=== PATIENT | female | born 1945 | race Caucasian/White ===

== ENCOUNTER 2016-11-11 08:00 | Day surgery (SDC) | payer MEDICARE, BC ==
[2016-11-06 12:03] VITALS: BMI 28.5
[2016-11-11] MEDS ORDERED: LIDOCAINE 1% 20 ML VIAL (10MG/ML) FOR IV START INTRADERMA PRN (08:15)
[2016-11-11] MEDS ORDERED: LACTATED RINGERS 1,000 ML IV SCH (08:15)
[2016-11-11 08:32] LABS: Glucose,Whole Blood 102 mg/dL (75-99)
[2016-11-11 08:33] VITALS: RESP 16; TEMP 98.1
[2016-11-11] MEDS ORDERED: PROPOFOL 10 MG/ML 20 ML VIAL IV ONE (08:37)
--- NOTE | 2016-11-11 08:59 | P.PCN ---
Date of Procedure: 11/11/16 Procedure(s) Performed: Brief history: Patient is a pleasant 71-year-old white female, scheduled for an elective upper endoscopy as well as colonoscopy as a part of evaluation of GERD, midsternal chest pain, chronic diarrhea and abdominal pain for the last 6 months duration. Procedure performed: Esophagogastroduodenoscopy with biopsy Colonoscopy with biopsy Preoperative diagnosis: GERD, chest pain Change in bowel habits and chronic diarrhea Anesthesia: MAC Procedure: After informed consent was obtained from the patient was brought into the endoscopy unit and IV conscious sedation was administered by anesthesia under continuous monitoring. Initially upper endoscopy was done. The Olympus GF 160 video endoscope was inserted inserted into the mouth and esophagus intubated without any difficulty and was gradually advanced into the stomach and duodenum and carefully examined. The bulb and second part of the duodenum appeared normal. Biopsies were done from this area to rule out celiac disease. The scope was then withdrawn into the stomach adequately insufflated with air and upon careful examination the antrum had mild gastritis and biopsies were done from this area. The body, cardia and fundus appeared normal. The scope was then withdrawn into the esophagus. small hiatal hernia noted. The GE junction was located at 35 cm to the incisors. It appeared regular with no erythema erosions or ulcerations. Rest of the esophagus appeared normal. Patient tolerated the procedure well. At this time the patient continued to remain sedation. Initial digital rectal examination was normal. Olympus CF 160 video colonoscope was then inserted into the rectum and gradually advanced to the cecum without any difficulty. Careful examination was performed as the scope was gradually being withdrawn. The prep was excellent. The cecum, ascending colon, transverse colon, descending colon, sigmoid colon and rectum appeared normal. and biopsies were done from ascending and descending colon to rule out microscopic/collagenous colitis. Scattered sigmoid diverticulosis seen. Retroflexion was performed in the rectum and no lesions were noted. Patient tolerated the procedure well. Impression: 1. Upper endoscopy revealed mild antral gastritis and small hiatal hernia. 2. Colonoscopy revealed scattered sigmoid diverticulosis, but, no evidence of colitis or colorectal neoplasia. Recommendations: Findings of this examination were discussed with the patient as well as her family. as well as her family. She was advised to follow with the biopsy results. She was advised to increase the Prilosec to 20 mg twice daily and take half hour before breakfast and dinner and follow antireflux measures. She was advised to follow up in office in 6 weeks.
[2016-11-11 09:25] LABS: Glucose,Whole Blood 96 mg/dL (75-99)
[2016-11-11 09:27] VITALS: BP 121/73; PULSE 58
== END 2016-11-11 09:45 | disposition home or self-care (01) ==
LOC: ORWHC2ENDO 08:00
PROVIDERS: ATTEND Internal Medicine Gastroenterology
DX: K29.50 Unspecified chronic gastritis without bleeding (principal); K21.0 Gastro-esophageal reflux disease with esophagitis; K44.9 Diaphragmatic hernia without obstruction or gangrene; K57.30 Diverticulosis of large intestine without perforation or abscess without bleeding; I10 Essential (primary) hypertension; E07.9 Disorder of thyroid, unspecified; Z86.73 Personal history of transient ischemic attack (TIA), and cerebral infarction without residual deficits; Z79.899 Other long term (current) drug therapy; Z88.5 Allergy status to narcotic agent; Z88.8 Allergy status to other drugs, medicaments and biological substances; Z91.09 Other allergy status, other than to drugs and biological substances
CPT/HCPCS: 88305; 88342; 45380; 43239; J2704; 99153

== ENCOUNTER 2016-12-22 18:55 | Emergency (ER) | payer OTHER, MEDICARE, BC ==
[2016-12-22 19:35] VITALS: TEMP 98.3
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
[2016-12-22] MEDS ORDERED: MORPHINE SULFATE 4 MG/ML SYRINGE IM STA (20:45)
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
[2016-12-22] MEDS ORDERED: CYCLOBENZAPRINE 10MG STARTER 3 TAB BTL PO STA (21:40)
[2016-12-22 22:04] VITALS: BP 167/82; PULSE 73; RESP 16
== END 2016-12-22 22:02 | disposition home or self-care (01) ==
LOC: EC 18:55
DX: S16.1XXA Strain of muscle, fascia and tendon at neck level, initial encounter (principal); V49.49XA Driver injured in collision with other motor vehicles in traffic accident, initial encounter; R07.9 Chest pain, unspecified; R51 Headache; E07.9 Disorder of thyroid, unspecified; M79.7 Fibromyalgia; K21.9 Gastro-esophageal reflux disease without esophagitis; I10 Essential (primary) hypertension; F32.9 Major depressive disorder, single episode, unspecified; Z91.048 Other nonmedicinal substance allergy status; Z79.899 Other long term (current) drug therapy; Z88.6 Allergy status to analgesic agent; Z88.5 Allergy status to narcotic agent; Z88.8 Allergy status to other drugs, medicaments and biological substances
CPT/HCPCS: 71010; 73030; 72125; 70450; 99284; 96372; J2270

== ENCOUNTER → 2017-02-24 | Outpatient (CLI) | payer MEDICARE, BC ==
--- NOTE | 2017-02-24 11:02 | ECHOF ---
Referral Reason:R53.83 fatigue R53.1 weakness MEASUREMENTS -------- HEIGHT: 162.6 cm WEIGHT: 77.1 kg BP: IVSd: 1.2 cm (0.6 - 1.1) LVIDd: 3.6 cm (3.9 - 5.3) LVPWd: 1.3 cm (0.6 - 1.1) IVSs: 1.8 cm LVIDs: 1.4 cm LVPWs: 1.9 cm Ao Diam: 3.1 cm (2.0 - 3.7) AV Cusp: 1.8 cm (1.5 - 2.6) LA Diam: 2.5 cm (2.7 - 3.8) MV EXCURSION: 13.189 mm (> 18.000) MV EF SLOPE: 24 mm/s (70 - 150) EPSS: 0.5 cm MV E Eric: 0.79 m/s MV DecT: 331 ms MV A Eric: 0.77 m/s MV E/A Ratio: 1.03 RAP: 5.00 mmHg RVSP: 18.98 mmHg FINDINGS -------- Sinus rhythm. Very TDS. Pt had resent implant removal surgery. Limited views do to bandages and open wound. There is mild concentric left ventricular hypertrophy. Overall left ventricular systolic function is normal with, an EF between 55 - 60 %. The right ventricle is normal in size and function. The left atrium is normal in size. The right atrium is normal in size. Aortic valve is trileaflet and is mildly thickened. The mitral valve leaflets are mildly thickened. Mild mitral regurgitation is present. Mild tricuspid regurgitation present. The right ventricular systolic pressure, as measured by Doppler, is 18.98mmHg. Pulmonic valve appears structurally normal. The aortic root size is normal. The pericardium is normal. CONCLUSIONS -------- 1. Sinus rhythm. 2. Mild mitral regurgitation is present. 3. Mild tricuspid regurgitation present. 4. The right ventricular systolic pressure, as measured by Doppler, is 18.98mmHg. 5. Pulmonic valve appears structurally normal. 6. The aortic root size is normal. 7. The pericardium is normal. 8. Very TDS. Pt had resent implant removal surgery. Limited views do to bandages and open wound. 9. There is mild concentric left ventricular hypertrophy. 10. Overall left ventricular systolic function is normal with, an EF between 55 - 60 %. 11. The right ventricle is normal in size and function. 12. The left atrium is normal in size. 13. The right atrium is normal in size. 14. Aortic valve is trileaflet and is mildly thickened. 15. The mitral valve leaflets are mildly thickened. DELPHI DEVELOPER: Sania Salinas RDCS
== END | disposition home or self-care (01) ==
LOC: RADECHMAIN 08:25
PROVIDERS: ATTEND Family Medicine
DX: I08.3 Combined rheumatic disorders of mitral, aortic and tricuspid valves (principal)
CPT/HCPCS: 93306

== ENCOUNTER 2017-04-07 16:38 | Inpatient (IN) | payer MEDICARE, BC ==
[2017-04-07] MEDS ORDERED: IPRATROPIUM-ALBUTEROL 3 ML NEB INHALATION STA (17:10)
[2017-04-07] MEDS ORDERED: ACETAMINOPHEN TAB 325 MG TAB PO STA (17:29)
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
[2017-04-07] MEDS: SODIUM CHLORIDE 0.9% 500 ML IV SCH ×2 (17:40→20:16)
[2017-04-07 17:48] LABS: Basophils # (A) 0.1 k/uL (0-0.2); Basophils % (A) 1 %; CH 26.4; CHCM 31.3; Eosinophils # (A) 0.2 k/uL (0-0.7); Eosinophils % (A) 3 %; HCT 39.3 % (34.0-46.0); HDW 2.57; HGB 12.4 gm/dL (11.4-16.0); Hypochromasia Slight; Luc # (Auto) 0.23; Luc % (Auto) 3; Lymphocytes # (A) 2.1 k/uL (1.0-4.8); Lymphocytes % (A) 29 %; MCH 26.6 pg (25.0-35.0); MCHC 31.5 g/dL (31.0-37.0); MCV 84.4 fL (80.0-100.0); Mean Platelet Volume 6.9; Monocytes # (A) 0.4 k/uL (0-1.0); Monocytes % (A) 6 %; Neutrophils # (A) 4.3 k/uL (1.3-7.7); Neutrophils % (A) 59 %; RBC 4.66 m/uL (3.80-5.40); RDW 13.4 % (11.5-15.5); WBC 7.3 k/uL (3.8-10.6); WBC (Perox) 7.48
[2017-04-07 17:56] LABS: Partial Thromboplastin Time 23.4 sec (22.0-30.0); Prothrombin Time 10.1 sec (9.0-12.0)
[2017-04-07 18:07] LABS: ALT 35 U/L (9-52); AST 25 U/L (14-36); Alkaline Phosphatase 109 U/L (38-126); Anion Gap 9 mmol/L; Blood Urea Nitrogen 21 mg/dL (7-17); Calcium 8.1 mg/dL (8.4-10.2); Carbon Dioxide 30 mmol/L (22-30); Chloride 102 mmol/L (98-107); Glucose 141 mg/dL (74-99); Non-African American GFR(MDRD) >60 (>60 ml/min/1.73 sqM); Potassium 3.8 mmol/L (3.5-5.1); Sodium 141 mmol/L (137-145); Total Bilirubin 0.4 mg/dL (0.2-1.3); Total Protein 6.4 g/dL (6.3-8.2)
--- NOTE | 2017-04-07 18:16 | XR ---
EXAMINATION TYPE: XR chest 2V DATE OF EXAM: 04/07/2017 COMPARISON: December 22, 2016 HISTORY: Shortness of breath TECHNIQUE: Frontal and lateral views of the chest are obtained. FINDINGS: Scattered senescent parenchymal changes noted. Hyperinflation compatible with COPD. No evidence for infiltrate. No evidence for atelectasis. Heart size is stable. Mediastinal structures are stable and grossly unremarkable. No evidence for hilar prominence. Degenerative changes dorsal spine. IMPRESSION: 1. No evidence for acute pulmonary disease.
[2017-04-07 18:30] LABS: Troponin I 0.012 ng/mL (0.000-0.034)
[2017-04-07] MEDS ORDERED: ONDANSETRON 4 MG/2 ML VIAL IVP PRN (19:20)
[2017-04-07] MEDS ORDERED: NALOXONE 0.4 MG/ML 1 ML VIAL IV PRN (19:20)
[2017-04-07] MEDS: LEVOFLOXACIN 500MG-D5W PMX 500 MG in DEXTROSE/WATER 1 100ML.BAG IVPB SCH (20:37)
[2017-04-07] MEDS: predniSONE 50 MG TAB PO SCH (20:37)
[2017-04-07 21:17] LABS: Glucose,Whole Blood 155 mg/dL (75-99)
[2017-04-07] MEDS: SODIUM CHLORIDE 0.9% 1,000 ML IV SCH (21:39)
[2017-04-07 21:57] LABS: Appearance,Urine Clear (Clear); Bilirubin,Urine Negative (Negative); Glucose,Urine (UA) Negative (Negative); Ketones,Urine Negative (Negative); Leukocyte Esterase,Urine Negative (Negative); Nitrite,Urine Negative (Negative); PH, Urine 5.5 (5.0-8.0); Protein,Urine Negative (Negative); Specific Gravity,Urine 1.012 (1.001-1.035); UA Billing (MACRO vs. MICRO) CHEM; Urobilinogen,Urine <2.0 mg/dL (<2.0)
[2017-04-08] MEDS: SODIUM CHLORIDE 0.9% 1,000 ML IV SCH ×2 (06:17→17:09)
[2017-04-08 07:49] LABS: Glucose,Whole Blood 137 mg/dL (75-99)
[2017-04-08] MEDS ORDERED: IPRATROPIUM-ALBUTEROL 3 ML NEB INHALATION PRN (09:06)
[2017-04-08] MEDS: predniSONE 50 MG TAB PO SCH (09:09)
[2017-04-08 09:23] LABS: Basophils % (A) 0 %; CH 26.1; CHCM 31.1; Eosinophils % (A) 0 %; HCT 37.6 % (34.0-46.0); HDW 2.69; HGB 12.1 gm/dL (11.4-16.0); Hypochromasia Slight; Luc # (Auto) 0.06; Luc % (Auto) 1; Lymphocytes # (A) 0.6 k/uL (1.0-4.8); Lymphocytes % (A) 8 %; MCHC 32.1 g/dL (31.0-37.0); MCV 84.1 fL (80.0-100.0); Mean Platelet Volume 7.2; Monocytes # (A) 0.1 k/uL (0-1.0); Monocytes % (A) 2 %; Neutrophils # (A) 6.2 k/uL (1.3-7.7); Neutrophils % (A) 89 %; RBC 4.47 m/uL (3.80-5.40); RDW 13.3 % (11.5-15.5); WBC 6.9 k/uL (3.8-10.6); WBC (Perox) 7.74
[2017-04-08 09:35] LABS: ALT 30 U/L (9-52); AST 22 U/L (14-36); Alkaline Phosphatase 92 U/L (38-126); Anion Gap 9 mmol/L; Blood Urea Nitrogen 16 mg/dL (7-17); Calcium 8.2 mg/dL (8.4-10.2); Carbon Dioxide 27 mmol/L (22-30); Chloride 105 mmol/L (98-107); Glucose 133 mg/dL (74-99); Non-African American GFR(MDRD) >60 (>60 ml/min/1.73 sqM); Potassium 4.3 mmol/L (3.5-5.1); Sodium 141 mmol/L (137-145); Total Bilirubin 0.4 mg/dL (0.2-1.3); Total Protein 6.3 g/dL (6.3-8.2)
[2017-04-08] MEDS: IPRATROPIUM-ALBUTEROL 3 ML NEB INHALATION SCH ×3 (10:01→19:49)
[2017-04-08 11:59] LABS: Glucose,Whole Blood 105 mg/dL (75-99)
[2017-04-08] MEDS: PANTOPRAZOLE 40 MG TABLET PO SCH (13:12)
[2017-04-08] MEDS: CYANOCOBALAMIN 500 MCG TAB PO SCH (13:12)
[2017-04-08] MEDS: LEVOTHYROXINE 100 MCG TAB PO SCH (13:12)
[2017-04-08] MEDS: ASCORBIC ACID 500 MG TAB PO SCH (13:12)
[2017-04-08] MEDS: LEVOTHYROXINE 75 MCG TAB PO SCH (13:12)
[2017-04-08] MEDS: DULoxetine HCL 60 MG CAPSULE.DR PO SCH (13:12)
[2017-04-08] MEDS: CHOLECALCIFEROL 1,000 UNIT TAB PO SCH (13:12)
[2017-04-08] MEDS: LOSARTAN 50 MG TAB PO SCH (13:13)
[2017-04-08 16:51] LABS: Glucose,Whole Blood 204 mg/dL (75-99)
[2017-04-08] MEDS: guaiFENesin SYRUP 100MG/5ML 200 MG/10 ML CUP PO PRN (17:08)
[2017-04-08] MEDS: LEVOFLOXACIN 500MG-D5W PMX 500 MG in DEXTROSE/WATER 1 100ML.BAG IVPB SCH (19:56)
[2017-04-08 20:25] LABS: Glucose,Whole Blood 206 mg/dL (75-99)
[2017-04-08 21:08] LABS: Hemoglobin A1C 6.1 % (4.2-6.1)
--- NOTE | 2017-04-08 21:41 | HP ---
A 71-year-old who came in with complaints of cough, shortness of breath and severe wheezing, has been going on for about a week. Patient was having nasal congestion and URI-like symptoms. Patient has multiple family members with such symptoms. Chest x-ray did not show any pneumonic process. Patient never smoked and patient did not have any significant secondhand smoke exposure. Patient denied any family history of Alpha-1 antitrypsin deficiency, although his sister does have COPD, used to be a smoker. Patient was given azithromycin, was sent home without any significant improvement, because of which patient came to the ER. Patient was admitted here. Patient does not have any history of asthma, although patient's son has asthma, never asthmatic as a kid, was never diagnosed with either asthma or COPD. The patient's chest x-ray did not show any pneumonic process. Exam reveals rhonchus breath sounds and severe expiratory wheezing and mild respiratory distress on 2L, although saturations are 96%. Patient denied any fever, chills. Patient has a low-grade fever of 99.5. REVIEW OF SYSTEMS: CONSTITUTIONAL: No fever, no malaise, no fatigue. HEENT: No recent visual problems or hearing problems. Denied any sore throat. CARDIOVASCULAR: No chest pain, orthopnea, PND, no palpitations, no syncope. PULMONARY: As described in HPI. Patient denied any orthopnea, PND. GASTROINTESTINAL: No diarrhea, no nausea, no vomiting, no abdominal pain. Normoactive bowel sounds. NEUROLOGICAL: No headaches, no weakness, no numbness. HEMATOLOGICAL: Denies any bleeding or petechiae. GENITOURINARY: Denies any burning micturition, frequency, or urgency. MUSCULOSKELETAL/RHEUMATOLOGICAL: Denies any joint pain, swelling, or any muscle pain. ENDOCRINE: Denies any polyuria or polydipsia. The rest of the 14 point review of systems is negative. Home medications include: 1. Duloxetine. 2. Levothyroxine. 3. Losartan. 4. Omeprazole. 5. Cholecalciferol. 6. Ascorbic acid. 7. Azithromycin. 8. Codeine. 9. Cyanocobalamin. 10. Prednisone. ALLERGIES: ALLERGIC TO LISINOPRIL, TRAMADOL, ACETAMINOPHEN, HYDROCODONE, SOLU-MEDROL, NAPROXEN AND BAND-AID. PAST MEDICAL HISTORY: Significant for heart murmur with history of rheumatic fever, but no rheumatic heart disease; CVA, TIA, diabetes mellitus, fibromyalgia, gastroesophageal reflux disease, hypertension, mitral valve prolapse, hypothyroidism, glaucoma. SOCIAL HISTORY: Smoking history: As mentioned above, never smoked. FAMILY HISTORY: Mother had kidney cancer and sister had esophageal cancer. Daughter has skin cancer. PHYSICAL EXAMINATION: VITAL SIGNS: Temperature 96.9, pulse of 96, respiratory rate of 20, blood pressure is 148/68, saturating at 96% on 2L of O2 by nasal cannula. GENERAL: The patient is alert and oriented x3, mild respiratory distress. Well developed, well nourished. HEENT: Pupils are round and equally reacting to light. EOMI. No scleral icterus. No conjunctival pallor. Normocephalic, atraumatic. No pharyngeal erythema. No thyromegaly. CARDIOVASCULAR: S1 and S2 present. No murmurs, rubs, or gallops. PULMONARY: Rhonchus breath sounds and expiratory wheezing was appreciated. ABDOMEN: Soft, nontender, nondistended, normoactive bowel sounds. No palpable organomegaly. MUSCULOSKELETAL: No joint swelling or deformity. EXTREMITIES: No cyanosis, clubbing, or pedal edema. NEUROLOGICAL: Gross neurological examination did not reveal any focal deficits. SKIN: No rashes. LABORATORY DATA: CBC, CMP: No significant abnormality. Chest x-ray showed emphysematous changes. ASSESSMENT AND PLAN: 1. Acute hypercapnic respiratory failure secondary to possible chronic obstructive pulmonary disease exacerbation, although patient was never a smoker. Will obtain Alpha-1 antitrypsin levels, systemic steroids, inhalational treatments. I will set up a followup with Pulmonology as an outpatient for pulmonary function testing. 2. Severe tracheobronchitis. Patient failed outpatient therapy with azithromycin, because of which patient is on levofloxacin here, which will be continued. 3. Hypothyroidism. 4. Hypertension. 5. Cerebrovascular accident in the past. 6. Gastroesophageal reflux disease. 7. Depression. 8. For above-mentioned chronic medical problems, I will go ahead and continue her home medications.
[2017-04-08] MEDS: INSULIN LISPRO (humaLOG) 300 UNIT/3 ML VIAL SQ SCH (21:54)
[2017-04-08] MEDS: ACETAMINOPHEN TAB 325 MG TAB PO PRN (21:57)
[2017-04-09] MEDS: SODIUM CHLORIDE 0.9% 1,000 ML IV SCH ×2 (03:22→12:07)
[2017-04-09] MEDS: guaiFENesin SYRUP 100MG/5ML 200 MG/10 ML CUP PO PRN (06:05)
[2017-04-09] MEDS: LEVOTHYROXINE 100 MCG TAB PO SCH (06:42)
[2017-04-09] MEDS: LEVOTHYROXINE 75 MCG TAB PO SCH (06:42)
[2017-04-09 07:18] LABS: Glucose,Whole Blood 95 mg/dL (75-99)
[2017-04-09] MEDS: INSULIN LISPRO (humaLOG) 300 UNIT/3 ML VIAL SQ SCH ×4 (07:53→21:19)
[2017-04-09] MEDS: IPRATROPIUM-ALBUTEROL 3 ML NEB INHALATION SCH ×4 (07:56→20:19)
[2017-04-09] MEDS: DULoxetine HCL 60 MG CAPSULE.DR PO SCH (07:59)
[2017-04-09] MEDS: predniSONE 50 MG TAB PO SCH (07:59)
[2017-04-09] MEDS: PANTOPRAZOLE 40 MG TABLET PO SCH (07:59)
[2017-04-09] MEDS: LOSARTAN 50 MG TAB PO SCH (07:59)
[2017-04-09] MEDS: CHOLECALCIFEROL 1,000 UNIT TAB PO SCH (12:06)
[2017-04-09] MEDS: CYANOCOBALAMIN 500 MCG TAB PO SCH (12:06)
[2017-04-09] MEDS: ASCORBIC ACID 500 MG TAB PO SCH (12:06)
[2017-04-09 12:14] LABS: Glucose,Whole Blood 124 mg/dL (75-99)
[2017-04-09] MEDS: ACETAMINOPHEN TAB 325 MG TAB PO PRN (17:08)
[2017-04-09 17:44] LABS: Glucose,Whole Blood 197 mg/dL (75-99)
--- NOTE | 2017-04-09 19:38 | PN ---
Patient has a little bit of improvement in her symptoms. Patient remains short of breath and does have significant wheezing. REVIEW OF SYSTEMS: CARDIOVASCULAR: No chest pain, no orthopnea, no PND, no palpitations. PULMONARY: Denied any shortness of breath. No cough or hemoptysis. GASTROINTESTINAL: No diarrhea, nausea or vomiting. No abdominal pain. Normoactive bowel sounds. NEUROLOGIC: No headaches, no weakness, no numbness. Medications were reviewed. PHYSICAL EXAMINATION: VITAL SIGNS: Temperature 98.5, pulse of 88, respiratory rate 20. Blood pressure is 161/72. Saturating at 96% on 2 L of oxygen by nasal cannula. GENERAL: The patient is alert and oriented x3, not in any acute distress. Well developed, well nourished. HEENT: Pupils are round and equally reacting to light. EOMI. No scleral icterus. No conjunctival pallor. Normocephalic, atraumatic. No pharyngeal erythema. No thyromegaly. CARDIOVASCULAR: S1 and S2 present. No murmurs, rubs, or gallops. PULMONARY: Rhonchorous breath sounds bilaterally. Minimal expiratory wheezing. I believe wheezing has improved and air entry is improved at this point of time. ABDOMEN: Soft, nontender, nondistended, normoactive bowel sounds. No palpable organomegaly. MUSCULOSKELETAL: No joint swelling or deformity. EXTREMITIES: No cyanosis, clubbing, or pedal edema. NEUROLOGICAL: Gross neurological examination did not reveal any focal deficits. SKIN: No rashes. LABORATORY DATA: CBC, CMP show no significant abnormality. Does not appear to have any alpha-1 antitrypsin deficiency. ASSESSMENT AND PLAN: 1. Acute hypercapnic respiratory failure secondary to chronic obstructive pulmonary disease exacerbation, improving. Patient probably will be discharged tomorrow. 2. Severe tracheobronchitis, for which levofloxacin will be continued. 3. Hypothyroidism. 4. Hypertension. 5. Cerebrovascular accident. 6. Gastroesophageal reflux disease. 7. Depression.
[2017-04-09] MEDS: LEVOFLOXACIN 500MG-D5W PMX 500 MG in DEXTROSE/WATER 1 100ML.BAG IVPB SCH (21:11)
[2017-04-09 21:17] LABS: Glucose,Whole Blood 155 mg/dL (75-99)
[2017-04-09] MEDS: MELATONIN 3 MG TABLET PO SCH (21:18)
[2017-04-10] MEDS: SODIUM CHLORIDE 0.9% 1,000 ML IV SCH ×3 (01:53→17:49)
[2017-04-10 07:23] LABS: Glucose,Whole Blood 79 mg/dL (75-99)
[2017-04-10] MEDS: LEVOTHYROXINE 75 MCG TAB PO SCH (07:31)
[2017-04-10] MEDS: LEVOTHYROXINE 100 MCG TAB PO SCH (07:32)
[2017-04-10] MEDS: INSULIN LISPRO (humaLOG) 300 UNIT/3 ML VIAL SQ SCH ×4 (07:56→21:24)
[2017-04-10] MEDS: PANTOPRAZOLE 40 MG TABLET PO SCH (07:56)
[2017-04-10] MEDS: DULoxetine HCL 60 MG CAPSULE.DR PO SCH (07:56)
[2017-04-10] MEDS: LOSARTAN 50 MG TAB PO SCH (07:56)
[2017-04-10] MEDS: predniSONE 50 MG TAB PO SCH (07:56)
[2017-04-10 08:21] LABS: CH 26.3; CHCM 31.3; HDW 2.62; HGB 10.4 gm/dL (11.4-16.0); Hypochromasia Slight; MCH 26.7 pg (25.0-35.0); MCHC 31.6 g/dL (31.0-37.0); MCV 84.4 fL (80.0-100.0); Mean Platelet Volume 6.9; RBC 3.91 m/uL (3.80-5.40); RDW 13.5 % (11.5-15.5); WBC 7.7 k/uL (3.8-10.6)
[2017-04-10 08:31] LABS: Anion Gap 5 mmol/L; Blood Urea Nitrogen 19 mg/dL (7-17); Calcium 8.3 mg/dL (8.4-10.2); Carbon Dioxide 29 mmol/L (22-30); Chloride 108 mmol/L (98-107); Glucose 82 mg/dL (74-99); Non-African American GFR(MDRD) >60 (>60 ml/min/1.73 sqM); Sodium 142 mmol/L (137-145)
[2017-04-10] MEDS: IPRATROPIUM-ALBUTEROL 3 ML NEB INHALATION SCH ×4 (08:51→19:21)
--- NOTE | 2017-04-10 11:10 | CONS ---
DATE OF CONSULTATION: A 71-year-old female who presented to the emergency department with complaints of cough and shortness of breath. She states that her apparently had an upper respiratory complaint or symptom for a number of weeks. She states that she started developing nasal congestion and cold symptoms about a week prior to admission. She was admitted on April 07, 2017. I am just consulted today. She apparently went to urgent care, they did blood work and a chest x-ray and told her that she has chronic changes and offered her some antibiotics. She decided to take antibiotics. Despite that, she was not improved and that is why she presented to the emergency room. I believe they sent her home with azithromycin. After starting that, she was feeling worse. Much more short of breath. Note, she had chest tightness, wheezing, and cough, coughing up a small amount of phlegm. She did not get a look at it. Not coughing up any blood. No fever, no chills. No nausea, vomiting, or diarrhea. She denies a prior history of any lung disease and has been a lifelong nonsmoker. Her home medications include Cymbalta, levothyroxine, Cozaar, vitamin D3, vitamin C, the Z-Mikhail given to her by the family care doctor, B12 tablets, and prednisone. She apparently had been placed on a taper. She was also given some Cheratussin. Allergies include LISINOPRIL, TRAMADOL, TYLENOL, ADHESIVE TAPE, NORCO, MEDROL, NAPROXEN and BAND-AIDS. Medical history includes breast cancer with bilateral mastectomy, angina or acute coronary syndrome, CVA, diabetes, fibromyalgia, GERD, hypertension, mitral valve prolapse and hypothyroidism. She also has a history of rheumatic fever, irritable bowel syndrome and thyroid cancer. Surgical history includes back surgery, breast surgery, orthopedic procedures, hysterectomy, cholecystectomy, thyroidectomy, right and left mastectomies, bilateral breast reconstruction, cervical fusion x2, right shoulder arthroscopy, bilateral cataract surgery. Social history is significant for a lifelong nonsmoking. She denies any significant alcohol. No illicit drug use. Family history is very significantly positive for various cancers and malignancies. REVIEW OF SYSTEMS: CONSTITUTIONAL: Negative. NEUROLOGICAL: Negative. HEENT: Negative. CARDIOVASCULAR: Negative. PULMONARY: Wheezing, shortness of breath, chest tightness, cough, chest congestion, shortness of breath. GI/: Negative. RHEUMATOLOGICAL/IMMUNOLOGIC: Negative. DERMATOLOGIC: Negative. Current vital signs include a temperature of 97, heart rate 76, respiratory rate 18, blood pressure 143/69, room air saturation 98% , on 2 L saturation 99%. Appears in no acute distress. No audible wheezing. HEENT examination is grossly unremarkable. Mucous membranes are moist. No oral lesions. Neck is supple. Full range of motion. No adenopathy or thyromegaly. Neck veins are flat. Cardiovascular examination reveals a regular rhythm and rate. S1, S2 normal. No murmur. Heart sounds are distant. Lungs reveal diffuse inspiratory and expiratory wheezes and rhonchi. Breath sounds are diminished. There is prolongation. Abdomen is soft. Bowel sounds are heard. No masses or tenderness. Extremities are intact. There is no cyanosis, clubbing, or edema. Skin is without rash. Neurologic examination is brief but nonfocal. Laboratory data is reviewed. White count 7.7, hemoglobin 10.4, hematocrit 33.0, platelet count is normal. Sodium, potassium normal. Chloride is 108, CO2 of 29, BUN and creatinine were 19 and 0.67. Urine is negative. The rest of her labs look okay. She had a chest x-ray on April 07 which is her day of admission which showed no acute cardiopulmonary disease. Medications are reviewed. From the pulmonary standpoint she is on tram Patterson with DuoNeb q.i.d. and p.r.n., Levaquin as an antibiotic and prednisone 50 mg a day. ASSESSMENT: 1. Shortness of breath, secondary to a respiratory illness, either respiratory virus or bacteria causing a bronchial inflammation and reactive bronchospasm. No history of chronic lung disease. 2. History of bilateral mastectomy for breast cancer. 3. Thyroidectomy for thyroid cancer. 4. History of cerebrovascular accident. 5. History of diabetes mellitus. 6. Fibromyalgia. 7. Gastroesophageal reflux disease. 8. Hypertension. 9. Mitral valve prolapse. 10. Arthritis. 11. Irritable bowel syndrome. 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 PLAN: I am going to DC the prednisone orally. Will go ahead and put her on some IV Solu-Medrol. Will also put her on Pulmicort and Brovana. Additional recommendations and suggestions are forthcoming. Prognosis is guarded.
[2017-04-10 12:20] LABS: Glucose,Whole Blood 125 mg/dL (75-99)
[2017-04-10] MEDS: CHOLECALCIFEROL 1,000 UNIT TAB PO SCH (12:32)
[2017-04-10] MEDS: ASCORBIC ACID 500 MG TAB PO SCH (12:32)
[2017-04-10] MEDS: methylPREDNISolone SOD SUCCI 125 MG/2 ML VIAL IV SCH ×2 (12:32→17:47)
[2017-04-10] MEDS: CYANOCOBALAMIN 500 MCG TAB PO SCH (12:32)
[2017-04-10] MEDS: ACETAMINOPHEN TAB 325 MG TAB PO PRN (14:16)
--- NOTE | 2017-04-10 15:01 | PN ---
No significant improvement in her respiratory symptoms since yesterday and patient was evaluated by Pulmonology who is changing her oral steroids to IV steroids. REVIEW OF SYSTEMS: CARDIOVASCULAR: No chest pain, no orthopnea, no PND, no palpitations. PULMONARY: Continued symptoms of shortness of breath without any significant improvement. GASTROINTESTINAL: No diarrhea, nausea or vomiting. No abdominal pain. Normoactive bowel sounds. NEUROLOGIC: No headaches, no weakness, no numbness. Medications were reviewed. PHYSICAL EXAMINATION: Temperature 97.0, pulse of 76, respiratory rate of 18, blood pressure 143/69, saturating at 98% on 2 L of O2 by nasal cannula. RESPIRATORY: Rhonchus breath sounds bilaterally, significant expiratory wheezing, decreased air entry into bilateral lung mckeon. GENERAL: The patient is alert and oriented x3, not in any acute distress. Well developed, well nourished. HEENT: Pupils are round and equally reacting to light. EOMI. No scleral icterus. No conjunctival pallor. Normocephalic, atraumatic. No pharyngeal erythema. No thyromegaly. CARDIOVASCULAR: S1 and S2 present. No murmurs, rubs, or gallops. ABDOMEN: Soft, nontender, nondistended, normoactive bowel sounds. No palpable organomegaly. MUSCULOSKELETAL: No joint swelling or deformity. EXTREMITIES: No cyanosis, clubbing, or pedal edema. NEUROLOGICAL: Gross neurological examination did not reveal any focal deficits. SKIN: No rashes. LABORATORY DATA: CMP and BNP no significant abnormality. Hemoglobin is 10.4, hemodilute effect without any acute GI bleed. ASSESSMENT AND PLAN: 1. Acute hypercapnic respiratory failure secondary to chronic obstructive pulmonary disease exacerbation and continue with systemic steroids, inhalational treatments. 2. Severe tracheobronchitis for which patient on levofloxacin which will be continued. 3. Hypothyroidism. 4. Hypertension. 5. Cerebrovascular accident. 6. Gastroesophageal reflux disease. 7. Depression for above-mentioned chronic medical problems. Will go ahead and continue her home medications.
[2017-04-10 17:41] LABS: Glucose,Whole Blood 202 mg/dL (75-99)
[2017-04-10] MEDS: BUDESONIDE 1 MG/2 ML NEBU INHALATION SCH (19:19)
[2017-04-10] MEDS: FORMOTEROL FUMARATE 20 MCG/2 ML NEBU INHALATION SCH (19:19)
[2017-04-10 20:12] LABS: Glucose,Whole Blood 176 mg/dL (75-99)
[2017-04-10] MEDS: LEVOFLOXACIN 500MG-D5W PMX 500 MG in DEXTROSE/WATER 1 100ML.BAG IVPB SCH (21:06)
[2017-04-10] MEDS: MELATONIN 3 MG TABLET PO SCH (21:27)
[2017-04-10] MEDS: ZOLPIDEM 5 MG TAB PO PRN (21:27)
[2017-04-11] MEDS: methylPREDNISolone SOD SUCCI 125 MG/2 ML VIAL IV SCH ×4 (01:34→17:01)
[2017-04-11] MEDS: SODIUM CHLORIDE 0.9% 1,000 ML IV SCH ×2 (05:09→16:56)
[2017-04-11 07:28] LABS: Glucose,Whole Blood 140 mg/dL (75-99)
[2017-04-11] MEDS: DULoxetine HCL 60 MG CAPSULE.DR PO SCH (07:48)
[2017-04-11] MEDS: PANTOPRAZOLE 40 MG TABLET PO SCH (07:48)
[2017-04-11] MEDS: INSULIN LISPRO (humaLOG) 300 UNIT/3 ML VIAL SQ SCH ×4 (07:49→21:17)
[2017-04-11] MEDS: LOSARTAN 50 MG TAB PO SCH (07:49)
[2017-04-11] MEDS: IPRATROPIUM-ALBUTEROL 3 ML NEB INHALATION SCH ×4 (07:59→19:29)
[2017-04-11] MEDS: BUDESONIDE 1 MG/2 ML NEBU INHALATION SCH ×2 (07:59→19:29)
[2017-04-11] MEDS: FORMOTEROL FUMARATE 20 MCG/2 ML NEBU INHALATION SCH ×2 (07:59→19:29)
[2017-04-11] MEDS: CYANOCOBALAMIN 500 MCG TAB PO SCH (11:59)
[2017-04-11] MEDS: ASCORBIC ACID 500 MG TAB PO SCH (11:59)
[2017-04-11] MEDS: CHOLECALCIFEROL 1,000 UNIT TAB PO SCH (11:59)
[2017-04-11] MEDS: ACETAMINOPHEN TAB 325 MG TAB PO PRN ×2 (12:06→20:04)
[2017-04-11 12:16] LABS: Glucose,Whole Blood 135 mg/dL (75-99)
[2017-04-11 17:10] LABS: Glucose,Whole Blood 149 mg/dL (75-99)
[2017-04-11] MEDS: LEVOFLOXACIN 500MG-D5W PMX 500 MG in DEXTROSE/WATER 1 100ML.BAG IVPB SCH (20:03)
--- NOTE | 2017-04-11 20:22 | PN ---
This is a 71-year-old female with a history of shortness of breath. A respiratory illness characterized by bronchial inflammation reactive bronchospasm. She is actually doing a bit better today. In addition she has a history of bilateral mastectomy for breast cancer, thyroidectomy for thyroid cancer, history of cerebrovascular accident, diabetes, fibromyalgia, gastroesophageal reflux disease, hypertension, mitral valve prolapse, arthritis, irritable bowel syndrome and granuloma annulari. The patient medications were adjusted yesterday. We put her back on IV Solu-Medrol. She seemed to be better today. Less short of breath and less chest congestion, less coughing. Her temperature is 97.1, heart rate 73, respiratory rate 20. Blood pressure 150/67. Mean 94. Room air saturation 97%. Appears in no acute distress. HEENT examination is grossly unremarkable. Mucous membranes are moist. No oral lesions. Neck is supple. Full range of motion. No adenopathy or thyromegaly. Cardiovascular examination reveals regular rhythm and rate. S1, S2 normal. No S3, S4 or murmur. Lungs reveal inspiratory and expiratory wheezes and rhonchi. Breath sounds are diminished. There is prolongation on forced maneuver. She wheezes and coughs on forced maneuver. Breath sounds are better today than yesterday. ABDOMEN: Soft. Bowel sounds are heard. No masses or tenderness. EXTREMITIES: Intact. No cyanosis, clubbing, or edema. Skin is without rash. NEUROLOGICAL: Examination is nonfocal. Labs are reviewed. No new labs for today. X-rays are reviewed. Medications were adjusted yesterday. ASSESSMENT: 1. Shortness of breath, secondary to either a viral bacterial bronchitis with reactive bronchospasm and bronchial inflammation. 2. History of bilateral mastectomy for breast cancer. 3. Thyroidectomy for thyroid cancer. 4. History of cerebrovascular accident. 5. History of diabetes mellitus. 6. Fibromyalgia. 7. Gastroesophageal reflux disease. 8. Hypertension. 9. Mitral valve prolapse. 10. Arthritis. 11. Irritable bowel syndrome . 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 PLAN: The patient is doing much better today. Probably will need to be in the hospital for another day or 2. Continue IV Solu-Medrol and breathing treatments. Will continue to follow closely. Prognosis is guarded.
[2017-04-11 20:32] LABS: Glucose,Whole Blood 271 mg/dL (75-99)
[2017-04-11] MEDS: ZOLPIDEM 5 MG TAB PO PRN (21:16)
[2017-04-11] MEDS: MELATONIN 3 MG TABLET PO SCH (21:16)
--- NOTE | 2017-04-11 21:41 | PN ---
Patient is still a bit bronchospastic but significantly improved compared to yesterday. REVIEW OF SYSTEMS: CARDIOVASCULAR: No chest pain, no orthopnea, no PND, no palpitations. PULMONARY: Improved. Shortness of breath, but still a bit short of breath. GASTROINTESTINAL: No diarrhea, nausea or vomiting. No abdominal pain. Normoactive bowel sounds. NEUROLOGIC: No headaches, no weakness, no numbness. Medications were reviewed. PHYSICAL EXAMINATION: Temperature 97.1, pulse of 73, respiratory rate 20, blood pressure 150/67, saturating at 95% on 2 L O2 by nasal cannula. GENERAL: The patient is alert and oriented x3, not in any acute distress. Well developed, well nourished. HEENT: Pupils are round and equally reacting to light. EOMI. No scleral icterus. No conjunctival pallor. Normocephalic, atraumatic. No pharyngeal erythema. No thyromegaly. CARDIOVASCULAR: S1 and S2 present. No murmurs, rubs, or gallops. PULMONARY: significantly improved wheezing and very minimally wheezing appreciated. Good air entry into bilateral lung mckeon. No crackles were appreciated. ABDOMEN: Soft, nontender, nondistended, normoactive bowel sounds. No palpable organomegaly. MUSCULOSKELETAL: No joint swelling or deformity. EXTREMITIES: No cyanosis, clubbing, or pedal edema. NEUROLOGICAL: Gross neurological examination did not reveal any focal deficits. SKIN: No rashes. LABORATORY DATA: CBC, CMP, basic metabolic profile within no significant abnormality was appreciated. ASSESSMENT AND PLAN: 1. Acute hypercapnic respiratory failure secondary to chronic obstructive pulmonary disease exacerbation. Continue with systemic steroids, inhalational treatments possibility of discharge tomorrow. 2. Severe tracheobronchitis for which patient is on levofloxacin which will be continued. 3. Hypothyroidism. 4. Hypertension. 5. Cerebrovascular accident. 6. Gastroesophageal reflux disease. For above-mentioned chronic medical problems, I will go ahead and continue her home medications. Possibility of discharge tomorrow.
[2017-04-12] MEDS: methylPREDNISolone SOD SUCCI 125 MG/2 ML VIAL IV SCH ×3 (00:13→11:30)
[2017-04-12 01:04] VITALS: RESP 18
[2017-04-12 02:54] LABS: Glucose,Whole Blood 134 mg/dL (75-99)
[2017-04-12] MEDS: LEVOTHYROXINE 100 MCG TAB PO SCH (06:01)
[2017-04-12] MEDS: LEVOTHYROXINE 75 MCG TAB PO SCH (06:01)
[2017-04-12 07:24] LABS: Glucose,Whole Blood 160 mg/dL (75-99)
[2017-04-12 07:45] VITALS: BP 140/73; TEMP 97.8
[2017-04-12] MEDS: DULoxetine HCL 60 MG CAPSULE.DR PO SCH (08:06)
[2017-04-12] MEDS: PANTOPRAZOLE 40 MG TABLET PO SCH (08:06)
[2017-04-12] MEDS: LOSARTAN 50 MG TAB PO SCH (08:06)
[2017-04-12] MEDS: INSULIN LISPRO (humaLOG) 300 UNIT/3 ML VIAL SQ SCH ×2 (08:07→12:35)
[2017-04-12] MEDS: IPRATROPIUM-ALBUTEROL 3 ML NEB INHALATION SCH ×2 (08:11→11:36)
[2017-04-12] MEDS: BUDESONIDE 1 MG/2 ML NEBU INHALATION SCH (08:12)
[2017-04-12] MEDS: FORMOTEROL FUMARATE 20 MCG/2 ML NEBU INHALATION SCH (08:12)
[2017-04-12] MEDS: ASCORBIC ACID 500 MG TAB PO SCH (11:29)
[2017-04-12] MEDS: CYANOCOBALAMIN 500 MCG TAB PO SCH (11:29)
[2017-04-12] MEDS: CHOLECALCIFEROL 1,000 UNIT TAB PO SCH (11:29)
[2017-04-12 11:37] VITALS: PULSE 92
[2017-04-12 12:06] LABS: Glucose,Whole Blood 129 mg/dL (75-99)
[2017-04-12] MEDS: ACETAMINOPHEN TAB 325 MG TAB PO PRN (12:40)
--- NOTE | 2017-04-13 09:09 | DS ---
DATE OF ADMISSION: 04/09/2017 DATE OF DISCHARGE: 04/12/2017 Patient is admitted for acute hypercapnic respiratory failure mostly secondary to chronic obstructive pulmonary disease or even asthma exacerbation. Patient will need outpatient pulmonary function testing. Patient will follow with Dr. Maddox for that. Patient is clinically doing well at this point of time. The patient is still wheezing a little bit, which is expected to improve. Patient will be discharged today on weaning dose of steroids. We are trying to get a prescription of inhalational steroids which she is not covered for at this point of time. The patient will be discharged on ipratropium and albuterol as Spiriva is not covered. Patient was seen and examined on the day of discharge. Vital signs are stable. PHYSICAL EXAMINATION: GENERAL: The patient is alert and oriented x3, not in any acute distress. Well developed, well nourished. HEENT: Pupils are round and equally reacting to light. EOMI. No scleral icterus. No conjunctival pallor. Normocephalic, atraumatic. No pharyngeal erythema. No thyromegaly. CARDIOVASCULAR: S1 and S2 present. No murmurs, rubs, or gallops. PULMONARY: Minimal expiratory wheezing appreciated on exam, although significant improvement compared to a couple of days ago. ABDOMEN: Soft, nontender, nondistended, normoactive bowel sounds. No palpable organomegaly. MUSCULOSKELETAL: No joint swelling or deformity. EXTREMITIES: No cyanosis, clubbing, or pedal edema. NEUROLOGICAL: Gross neurological examination did not reveal any focal deficits. SKIN: No rashes. ASSESSMENT AND PLAN: 1. Acute hypercapnic respiratory failure, most probably secondary to chronic obstructive pulmonary disease exacerbation, although asthma exacerbation cannot be ruled out. Patient will need pulmonary function testing as mentioned 2. Hypothyroidism. 3. Hypertension. 4. Cerebrovascular accident. 5. Gastroesophageal reflux disease. Please refer to my depart summary for details of discharge medications. Activity as tolerated. Cardiac diet. Follow up with Dr. Maddox on April 21, 9 a.m., and with Dr. Rene Gan on April 14 at 3:15 p.m. I spent greater than spent greater than 35 minutes in total discharge process.
== END 2017-04-12 13:34 | disposition home or self-care (01) | DRG 190 ==
LOC: EC 16:38 → 4MS4W 19:21 → OBSVTOIN 04-09 09:01
PROVIDERS: ADMIT Hospitalist; ATTEND Hospitalist
DX: J44.1 Chronic obstructive pulmonary disease with (acute) exacerbation (principal); J96.02 Acute respiratory failure with hypercapnia; J45.901 Unspecified asthma with (acute) exacerbation; K21.9 Gastro-esophageal reflux disease without esophagitis; K44.9 Diaphragmatic hernia without obstruction or gangrene; K58.9 Irritable bowel syndrome, unspecified; I10 Essential (primary) hypertension; R07.89 Other chest pain; M79.7 Fibromyalgia; E89.0 Postprocedural hypothyroidism; Z86.73 Personal history of transient ischemic attack (TIA), and cerebral infarction without residual deficits; Z77.120 Contact with and (suspected) exposure to mold (toxic); D64.9 Anemia, unspecified; M06.9 Rheumatoid arthritis, unspecified; L92.0 Granuloma annulare; M19.90 Unspecified osteoarthritis, unspecified site; I34.1 Nonrheumatic mitral (valve) prolapse; F32.9 Major depressive disorder, single episode, unspecified; H40.9 Unspecified glaucoma; Z86.39 Personal history of other endocrine, nutritional and metabolic disease; Z86.19 Personal history of other infectious and parasitic diseases; Z88.6 Allergy status to analgesic agent; Z88.5 Allergy status to narcotic agent; Z88.8 Allergy status to other drugs, medicaments and biological substances; Z91.048 Other nonmedicinal substance allergy status; Z79.891 Long term (current) use of opiate analgesic; Z79.52 Long term (current) use of systemic steroids; Z98.42 Cataract extraction status, left eye; Z98.41 Cataract extraction status, right eye; Z80.0 Family history of malignant neoplasm of digestive organs; Z82.5 Family history of asthma and other chronic lower respiratory diseases; Z80.51 Family history of malignant neoplasm of kidney; Z79.899 Other long term (current) drug therapy; Z85.3 Personal history of malignant neoplasm of breast; Z85.850 Personal history of malignant neoplasm of thyroid; Z90.13 Acquired absence of bilateral breasts and nipples; Z90.49 Acquired absence of other specified parts of digestive tract; Z90.710 Acquired absence of both cervix and uterus; Z98.1 Arthrodesis status; Z86.79 Personal history of other diseases of the circulatory system; Z63.79 Other stressful life events affecting family and household; Z80.8 Family history of malignant neoplasm of other organs or systems
CPT/HCPCS: 36415; 71020; 80048; 80053; 81003; 82103; 82104; 82550; 82553; 83036; 83605; 84484; 85025; 85027; 85610; 85730; 87040; 87086; 87502; 93005; 94640; 94760; 96360; 96361; 96365; 96366; 99285

== ENCOUNTER 2017-10-04 14:52 | Emergency (ER) | payer MEDICARE, BC ==
--- NOTE | 2017-10-04 16:42 | XR ---
EXAMINATION TYPE: XR chest 2V DATE OF EXAM: 10/04/2017 COMPARISON: NONE INDICATION: Cough TECHNIQUE: Frontal and lateral views of the chest are obtained. FINDINGS: The heart size is normal. The pulmonary vasculature is normal. The lungs are clear. IMPRESSION: 1. No acute pulmonary process.
--- NOTE | 2017-10-04 17:01 | ED ---
General Adult HPI - General Chief complaint: Upper Respiratory Infection Stated complaint: breathing problems Time Seen by Provider: 10/04/17 15:35 Source: patient, RN notes reviewed Mode of arrival: ambulatory Limitations: no limitations - History of Present Illness Initial comments: This is a 72-year-old female who presents to the emergency department with chief complaint of cough. Patient states she has a history of COPD and asthma. She states that she has had a nonproductive cough for the past one week. She denies fevers. She states that she has experienced a pain in her right lungmade worse with deep breathing and coughing. She states that the pain is similar to the pain that she experienced in the past when she was diagnosed with COPD. Patient called her PCP this morning to request a sample for an inhaler since she ran out. They advised her to present to the emergency department for evaluation. Patient states she uses Singulair daily and a "puffer." Denies fever, chills, chest pain, shortness of breath, abdominal pain , nausea or vomiting, constipation or diarrhea, dysuria or hematuria, numbness or tingling, headache or vision changes. - Related Data Home Medications Medication Instructions Recorded Confirmed DULoxetine HCL [Cymbalta] 60 mg PO DAILY 05/03/14 04/07/17 Levothyroxine Sodium 175 mcg PO [id number] 05/03/14 04/07/17 Losartan [Cozaar] 50 mg PO DAILY 05/03/14 04/07/17 Omeprazole 40 mg PO AC-BRKFST 05/03/14 04/07/17 Cholecalciferol [Vitamin D3] 1,000 unit PO DAILY 03/24/16 04/07/17 Ascorbic Acid [Vitamin C] 1,000 mg PO DAILY 04/07/17 04/07/17 Azithromycin [Zithromax Z-pack] See Taper PO DAILY 04/07/17 04/07/17 Codeine Phosphate/Guaifenesin 5 ml PO Q4HR PRN 04/07/17 04/07/17 [Cheratussin AC Syrup] Cyanocobalamin (Vitamin B-12) 1,000 mcg PO DAILY 04/07/17 04/07/17 [Vitamin B-12] Previous Rx's Medication Instructions Recorded Albuterol Inhaler [Ventolin Hfa 1 - 2 puff INHALATION Q6HR PRN #1 04/12/17 Inhaler] inhaler Budesonide-Formot 160-4.5 Mcg 2 puff INHALATION BID #1 inhaler 04/12/17 [Symbicort 160-4.5 Mcg Inhaler] Ipratropium Griffin [Atrovent Hfa] 2 puff INHALATION QID #1 inhaler 04/12/17 Levofloxacin [Levaquin] 500 mg PO DAILY #5 tab 04/12/17 predniSONE 10 mg PO DAILY #30 tab 04/12/17 Allergies Allergy/AdvReac Type Severity Reaction Status Date / Time lisinopril Allergy Severe Cough Verified 10/04/17 15:01 tramadol Allergy Severe severe Verified 10/04/17 15:01 fatigue, elevated BP acetaminophen [From Roca] Allergy REDNESS Verified 10/04/17 15:01 adhesive tape Allergy PULLS SKIN Verified 10/04/17 15:01 OFF hydrocodone bitartrate Allergy Hallucinati Verified 10/04/17 15:01 [From Roca] ons methylprednisolone Allergy red puffy Verified 10/04/17 15:01 [From Medrol] face naproxen sodium [From Aleve] Allergy lowers BP Verified 10/04/17 15:01 bandaid Allergy pulls skin Uncoded 10/04/17 15:01 off Review of Systems ROS Statement: Those systems with pertinent positive or pertinent negative responses have been documented in the HPI. ROS Other: All systems not noted in ROS Statement are negative. 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 exposure to mold caused wheezing-moved and now improved. current wound rt breast , anemia History of Any Multi-Drug Resistant Organisms: None Reported Past Surgical History: Back Surgery, Breast Surgery, Cholecystectomy, Hysterectomy, Orthopedic Surgery Additional Past Surgical History / Comment(s): thyroidectomy, rt radical mastectomy,left mastectomy,constance breast reconstruction, cervical fusion x 2, titanium rods-lumber, rt shoulder arthroscopy, constance cataracts, reconstructive breat surg Past Anesthesia/Blood Transfusion Reactions: Postoperative Nausea & Vomiting ( PONV) Past Psychological History: No Psychological Hx Reported, Depression Smoking Status: Never smoker Past Alcohol Use History: Rare Past Drug Use History: None Reported - Past Family History Mother Family Medical History: Cancer Additional Family Medical History / Comment(s): kidney Sister(s) Family Medical History: Cancer Additional Family Medical History / Comment(s): esophageal Brother(s) Family Medical History: Cancer Daughter(s) Family Medical History: Cancer Additional Family Medical History / Comment(s): skin General Exam - General Exam Comments Initial Comments: General: Awake and alert, well-developed; in no apparent distress. HEENT: Head atraumatic, normocephalic. Pupils are equal, round and reactive to light. Extraocular movements intact. Oropharynx moist without erythema or exudate. Neck: Supple. Normal ROM. Tender anterior cervical lymphadenopathy. Cardiovascular: Regular rate and rhythm. No murmurs, rubs or gallops. Chest symmetrical. Respiratory: Normal respiratory effort with no use of accessory muscles. Mild expiratory wheezing noted in the right lung. No rales or rhonchi. Abdomen: Soft, non-tender, non-distended. No rigidity, rebound or guarding. Normal bowel sounds in all 4 quadrants. Musculoskeletal: Normal ROM, no tenderness bilateral upper and lower extremities. Pulses are 2+ equal and palpable bilaterally. Skin: [place], warm and dry without rashes or lesions. Neurological: Alert and oriented x3. CN II-XII grossly intact. Speech is fluent and answers are appropriate. No focal neuro deficits. Psychiatric: Normal mood and affect. No overt signs of depression or anxiety noted. Limitations: no limitations Course Vital Signs 10/04/17 14:58 Temperature 98.0 F Pulse Rate 74 Respiratory 20 Rate Blood Pressure 186/77 O2 Sat by Pulse 98 Oximetry Medical Decision Making - Medical Decision Making This is a 72-year-old female who presents to the emergency department for evaluation of cough for 1 week. Patient has a history of COPD and asthma. She states that her cough has been nonproductive and that she has been using an inhaler. She states that she ran out of her inhaler and called her primary care to get a sample refill. Her primary care requested that she come to the emergency department for evaluation. She denies any fevers or shortness of breath. Chest x-ray revealed no acute abnormalities. Patient will be discharged home. She states that she is going to present to her primary care provider upon discharge to obtain an inhaler sample. Patient is in no acute distress at this time. All questions were answered. - Radiology Data Radiology results: report reviewed Chest x-ray findings: The heart size is normal. The pulmonary vasculature is normal. The lungs are clear. Impression: 1. No acute pulmonary process. Disposition Clinical Impression: Cough Disposition: HOME SELF-CARE Condition: Good Instructions: Acute Cough (ED) Additional Instructions: Please follow up with primary care provider within 1-2 days. Return to emergency department if symptoms should worsen or any concerns arise. Referrals: Elli Gan III, MD [Primary Care Provider] - 1-2 days Time of Disposition: 17:03
[2017-10-04 17:11] VITALS: BP 182/80; PULSE 63; RESP 18; TEMP 97
== END 2017-10-04 17:10 | disposition home or self-care (01) ==
LOC: EC 14:52
DX: R05 Cough (principal); R59.0 Localized enlarged lymph nodes; R06.2 Wheezing; R07.9 Chest pain, unspecified; I10 Essential (primary) hypertension; K21.9 Gastro-esophageal reflux disease without esophagitis; F32.9 Major depressive disorder, single episode, unspecified; E89.0 Postprocedural hypothyroidism; Z79.899 Other long term (current) drug therapy; Z88.5 Allergy status to narcotic agent; Z88.6 Allergy status to analgesic agent; Z88.8 Allergy status to other drugs, medicaments and biological substances; Z91.09 Other allergy status, other than to drugs and biological substances; Z85.850 Personal history of malignant neoplasm of thyroid; Z85.3 Personal history of malignant neoplasm of breast; Z90.13 Acquired absence of bilateral breasts and nipples; Z98.890 Other specified postprocedural states
CPT/HCPCS: 71020; 99283

== ENCOUNTER → 2018-02-28 | Outpatient (CLI) | payer MEDICARE, BC ==
--- NOTE | 2018-02-28 17:15 | ECHOF ---
Referral Reason:R06.02 Shortness of Breath,R60.0 Edema MEASUREMENTS -------- HEIGHT: 162.6 cm WEIGHT: 87.1 kg BP: 145/76 RVIDd: 3.1 cm (< 3.3) IVSd: 1.3 cm (0.6 - 1.1) LVIDd: 3.8 cm (3.9 - 5.3) LVPWd: 1.3 cm (0.6 - 1.1) IVSs: 1.7 cm LVIDs: 2.6 cm LVPWs: 1.5 cm LA Diam: 3.4 cm (2.7 - 3.8) LAESV Index (A-L): 21.71 ml/m Ao Diam: 3.1 cm (2.0 - 3.7) AV Cusp: 1.3 cm (1.5 - 2.6) EPSS: 0.5 cm MV E Eric: 1.25 m/s MV DecT: 256 ms MV A Eric: 1.52 m/s MV E/A Ratio: 0.82 AV maxP.24 mmHg AV meanP.16 mmHg AR PHT: 639 ms RAP: 5.00 mmHg RVSP: 27.49 mmHg MV EF SLOPE: 27.35 mm/s (70 - 150) MV EXCURSION: 0.89 cm (> 18.000) FINDINGS -------- Sinus rhythm. This was a technically good study. The left ventricular size is normal. There is mild concentric left ventricular hypertrophy. Overa left ventricular systolic function is normal with, an EF between 60 - 65 %. The right ventricle is normal in size. Normal LA size by volume 22+/-6 ml/m2. The right atrium is normal in size. There is mild aortic valve sclerosis. There is mild aortic regurgitation. Peak/mean gradient acro ss the Aortic Valve is 17.24mmHg / 9.16mmHg. The mitral valve leaflets are moderately thickened. Moderate mitral annular calcification present. Mild mitral regurgitation is present. The peak and mean MV gradients are 11.32mmHg 3.15mmHg as m easured by doppler. Mild tricuspid regurgitation present. Right ventricular systolic pressure is normal at < 35 mmHg. There is no pulmonic regurgitation present. The aortic root size is normal. Normal inferior vena cava with normal inspiratory collapse consistent with estimated right atrial pre ssure of 5 mmHg. There is no pericardial effusion. CONCLUSIONS -------- 1. Sinus rhythm. 2. This was a technically good study. 3. The left ventricular size is normal. 4. There is mild concentric left ventricular hypertrophy. 5. Overall left ventricular systolic function is normal with, an EF between 60 - 65 %. 6. The right ventricle is normal in size. 7. Normal LA size by volume 22+/-6 ml/m2. 8. The right atrium is normal in size. 9. There is mild aortic valve sclerosis. 10. There is mild aortic regurgitation. 11. Peak/mean gradient across the Aortic Valve is 17.24mmHg / 9.16mmHg. 12. The mitral valve leaflets are moderately thickened. 13. Moderate mitral annular calcification present. 14. Mild mitral regurgitation is present. 15. The peak and mean MV gradients are 11.32mmHg 3.15mmHg as measured by doppler. 16. Mild tricuspid regurgitation present. 17. Right ventricular systolic pressure is normal at < 35 mmHg. 18. There is no pulmonic regurgitation present. 19. The aortic root size is normal. 20. Normal inferior vena cava with normal inspiratory collapse consistent with estimated right atrial pressure of 5 mmHg. 21. There is no pericardial effusion. PULP GRINDER: BASHIR Jean Baptiste
== END ==
LOC: RADECHMAIN 12:56
PROVIDERS: ATTEND Family Medicine
DX: I08.3 Combined rheumatic disorders of mitral, aortic and tricuspid valves (principal); Z79.899 Other long term (current) drug therapy
CPT/HCPCS: 93306

== ENCOUNTER → 2018-02-28 | Outpatient (CLI) | payer MEDICARE, BC ==
--- NOTE | 2018-02-28 13:03 | US ---
EXAMINATION TYPE: US abdomen complete DATE OF EXAM: 02/28/2018 COMPARISON: NONE CLINICAL HISTORY: R74.0 Nonspecific elevation of levels of transaminase. Abn labs, bloating, GB remov ed x 2006 EXAM MEASUREMENTS: Liver Length: 15.0 cm CBD: 0.5 cm CHD: 0.4 cm Spleen: 12.3 cm Right Kidney: 10.2 x 5.3 x 4.7 cm Left Kidney: 10.6 x 5.2 x 5.0 cm Limited visualization of right kidney due to overlying bowel gas Pancreas: Tail obscured by overlying bowel gas Liver: Appears slightly heterogenous with diminished visualization of the portal triads. This limi ts evaluation for hepatic masses and most commonly relates to hepatic steatosis appearing mild in deg ree. No focal hepatic masses are identified. Gallbladder: Surgically absent Evidence for sonographic Bueno's sign: neg CBD: wnl CHD: wnl Spleen: wnl Right Kidney: wnl as visualized. No hydronephrosis or nephrolithiasis. Left Kidney: wnl . No hydronephrosis or nephrolithiasis. Upper IVC: wnl Abd Aorta: Within normal limits of size IMPRESSION: Very mild heterogeneity of the hepatic parenchyma that most commonly relates to mild hepatic steatosi s.
== END | disposition home or self-care (01) ==
LOC: RADUSWWP 12:13
PROVIDERS: ATTEND Family Medicine
DX: K76.0 Fatty (change of) liver, not elsewhere classified (principal); R74.0 Nonspecific elevation of levels of transaminase and lactic acid dehydrogenase [LDH]
CPT/HCPCS: 76700

== ENCOUNTER → 2018-04-28 | Outpatient (CLI) | payer MEDICARE, BC ==
--- NOTE | 2018-04-29 08:03 | CT ---
EXAMINATION TYPE: CT abdomen pelvis w con DATE OF EXAM: 04/28/2018 COMPARISON: 01/11/2014 INDICATION: Abdominal distention and pain x2 months DLP: 1309 mGycm, Automated exposure control for dose reduction was used. CONTRAST: 100 mL of Isovue 300. Study performed with Oral Contrast TECHNIQUE: Axial images were obtained from above the diaphragm to the pubic rami in the axial plane a t 5 mm thick sections. Reconstructed images are reviewed on the computer in the coronal plane. FINDINGS: Limited CT sections are obtained the lung bases. The lung bases are clear. CT ABDOMEN: Liver: Normal Spleen: Normal Pancreas: Normal Adrenal glands: The adrenal glands are normal. Gallbladder: Gallbladder is surgically absent. Kidneys: No masses are evident. No hydronephrosis is present. No cysts are present. Delayed images were obtained through the kidneys, which remain unremarkable. Aorta: Vascular calcification is within the aorta. Inferior vena cava: Normal. CT PELVIS: Loops of bowel within the abdomen and pelvis are normal. There are loops of bowel which are incom pletely distended or lack oral contrast limiting their evaluation. Multiple diverticuli are through t he distal descending colon and sigmoid colon. No acute diverticulitis is evident. Appendix: Not identified. No suspicious inflammatory changes or cecum. Urinary bladder: Normal. Genitourinary structures: Uterus and ovaries are not identified. Osseous structures: No suspicious lytic or sclerotic lesions. Postsurgical changes are within the low er lumbar spine. IMPRESSIONS: 1. Diverticulosis without acute diverticulitis.
== END | disposition home or self-care (01) ==
LOC: RADCTMAIN 15:53
PROVIDERS: ATTEND Family Medicine
DX: K57.30 Diverticulosis of large intestine without perforation or abscess without bleeding (principal); Z88.5 Allergy status to narcotic agent; Z88.6 Allergy status to analgesic agent; Z88.8 Allergy status to other drugs, medicaments and biological substances
CPT/HCPCS: 82565; 84520; 74177; 36415; Q9967

== ENCOUNTER 2018-05-21 21:59 | Emergency (ER) | payer MEDICARE, BC ==
[2018-05-21 22:19] VITALS: RESP 18
[2018-05-21] MEDS ORDERED: HYDROcodone/APAP 5-325MG 1 EACH TAB PO STA (23:19)
[2018-05-21] MEDS ORDERED: ORPHENADRINE 30 MG/ML 2 ML VIAL IM STA (23:19)
[2018-05-21] MEDS ORDERED: KETOROLAC 60 MG/2 ML VIAL IM STA (23:19)
--- NOTE | 2018-05-21 23:50 | XR ---
EXAMINATION TYPE: XR knee complete LT DATE OF EXAM: 05/21/2018 COMPARISON: NONE HISTORY: Knee pain TECHNIQUE: 3 views FINDINGS: I see no fracture nor dislocation. There is spurring on the patella. There is no sign of otilia int effusion. There is spurring at the tibial tubercle. IMPRESSION: Mild spurring. No fracture seen.
--- NOTE | 2018-05-22 00:01 | ED ---
Extremity Problem HPI - General Chief complaint: Extremity Problem,Nontraumatic Stated complaint: Knee pain Time Seen by Provider: 05/21/18 22:47 Source: patient, RN notes reviewed, old records reviewed Mode of arrival: wheelchair Limitations: no limitations - History of Present Illness Initial comments: This patient's a 72-year-old female presents emergency department today chief complaint of left-sided knee pain. She reports started in the knee is not radiates up her leg. Patient states that it's worsen or she walks on it. Patient states that she has no calf pain or swelling. No history of blood clots. No injury or trauma to the leg. She reports still some bruising over the posterior aspect of her knee. - Related Data Home Medications Medication Instructions Recorded Confirmed DULoxetine HCL [Cymbalta] 60 mg PO DAILY 05/03/14 10/14/17 Losartan [Cozaar] 50 mg PO DAILY 05/03/14 10/14/17 Omeprazole 40 mg PO AC-BRKFST 05/03/14 10/14/17 Cholecalciferol [Vitamin D3] 2,000 unit PO DAILY 03/24/16 10/14/17 Ascorbic Acid [Vitamin C] 1,000 mg PO DAILY 04/07/17 10/14/17 DULoxetine HCL [Cymbalta] 60 mg PO DAILY 10/14/17 10/14/17 Folic Acid 1 mg PO DAILY 10/14/17 10/14/17 Ibuprofen [Motrin] 800 mg PO TID PRN 10/14/17 10/14/17 Methotrexate Sodium [Methotrexate] 12.5 mg PO TU@2130 10/14/17 10/14/17 Montelukast Sodium [Singulair] 10 mg PO DAILY 10/14/17 10/14/17 Vitamin B Complex 1 cap PO DAILY 10/14/17 10/14/17 Previous Rx's Medication Instructions Recorded Budesonide-Formot 160-4.5 Mcg 2 puff INHALATION BID #1 inhaler 10/15/17 [Symbicort 160-4.5 Mcg Inhaler] Levothyroxine Sodium 125 mcg PO DAILY #30 tablet 10/15/17 Cyclobenzaprine [Flexeril] 10 mg PO TID #15 tab 05/22/18 Dexamethasone 0.75 mg PO DAILY #12 tab 05/22/18 HYDROcodone/APAP 5-325MG [Delta 1 tab PO Q6HR PRN #10 tab 05/22/18 5-325] Allergies Allergy/AdvReac Type Severity Reaction Status Date / Time lisinopril Allergy Severe Cough Verified 05/21/18 22:18 tramadol Allergy Severe severe Verified 05/21/18 22:18 fatigue, elevated BP acetaminophen [From Delta] Allergy REDNESS Verified 05/21/18 22:18 adhesive tape Allergy PULLS SKIN Verified 05/21/18 22:18 OFF hydrocodone bitartrate Allergy Hallucinati Verified 05/21/18 22:18 [From Delta] ons methylprednisolone Allergy red puffy Verified 05/21/18 22:18 [From Medrol] face naproxen sodium [From Aleve] Allergy lowers BP Verified 05/21/18 22:18 bandaid Allergy pulls skin Uncoded 05/21/18 22:18 off Review of Systems ROS Statement: Those systems with pertinent positive or pertinent negative responses have been documented in the HPI. ROS Other: All systems not noted in ROS Statement are negative. 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 exposure to mold caused wheezing-moved and now improved. current wound rt breast, anemia, corneal dystrophy History of Any Multi-Drug Resistant Organisms: None Reported Past Surgical History: Back Surgery, Breast Surgery, Cholecystectomy, Hysterectomy, Orthopedic Surgery Additional Past Surgical History / Comment(s): thyroidectomy, rt radical mastectomy,left mastectomy,constance breast reconstruction, cervical fusion x 2, titanium rods-lumber, rt shoulder arthroscopy, constance cataracts, reconstructive breat surg Past Anesthesia/Blood Transfusion Reactions: Postoperative Nausea & Vomiting ( PONV) Past Psychological History: No Psychological Hx Reported, Depression Smoking Status: Never smoker Past Alcohol Use History: None Reported Past Drug Use History: None Reported - Past Family History Mother Family Medical History: Cancer Additional Family Medical History / Comment(s): kidney Sister(s) Family Medical History: Cancer Additional Family Medical History / Comment(s): esophageal Brother(s) Family Medical History: Cancer Daughter(s) Family Medical History: Cancer Additional Family Medical History / Comment(s): skin General Exam - General Exam Comments Initial Comments: Well appearing 72 year old female, mild discomfort. Limitations: no limitations Head exam: Present: atraumatic, normocephalic, normal inspection Eye exam: Present: normal appearance, PERRL, EOMI. Absent: scleral icterus, conjunctival injection, periorbital swelling ENT exam: Present: normal exam, mucous membranes moist Neck exam: Present: normal inspection. Absent: tenderness, meningismus, lymphadenopathy Cardiovascular Exam: Present: regular rate, normal rhythm, normal heart sounds. Absent: systolic murmur, diastolic murmur, rubs, gallop, clicks GI/Abdominal exam: Present: soft, normal bowel sounds. Absent: distended, tenderness, guarding, rebound, rigid Left Upper Leg exam: Present: normal inspection, full ROM Knee exam: Present: full ROM, ecchymosis (over popliteal fossa, 3 cm linear pattern. ). Absent: normal inspection, tenderness, swelling, abrasion, laceration, pain/laxity with valgus, pain/laxity with varus Lower Leg exam: Present: normal inspection, full ROM Ankle exam: Present: normal inspection Foot/Toe exam: Present: normal inspection, full ROM Neurovascular tendon exam: Present: no vascular compromise (2 pulse dorsalis pedis pulse) Back exam: Present: normal inspection Neurological exam: Present: alert, oriented X3, CN II-XII intact Psychiatric exam: Present: normal affect, normal mood Skin exam: Present: warm, dry, intact, normal color. Absent: rash Course Vital Signs 05/21/18 05/22/18 22:15 01:14 Temperature 98.0 F 98.4 F Pulse Rate 63 54 L Respiratory 18 18 Rate Blood Pressure 139/74 152/67 O2 Sat by Pulse 97 98 Oximetry Medical Decision Making - Medical Decision Making This patient is a 72 year old female with one week of left knee pain that started to radiate up her leg. She reports pain with ambulation. No trauma or falls. No history of blood clot. She has full ROM of hip and knee. Normal cap refill, pulses and sensation. She does have history of back surgery. Denies saddle anesthesia. At this time US is negative for DVT. Knee xray shows no fracture, mild spurring noted. Informed of results. Patient pain distribution seems to be sciatic nerve like. Will put patient on steriods and muscle relaxer. Refuses pain medication. Discussed PCP follow up and return parameters idscussed. - Radiology Data Radiology results: report reviewed Mild spurring no fracture seen. No evidence of DVT within the left leg. Disposition Clinical Impression: Leg pain, left, Sciatic leg pain, Arthritis of knee Disposition: HOME SELF-CARE Condition: Good Instructions: Leg Pain (ED) Additional Instructions: Patient has a follow-up with primary care physician within the next few days. Take the medications as prescribed. Return to the emergency department if any alarming signs or symptoms occur. Prescriptions: Cyclobenzaprine [Flexeril] 10 mg PO TID #15 tab Dexamethasone 0.75 mg PO DAILY #12 tab HYDROcodone/APAP 5-325MG [Delta 5-325] 1 tab PO Q6HR PRN #10 tab PRN Reason: Pain Is patient prescribed a controlled substance at d/c from ED?: Yes When asked, does pt state using other controlled substances?: No If prescribed controlled substance>3 days was MAPS reviewed?: Prescribed <3 Days If opioid is for acute pain is fill amount 7 days or less?: Yes If Rx opioid, was Start Talking consent form obtained?: Yes Referrals: Elli Gan III, MD [Primary Care Provider] - 1-2 days Jazmin Gambino PAC [PHYSICIAN CERTIFIED [employer]EN[employer] JEWEL[employer] TECHNICIAN] - 1-2 days Time of Disposition: 01:00
--- NOTE | 2018-05-22 00:52 | US ---
EXAMINATION TYPE: US venous doppler duplex LE LT DATE OF EXAM: 05/21/2018 11:19 PM COMPARISON: NONE CLINICAL HISTORY: Pain. pain behind left knee, no prev dvt SIDE PERFORMED: left TECHNIQUE: The lower extremity deep venous system is examined utilizing real time linear array sonog meño with graded compression, doppler sonography and color-flow sonography. VESSELS IMAGED: External Iliac Vein (EIV) Common Femoral Vein Deep Femoral Vein Greater Saphenous Vein * Femoral Vein Popliteal Vein Small Saphenous Vein * Proximal Calf Veins (* superficial vessels) Left Leg: neg for LLE dvt IMPRESSION: Negative exam. No evidence of deep venous thrombosis in the left leg.
[2018-05-22 01:15] VITALS: BP 152/67; PULSE 54; TEMP 98.4
== END 2018-05-22 01:20 | disposition home or self-care (01) ==
LOC: EC 21:59
DX: M17.12 Unilateral primary osteoarthritis, left knee (principal); M79.652 Pain in left thigh; M54.32 Sciatica, left side; M76.892 Other specified enthesopathies of left lower limb, excluding foot; J44.9 Chronic obstructive pulmonary disease, unspecified; M79.7 Fibromyalgia; K21.9 Gastro-esophageal reflux disease without esophagitis; I10 Essential (primary) hypertension; I34.1 Nonrheumatic mitral (valve) prolapse; F32.9 Major depressive disorder, single episode, unspecified; Z86.73 Personal history of transient ischemic attack (TIA), and cerebral infarction without residual deficits; Z85.3 Personal history of malignant neoplasm of breast; Z85.850 Personal history of malignant neoplasm of thyroid; Z79.899 Other long term (current) drug therapy; Z88.8 Allergy status to other drugs, medicaments and biological substances; Z88.6 Allergy status to analgesic agent; Z91.048 Other nonmedicinal substance allergy status; Z88.5 Allergy status to narcotic agent; Z53.20 Procedure and treatment not carried out because of patient's decision for unspecified reasons
CPT/HCPCS: 99284 ×2; 96372 ×3; 73562; 93971; J2360; J1885

== ENCOUNTER 2018-05-24 15:36 | Emergency (ER) | payer MEDICARE, BC ==
--- NOTE | 2018-05-24 17:49 | ED ---
Lower Extremity Injury HPI - General Chief Complaint: Extremity Injury, Lower Stated Complaint: Lt knee pain Time Seen by Provider: 05/24/18 16:35 Source: patient Mode of arrival: ambulatory Limitations: no limitations - History of Present Illness Initial Comments: This is a 72-year-old female with past medical history of rest and thyroid cancer both of which have been remission since age 44 resents today for chief complaint of left knee pain 4 days. She states that she was seen here 3 days ago for left knee pain, she denied trauma but time and set up the pain came on suddenly. She stated the ER x-ray was performed which returned negative and a duplex ultrasound to rule out DVT was performed, which came back negative as well. Patient was discharged with primary care follow-up and an Theo bandage. Patient was also discharged with a steroid and muscle relaxer that she states she did never filled. Patient has been alternating ibuprofen and Tylenol #3 that she had left over from previous injury. The pain has been the same since it began as a dull aching pain that is constant and becomes sharp and increases with movement and radiates to the hip. Patient states that today while putting up an awning she stepped down onto her left leg, she felt as though her left knee gave out, she denies seeing it dislocate. Patient cannot ambulate after this incident. Patient was brought to the emergency department via wheelchair. Upon presentation patient's vital signs stable. Patient denies numbness and tingling and left leg, loss of sensation lower extremity, course of the left lower extremity, erythema of the left knee, previous injury to the knee, pain in the calf, any recent fever, chills, shortness of breath, chest pain, back pain, abdominal pain, nausea or vomiting, numbness or tingling, dysuria or hematuria, constipation or diarrhea, headaches or visual changes, or any other complaints. - Related Data Home Medications Medication Instructions Recorded Confirmed DULoxetine HCL [Cymbalta] 60 mg PO DAILY 05/03/14 05/24/18 Omeprazole 40 mg PO AC-BRKFST 05/03/14 05/24/18 Cholecalciferol [Vitamin D3] 2,000 unit PO DAILY 03/24/16 05/24/18 Ascorbic Acid [Vitamin C] 1,000 mg PO DAILY 04/07/17 05/24/18 Methotrexate Sodium [Methotrexate] 12.5 mg PO TU@2130 10/14/17 05/24/18 Montelukast Sodium [Singulair] 10 mg PO DAILY 10/14/17 05/24/18 Vitamin B Complex 1 cap PO DAILY 10/14/17 05/24/18 Dexamethasone 0.75 mg PO DIRECTED 05/24/18 05/24/18 Levothyroxine Sodium 125 mcg PO MOTUWETHFRSA 05/24/18 05/24/18 Levothyroxine Sodium [Synthroid] 62 mcg PO LOCKWOOD 05/24/18 05/24/18 Previous Rx's Medication Instructions Recorded Budesonide-Formot 160-4.5 Mcg 2 puff INHALATION BID #1 inhaler 10/15/17 [Symbicort 160-4.5 Mcg Inhaler] Cyclobenzaprine [Flexeril] 10 mg PO TID #15 tab 05/22/18 Allergies Allergy/AdvReac Type Severity Reaction Status Date / Time lisinopril Allergy Severe Cough Verified 05/24/18 16:29 tramadol Allergy Severe severe Verified 05/24/18 16:29 fatigue, elevated BP acetaminophen [From [place]] Allergy REDNESS Verified 05/24/18 16:29 adhesive tape Allergy PULLS SKIN Verified 05/24/18 16:29 OFF hydrocodone bitartrate Allergy Hallucinati Verified 05/24/18 16:29 [From [place]] ons methylprednisolone Allergy red puffy Verified 05/24/18 16:29 [From Medrol] face naproxen sodium [From Aleve] Allergy lowers BP Verified 05/24/18 16:29 bandaid Allergy pulls skin Uncoded 05/24/18 16:23 off Review of Systems ROS Statement: Those systems with pertinent positive or pertinent negative responses have been documented in the HPI. ROS Other: All systems not noted in ROS Statement are negative. Constitutional: Denies: fever, chills Eyes: Denies: eye discharge, vision change Respiratory: Denies: cough, dyspnea, hemoptysis, stridor Cardiovascular: Denies: chest pain, palpitations Endocrine: Denies: fatigue Gastrointestinal: Denies: abdominal pain, nausea, vomiting, diarrhea, constipation Genitourinary: Denies: urgency, dysuria, frequency Musculoskeletal: Reports: as per HPI, joint swelling, arthralgia. Denies: back pain Skin: Denies: rash, lesions Neurological: Denies: headache, weakness, numbness, paresthesias, confusion Past Medical History Past Medical History: Cancer, Chest Pain / Angina, COPD, CVA/TIA, Diabetes Mellitus, Fibromyalgia, GERD/Reflux, Hypertension, Mitral Valve Prolapse (MVP), Skin Disorder, Thyroid Disorder Additional Past Medical History / Comment(s): heart murmer, hx rheumatic fever, environmental allergies, hiatal hernia, IBS, arthritis, granuloma annulare, hypoglycemia, diabetic rx in past- currently just watches diet, hx thyroid cancer, cancer rt breast, chest pain-found irregular heartbeat frm wood [facility]. exposure to mold caused wheezing-moved and now improved. current wound rt breast, anemia, corneal dystrophy History of Any Multi-Drug Resistant Organisms: None Reported Past Surgical History: Back Surgery, Breast Surgery, Cholecystectomy, Hysterectomy, Orthopedic Surgery Additional Past Surgical History / Comment(s): thyroidectomy, rt radical mastectomy,left mastectomy,constance breast reconstruction, cervical fusion x 2, titanium rods-lumber, rt shoulder arthroscopy, constance cataracts, reconstructive breat surg Past Anesthesia/Blood Transfusion Reactions: Postoperative Nausea & Vomiting ( PONV) Past Psychological History: No Psychological Hx Reported, Depression Smoking Status: Never smoker Past Alcohol Use History: None Reported Past Drug Use History: None Reported - Past Family History Mother Family Medical History: Cancer Additional Family Medical History / Comment(s): kidney Sister(s) Family Medical History: Cancer Additional Family Medical History / Comment(s): esophageal Brother(s) Family Medical History: Cancer Daughter(s) Family Medical History: Cancer Additional Family Medical History / Comment(s): skin General Exam - General Exam Comments Initial Comments: General: The patient is awake and alert, in no distress, and does not appear acutely ill. Eye: Pupils are equal, round and reactive to light, extra-ocular movements are intact. No nystagmus. There is normal conjunctiva bilaterally. No signs of icterus. Ears, nose, mouth and throat: There are moist mucous membranes and no oral lesions. Neck: The neck is supple, there is no tenderness or JVD. Cardiovascular: There is a regular rate and rhythm. No murmur, rub or gallop is appreciated. Respiratory: Lungs are clear to auscultation, respirations are non-labored, breath sounds are equal. No wheezes, stridor, rales, or rhonchi. Gastrointestinal: [Soft, non-distended, non-tender abdomen without masses or organomegaly noted. There is no rebound or guarding present. No CVA tenderness. Bowel sounds are unremarkable.] Musculoskeletal: Patient has full range of motion of the left knee with passive flexion, patient is unable to actively range the left knee due to pain. There is no erythema or swelling of the left knee however there is swelling of the anterior tibia and dorsum of the left foot, +1 pitting edema. Tenderness to palpation over the medial and lateral aspect of the knees b/l. No tenderness to palpation over the anterior aspect of the knee. Pt wont permit muscle testing or special testing secondary to pain. Sensation intact equally of LE b/ l. Pulses equal bilaterally 2+ DP. Capillary refill <2 sec b/l. Neurological: A&O x 3. CN II-XII intact, There are no obvious motor or sensory deficits. Coordination appears grossly intact. Speech is normal. Skin: Skin is warm and dry and no rashes or lesions are noted. Psychiatric: Cooperative, appropriate mood & affect, normal judgment. Limitations: no limitations Course Vital Signs 05/24/18 05/24/18 16:19 18:31 Temperature 98.6 F Pulse Rate 70 60 Respiratory 16 18 Rate Blood Pressure 149/74 148/66 O2 Sat by Pulse 97 97 Oximetry Medical Decision Making - Medical Decision Making Pt given Tylenol #3 for pain mgmt- she states she is not allergic and takes these at home. XR of the left knee and US doppler of the LLE returned (-) for fracture/dislocation or DVT. Case was discussed with Dr. Simpson in detail. Given symptoms and physical examination findings at this time we feel this could be a possible ligamentous injury-- pt knee was immobilized in extension with knee immobilizer, pt was instructed to continue to use OTC pain relievers for PRN, and to f/u with orthopedic surgery in 1-2 days. Pt agreed with plan and agreed to return to the emergency department if symptoms worsen or change. Pt discharged in stable condition. Disposition Clinical Impression: Left knee pain Disposition: HOME SELF-CARE Condition: Good Instructions: Knee Sprain (ED), Knee Pain (ED) Additional Instructions: Use over the counter or home medication as discussed for pain mgmt. Please follow-up with orthopedic surgery for possible ligamentous injury in 1-2 days, do not bear weight and use knee immobilizer until further evaluation. Please return to the emergency department for new or worsening symptoms. Is patient prescribed a controlled substance at d/c from ED?: No Referrals: Elli Gan III, MD [Primary Care Provider] - 1-2 days Kris Knutson MD [STAFF PHYSICIAN] - 1-2 days Time of Disposition: 20:06
--- NOTE | 2018-05-24 18:03 | XR ---
EXAMINATION TYPE: XR knee complete LT DATE OF EXAM: 05/24/2018 COMPARISON: 05/21/2018 HISTORY: Knee pain TECHNIQUE: 3 views FINDINGS: There is spurring on the superior patella. There is spurring at the tibial tubercle. I see no fracture nor dislocation. Joint spaces are fairly normal. IMPRESSION: No acute abnormality of the left knee. No change.
[2018-05-24] MEDS ORDERED: Acetaminophen-Codeine 300-30mg TAB PO STA (18:25)
[2018-05-24 18:32] VITALS: RESP 18
--- NOTE | 2018-05-24 19:29 | US ---
EXAMINATION TYPE: US venous doppler duplex LE LT DATE OF EXAM: 05/24/2018 7:09 PM COMPARISON: NONE CLINICAL HISTORY: Pain. Left leg pain and swelling SIDE PERFORMED: Left TECHNIQUE: The lower extremity deep venous system is examined utilizing real time linear array sonog meño with graded compression, doppler sonography and color-flow sonography. VESSELS IMAGED: External Iliac Vein (EIV) Common Femoral Vein Deep Femoral Vein Greater Saphenous Vein * Femoral Vein Popliteal Vein Small Saphenous Vein * Proximal Calf Veins (* superficial vessels Left Leg: Negative for DVT No evidence of DVT left leg. IMPRESSION: Normal exam. No evidence of deep venous thrombosis.
[2018-05-24 20:19] VITALS: BP 159/72; PULSE 61; TEMP 96.3
== END 2018-05-24 20:18 | disposition home or self-care (01) ==
LOC: EC 15:36
DX: M25.562 Pain in left knee (principal); M79.605 Pain in left leg; J44.9 Chronic obstructive pulmonary disease, unspecified; M79.7 Fibromyalgia; K21.9 Gastro-esophageal reflux disease without esophagitis; E07.9 Disorder of thyroid, unspecified; M19.90 Unspecified osteoarthritis, unspecified site; F32.9 Major depressive disorder, single episode, unspecified; K58.9 Irritable bowel syndrome, unspecified; Z85.850 Personal history of malignant neoplasm of thyroid; Z85.3 Personal history of malignant neoplasm of breast; Z79.52 Long term (current) use of systemic steroids; Z79.899 Other long term (current) drug therapy; Z88.5 Allergy status to narcotic agent; Z88.6 Allergy status to analgesic agent; Z88.8 Allergy status to other drugs, medicaments and biological substances; Z91.048 Other nonmedicinal substance allergy status
CPT/HCPCS: 99284 ×2; 73562; 93971; L1830

== ENCOUNTER → 2019-02-10 | Outpatient (CLI) | payer MEDICARE, BC ==
--- NOTE | 2019-02-10 07:54 | US ---
EXAMINATION TYPE: US abdomen complete DATE OF EXAM: 02/10/2019 COMPARISON: Ultrasound 02/28/[address] 04/28/2018 CLINICAL HISTORY: R10.9 ABD PAIN. Generalized abdomen pain. GB removed. EXAM MEASUREMENTS: Liver Length: 16.8 cm CBD: 0.4 cm CHD: 0.4 cm Spleen: 11.5 cm Right Kidney: 9.6 x 5.0 x 4.6 cm Left Kidney: 10.3 x 4.2 x 5.2 cm Pancreas: Appears echogenic in appearance Liver: There is no mass or ductal dilation, question some mild coarse echotexture Gallbladder: Surgically absent Evidence for sonographic Bueno's sign: neg CBD: wnl CHD: wnl Spleen: wnl Right Kidney: wnl Left Kidney: wnl Upper IVC: wnl Abd Aorta: No AAA visualized The liver is homogenous. The intrahepatic portion of the IVC and proximal abdominal aorta are within normal limits. Kidneys show normal cortical medullary differentiation. There is no ascites. The spl een is unremarkable. Kidneys are symmetric and free of hydronephrosis. No renal lesions are seen. IMPRESSION: There may be a component of hepatic steatosis. Postcholecystectomy change.
== END ==
LOC: RADUSWWP 07:10
PROVIDERS: ATTEND Family Medicine
DX: R10.9 Unspecified abdominal pain (principal); Z90.49 Acquired absence of other specified parts of digestive tract
CPT/HCPCS: 76700

== ENCOUNTER → 2019-07-07 | Outpatient (CLI) | payer MEDICARE, BC ==
[2019-07-07 11:36] LABS: Basophils # (A) 0.1 k/uL (0-0.2); Basophils % (A) 1 %; Eosinophils # (A) 0.1 k/uL (0-0.7); Eosinophils % (A) 2 %; HGB 11.4 gm/dL (11.4-16.0); Lymphocytes # (A) 1.6 k/uL (1.0-4.8); Lymphocytes % (A) 27 %; MCH 25.8 pg (25.0-35.0); MCHC 32.6 g/dL (31.0-37.0); MCV 79.3 fL (80.0-100.0); Mean Platelet Volume 7.8; Monocytes # (A) 0.3 k/uL (0-1.0); Monocytes % (A) 5 %; Neutrophils # (A) 3.8 k/uL (1.3-7.7); Neutrophils % (A) 65 %; Platelet Count 243 k/uL (150-450); RBC 4.41 m/uL (3.80-5.40); RDW 15.1 % (11.5-15.5); WBC 5.9 k/uL (3.8-10.6)
[2019-07-07 11:47] LABS: African American GFR (CKD) 64 (>60 ml/min/1.73 sqM); Anion Gap 7 mmol/L; Blood Urea Nitrogen 23 mg/dL (7-17); Calcium 9.3 mg/dL (8.4-10.2); Carbon Dioxide 34 mmol/L (22-30); Chloride 99 mmol/L (98-107); Glucose 101 mg/dL (74-99); Potassium 4.4 mmol/L (3.5-5.1); Sodium 140 mmol/L (137-145)
[2019-07-07 12:06] LABS: Creatine Kinase MB 0.4 ng/mL (0.0-2.4); Troponin I <0.012 ng/mL (0.000-0.034)
== END | disposition home or self-care (01) ==
LOC: LABWHC1 10:59
PROVIDERS: ATTEND Family Medicine
DX: R06.02 Shortness of breath (principal); R00.2 Palpitations; R07.89 Other chest pain
CPT/HCPCS: 36415; 80048; 82553; 84443; 84484; 85025

== ENCOUNTER 2019-09-27 08:05 | Day surgery (SDC) | payer MEDICARE, BC ==
[2019-09-25 14:25] VITALS: BMI 30.4
[~2019-09-27 08:05] MED LIST: LACTATED RINGERS 1,000 ML IV SCH; LIDOCAINE 1% 20 ML VIAL (10MG/ML) FOR IV START INTRADERMA PRN
[2019-09-27 08:40] VITALS: TEMP 97.6
[2019-09-27] MEDS ORDERED: LIDOCAINE 1% INJ 10MG/ML (20 ML MDV) ONE (08:57)
[2019-09-27] MEDS ORDERED: PROPOFOL 10 MG/ML 20 ML VIAL IV ONE (08:57)
--- NOTE | 2019-09-27 09:24 | P.PCN ---
Date of Procedure: 09/27/19 Procedure(s) Performed: Brief history: Patient is a pleasant 74-year-old white female, scheduled for an elective upper endoscopy as well as colonoscopy as a part of evaluation of GERD/heartburn and change in bowel habits for the last several months duration. His worsening diarrhea with bowel movements and 4-5 a day which are loose to watery in consistency. She denies any rectal bleeding. Procedure performed: Esophagogastroduodenoscopy with biopsy Colonoscopy with biopsy and snare polypectomy Preoperative diagnosis: GERD Chronic diarrhea/weight loss Anesthesia: MAC Procedure: After informed consent was obtained from the patient was brought into the endoscopy unit and IV sedation was administered by anesthesia under continuous monitoring. Initially upper endoscopy was done. The Olympus GF 160 video endoscope was inserted inserted into the mouth and esophagus intubated without any difficulty and was gradually advanced into the stomach and duodenum and carefully examined. The bulb and second part of the duodenum appeared normal. The scope was then withdrawn into the stomach adequately insufflated with air and upon careful examination the antrum had multiple scattered erosions and biopsies were done from this area. The body, cardia and fundus appeared normal. The scope was then withdrawn into the esophagus. Small sliding Hiatal hernia noted. The GE junction was located at 36 cm to the incisors. It appeared regular with no erythema erosions or ulcerations. Rest of the esophagus appeared normal. Patient tolerated the procedure well. At this time the patient continued to remain sedation. Initial digital rectal examination was normal. Olympus CF 160 video colonoscope was then inserted into the rectum and gradually advanced to the cecum without any difficulty. Careful examination was performed as the scope was gradually being withdrawn. The prep was excellent. The cecum, ascending colon, transverse colon, descending colon, appeared normal. In the sigmoid colon there was a 1 cm pedunculated polyp removed by snare polypectomy. Scattered sigmoidal diverticula seen. Rest of the sigmoid colon and rectum appeared normal. Random biopsies were done from ascending and descending colon to rule out microscopic/collagenous colitis Retroflexion was performed in the rectum and no lesions were noted. Patient tolerated the procedure well. Impression: 1. Upper endoscopy revealed antral erosive gastritis and small hiatal hernia 2. Colonoscopy revealed 1 cm sigmoid colon polyp status post snare polypectomy and scattered sigmoid diverticulosis Recommendations: Findings of this examination were discussed with the patient as well as his family. She was advised to follow with the biopsy results. If the biopsy of the colon polyp reveals adenoma she can have a repeat colonoscopy in 3-5 years
[2019-09-27 10:00] VITALS: BP 158/70; PULSE 60; RESP 16
== END 2019-09-27 10:31 | disposition home or self-care (01) ==
LOC: ORWHC2ENDO 08:05
PROVIDERS: ATTEND Internal Medicine Gastroenterology
DX: K31.9 Disease of stomach and duodenum, unspecified (principal); K21.0 Gastro-esophageal reflux disease with esophagitis; D12.5 Benign neoplasm of sigmoid colon; K44.9 Diaphragmatic hernia without obstruction or gangrene; K29.60 Other gastritis without bleeding; K57.30 Diverticulosis of large intestine without perforation or abscess without bleeding; J45.909 Unspecified asthma, uncomplicated; R63.4 Abnormal weight loss; Z68.32 Body mass index [BMI] 32.0-32.9, adult; I10 Essential (primary) hypertension; I34.1 Nonrheumatic mitral (valve) prolapse; E07.9 Disorder of thyroid, unspecified; E11.9 Type 2 diabetes mellitus without complications; Z86.73 Personal history of transient ischemic attack (TIA), and cerebral infarction without residual deficits; H40.9 Unspecified glaucoma; Z97.2 Presence of dental prosthetic device (complete) (partial); Z79.51 Long term (current) use of inhaled steroids; Z79.899 Other long term (current) drug therapy; Z79.1 Long term (current) use of non-steroidal anti-inflammatories (NSAID); Z79.890 Hormone replacement therapy; Z88.5 Allergy status to narcotic agent; Z88.8 Allergy status to other drugs, medicaments and biological substances; Z91.09 Other allergy status, other than to drugs and biological substances; Z85.3 Personal history of malignant neoplasm of breast
CPT/HCPCS: 88305; 45380; 45385; 43239; J2001; J2704

== ENCOUNTER 2020-02-27 10:53 | Day surgery (SDC) | payer MEDICARE, BC ==
[2020-02-23 15:37] VITALS: BMI 29.3
[~2020-02-27 10:53] MED LIST changes: +ALPRAZolam 0.25 MG TAB PO PRN; +ALPRAZolam 0.5 MG TAB PO PRN; +ASPIRIN 325 MG TAB PO STA; -LACTATED RINGERS 1,000 ML IV SCH; -LIDOCAINE 1% 20 ML VIAL (10MG/ML) FOR IV START INTRADERMA PRN; +NITROGLYCERIN SL TABS 0.4 MG TAB SUBLINGUAL PRN; +SODIUM CHLORIDE 0.9% 1,000 ML in EMPTY BAG 1 BAG IV ONE
[2020-02-27 11:26] LABS: Glucose,Whole Blood 110 mg/dL (75-99)
[2020-02-27 11:29] VITALS: TEMP 98.5
[2020-02-27 11:39] LABS: Basophils % (A) 1 %; Eosinophils # (A) 0.1 k/uL (0-0.7); Eosinophils % (A) 2 %; HCT 35.2 % (34.0-46.0); HGB 12.1 gm/dL (11.4-16.0); Lymphocytes # (A) 1.1 k/uL (1.0-4.8); Lymphocytes % (A) 21 %; MCH 27.6 pg (25.0-35.0); MCHC 34.3 g/dL (31.0-37.0); MCV 80.6 fL (80.0-100.0); Mean Platelet Volume 7.6; Monocytes # (A) 0.3 k/uL (0-1.0); Monocytes % (A) 5 %; Neutrophils # (A) 3.5 k/uL (1.3-7.7); Neutrophils % (A) 69 %; Platelet Count 166 k/uL (150-450); RBC 4.37 m/uL (3.80-5.40); RDW 13.3 % (11.5-15.5); WBC 5.1 k/uL (3.8-10.6)
[2020-02-27] MEDS ORDERED: VERAPAMIL 2.5 MG/ML 2 ML AMP ONE (12:32)
[2020-02-27] MEDS ORDERED: LIDOCAINE 1% INJ 10MG/ML (20 ML MDV) ONE (12:32)
[2020-02-27] MEDS ORDERED: HEPARIN SODIUM 1,000 UN/ML (10ML VL) ONE (12:33)
[2020-02-27] MEDS ORDERED: MIDAZOLAM 2 MG/2 ML VIAL IV ONE (12:36)
[2020-02-27] MEDS ORDERED: LIDOCAINE 1% INJ 10MG/ML (20 ML MDV) SQ ONE (12:37)
[2020-02-27] MEDS: VERAPAMIL SYRINGE (5 MG/10 ML) INTRAARTER ONE ×2 (12:38→12:51)
[2020-02-27] MEDS ORDERED: HEPARIN SODIUM 1,000 UN/ML (10ML VL) IV ONE (12:43)
[2020-02-27] MEDS ORDERED: IOPAMIDOL-370 100ML BTL INJ ONE (12:51)
[2020-02-27 12:52] LABS: Calcium 9.2 mg/dL (8.4-10.2); Potassium 3.7 mmol/L (3.5-5.1)
[2020-02-27] MEDS ORDERED: RX INFO: IV CONTRAST WAS GIVEN 1 EACH MISC MISCELLANE PRN (12:55)
[2020-02-27] MEDS ORDERED: SODIUM CHLORIDE 0.9% 1,000 ML IV SCH (13:00)
--- NOTE | 2020-02-27 13:01 | P.PCN ---
Date of Procedure: 02/27/20 Operative Findings: CARDIAC CATHETERIZATION PERFORMING PHYSICIAN: Santi Back MD, RPVI PROCEDURE PERFORMED: 1. Selective right and left coronary angiogram 2. Left heart catheterization INDICATION: This is a very pleasant 74-year-old female patient was diabetes, hypertension, dyslipidemia, who continues to have intermittent episodes of chest discomfort in spite of normal stress test. Because of that she was brought today to undergo a heart catheterization COMPLICATION: None APPROACH: Right radial artery LEVEL OF SEDATION: Moderate with sedation length of 18 minutes PROCEDURE DESCRIPTION: After obtaining an informed consent, the patient was brought to cardiac labor relations manager. Local anesthesia was performed using lidocaine subcutaneously. The right radial artery was cannulated using Seldinger technique, the guidewire passed easily, following that we advanced a 5-Tajik sheath dilator assembly, the wire and dilator were removed and sheath was flushed. Following that, 2 mg of verapamil along with 5000 unit heparin were given. Selective right and left coronary angiogram using a 6-Tajik JR4 and JL 3.5 catheters. Following that we did left heart catheterization using 6-Tajik pigtail catheter. The procedure was completed there was no complication. SELECTIVE CORONARY ANGIOGRAM: The right coronary artery: Is a large caliber vessel and dominant vessel. The ostial RCA has mild disease only in the range of 20-30%. The mid and distal RCA are angiographically normal. The RCA distally bifurcates into PDA and PLV branches and both appeared to be angiographically normal Left main: Is angiographically normal. Bifurcates into LCx, ramus, and LAD The left circumflex: Is a large caliber vessel and nondominant vessel. Its angiographically normal. It gives rises into the first and second obtuse marginal branches and both appeared to be angiographically normal. The ramus intermedius: Is a large caliber vessel. Its angiographically normal. The left anterior descending artery: It is a large caliber vessel. The proximal and mid LAD appears to be angiographically normal. The mid to distal LAD has a lesion appeared to be in the range of 70-80%. HEMODYNAMICS: The LVEDP was 12-14 mmHg without significant gradient. CONCLUSION: Severe tubular lesion involving the mid to distal left anterior descending artery. Please note that the LAD is tortuous in the proximal and midportion. POSTPROCEDURE MANAGEMENT: 1. I advised maximize medical treatment at this point in view of the location of the lesion. 2. If the patient continues to be symptomatic, I am going to consider doing a PCI of that lesion from femoral approach 3. At this point I am going to add oral nitrates to the current medical regimen 4. Follow-up with the patient
[2020-02-27 14:49] VITALS: RESP 16
[2020-02-27 14:50] VITALS: BP 130/64
[2020-02-27 17:23] VITALS: PULSE 76
== END 2020-02-27 17:30 | disposition home or self-care (01) ==
LOC: CATHCVL 10:53
PROVIDERS: ATTEND Internal Medicine Interventional Cardiology
DX: I25.110 Atherosclerotic heart disease of native coronary artery with unstable angina pectoris (principal); I77.1 Stricture of artery; I10 Essential (primary) hypertension; E78.5 Hyperlipidemia, unspecified; E11.9 Type 2 diabetes mellitus without complications; Z79.890 Hormone replacement therapy; Z79.51 Long term (current) use of inhaled steroids; Z79.899 Other long term (current) drug therapy; Z88.5 Allergy status to narcotic agent; Z88.6 Allergy status to analgesic agent; Z88.8 Allergy status to other drugs, medicaments and biological substances; Z82.49 Family history of ischemic heart disease and other diseases of the circulatory system
CPT/HCPCS: 93458; 80048; 85025; C1769; J2250; J2001; J1644; Q9967

== ENCOUNTER → 2020-10-07 | Outpatient (CLI) | payer MEDICARE, BC ==
[2020-10-07 10:56] LABS: HCT 36.4 % (34.0-46.0); HGB 11.7 gm/dL (11.4-16.0); MCH 25.9 pg (25.0-35.0); MCHC 32.2 g/dL (31.0-37.0); MCV 80.5 fL (80.0-100.0); Platelet Count 191 k/uL (150-450); RBC 4.53 m/uL (3.80-5.40); RDW 13.7 % (11.5-15.5); WBC 5.8 k/uL (3.8-10.6)
[2020-10-07 11:08] LABS: Potassium 3.9 mmol/L (3.5-5.1)
== END | disposition home or self-care (01) ==
LOC: LABPAT 09:55
PROVIDERS: ATTEND Internal Medicine Interventional Cardiology
DX: Z01.818 Encounter for other preprocedural examination (principal); I25.10 Atherosclerotic heart disease of native coronary artery without angina pectoris; R07.9 Chest pain, unspecified
CPT/HCPCS: 36415; 80051; 82565; 84520; 85027

== ENCOUNTER 2020-10-11 06:32 | Day surgery (SDC) | payer MEDICARE, BC ==
[2020-10-01 12:59] VITALS: BMI 29.8
[~2020-10-11 06:32] MED LIST changes: +ATORVASTATIN 80 MG TAB PO STA
[2020-10-11 06:58] LABS: Glucose,Whole Blood 102 mg/dL (75-99)
[2020-10-11 07:09] VITALS: RESP 18; TEMP 98.4
[2020-10-11] MEDS ORDERED: LIDOCAINE 1% INJ 10MG/ML (20 ML MDV) ONE (07:22)
[2020-10-11] MEDS ORDERED: HEPARIN SODIUM 1,000 UN/ML (10ML VL) ONE (07:22)
[2020-10-11] MEDS ORDERED: VERAPAMIL 2.5 MG/ML 2 ML AMP ONE (07:22)
[2020-10-11] MEDS ORDERED: MIDAZOLAM 2 MG/2 ML VIAL IV ONE (08:03)
[2020-10-11] MEDS ORDERED: LIDOCAINE 1% INJ 10MG/ML (20 ML MDV) SQ ONE (08:05)
[2020-10-11] MEDS ORDERED: fentaNYL (PF) 50 MCG/ML 2 ML AMP ONE (08:05)
[2020-10-11] MEDS: VERAPAMIL SYRINGE (5 MG/10 ML) INTRAARTER ONE ×2 (08:06→08:15)
[2020-10-11] MEDS ORDERED: HEPARIN SODIUM 1,000 UN/ML (10ML VL) IV ONE (08:09)
[2020-10-11] MEDS ORDERED: fentaNYL (PF) 50 MCG/ML 2 ML AMP IV ONE (08:09)
[2020-10-11] MEDS ORDERED: IOPAMIDOL-370 125ML BTL INJ ONE (08:15)
[2020-10-11] MEDS ORDERED: RX INFO: IV CONTRAST WAS GIVEN 1 EACH MISC MISCELLANE PRN (08:22)
[2020-10-11] MEDS ORDERED: SODIUM CHLORIDE 0.9% 1,000 ML IV SCH (08:30)
--- NOTE | 2020-10-11 09:53 | CC ---
CARDIAC CATHETERIZATION REPORT DATE OF SERVICE: 10/11/2020. PERFORMING PHYSICIAN: Santi Back MD. PROCEDURE PERFORMED: 1. Selective right and left coronary angiogram. 2. Left heart catheterization. INDICATION: This is a 75-year-old female patient with coronary artery disease and hypertension and dyslipidemia, continues to have chest discomfort with exertion concerning for severe underlying coronary artery disease. Because of that, a heart catheterization was advised. APPROACH: Right radial artery. COMPLICATION: None. LEVEL OF SEDATION: Moderate with sedation length of 13 minutes. PROCEDURE DESCRIPTION: After obtaining an informed consent, the patient was brought to the cardiac mini lab operator. The radial artery was cannulated using micropuncture technique and a micropuncture wire passed easily, then I placed a 6-Azeri sheath in the right radial artery and subsequently I gave the patient 2 mg of verapamil IA and 6000 units of heparin IV. Selective right and left coronary angiogram performed with JR4 and JL3.5 catheters. Left heart catheterization was performed using the JR4 catheter which crossed the aortic valve, then I did pullback across the valve. The procedure was completed without any complication. SELECTIVE CORONARY ANGIOGRAM: 1. The RCA is a large caliber vessel and is a dominant vessel. The ostial RCA has a lesion, appeared to be in the range of 50%. The mid and distal RCA appeared to have mild disease only. The RCA distally bifurcates into PDA and PLV branches and both appeared to be angiographically normal. 2. The left main is angiographically normal. It bifurcates into left circumflex, ramus intermedius, and left anterior descending artery. 3. The left circumflex is a large caliber vessel, it is a nondominant vessel. The left circumflex in the proximal portion appeared to be normal and gives rise into an OM1 which appeared to be normal. The mid circumflex appeared to have mild disease only. Distally appeared to be angiographically normal. 4. The ramus intermedius is a moderate caliber vessel with lesion in the midportion appeared to be in the range of 50%. 5. The LAD, the proximal LAD appeared to be angiographically normal. It gives rise into the first diagonal branch which is a large caliber vessel and that seems to be angiographically normal. The mid to distal LAD appeared to be has a lesion appeared to be in the range of 50%. 6. HEMODYNAMICS: The LVEDP was about 10 to 12 mmHg without significant gradient across the aortic valve. CONCLUSION: 1. Intermediate triple-vessel coronary artery disease. 2. Normal LVEDP. POSTPROCEDURE MANAGEMENT: 1. Medical treatment. 2. Follow up with the patient. ÁNGELA / HOWIEN: [id number] /
[2020-10-11 13:10] VITALS: BP 136/63; PULSE 63
== END 2020-10-11 13:10 | disposition home or self-care (01) ==
LOC: CATHCVL 06:32
PROVIDERS: ATTEND Internal Medicine Interventional Cardiology
DX: I25.110 Atherosclerotic heart disease of native coronary artery with unstable angina pectoris (principal); R07.89 Other chest pain; I10 Essential (primary) hypertension; E78.5 Hyperlipidemia, unspecified; E78.00 Pure hypercholesterolemia, unspecified; I08.0 Rheumatic disorders of both mitral and aortic valves; E11.9 Type 2 diabetes mellitus without complications; Z79.899 Other long term (current) drug therapy; Z79.51 Long term (current) use of inhaled steroids; Z79.890 Hormone replacement therapy; Z79.82 Long term (current) use of aspirin; Z88.6 Allergy status to analgesic agent; Z88.5 Allergy status to narcotic agent; Z88.8 Allergy status to other drugs, medicaments and biological substances
CPT/HCPCS: 93458; C1769; C1894; J2250; J2001; J3010; J1644; Q9967

== ENCOUNTER 2020-11-19 13:50 | Emergency (ER) | payer MEDICARE, BC ==
[2020-11-19 14:09] VITALS: BP 138/64; PULSE 89; RESP 18; TEMP 99
[2020-11-19] MEDS ORDERED: ACETAMINOPHEN TAB 325 MG TAB PO STA (14:25)
--- NOTE | 2020-11-19 15:01 | XR ---
EXAMINATION TYPE: XR knee complete RT DATE OF EXAM: 11/19/2020 COMPARISON: NONE HISTORY: Pain TECHNIQUE: Three views are submitted. FINDINGS: Soft tissue ossification is noted posterior to the fibula. Hypertrophic spurring of the patella noted . Mild narrowing of the medial compartment of the knee joint.. Osseous structures are intact. No ac bj fracture seen. IMPRESSION: 1. No acute fracture or dislocation. 2. Incidental note made of soft tissue ossification. 3. Arthropathy.
--- NOTE | 2020-11-19 15:04 | ED ---
Lower Extremity Injury HPI - General Chief Complaint: Extremity Injury, Lower Stated Complaint: RT knee pain Time Seen by Provider: 11/19/20 14:10 Source: patient Mode of arrival: ambulatory Limitations: no limitations - History of Present Illness Initial Comments: 75yo female presenting today for cc of right knee pain x 1 day. pt states she planted foot and twisted yesterday, denies dislocation but states felt an acute pain all over the right knee. Patient states has been painful today and she has been using a walker to ambulate. Patient denies loss of sensation weakness coolness pallor of the extremity. Patient denies falling hitting head or any other areas of injury she denies ankle or hip pain. Patient appears well and nontoxic no acute distress on arrival - Related Data Home Medications Medication Instructions Recorded Confirmed DULoxetine HCL [Cymbalta] 60 mg PO DAILY 05/03/14 11/19/20 Montelukast Sodium [Singulair] 10 mg PO HS 10/14/17 11/19/20 Levothyroxine Sodium [Synthroid] 62.5 mcg PO LOCKWOOD 05/24/18 11/19/20 Budesonide-Formot 160-4.5 Mcg 2 puff INHALATION RT-BID PRN 09/25/19 11/19/20 [Symbicort 160-4.5 Mcg Inhaler] Losartan Potassium 25 mg PO QAM 09/25/19 11/19/20 hydroCHLOROthiazide 25 mg PO QAM 09/25/19 11/19/20 Cholecalciferol [Vitamin D3 (25 2,000 unit PO DAILY 02/23/20 11/19/20 Mcg = 1000 Iu)] Cyanocobalamin (Vitamin B-12) 1,000 mcg PO DAILY 02/23/20 11/19/20 [Vitamin B-12] Power C Immune Booster Vit C 1 tab PO DAILY 02/23/20 11/19/20 Albuterol Inhaler [Ventolin Hfa 1 puff INHALATION RT-DAILY PRN 10/01/20 11/19/20 Inhaler] Aspirin [Adult Low Dose Aspirin EC] 81 mg PO QAM 10/01/20 11/19/20 Diltiazem HCl [Diltiazem HCl 24Hr 120 mg PO DAILY 10/01/20 11/19/20 ER (CD)] Isosorbide Mononitrate [Isosorbide 30 mg PO DAILY 10/01/20 11/19/20 Mononitrate ER] Levothyroxine Sodium [Synthroid] 125 mcg PO MOTUWETHFRSA 10/01/20 11/19/20 Omeprazole [PriLOSEC] 40 mg PO DAILY 10/01/20 11/19/20 Rosuvastatin Calcium [Crestor] 10 mg PO DAILY 10/01/20 11/19/20 busPIRone HCL [Buspar] 7.5 mg PO 0800,1700 10/01/20 11/19/20 Dicyclomine [Bentyl] 10 mg PO DAILY 10/11/20 11/19/20 Acetaminophen Tab [Tylenol] 1,000 mg PO Q6HR PRN 11/19/20 11/19/20 L.acidoph,Paracasei, B.lactis 1 cap PO DAILY 11/19/20 11/19/20 [Probiotic] buPROPion XL [Wellbutrin XL] 150 mg PO DAILY 11/19/20 11/19/20 metFORMIN HCL [Glucophage] 500 mg PO DAILY 11/19/20 11/19/20 Allergies Allergy/AdvReac Type Severity Reaction Status Date / Time lisinopril Allergy Severe Cough Verified 11/19/20 15:37 tramadol Allergy Severe severe Verified 11/19/20 15:37 fatigue, elevated BP adhesive tape Allergy PULLS SKIN Verified 11/19/20 15:37 OFF hydrocodone bitartrate Allergy Hallucinati Verified 11/19/20 15:37 [From [place]] ons methylprednisolone Allergy red puffy Verified 11/19/20 15:37 [From Medrol] face naproxen sodium [From Aleve] Allergy lowers BP Verified 11/19/20 15:37 nickel Allergy Itching/raw Verified 11/19/20 15:37 skin bandaid AdvReac pulls skin Uncoded 11/19/20 15:37 off Review of Systems ROS Statement: Those systems with pertinent positive or pertinent negative responses have been documented in the HPI. ROS Other: All systems not noted in ROS Statement are negative. Past Medical History Past Medical History: Asthma, Cancer, Chest Pain / Angina, COPD, CVA/TIA, Diabetes Mellitus, Fibromyalgia, GERD/Reflux, Hyperlipidemia, Hypertension, Mitral Valve Prolapse (MVP), Skin Disorder, Sleep Apnea/CPAP/BIPAP, Thyroid Disorder Additional Past Medical History / Comment(s): heart murmer, hx rheumatic fever, environmental allergies, hiatal hernia, hx IBS, skin dx called granuloma annulare, hx thyroid cancer, cancer rt breast, TIA- no residual effects, irregular heartbeat, leaking aortic and mitral valves, no cpap used, "severe acid reflux", sepsis after breast surgery History of Any Multi-Drug Resistant Organisms: None Reported Past Surgical History: Back Surgery, Breast Surgery, Cholecystectomy, Heart Catheterization, Hysterectomy, Orthopedic Surgery Additional Past Surgical History / Comment(s): thyroidectomy, rt radical mastectomy,left mastectomy,constance breast reconstruction x 2-second implant (left breast) removed due to sepsis, cervical fusion x 2, titanium rods-lumber, rt shoulder arthroscopy, constance cataracts, Past Anesthesia/Blood Transfusion Reactions: Previous Problems w/ Anesthesia, Postoperative Nausea & Vomiting (PONV) Additional Past Anesthesia/Blood Transfusion Reaction / Comment(s): woke up during EGD in past Past Psychological History: Anxiety Smoking Status: Never smoker Past Alcohol Use History: None Reported Past Drug Use History: None Reported - Past Family History Mother Family Medical History: Cancer Additional Family Medical History / Comment(s): kidney Sister(s) Family Medical History: Cancer Additional Family Medical History / Comment(s): pancreatic Brother(s) Family Medical History: Cancer Additional Family Medical History / Comment(s): colon, thryoid cancer Daughter(s) Family Medical History: Cancer Additional Family Medical History / Comment(s): skin General Exam - General Exam Comments Initial Comments: General: The patient is awake and alert, in no distress, and does not appear acutely ill. Eye: Pupils are equal, round and reactive to light, extra-ocular movements are intact. No nystagmus. There is normal conjunctiva bilaterally. No signs of icterus. Cardiovascular: There is a regular rate and rhythm. No murmur, rub or gallop is appreciated. Respiratory: Lungs are clear to auscultation, respirations are non-labored, breath sounds are equal. No wheezes, stridor, rales, or rhonchi. Musculoskeletal: Mild swelling of the rgiht knee. diffuse tenderness/anterior and posterior. Normal ROM with tenderness of the right knee. Strength 5/5. Sensation intact proximal and distal to injury site, extensor mechanism intact. DP pulses equal bilaterally 2+. Neurological: A&O x 3. CN II-XII intact grossly, There are no obvious motor or sensory deficits. Coordination appears grossly intact. Speech is normal. Skin: Skin is warm and dry and no rashes or lesions are noted. Psychiatric: Cooperative, appropriate mood & affect, normal judgment. Limitations: no limitations Course Vital Signs 11/19/20 14:06 Temperature 99 F Pulse Rate 89 Respiratory 18 Rate Blood Pressure 138/64 O2 Sat by Pulse 100 Oximetry Medical Decision Making - Medical Decision Making XR (-) for acute osseous process. Patient placed in knee immobilizer she is neurovascularly intact both prior to and after. Compartments soft and compressible. Patient was instructed to use her walker for ambulation with the knee immobilizer in place. She is to follow up with orthopedic surgery and return for any worsening pain, swelling or other concerning symptoms. Patient discharged from a Disposition Clinical Impression: Right knee pain, Right knee injury Disposition: ADMITTED IP TO THIS HOSP Condition: Stable Additional Instructions: Please use medication as discussed. Please follow-up with orthopedic surgery in the next 2-3 days. Rest ice compress elevate the right lower extremity use walker as needed for safe walking/getting around, have knee immobilizer in place with walking.Please return to emergency room if the symptoms increase or worsen or for any other concerns. Is patient prescribed a controlled substance at d/c from ED?: No Referrals: Elli Gan III, MD [Primary Care Provider] - 1-2 days Wei Vasquez PAC [PHYSICIAN PATIENT SCHEDULING MANAGER] - 1-2 days Time of Disposition: 15:03
[2020-11-19] MEDS ORDERED: ACET/COD 300 MG/30 MG STARTER PACK 6 TAB BTL PO STA (15:27)
== END 2020-11-19 15:40 | disposition other institution (70) ==
LOC: EC 13:50
DX: S89.91XA Unspecified injury of right lower leg, initial encounter (principal); F41.9 Anxiety disorder, unspecified; J44.9 Chronic obstructive pulmonary disease, unspecified; I20.9 Angina pectoris, unspecified; E11.9 Type 2 diabetes mellitus without complications; K21.9 Gastro-esophageal reflux disease without esophagitis; E78.5 Hyperlipidemia, unspecified; I10 Essential (primary) hypertension; E07.9 Disorder of thyroid, unspecified; G47.33 Obstructive sleep apnea (adult) (pediatric); Z79.51 Long term (current) use of inhaled steroids; Z79.82 Long term (current) use of aspirin; Z79.899 Other long term (current) drug therapy; Z88.6 Allergy status to analgesic agent; Z88.8 Allergy status to other drugs, medicaments and biological substances; Z91.048 Other nonmedicinal substance allergy status; Z95.5 Presence of coronary angioplasty implant and graft; Z90.49 Acquired absence of other specified parts of digestive tract; Z90.710 Acquired absence of both cervix and uterus; Z98.42 Cataract extraction status, left eye; Z98.41 Cataract extraction status, right eye; Z90.12 Acquired absence of left breast and nipple; Z86.73 Personal history of transient ischemic attack (TIA), and cerebral infarction without residual deficits; Z98.1 Arthrodesis status; Z85.3 Personal history of malignant neoplasm of breast; Z85.850 Personal history of malignant neoplasm of thyroid; X50.1XXA Overexertion from prolonged static or awkward postures, initial encounter; Z80.8 Family history of malignant neoplasm of other organs or systems
CPT/HCPCS: 99284

== ENCOUNTER → 2020-12-09 | Outpatient (CLI) | payer MEDICARE, BC ==
--- NOTE | 2020-12-09 15:20 | MR ---
EXAMINATION TYPE: MR knee RT wo con DATE OF EXAM: 12/09/2020 COMPARISON: Outside right knee x-ray November 22, 2020. HISTORY: Rt knee pain and swelling for 4 weeks since slipping injury per patient TECHNIQUE: Multiplanar, multisequence imaging of the right knee is performed without IV contrast. FINDINGS: MEDIAL MENISCUS: Posterior horn has triangular and oblique increased signal does not definitively ext end to articular surface. Anterior horn intact. LATERAL MENISCUS: Anterior and posterior horns are intact without tear. CRUCIATE LIGAMENTS: The anterior and posterior cruciate ligaments are intact and unremarkable. COLLATERAL LIGAMENTS: The medial collateral ligament and lateral collateral ligament complex are inta ct. Mild fluid signal surrounds medial collateral ligament. EXTENSOR MECHANISM: Visualized quadriceps and patellar tendons are intact. Spur from the anterior sup erior patella at the distal quadriceps tendon attachment redemonstrated. EFFUSION: Small to moderate-sized suprapatellar joint effusion. POPLITEAL CYST: Tiny popliteal/tran cyst. TRICOMPARTMENT SPACES: Mild to moderate narrowing and mild spurring patellofemoral compartment. Mild to moderate spurring medial lateral tibiofemoral compartment with mild to moderate narrowing greatest medial tibiofemoral compartment. CARTILAGE: Chondromalacia patella with thinning of articular cartilage along the posterior patellar p ole, full-thickness loss along the superior 3/4 portion. BONE MARROW SIGNAL: No focal abnormal marrow signal is appreciated. OTHER: Susceptibility artifact anterior medial distal femoral level. IMPRESSION: 1. Intrasubstance tear posterior horn of medial meniscus, no definitive full-thickness meniscal tear. 2. Mild MCL sprain injury. 3. Moderate tricompartment degenerative changes as detailed above greatest cartilaginous loss patello femoral compartment. 4. Small to moderate-sized suprapatellar joint effusion.
== END | disposition home or self-care (01) ==
LOC: RADMRIMAIN 13:13
PROVIDERS: ATTEND Orthopaedic Surgery
DX: S83.241A Other tear of medial meniscus, current injury, right knee, initial encounter (principal); S83.411A Sprain of medial collateral ligament of right knee, initial encounter; M17.11 Unilateral primary osteoarthritis, right knee; M94.8X5 Other specified disorders of cartilage, thigh

== ENCOUNTER → 2021-01-15 | Outpatient (CLI) | payer MEDICARE, BC ==
--- NOTE | 2021-01-15 12:18 | XR ---
EXAMINATION TYPE: XR chest 2V DATE OF EXAM: 01/15/2021 COMPARISON: Chest x-ray 05/10/2019 HISTORY: R 53.83 TECHNIQUE: Frontal and lateral views of the chest are obtained. FINDINGS: There is no focal air space opacity, pleural effusion, or pneumothorax seen. The cardiac silhouette size is within normal limits. Patient is rotated. Aorta is dense. There is elevation of th e right hemidiaphragm as on prior. The osseous structures are intact, there are findings of DISH. Fitzpatrick rgical clips present in the upper abdomen. IMPRESSION: No acute cardiopulmonary process.
--- NOTE | 2021-01-15 12:34 | CT ---
EXAMINATION TYPE: CT abdomen pelvis w con DATE OF EXAM: 01/15/2021 HISTORY: Generalized pelvic and perineal pain with history of cancer, general fatigue. CT DLP: 1101.4mGycm Automated Exposure Control for Dose Reduction was Utilized. CONTRAST: CT scan of the abdomen and pelvis is performed with oral and with IV Contrast, patient injected with 100 mL of Isovue 300. COMPARISON: CT April 28, 2018 and older studies FINDINGS: LUNG BASES: No significant abnormality is appreciated. LIVER/GB: Cholecystectomy clips are redemonstrated. PANCREAS: No significant abnormality is seen. SPLEEN: No significant abnormality is seen. ADRENALS: No significant abnormality is seen. KIDNEYS: Symmetric cortical medullary uptake and excretion without hydronephrosis seen bilaterally. BOWEL: Oral contrast extends to hepatic flexure. No suspicious small or large bowel dilatation. Diver ticula in the left and sigmoid colon. No CT evidence for acute diverticulitis. Lmpp-qw-ftooxsxc promi nence of fecal material in the mid to distal colon. UTERUS/ADNEXA: Uterus surgically absent. LYMPH NODES: No greater than 1cm abdominal or pelvic lymph nodes are appreciated. OSSEOUS STRUCTURES: Posterior interpedicular rods and screws at the L2-L3 level redemonstrated. Facet arthropathy lower lumbar levels. [id number]-[id number] axial joint space loss both hips. OTHER: Mild calcified plaque of the aorta extends into branch vessels. IMPRESSION: No suspicious new mass or adenopathy. No suspicious new or acute findings seen.
== END ==
LOC: RADCTMAIN 10:07
PROVIDERS: ATTEND Family Medicine
DX: R53.83 Other fatigue (principal); R10.2 Pelvic and perineal pain
CPT/HCPCS: 82565; 84520; 71046; 74177; 36415; Q9967

== ENCOUNTER 2021-04-03 12:58 | Day surgery (SDC) | payer MEDICARE, BC ==
[2021-04-02 09:46] VITALS: BMI 31.4
--- NOTE | 2021-04-02 18:11 | HP ---
HISTORY AND PHYSICAL REASON FOR ADMISSION: Surgery scheduled for 04/03/2021. HISTORY OF PRESENT ILLNESS: Brandy Pulido is a 75-year-old patient seen with progressive right knee pain. We discussed options for treatment. She elected to proceed with arthroscopy. Consent was obtained. PAST MEDICAL HISTORY: [id number] diabetes, hypertension, hypothyroidism, asthma. PAST SURGICAL HISTORY: Cholecystectomy, hysterectomy, breast biopsy, shoulder arthroscopy, cervical spine fusion, lumbar spine fusion, thyroidectomy. MEDICATIONS: Cardizem, isosorbide, levothyroxine, losartan, metformin, Singulair, Symbicort. ALLERGIES: LISINOPRIL, MEDROL DOSEPAK, AND ALEVE. SOCIAL HISTORY: She denies tobacco. PHYSICAL EXAMINATION: Right knee: Range of motion is -2 to 120. Mild effusion. Tenderness medial joint line. Positive medial Gaby's. Ligaments stable. Hip rotation without pain. Distal neurovascular exam intact. RADIOGRAPHS: Radiographs of the right knee revealed mild osteoarthritis. Right knee MRI revealed medial meniscal tear and joint effusion. IMPRESSION: 1. Internal derangement of right knee with medial meniscal tear. 2. Hypothyroidism. 3. Hypertension. 4. His-waweyyf-askbsztse diabetes. PLAN: Right knee arthroscopy with partial meniscectomy and debridement. Surgery 04/03/2021. MMODL / IJN: [id number] /
[~2021-04-03 12:58] MED LIST changes: -ALPRAZolam 0.25 MG TAB PO PRN; -ALPRAZolam 0.5 MG TAB PO PRN; -ASPIRIN 325 MG TAB PO STA; -ATORVASTATIN 80 MG TAB PO STA; +LACTATED RINGERS 1,000 ML IV SCH; -NITROGLYCERIN SL TABS 0.4 MG TAB SUBLINGUAL PRN; +ONDANSETRON 4 MG/2 ML VIAL IVP ONE; -SODIUM CHLORIDE 0.9% 1,000 ML in EMPTY BAG 1 BAG IV ONE
[2021-04-03 13:48] VITALS: TEMP 97.7
[2021-04-03 14:11] LABS: Glucose,Whole Blood 117 mg/dL (75-99)
[2021-04-03] MEDS ORDERED: BUPIVACAINE (PF) 0.25% 30 ML VIAL SQ ONE (14:59)
[2021-04-03] MEDS ORDERED: MIDAZOLAM 2 MG/2 ML VIAL ONE (15:04)
[2021-04-03] MEDS ORDERED: SUCCINYLCHOLINE CHLORIDE 100 MG/5 ML SYR IV ONE (15:04)
[2021-04-03] MEDS ORDERED: KETOROLAC 15 MG/ML 1 ML VIAL ONE (15:04)
[2021-04-03] MEDS ORDERED: fentaNYL (PF) 50 MCG/ML 2 ML AMP ONE (15:04)
[2021-04-03] MEDS ORDERED: LIDOCAINE 1% INJ 10MG/ML (20 ML MDV) ONE (15:04)
[2021-04-03] MEDS: fentaNYL (PF) 50 MCG/ML 2 ML AMP IV PRN ×2 (15:59→16:05)
--- NOTE | 2021-04-03 15:59 | P.OP ---
Date of Procedure: 04/03/21 Preoperative Diagnosis: Internal derangement right knee Postoperative Diagnosis: 1. Tear medial meniscus right knee 2. 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 Reactive synovitis medial, lateral and suprapatellar compartments right knee Procedure(s) Performed: 1. Arthroscopic partial medial meniscectomy right knee 2. Arthroscopic chondroplasty medial femoral condyle right knee 3. Arthroscopic partial synovectomy medial, lateral and suprapatellar compartments right knee Anesthesia: MELINDAA, local Surgeon: Vick Cordoba Estimated Blood Loss (ml): 7 Pathology: none sent Condition: stable Disposition: PACU Indications for Procedure: 75-year-old patient seen with progressive right knee pain. After treatment options were discussed, she elected to proceed with arthroscopy. Operative Findings: See description of procedure Description of Procedure: Patient was taken to the operative suite. Patient underwent a general anesthetic by the department of anesthesia. Patient was given preoperative antibiotics. The right lower extremity was placed in a well-padded arthroscopic leg laboy. The right leg was prepped and draped in the normal sterile orthopedic fashion. A lateral parapatellar and suprapatellar incision was made. Trochars were inserted. Arthroscopy was initiated. Suprapatellar pouch revealed diffuse thick reactive synovitis. The patellofemoral joint appeared to articulate congruently. There was grade 2 chondromalacia of the patella with no significant osteochondral tears present. The scope was guided into the medial gutter. No loose bodies or plica were identified. The scope was then guided into the medial compartment. A medial parapatellar incision was made. Trocar inserted followed by probe. There was a radial tear in the area posterior horn medial meniscus. There were grade 2/3 chondromalacia changes of the medial femoral condyle. There are osteochondral tears of the medial femoral condyle. There was thick reactive synovitis anteriorly. I performed a partial medial meniscectomy getting down to stable meniscal tissue. I performed a chondroplasty of the medial femoral condyle getting down to stable osteochondral tissue. I performed a partial synovectomy decompressing the reactive synovitis. The residual meniscus was stable. There was good decompression of the synovitis. The residual osteochondral surface was stable. Scope and probe were then guided into the intercondylar notch. Cruciates were identified, probed and found to be stable. The scope and probe were then guided into lateral compartment. The lateral meniscus was probed and was found to be stable with some mild superficial fraying present. There were grade 2 chondromalacia changes lateral compartment with no osteochondral tears. There was some thick reactive synovitis anteriorly. I introduced a motorized shaver and debrided out some superficial fraying of the meniscus. I performed a partial synovectomy decompressing the thick reactive synovitis. The shaver was removed. There was good decompression of the synovitis. The scope was in guided back into the suprapatellar compartment. Used a motorized shaver into the super patellar compartment. I debrided some piecemeal fragments of meniscus I encountered. I performed a partial synovectomy decompressing the reactive synovitis. The shaver was removed. There was good decompression of synovitis. I took one more look around the entire knee, no residual debris. Instruments were now removed from the joint. The joint was infiltrated with .25% Marcaine. Steri-Strips were applied to the portal sites. Sterile dressings were applied. The patient was placed into a HORTENSIA hose. No tourniquet was utilized. The patient was awakened, transferred to a bed and taken to recovery stable satisfactory condition.
[2021-04-03] MEDS ORDERED: HYDROmorphone 0.5 MG/0.5 ML SYRINGE IVP ONE ×2 (16:20→16:27)
[2021-04-03] MEDS ORDERED: fentaNYL (PF) 50 MCG/ML 2 ML AMP IVP ONE ×2 (16:35→16:57)
[2021-04-03] MEDS ORDERED: LACTATED RINGERS 1,000 ML IV ONE (17:19)
[2021-04-03 17:33] VITALS: RESP 18
[2021-04-03 18:01] VITALS: BP 122/56; PULSE 70
== END 2021-04-03 18:23 | disposition home or self-care (01) ==
LOC: OR 12:58
PROVIDERS: ATTEND Orthopaedic Surgery
DX: M23.203 Derangement of unspecified medial meniscus due to old tear or injury, right knee (principal); M94.261 Chondromalacia, right knee; M65.861 Other synovitis and tenosynovitis, right lower leg; E11.9 Type 2 diabetes mellitus without complications; I10 Essential (primary) hypertension; J45.909 Unspecified asthma, uncomplicated; Z90.49 Acquired absence of other specified parts of digestive tract; Z90.710 Acquired absence of both cervix and uterus; Z98.1 Arthrodesis status; E89.0 Postprocedural hypothyroidism; Z98.890 Other specified postprocedural states; Z79.84 Long term (current) use of oral hypoglycemic drugs; Z79.51 Long term (current) use of inhaled steroids; Z79.899 Other long term (current) drug therapy; Z88.6 Allergy status to analgesic agent; Z88.8 Allergy status to other drugs, medicaments and biological substances
CPT/HCPCS: 29881; 29876; J2250; J0690; J2405; J2001; J3010; J1885; J0330; J1170

== ENCOUNTER 2021-10-27 10:46 | Emergency (ER) | payer MEDICARE, BC ==
[2021-10-27 10:50] VITALS: BP 165/72; TEMP 98.6
--- NOTE | 2021-10-27 11:58 | XR ---
EXAMINATION TYPE: XR chest 2V DATE OF EXAM: 10/27/2021 COMPARISON: 01/15/2021 TECHNIQUE: PA and lateral views submitted. HISTORY: Difficulty breathing FINDINGS: Diffuse interstitial pattern with bilateral consolidation and small effusions. The heart is mildly pr ominent. No pneumothorax. Arthropathy of the shoulders. Hypertrophic and degenerative change of the s pine. Surgical clips in the abdomen. IMPRESSION: 1. Correlate for mild CHF otherwise consider interstitial pneumonia.
[2021-10-27] MEDS ORDERED: methylPREDNISolone SOD SUCCI 125 MG/2 ML VIAL IV STA (13:48)
[2021-10-27] MEDS ORDERED: ALBUTEROL NEBULIZED 2.5 MG/3 ML INHALATION STA (13:48)
[2021-10-27] MEDS ORDERED: IPRATROPIUM-ALBUTEROL 3 ML NEB INHALATION STA (13:48)
--- NOTE | 2021-10-27 14:23 | ED ---
General Adult HPI - General Chief complaint: Shortness of Breath Stated complaint: asthma & facial swelling Time Seen by Provider: 10/27/21 11:32 Source: patient, family, RN notes reviewed, old records reviewed Mode of arrival: wheelchair Limitations: no limitations - History of Present Illness Initial comments: 76-year-old female with asthma COPD presenting for evaluation of cough, and wheezing. Patient states she has had symptoms for the past 2 days. She had been previously vaccinated against coronavirus. She denies fever. She denies nausea vomiting. She denies central chest pain. She did report some bilateral lower extremity swelling as well as minimal facial swelling. - Related Data Home Medications Medication Instructions Recorded Confirmed DULoxetine HCL [Cymbalta] 60 mg PO DAILY 05/03/14 10/27/21 Montelukast Sodium [Singulair] 10 mg PO HS 10/14/17 10/27/21 Levothyroxine Sodium [Synthroid] 62.5 mcg PO LOCKWOOD 05/24/18 10/27/21 Budesonide-Formot 160-4.5 Mcg 2 puff INHALATION RT-BID PRN 09/25/19 10/27/21 [Symbicort 160-4.5 Mcg Inhaler] Losartan Potassium 25 mg PO QAM 09/25/19 10/27/21 hydroCHLOROthiazide 25 mg PO QAM 09/25/19 10/27/21 Cyanocobalamin (Vitamin B-12) 1,000 mcg PO DAILY 02/23/20 10/27/21 [Vitamin B-12] Albuterol Inhaler [Ventolin Hfa 2 puff INHALATION RT-Q6H PRN 10/01/20 10/27/21 Inhaler] Aspirin [Adult Low Dose Aspirin EC] 81 mg PO QAM 10/01/20 10/27/21 Diltiazem HCl [Diltiazem HCl 24Hr 120 mg PO DAILY 10/01/20 10/27/21 ER (CD)] Levothyroxine Sodium [Synthroid] 125 mcg PO MOTUWETHFRSA 10/01/20 10/27/21 Omeprazole [PriLOSEC] 40 mg PO DAILY 10/01/20 10/27/21 Rosuvastatin Calcium [Crestor] 10 mg PO DAILY 10/01/20 10/27/21 Isosorbide Mononitrate ER [Imdur] 30 mg PO DAILY 04/02/21 10/27/21 L.acidoph,Paracasei, B.lactis 1 cap PO DAILY 04/02/21 10/27/21 [Probiotic] Ascorbic Acid [Vitamin C] 1,000 mg PO DAILY 10/27/21 10/27/21 Cholecalciferol (Vitamin D3) 75 mcg PO DAILY 10/27/21 10/27/21 [Vitamin D3 (3000 Iu)] Metoprolol Succinate (ER) [Toprol 25 mg PO DAILY 10/27/21 10/27/21 Xl] metFORMIN HCL ER [Glucophage XR] 500 mg PO DAILY 10/27/21 10/27/21 Previous Rx's Medication Instructions Recorded Albuterol Inhaler [Ventolin Hfa 1 puff INHALATION RT-QID #8 gm 10/27/21 Inhaler] Azithromycin [Zithromax Z-pack] 0 mg PO DIRECTED #6 tab 10/27/21 predniSONE 50 mg PO DAILY #5 tab 10/27/21 Allergies Allergy/AdvReac Type Severity Reaction Status Date / Time nickel Allergy Itching/raw Verified 10/27/21 13:40 skin lisinopril AdvReac Severe Cough Verified 10/27/21 13:40 tramadol AdvReac Severe severe Verified 10/27/21 13:40 fatigue, elevated BP adhesive tape AdvReac PULLS SKIN Verified 10/27/21 13:40 OFF hydrocodone bitartrate AdvReac Hallucinati Verified 10/27/21 13:40 [From [place]] ons methylprednisolone AdvReac red puffy Verified 10/27/21 13:40 [From Medrol] face naproxen sodium [From Aleve] AdvReac lowers BP Verified 10/27/21 13:40 bandaid AdvReac pulls skin Uncoded 10/27/21 13:40 off Review of Systems ROS Statement: Those systems with pertinent positive or pertinent negative responses have been documented in the HPI. ROS Other: All systems not noted in ROS Statement are negative. Past Medical History Past Medical History: Asthma, Cancer, Chest Pain / Angina, COPD, CVA/TIA, Diabetes Mellitus, Fibromyalgia, GERD/Reflux, Hyperlipidemia, Hypertension, Mitral Valve Prolapse (MVP), Skin Disorder, Sleep Apnea/CPAP/BIPAP, Thyroid Disorder Additional Past Medical History / Comment(s): heart murmur, hx rheumatic fever, environmental allergies, hiatal hernia, hx IBS, skin dx called granuloma annulare, hx thyroid cancer, cancer rt breast, TIA- no residual effects, irregular heartbeat, leaking aortic and mitral valves, no cpap used, "severe acid reflux", sepsis after breast surgery History of Any Multi-Drug Resistant Organisms: None Reported Past Surgical History: Back Surgery, Breast Surgery, Cholecystectomy, Heart Catheterization, Hysterectomy, Orthopedic Surgery Additional Past Surgical History / Comment(s): thyroidectomy, rt radical mastectomy,left mastectomy,constance breast reconstruction x 2-second implant (left breast) removed due to sepsis, cervical fusion x 2, titanium rods-lumbar, rt shoulder arthroscopy, constance cataracts, Past Anesthesia/Blood Transfusion Reactions: Previous Problems w/ Anesthesia, Postoperative Nausea & Vomiting (PONV) Additional Past Anesthesia/Blood Transfusion Reaction / Comment(s): woke up during EGD in past Past Psychological History: Anxiety Smoking Status: Never smoker - Past Family History Mother Family Medical History: Cancer Additional Family Medical History / Comment(s): kidney Sister(s) Family Medical History: Cancer Additional Family Medical History / Comment(s): pancreatic Brother(s) Family Medical History: Cancer Additional Family Medical History / Comment(s): colon, thryoid cancer Daughter(s) Family Medical History: Cancer Additional Family Medical History / Comment(s): skin General Exam Limitations: no limitations General appearance: alert, in no apparent distress Head exam: Present: atraumatic, normocephalic Eye exam: Present: normal appearance, PERRL Neck exam: Present: normal inspection. Absent: tenderness, meningismus Respiratory exam: Present: wheezes, rales. Absent: respiratory distress Cardiovascular Exam: Present: regular rate, normal rhythm GI/Abdominal exam: Present: soft. Absent: distended, tenderness, guarding Extremities exam: Present: pedal edema (Trace) Neurological exam: Present: alert, oriented X3, CN II-XII intact. Absent: motor sensory deficit Psychiatric exam: Present: normal affect, normal mood Skin exam: Present: warm, dry, intact. Absent: cyanosis, diaphoretic Course Vital Signs 10/27/21 10/27/21 10/27/21 10:47 13:39 13:40 Temperature 98.6 F Pulse Rate 78 58 L Respiratory 18 24 Rate Blood Pressure 165/72 O2 Sat by Pulse 99 95 Oximetry EKG Findings - EKG Comments: EKG Findings:: EKG: Sinus bradycardia, rate 58, W[place] interval 136, QRS duration 94, QTC [address] segment elevation. Medical Decision Making - Medical Decision Making 76-year-old female with 2 days of wheezing, dyspnea. Patient has tested negative for coronavirus. Chest x-ray shows a possible interstitial pneumonia versus mild CHF. Her BNP is not elevated. Her troponin is negative. She has a stable CBC, normal electrolytes. I did offer observation versus home with strict return parameters. At this time the patient prefers to be discharged. She's given albuterol, Atrovent, steroids in the emergency department. She will be discharged with antibiotics, steroids, and albuterol. Strict return parameters are discussed. - Lab Data Result diagrams: 10/27/21 14:10 10/27/21 14:10 Lab Results 10/27/21 10/27/21 10/27/21 Range/Units 11:30 14:10 14:10 WBC 6.4 (3.8-10.6) k/uL RBC 3.69 L (3.80-5.40) m/uL Hgb 10.1 L (11.4-16.0) gm/dL Hct 30.2 L (34.0-46.0) % MCV 81.8 (80.0-100.0) fL MCH 27.3 (25.0-35.0) pg MCHC 33.4 (31.0-37.0) g/dL RDW 14.0 (11.5-15.5) % Plt Count 181 (150-450) k/uL MPV 7.6 Neutrophils % 71 % Lymphocytes % 19 % Monocytes % 7 % Eosinophils % 2 % Basophils % 0 % Neutrophils # 4.6 (1.3-7.7) k/uL Lymphocytes # 1.2 (1.0-4.8) k/uL Monocytes # 0.4 (0-1.0) k/uL Eosinophils # 0.1 (0-0.7) k/uL Basophils # 0.0 (0-0.2) k/uL PT 10.5 (9.0-12.0) sec INR 1.0 (<1.2) APTT 23.9 (22.0-30.0) sec Sodium (137-145) mmol/L Potassium (3.5-5.1) mmol/L Chloride (98-107) mmol/L Carbon Dioxide (22-30) mmol/L Anion Gap mmol/L BUN (7-17) mg/dL Creatinine (0.52-1.04) mg/dL Est GFR (CKD-EPI)AfAm (>60 ml/min/1.73 sqM) Est GFR (CKD-EPI)NonAf (>60 ml/min/1.73 sqM) Glucose (74-99) mg/dL Calcium (8.4-10.2) mg/dL Total Bilirubin (0.2-1.3) mg/dL AST (14-36) U/L ALT (4-34) U/L Alkaline Phosphatase (38-126) U/L Troponin I (0.000-0.034) ng/mL NT-Pro-B Natriuret Pep pg/mL Total Protein (6.3-8.2) g/dL Albumin (3.5-5.0) g/dL Coronavirus (PCR) Not Detected (Not Detectd) 10/27/21 10/27/21 10/27/21 Range/Units 14:10 14:10 14:10 WBC (3.8-10.6) k/uL RBC (3.80-5.40) m/uL Hgb (11.4-16.0) gm/dL Hct (34.0-46.0) % MCV (80.0-100.0) fL MCH (25.0-35.0) pg MCHC (31.0-37.0) g/dL RDW (11.5-15.5) % Plt Count (150-450) k/uL MPV Neutrophils % % Lymphocytes % % Monocytes % % Eosinophils % % Basophils % % Neutrophils # (1.3-7.7) k/uL Lymphocytes # (1.0-4.8) k/uL Monocytes # (0-1.0) k/uL Eosinophils # (0-0.7) k/uL Basophils # (0-0.2) k/uL PT (9.0-12.0) sec INR (<1.2) APTT (22.0-30.0) sec Sodium 139 (137-145) mmol/L Potassium 3.5 (3.5-5.1) mmol/L Chloride 106 (98-107) mmol/L Carbon Dioxide 24 (22-30) mmol/L Anion Gap 9 mmol/L BUN 13 (7-17) mg/dL Creatinine 0.67 (0.52-1.04) mg/dL Est GFR (CKD-EPI)AfAm >90 (>60 ml/min/1.73 sqM) Est GFR (CKD-EPI)NonAf 85 (>60 ml/min/1.73 sqM) Glucose 91 (74-99) mg/dL Calcium 7.9 L (8.4-10.2) mg/dL Total Bilirubin 0.5 (0.2-1.3) mg/dL AST 25 (14-36) U/L ALT 14 (4-34) U/L Alkaline Phosphatase 81 (38-126) U/L Troponin I <0.012 (0.000-0.034) ng/mL NT-Pro-B Natriuret Pep 942 pg/mL Total Protein 6.0 L (6.3-8.2) g/dL Albumin 3.3 L (3.5-5.0) g/dL Coronavirus (PCR) (Not Detectd) Disposition Clinical Impression: COPD exacerbation Disposition: HOME SELF-CARE Condition: Fair Instructions (If sedation given, give patient instructions): COPD (Chronic Obstructive Pulmonary Disease) (ED) Prescriptions: predniSONE 50 mg PO DAILY #5 tab Albuterol Inhaler [Ventolin Hfa Inhaler] 1 puff INHALATION RT-QID #8 gm Azithromycin [Zithromax Z-pack] 0 mg PO DIRECTED #6 tab Is patient prescribed a controlled substance at d/c from ED?: No Referrals: Elli Gan III, MD [Primary Care Provider] - 1-2 days Time of Disposition: 15:09 Decision Date: 10/27/21 Decision Time: 15:07
[2021-10-27 14:28] LABS: Basophils % (A) 0 %; Eosinophils # (A) 0.1 k/uL (0-0.7); Eosinophils % (A) 2 %; HCT 30.2 % (34.0-46.0); HGB 10.1 gm/dL (11.4-16.0); Lymphocytes # (A) 1.2 k/uL (1.0-4.8); Lymphocytes % (A) 19 %; MCH 27.3 pg (25.0-35.0); MCHC 33.4 g/dL (31.0-37.0); MCV 81.8 fL (80.0-100.0); Mean Platelet Volume 7.6; Monocytes # (A) 0.4 k/uL (0-1.0); Monocytes % (A) 7 %; Neutrophils # (A) 4.6 k/uL (1.3-7.7); Neutrophils % (A) 71 %; Platelet Count 181 k/uL (150-450); RBC 3.69 m/uL (3.80-5.40); WBC 6.4 k/uL (3.8-10.6)
[2021-10-27 14:39] LABS: Partial Thromboplastin Time 23.9 sec (22.0-30.0); Prothrombin Time 10.5 sec (9.0-12.0)
[2021-10-27 14:47] LABS: ALT 14 U/L (4-34); AST 25 U/L (14-36); African American GFR (CKD) >90 (>60 ml/min/1.73 sqM); Albumin 3.3 g/dL (3.5-5.0); Alkaline Phosphatase 81 U/L (38-126); Anion Gap 9 mmol/L; Blood Urea Nitrogen 13 mg/dL (7-17); Calcium 7.9 mg/dL (8.4-10.2); Carbon Dioxide 24 mmol/L (22-30); Chloride 106 mmol/L (98-107); Glucose 91 mg/dL (74-99); Non-African American GFR(CKD) 85 (>60 ml/min/1.73 sqM); Potassium 3.5 mmol/L (3.5-5.1); Sodium 139 mmol/L (137-145); Total Bilirubin 0.5 mg/dL (0.2-1.3)
[2021-10-27 15:18] VITALS: RESP 18
[2021-10-27 15:38] VITALS: PULSE 59
== END 2021-10-27 15:38 | disposition home or self-care (01) ==
LOC: EC 10:46
DX: J44.1 Chronic obstructive pulmonary disease with (acute) exacerbation (principal); J44.9 Chronic obstructive pulmonary disease, unspecified; K21.9 Gastro-esophageal reflux disease without esophagitis; E78.5 Hyperlipidemia, unspecified; E11.9 Type 2 diabetes mellitus without complications; I10 Essential (primary) hypertension; E07.9 Disorder of thyroid, unspecified; M79.7 Fibromyalgia; Z86.73 Personal history of transient ischemic attack (TIA), and cerebral infarction without residual deficits; Z91.09 Other allergy status, other than to drugs and biological substances; Z88.8 Allergy status to other drugs, medicaments and biological substances; Z88.6 Allergy status to analgesic agent; Z20.822 Contact with and (suspected) exposure to COVID-19; Z88.5 Allergy status to narcotic agent; Z79.899 Other long term (current) drug therapy; Z79.890 Hormone replacement therapy; Z79.82 Long term (current) use of aspirin; Z79.84 Long term (current) use of oral hypoglycemic drugs
CPT/HCPCS: 36415; 94640; 83880; 80053; 84484; 85025; 85610; 85730; 87635; 71046; 99285; 96374; J2930; 93005

== ENCOUNTER 2021-12-09 13:57 | Emergency (ER) | payer MEDICARE, BC ==
[2021-12-09 14:20] VITALS: TEMP 98.4
--- NOTE | 2021-12-09 15:01 | XR ---
EXAMINATION TYPE: XR knee complete RT DATE OF EXAM: 12/09/2021 CLINICAL HISTORY: Pain after recent fall injury TECHNIQUE: Three views of the right knee are obtained. COMPARISON: Right knee x-ray November 19, 2020. FINDINGS: There is no acute fracture/dislocation evident in right knee. Moderate tricompartment join t space loss redemonstrated. Spurring from the anterior superior patella distal quadriceps tendon att achment redemonstrated. Osseous structures are demineralized. Heterotopic ossification posterior to t he proximal fibular diaphysis is redemonstrated. The overlying soft tissue appears unremarkable. IMPRESSION: As above.
--- NOTE | 2021-12-09 15:03 | XR ---
EXAMINATION TYPE: XR shoulder complete LT DATE OF EXAM: 12/09/2021 CLINICAL HISTORY: Pain after recent fall injury. TECHNIQUE: Three views of the left shoulder are obtained. COMPARISON: Left shoulder x-ray 2013. FINDINGS: Osseous structures are demineralized. Moderate to severe narrowing left acromioclavicular j oint with mild to moderate spurring is more prominent from prior. Mild to moderate narrowing glenohum eral joint with mild spurring inferiorly is now present. Visualized ribs remain intact. IMPRESSION: As above.
--- NOTE | 2021-12-09 15:44 | ED ---
General Adult HPI - General Chief complaint: Fall Stated complaint: Fall, Shoulder Injury Time Seen by Provider: 12/09/21 15:50 Source: patient, RN notes reviewed, old records reviewed Mode of arrival: ambulatory Limitations: no limitations - History of Present Illness Initial comments: This is a well-appearing 76-year-old female that presents to the emergency room after a trip and fall on November 27. Patient states she tripped over boots and fell onto her right side. She states that she did sustain some abrasions to her arm and her leg which have healed however she continues to have right knee pain and left shoulder and left upper back pain. Patient states that the pain is worse when she lays in bed. She is recently recovering from pneumonia and finished her antibiotics. She denies any fevers or shortness of breath. She states that the pain is worse with palpation to the left scapula. She describes pain as an ache 3 out of 10 and sometimes sharp. She is not taking any blood thinners and did not hit her head or lose consciousness. Vital signs are stable -: days(s) (10) Location: left (scapular/chest), right, upper extremity, lower extremity (knee) Severity scale (1-10): 3 Consistency: constant Improves with: immobilization Worsens with: other (laying down) Associated Symptoms: cough Treatments Prior to Arrival: none - Related Data Home Medications Medication Instructions Recorded Confirmed DULoxetine HCL [Cymbalta] 60 mg PO DAILY 05/03/14 10/27/21 Montelukast Sodium [Singulair] 10 mg PO HS 10/14/17 10/27/21 Levothyroxine Sodium [Synthroid] 62.5 mcg PO LOCKWOOD 05/24/18 10/27/21 Budesonide-Formot 160-4.5 Mcg 2 puff INHALATION RT-BID PRN 09/25/19 10/27/21 [Symbicort 160-4.5 Mcg Inhaler] Losartan Potassium 25 mg PO QAM 09/25/19 10/27/21 hydroCHLOROthiazide 25 mg PO QAM 09/25/19 10/27/21 Cyanocobalamin (Vitamin B-12) 1,000 mcg PO DAILY 02/23/20 10/27/21 [Vitamin B-12] Albuterol Inhaler [Ventolin Hfa 2 puff INHALATION RT-Q6H PRN 10/01/20 10/27/21 Inhaler] Aspirin [Adult Low Dose Aspirin EC] 81 mg PO QAM 10/01/20 10/27/21 Diltiazem HCl [Diltiazem HCl 24Hr 120 mg PO DAILY 10/01/20 10/27/21 ER (CD)] Levothyroxine Sodium [Synthroid] 125 mcg PO MOTUWETHFRSA 10/01/20 10/27/21 Omeprazole [PriLOSEC] 40 mg PO DAILY 10/01/20 10/27/21 Rosuvastatin Calcium [Crestor] 10 mg PO DAILY 10/01/20 10/27/21 Isosorbide Mononitrate ER [Imdur] 30 mg PO DAILY 04/02/21 10/27/21 L.acidoph,Paracasei, B.lactis 1 cap PO DAILY 04/02/21 10/27/21 [Probiotic] Ascorbic Acid [Vitamin C] 1,000 mg PO DAILY 10/27/21 10/27/21 Cholecalciferol (Vitamin D3) 75 mcg PO DAILY 10/27/21 10/27/21 [Vitamin D3 (3000 Iu)] Metoprolol Succinate (ER) [Toprol 25 mg PO DAILY 10/27/21 10/27/21 Xl] metFORMIN HCL ER [Glucophage XR] 500 mg PO DAILY 10/27/21 10/27/21 Previous Rx's Medication Instructions Recorded Albuterol Inhaler [Ventolin Hfa 1 puff INHALATION RT-QID #8 gm 10/27/21 Inhaler] Azithromycin [Zithromax Z-pack] 0 mg PO DIRECTED #6 tab 10/27/21 predniSONE 50 mg PO DAILY #5 tab 10/27/21 Lidocaine [Lidoderm 5% Patch] 7 patch TRANSDERM DAILY #7 patch 12/09/21 Allergies Allergy/AdvReac Type Severity Reaction Status Date / Time nickel Allergy Itching/raw Verified 12/09/21 14:16 skin lisinopril AdvReac Severe Cough Verified 12/09/21 14:16 tramadol AdvReac Severe severe Verified 12/09/21 14:16 fatigue, elevated BP adhesive tape AdvReac PULLS SKIN Verified 12/09/21 14:16 OFF hydrocodone bitartrate AdvReac Hallucinati Verified 12/09/21 14:16 [From [place]] ons methylprednisolone AdvReac red puffy Verified 12/09/21 14:16 [From Medrol] face naproxen sodium [From Aleve] AdvReac lowers BP Verified 12/09/21 14:16 bandaid AdvReac pulls skin Uncoded 12/09/21 14:16 off Review of Systems ROS Statement: Those systems with pertinent positive or pertinent negative responses have been documented in the HPI. ROS Other: All systems not noted in ROS Statement are negative. Past Medical History Past Medical History: Asthma, Cancer, Chest Pain / Angina, COPD, CVA/TIA, Diabetes Mellitus, Fibromyalgia, GERD/Reflux, Hyperlipidemia, Hypertension, Mitral Valve Prolapse (MVP), Skin Disorder, Sleep Apnea/CPAP/BIPAP, Thyroid Disorder Additional Past Medical History / Comment(s): heart murmur, hx rheumatic fever, environmental allergies, hiatal hernia, hx IBS, skin dx called granuloma annulare, hx thyroid cancer, cancer rt breast, TIA- no residual effects, irregular heartbeat, leaking aortic and mitral valves, no cpap used, "severe acid reflux", sepsis after breast surgery History of Any Multi-Drug Resistant Organisms: None Reported Past Surgical History: Back Surgery, Breast Surgery, Cholecystectomy, Heart Catheterization, Hysterectomy, Orthopedic Surgery Additional Past Surgical History / Comment(s): thyroidectomy, rt radical mastectomy,left mastectomy,constance breast reconstruction x 2-second implant (left breast) removed due to sepsis, cervical fusion x 2, titanium rods-lumbar, rt shoulder arthroscopy, constance cataracts, Past Anesthesia/Blood Transfusion Reactions: Previous Problems w/ Anesthesia, Postoperative Nausea & Vomiting (PONV) Additional Past Anesthesia/Blood Transfusion Reaction / Comment(s): woke up during EGD in past Past Psychological History: Anxiety Smoking Status: Never smoker Past Alcohol Use History: None Reported Past Drug Use History: None Reported - Past Family History Mother Family Medical History: Cancer Additional Family Medical History / Comment(s): kidney Sister(s) Family Medical History: Cancer Additional Family Medical History / Comment(s): pancreatic Brother(s) Family Medical History: Cancer Additional Family Medical History / Comment(s): colon, thryoid cancer Daughter(s) Family Medical History: Cancer Additional Family Medical History / Comment(s): skin General Exam Limitations: no limitations General appearance: alert, in no apparent distress Head exam: Present: atraumatic, normocephalic, normal inspection Eye exam: Present: normal appearance, EOMI. Absent: scleral icterus, conjunctival injection, periorbital swelling, periorbital tenderness ENT exam: Present: normal exam, normal oropharynx, mucous membranes moist Neck exam: Present: normal inspection, full ROM. Absent: tenderness, meningismus, lymphadenopathy, thyromegaly Respiratory exam: Present: normal lung sounds bilaterally. Absent: respiratory distress, wheezes, rales, rhonchi, stridor, chest wall tenderness, accessory muscle use Cardiovascular Exam: Present: regular rate, normal rhythm, normal heart sounds. Absent: JVD GI/Abdominal exam: Present: soft Left Shoulder Exam: Present: normal inspection, tenderness, other (Unable to perform scratch test limited range of motion). Absent: swelling, abrasion, ecchymosis, deformity, dislocation, erythema, tenderness over AC joint Upper Arm exam: Present: ecchymosis (Left mid humerus yellow/ green bruising). Absent: tenderness Forearm Wrist exam: Present: normal inspection Vascular: Present: normal capillary refill. Absent: vascular compromise Right Knee exam: Present: tenderness, full knee extension. Absent: swelling Neurovascular tendon exam: Present: no vascular compromise. Absent: extremity cold to touch, pallor Back exam: Present: normal inspection Neurological exam: Present: alert, oriented X3, normal gait Psychiatric exam: Present: normal affect, normal mood Skin exam: Present: warm, dry, intact, normal color, other (Bruising to the right flank). Absent: rash, cyanosis, diaphoretic, petechiae, pallor Course Vital Signs 12/09/21 12/09/21 14:16 17:03 Temperature 98.4 F 98.4 F Pulse Rate 64 63 Respiratory 20 18 Rate Blood Pressure 122/72 177/76 O2 Sat by Pulse 96 99 Oximetry Medical Decision Making - Medical Decision Making Well-appearing 76-year-old female presents ambulatory to the ER with complaints of right knee and left shoulder and upper back pain after a trip and fall on November 27. Pain is worse with palpation to the left scapula. Upon exam the patient does have some bruising to her left upper arm and right flank. She denies any pain to the abdomen or right flank. She has point tenderness to the left scapula. She is ambulatory with a steady gait. No focal neurological deficits. X-ray of the right knee shows no acute fracture or dislocation. Osseous structures are demineralized. Overlying soft tissues unremarkable. X-ray of the left shoulder shows generalized osseous structures. Moderate to severe narrowing of the left before meals joint more prominent from prior x-ray dated 2013. Chest x-ray shows no evidence of infiltrate or evidence of atelectasis. There is no evidence of acute pulmonary disease. X-ray of the left scapula show no fracture or dislocation. Visualized ribs are intact and unremarkable. Patient was offered a Lidoderm patch and states that she is willing to try that, she believes that she will be able to tolerate it even though she has documented ALLERGY to adhesives. Patient has multiple ALLERGIES was directed to take Tylenol and use Lidoderm patches for pain relief. She was also advised she could use [id number] capsaicin, icy hot or tiger balm for topical pain relief. Case discussed with Dr. Simpson. Patient will be directed to follow up with her primary care doctor and return to the emergency room with any new or concerning symptoms. Patient is agreeable to this plan of care. Disposition Clinical Impression: Fall, Musculoskeletal pain Disposition: HOME SELF-CARE Condition: Good Instructions (If sedation given, give patient instructions): Musculoskeletal Pain (ED), Fall Prevention (ED) Additional Instructions: Follow-up with your primary care doctor this week. Return to the emergency room with any new or worsening symptoms. Take Tylenol as needed for pain. Prescriptions: Lidocaine [Lidoderm 5% Patch] 7 patch TRANSDERM DAILY #7 patch Is patient prescribed a controlled substance at d/c from ED?: No Referrals: Elli Gan III, MD [Primary Care Provider] - 1-2 days Time of Disposition: 16:34
[2021-12-09] MEDS ORDERED: KETOROLAC 15 MG/ML 1 ML VIAL IM STA (15:57)
--- NOTE | 2021-12-09 16:22 | XR ---
EXAMINATION TYPE: XR chest 2V DATE OF EXAM: 12/09/2021 COMPARISON: 10/27/2021 HISTORY: Shortness of breath TECHNIQUE: Frontal and lateral views of the chest are obtained. FINDINGS: Scattered senescent parenchymal changes noted. Hyperinflation compatible with COPD. No evidence for infiltrate. No evidence for atelectasis. Heart size is stable. Mediastinal structures are stable and grossly unremarkable. No evidence for hilar prominence. Degenerative changes dorsal spine. IMPRESSION: 1. No evidence for acute pulmonary disease.
--- NOTE | 2021-12-09 16:24 | XR ---
EXAMINATION TYPE: XR scapula LT DATE OF EXAM: 12/09/2021 CLINICAL HISTORY: pain COMPARISON: NONE TECHNIQUE: Two views of the left scapula are obtained. FINDINGS: There is no acute fracture/dislocation evident. The acromioclavicular and glenohumeral otilia int spaces appear within normal limits. The visualized ribs are intact and unremarkable. IMPRESSION: 1. There is no acute fracture or dislocation. ICD 10 NO FRACTURE, INITIAL EVALUATION
[2021-12-09] MEDS ORDERED: LIDOCAINE 5% PATCH TOPICAL SCH (16:45)
[2021-12-09 17:05] VITALS: BP 177/76; PULSE 63; RESP 18
== END 2021-12-09 17:05 | disposition home or self-care (01) ==
LOC: EC 13:57
DX: M79.18 Myalgia, other site (principal); E11.9 Type 2 diabetes mellitus without complications; K21.9 Gastro-esophageal reflux disease without esophagitis; I10 Essential (primary) hypertension; J45.909 Unspecified asthma, uncomplicated; Z79.83 Long term (current) use of bisphosphonates; Z91.048 Other nonmedicinal substance allergy status; Z88.6 Allergy status to analgesic agent; Z88.8 Allergy status to other drugs, medicaments and biological substances; Z88.5 Allergy status to narcotic agent; W19.XXXA Unspecified fall, initial encounter
CPT/HCPCS: 73030; 73010; 73562; 71046; 99283; 96372; J1885

== ENCOUNTER → 2022-03-23 | Outpatient (CLI) | payer MEDICARE, BC ==
--- NOTE | 2022-03-23 15:53 | CT ---
EXAMINATION TYPE: CT chest wo con DATE OF EXAM: 03/23/2022 COMPARISON: HISTORY: SOB Dry cough CT DLP: 582.2 mGycm. Automated Exposure Control for Dose Reduction was Utilized. TECHNIQUE: CT scan of the thorax is performed without IV contrast. FINDINGS: LUNGS: The lungs are grossly clear, there is no concerning parenchymal mass or nodule identified. T here is no pleural effusion or pneumothorax seen. The tracheobronchial tree is patent. Linear subseg mental changes are seen bilaterally most typical of atelectasis or scarring. No significant interlobu lar septal thickening to suggest chronic interstitial pulmonary fibrosis or lung disease. MEDIASTINUM: Lack of IV contrast is noted to limit evaluation for mediastinal and especially hilar ad enopathy. There are no definitive greater than 1 cm hilar or mediastinal lymph nodes. Heart size is p rominent there is atherosclerotic change of the aorta and coronary arteries. No diagnostic evidence o f aneurysm. Calcification of the aortic valve. Calcifications of the tracheobronchial tree noted OTHER: Hypertrophic changes of the spine. Surgical clips in the gallbladder fossa noted. Correlate fo r previous right-sided mastectomy. IMPRESSION: 1. No diagnostic evidence of chronic interstitial lung disease. 2. No acute process. 3. Coronary artery calcification correlate for atherosclerotic disease
== END | disposition home or self-care (01) ==
LOC: RADCTMAIN 13:08
PROVIDERS: ATTEND Internal Medicine Critical Care Medicine
DX: R06.09 Other forms of dyspnea (principal)
CPT/HCPCS: 71250

== ENCOUNTER 2022-04-01 11:56 | Inpatient (IN) | payer MEDICARE, BC ==
--- NOTE | 2022-04-01 13:15 | ED ---
General Adult HPI - General Chief complaint: Recheck/Abnormal Lab/Rx Stated complaint: abn echo Time Seen by Provider: 04/01/22 12:44 Source: patient, RN notes reviewed, old records reviewed Mode of arrival: ambulatory Limitations: no limitations - History of Present Illness Initial comments: 76-year-old female presenting for evaluation of dyspnea, weight gain. Patient [facility] for abnormal [facility]. I do not have these results available at the time of presentation. The case had been discussed with cardiology who felt that the patient would benefit from evaluation. She is planned for heart cath on Wednesday of this week. She has no prior history of CAD. She's had a 15 pound weight gain recently. She's had increased exertional dyspnea. She has had some intermittent chest pain. None at the time my evaluation. No fever. - Related Data Home Medications Medication Instructions Recorded Confirmed DULoxetine HCL [Cymbalta] 60 mg PO DAILY 05/03/14 10/27/21 Montelukast Sodium [Singulair] 10 mg PO HS 10/14/17 10/27/21 Levothyroxine Sodium [Synthroid] 62.5 mcg PO [place]OCK[place] 05/24/18 10/27/21 Budesonide-Formot 160-4.5 Mcg 2 puff INHALATION RT-BID PRN 09/25/19 10/27/21 [Symbicort 160-4.5 Mcg Inhaler] Losartan Potassium 25 mg PO QAM 09/25/19 10/27/21 hydroCHLOROthiazide 25 mg PO QAM 09/25/19 10/27/21 Cyanocobalamin (Vitamin B-12) 1,000 mcg PO DAILY 02/23/20 10/27/21 [Vitamin B-12] Albuterol Inhaler [Ventolin Hfa 2 puff INHALATION RT-Q6H PRN 10/01/20 10/27/21 Inhaler] Aspirin [Adult Low Dose Aspirin EC] 81 mg PO QAM 10/01/20 10/27/21 Diltiazem HCl [Diltiazem HCl 24Hr 120 mg PO DAILY 10/01/20 10/27/21 ER (CD)] Levothyroxine Sodium [Synthroid] 125 mcg PO MOTUWETHFRSA 10/01/20 10/27/21 Omeprazole [PriLOSEC] 40 mg PO DAILY 10/01/20 10/27/21 Rosuvastatin Calcium [Crestor] 10 mg PO DAILY 10/01/20 10/27/21 Isosorbide Mononitrate ER [Imdur] 30 mg PO DAILY 04/02/21 10/27/21 L.acidoph,Paracasei, B.lactis 1 cap PO DAILY 04/02/21 10/27/21 [Probiotic] Ascorbic Acid [Vitamin C] 1,000 mg PO DAILY 10/27/21 10/27/21 Cholecalciferol (Vitamin D3) 75 mcg PO DAILY 10/27/21 10/27/21 [Vitamin D3 (3000 Iu)] Metoprolol Succinate (ER) [Toprol 25 mg PO DAILY 10/27/21 10/27/21 Xl] metFORMIN HCL ER [Glucophage XR] 500 mg PO DAILY 10/27/21 10/27/21 Previous Rx's Medication Instructions Recorded Albuterol Inhaler [Ventolin Hfa 1 puff INHALATION RT-QID #8 gm 10/27/21 Inhaler] Azithromycin [Zithromax Z-pack] 0 mg PO DIRECTED #6 tab 10/27/21 predniSONE 50 mg PO DAILY #5 tab 10/27/21 Lidocaine [Lidoderm 5% Patch] 7 patch TRANSDERM DAILY #7 patch 12/09/21 Allergies Allergy/AdvReac Type Severity Reaction Status Date / Time nickel Allergy Itching/raw Verified 04/01/22 12:34 skin lisinopril AdvReac Severe Cough Verified 04/01/22 12:34 tramadol AdvReac Severe severe Verified 04/01/22 12:34 fatigue, elevated BP adhesive tape AdvReac PULLS SKIN Verified 04/01/22 12:34 OFF hydrocodone bitartrate AdvReac Hallucinati Verified 04/01/22 12:34 [From [place]] ons methylprednisolone AdvReac red puffy Verified 04/01/22 12:34 [From Medrol] face naproxen sodium [From Aleve] AdvReac lowers BP Verified 04/01/22 12:34 bandaid AdvReac pulls skin Uncoded 04/01/22 12:34 off Review of Systems ROS Statement: Those systems with pertinent positive or pertinent negative responses have been documented in the HPI. ROS Other: All systems not noted in ROS Statement are negative. Past Medical History Past Medical History: Asthma, Cancer, Chest Pain / Angina, COPD, CVA/TIA, Diabetes Mellitus, Fibromyalgia, GERD/Reflux, Hyperlipidemia, Hypertension, Mitral Valve Prolapse (MVP), Skin Disorder, Sleep Apnea/CPAP/BIPAP, Thyroid Disorder Additional Past Medical History / Comment(s): heart murmur, hx rheumatic fever, environmental allergies, hiatal hernia, hx IBS, skin dx called granuloma annulare, hx thyroid cancer, cancer rt breast, TIA- no residual effects, irregular heartbeat, leaking aortic and mitral valves, no cpap used, "severe acid reflux", sepsis after breast surgery History of Any Multi-Drug Resistant Organisms: None Reported Past Surgical History: Back Surgery, Breast Surgery, Cholecystectomy, Heart Catheterization, Hysterectomy, Orthopedic Surgery Additional Past Surgical History / Comment(s): thyroidectomy, rt radical mastectomy,left mastectomy,constance breast reconstruction x 2-second implant (left breast) removed due to sepsis, cervical fusion x 2, titanium rods-lumbar, rt shoulder arthroscopy, constance cataracts, Past Anesthesia/Blood Transfusion Reactions: Previous Problems w/ Anesthesia, Postoperative Nausea & Vomiting (PONV) Additional Past Anesthesia/Blood Transfusion Reaction / Comment(s): woke up during EGD in past Past Psychological History: Anxiety Smoking Status: Never smoker Past Alcohol Use History: None Reported Past Drug Use History: None Reported - Past Family History Mother Family Medical History: Cancer Additional Family Medical History / Comment(s): kidney Sister(s) Family Medical History: Cancer Additional Family Medical History / Comment(s): pancreatic Brother(s) Family Medical History: Cancer Additional Family Medical History / Comment(s): colon, thryoid cancer Daughter(s) Family Medical History: Cancer Additional Family Medical History / Comment(s): skin General Exam Limitations: no limitations General appearance: alert, in no apparent distress Head exam: Present: atraumatic, normocephalic Eye exam: Present: normal appearance, PERRL ENT exam: Present: normal exam Neck exam: Present: normal inspection. Absent: tenderness, meningismus Respiratory exam: Present: normal lung sounds bilaterally. Absent: respiratory distress, wheezes, rhonchi Cardiovascular Exam: Present: regular rate, normal rhythm GI/Abdominal exam: Present: soft. Absent: distended, tenderness, guarding Extremities exam: Present: normal inspection, normal capillary refill Neurological exam: Present: alert, oriented X3, CN II-XII intact. Absent: motor sensory deficit Psychiatric exam: Present: normal affect, normal mood Skin exam: Present: warm, dry, intact. Absent: cyanosis, diaphoretic Course Vital Signs 04/01/22 12:30 Temperature 98.5 F Pulse Rate 58 L Respiratory 20 Rate Blood Pressure 138/71 O2 Sat by Pulse 97 Oximetry EKG Findings - EKG Comments: EKG Findings:: EKG: Sinus bradycardia no ST segment elevation, rate of 57, OR interval 143, QRS duration 87, QTC 395, Peaked T waves in the lateral precordial leads. Medical Decision Making - Medical Decision Making 76-year-old female with abnormal echo from the outpatient setting. Sent to the emergency department. Patient has complained of increased dyspnea, weight gain, intermittent chest pain. No previous history of CHF, no history of CAD. Patient has stable vitals in sinus rhythm upon arrival. She has normal CBC, CMP showing normal electrolytes, negative initial troponin. BNP is pending. Chest x-ray shows a mild elevation of the right hemidiaphragm without other acute findings, no barbara CHF. Patient will be admitted to Dr. Woo who is aware of the patient with cardiology on consultation. - Lab Data Result diagrams: 04/01/22 13:18 04/01/22 13:18 Lab Results 04/01/22 04/01/22 04/01/22 Range/Units 13:18 13:18 13:18 WBC 5.3 (3.8-10.6) k/uL RBC 4.44 (3.80-5.40) m/uL Hgb 11.6 (11.4-16.0) gm/dL Hct 36.5 (34.0-46.0) % MCV 82.1 (80.0-100.0) fL MCH 26.1 (25.0-35.0) pg MCHC 31.8 (31.0-37.0) g/dL RDW 13.8 (11.5-15.5) % Plt Count 187 (150-450) k/uL MPV 7.3 Neutrophils % 62 % Lymphocytes % 28 % Monocytes % 6 % Eosinophils % 2 % Basophils % 1 % Neutrophils # 3.3 (1.3-7.7) k/uL Lymphocytes # 1.5 (1.0-4.8) k/uL Monocytes # 0.3 (0-1.0) k/uL Eosinophils # 0.1 (0-0.7) k/uL Basophils # 0.0 (0-0.2) k/uL PT 10.0 (9.0-12.0) sec INR 0.9 (<1.2) APTT 24.3 (22.0-30.0) sec Sodium 139 (137-145) mmol/L Potassium 4.2 (3.5-5.1) mmol/L Chloride 101 (98-107) mmol/L Carbon Dioxide 33 H (22-30) mmol/L Anion Gap 5 mmol/L BUN 28 H (7-17) mg/dL Creatinine 0.81 (0.52-1.04) mg/dL Est GFR (CKD-EPI)AfAm 81 (>60 ml/min/1.73 sqM) Est GFR (CKD-EPI)NonAf 70 (>60 ml/min/1.73 sqM) Glucose 97 (74-99) mg/dL Calcium 8.4 (8.4-10.2) mg/dL Magnesium 1.8 (1.6-2.3) mg/dL Total Bilirubin 0.4 (0.2-1.3) mg/dL AST 32 (14-36) U/L ALT 25 (4-34) U/L Alkaline Phosphatase 93 (38-126) U/L Troponin I (0.000-0.034) ng/mL Total Protein 6.5 (6.3-8.2) g/dL Albumin 3.9 (3.5-5.0) g/dL 04/01/22 Range/Units 13:18 WBC (3.8-10.6) k/uL RBC (3.80-5.40) m/uL Hgb (11.4-16.0) gm/dL Hct (34.0-46.0) % MCV (80.0-100.0) fL MCH (25.0-35.0) pg MCHC (31.0-37.0) g/dL RDW (11.5-15.5) % Plt Count (150-450) k/uL MPV Neutrophils % % Lymphocytes % % Monocytes % % Eosinophils % % Basophils % % Neutrophils # (1.3-7.7) k/uL Lymphocytes # (1.0-4.8) k/uL Monocytes # (0-1.0) k/uL Eosinophils # (0-0.7) k/uL Basophils # (0-0.2) k/uL PT (9.0-12.0) sec INR (<1.2) APTT (22.0-30.0) sec Sodium (137-145) mmol/L Potassium (3.5-5.1) mmol/L Chloride (98-107) mmol/L Carbon Dioxide (22-30) mmol/L Anion Gap mmol/L BUN (7-17) mg/dL Creatinine (0.52-1.04) mg/dL Est GFR (CKD-EPI)AfAm (>60 ml/min/1.73 sqM) Est GFR (CKD-EPI)NonAf (>60 ml/min/1.73 sqM) Glucose (74-99) mg/dL Calcium (8.4-10.2) mg/dL Magnesium (1.6-2.3) mg/dL Total Bilirubin (0.2-1.3) mg/dL AST (14-36) U/L ALT (4-34) U/L Alkaline Phosphatase (38-126) U/L Troponin I <0.012 (0.000-0.034) ng/mL Total Protein (6.3-8.2) g/dL Albumin (3.5-5.0) g/dL Disposition Clinical Impression: Chest pain Disposition: ADMITTED IP TO THIS [facility] Condition: Stable Is patient prescribed a controlled substance at d/c from ED?: No Referrals: Elli Gan III, MD [Primary Care Provider] - 1-2 days Time of Disposition: 14:14
[2022-04-01 13:31] LABS: Basophils % (A) 1 %; Eosinophils # (A) 0.1 k/uL (0-0.7); Eosinophils % (A) 2 %; HCT 36.5 % (34.0-46.0); HGB 11.6 gm/dL (11.4-16.0); Lymphocytes # (A) 1.5 k/uL (1.0-4.8); Lymphocytes % (A) 28 %; MCH 26.1 pg (25.0-35.0); MCHC 31.8 g/dL (31.0-37.0); MCV 82.1 fL (80.0-100.0); Mean Platelet Volume 7.3; Monocytes # (A) 0.3 k/uL (0-1.0); Monocytes % (A) 6 %; Neutrophils # (A) 3.3 k/uL (1.3-7.7); Neutrophils % (A) 62 %; Platelet Count 187 k/uL (150-450); RBC 4.44 m/uL (3.80-5.40); RDW 13.8 % (11.5-15.5); WBC 5.3 k/uL (3.8-10.6)
--- NOTE | 2022-04-01 13:37 | XR ---
EXAMINATION TYPE: XR chest 2V DATE OF EXAM: 04/01/2022 COMPARISON: Chest x-ray dated 12/09/2021 HISTORY: Chest pain, regular heartbeat TECHNIQUE: Frontal and lateral views of the chest are obtained. FINDINGS: There is no focal air space opacity, pleural effusion, or pneumothorax seen. The cardiac silhouette size is within normal limits. Elevation of the right hemidiaphragm is stable. There are o verlying leads. There is thoracic spondylosis. The osseous structures are apical. IMPRESSION: No acute cardiopulmonary process.
[2022-04-01 13:48] LABS: INR 0.9 (<1.2); Partial Thromboplastin Time 24.3 sec (22.0-30.0)
[2022-04-01 13:52] LABS: Albumin 3.9 g/dL (3.5-5.0); Calcium 8.4 mg/dL (8.4-10.2); Magnesium 1.8 mg/dL (1.6-2.3); Potassium 4.2 mmol/L (3.5-5.1); Total Bilirubin 0.4 mg/dL (0.2-1.3); Total Protein 6.5 g/dL (6.3-8.2)
[2022-04-01] MEDS ORDERED: ACETAMINOPHEN TAB 325 MG TAB PO PRN (14:11)
[2022-04-01] MEDS ORDERED: NALOXONE 0.4 MG/ML 1 ML VIAL IV PRN (14:11)
[2022-04-01 17:15] LABS: Glucose,Whole Blood 82 mg/dL (75-99)
[2022-04-01] MEDS ORDERED: ALBUTEROL NEBULIZED 2.5 MG/3 ML INHALATION PRN (17:40)
[2022-04-01] MEDS: ATORVASTATIN 20 MG TAB PO SCH (18:07)
[2022-04-01] MEDS: METOPROLOL SUCCINATE (ER) 25 MG TAB.ER.24H PO SCH (18:08)
--- NOTE | 2022-04-01 18:51 | HP ---
HISTORY AND PHYSICAL CHIEF COMPLAINTS: Shortness of breath and abnormal echo. HISTORY OF PRESENT ILLNESS: This 76-year-old woman with a past medical history of asthma, COPD, CVA, TIA, was having irregular heartbeat as well as increased shortness of breath over the past several days. The patient was evaluated by Cardiology. Apparently stress test was abnormal and the patient was scheduled to have a cardiac catheterization on Wednesday, but because of increasing difficulty, the patient went to the cardiology office. She had about a 15-pound weight gain. The patient had an abnormal echo and the patient was referred to [facility] for further evaluation and treatment. There is no history of any fever, rigors, chills, headache, loss of consciousness. No history of chest pain per se. Troponins are negative at this time. PAST MEDICAL HISTORY: History of recent abnormal stress test, asthma, COPD, CVA, TIA. MEDICATIONS: Home medications are reviewed and include Glucophage. Doses and the rest of the medications noted. ALLERGIES: ALLERGIES INCLUDE NICKEL. Others noted. FAMILY HISTORY: History of cancer. SOCIAL HISTORY: No history of smoking. REVIEW OF SYSTEMS: Fourteen-point review of systems negative except as mentioned earlier. PHYSICAL EXAMINATION: Pulse is 60, blood pressure 126/61, respiration 18. HEENT: Conjunctivae normal. NECK: No jugular venous distention. CARDIOVASCULAR: S1, S2 muffled. RESPIRATION: Breath sounds diminished at the bases. A few scattered rhonchi. ABDOMEN: Soft, nontender. LEGS: No edema. No swelling. NERVOUS SYSTEM: Higher functions as mentioned earlier. No focal deficit. SKIN: No ulcer, rash, bleeding. JOINTS: No active deforming arthropathy. LABS: CBC within normal limits. CMP noted. Chest x-ray noted some prominence on the right side. ASSESSMENT: 1. Possible coronary artery disease with abnormal stress test. 2. Abnormal 2D echo. 3. History of asthma. 4. Chronic obstructive pulmonary disease. 5. Cerebrovascular accident, transient ischemic attack. 6. Diabetes mellitus, type 2. 7. Multiple medical issues. RECOMMENDATIONS AND DISCUSSION: In this 76-year-old woman who presented with multiple complex medical issues, at this time I recommend to continue current medications. We will keep the patient n.p.o. at midnight and obtain a cardiology consultation for further evaluation and possible cardiac catheterization. Otherwise, review of the records and of the recent 2D echo. Resume the home medications. Prognosis is guarded because of multiple complex medical issues. Further recommendations to follow. A copy of this dictation is being forwarded to Dr. Gan, who is the primary. physician. ÁNGELA / MILAGROS: [id number] /
[2022-04-01 19:24] LABS: Glucose,Whole Blood 130 mg/dL (75-99)
[2022-04-01] MEDS: INSULIN ASPART (NovoLOG) 100 UNIT/ML VIAL SQ SCH (19:45)
[2022-04-01] MEDS ORDERED: SYMBICORT 80-4.5 MCG INHALER INHALATION SCH (20:00)
[2022-04-01] MEDS: MONTELUKAST 10 MG TAB PO SCH (20:41)
[2022-04-01] MEDS: LATANOPROST 0.005% OPHTH DROPS 2.5 ML BTL RIGHT EYE SCH (21:22)
[2022-04-02] MEDS: LEVOTHYROXINE 125 MCG TAB PO SCH (06:07)
[2022-04-02 07:02] LABS: Glucose,Whole Blood 94 mg/dL (75-99)
[2022-04-02] MEDS: IPRATROPIUM 0.5 MG/2.5 ML NEBU INHALATION SCH ×4 (07:40→20:35)
[2022-04-02] MEDS: SYMBICORT 80-4.5 MCG INHALER INHALATION SCH ×2 (07:40→20:35)
[2022-04-02] MEDS: INSULIN ASPART (NovoLOG) 100 UNIT/ML VIAL SQ SCH ×4 (07:57→22:02)
[2022-04-02] MEDS ORDERED: ALPRAZolam 0.25 MG TAB PO PRN (08:06)
[2022-04-02] MEDS ORDERED: NITROGLYCERIN SL TABS 0.4 MG TAB SUBLINGUAL PRN (08:06)
[2022-04-02] MEDS ORDERED: ALPRAZolam 0.5 MG TAB PO PRN (08:06)
[2022-04-02] MEDS: DULoxetine HCL 60 MG CAPSULE.DR PO SCH (08:30)
[2022-04-02] MEDS: ATORVASTATIN 20 MG TAB PO SCH (08:30)
[2022-04-02] MEDS: ISOSORBIDE MONONITRATE ER 30 MG TAB.ER.24H PO SCH (08:30)
[2022-04-02] MEDS: PANTOPRAZOLE 40 MG TABLET PO SCH (08:30)
[2022-04-02] MEDS: LOSARTAN 25 MG TAB PO SCH (08:30)
[2022-04-02] MEDS: hydroCHLOROthiazide 25 MG TAB PO SCH (08:31)
[2022-04-02] MEDS: ASPIRIN 81 MG PO SCH (08:31)
[2022-04-02] MEDS: METOPROLOL SUCCINATE (ER) 25 MG TAB.ER.24H PO SCH (08:31)
[2022-04-02 09:07] LABS: Basophils # (A) 0.01 X 10*3/uL (0.00-0.10); Basophils % (A) 0.3 %; Eosinophils # (A) 0.08 X 10*3/uL (0.04-0.35); Eosinophils % (A) 2.1 %; HCT 36.8 % (37.2-46.3); Immature Grans, Automated 0.3 %; Lymphocytes # (A) 1.42 X 10*3/uL (0.90-5.00); Lymphocytes % (A) 36.4 %; MCH 24.9 pg (27.0-32.0); MCHC 29.9 g/dL (32.0-37.0); MCV 83.4 fL (80.0-97.0); Mean Platelet Volume 9.6 fL (9.5-12.2); Monocytes # (A) 0.38 X 10*3/uL (0.20-1.00); Monocytes % (A) 9.7 %; NRBC Per 100 WBC 0 /100 WBCS (0.0-0.0); Neutrophils % (A) 51.2 %; Platelet Count 178 X 10*3/uL (140-440); RBC 4.41 X 10*6/uL (4.10-5.20); RDW 13.7 % (11.5-14.5)
--- NOTE | 2022-04-02 09:12 | P.CRDCN ---
History of Present Illness History of present illness: HISTORY OF PRESENTING ILLNESS This is a pleasant 76-year-old female past medical history significant for coronary artery disease (intermediate triple vessel CAD 10/2020 cardiac cath), type 2 diabetes, hypertension, dyslipidemia, hypothyroidism. She follows in the office with Dr. Back. We have been asked to see in consultation for chest pain. Patient was at the office yesterday having an echo completed. She had symptoms of chest pain, shortness of breath, palpitations. She found to have frequent PVCs. Her chest pain is non-exertional. She also has been having exertional shortness of breath. She denies any diaphoresis, nausea, vomiting, redness, dizziness, syncope or near syncope. She is a non-smoker. Echo yesterday revealed normal EF, mild-moderate mitral regurgitation and mild aortic stenosis. She was advised to be evaluated in the ER secondary to chest discomfort. Patient underwent a Lexiscan stress test in the office on 03/12/2022 which revealed abnormal myocardial perfusion imaging with evidence of reversible defect of large size and mild intensity involving inferior wall the left ventricle. Normal left ventricular systolic function. Plan for patient undergo right and left heart cath, which is scheduled on 04/03/2022. DIAGNOSTICS * EKG reveals sinus bradycardia, heart rate 57, PAC and PVC noted. no acute ischemia noted * Telemetry tracings indicate sinus mechanism with heart rates in the 50s-60s, occasional PVCs noted * Chest xray no acute cardiopulmonary process. * Laboratory reviewed, troponin negative 3, WBC 5.3, hemoglobin 11.6, platelets 187, sodium 139, potassium 4.2, BUN 28, serum current 0.8, proBNP 170 * Most recent cardiac catheterization 10/2020 revealed, ostial RCA lesion 50%, mid and distal RCA appeared to have mild disease only, mid circumflex appeared to have mild disease only, ramus intermedius in the midportion lesion of 50%, left main and LAD appeared angiographically normal, mid to distal LAD appear to have a lesion of 50%, LV EDP 1012 mmHg without significant gradient across the aortic valve. * Current cardiac medications include hydrocodone thiazide 25 mg daily, rosuvastatin 10 mg daily, metoprolol succinate 25 mg daily, losartan 25 mg daily, Imdur 30 mg daily, aspirin 81 mg daily REVIEW OF SYSTEMS At the time of my exam: CONSTITUTIONAL: Denies fever or chills. CARDIOVASCULAR: Denies chest pain, shortness of breath, orthopnea, PND or palpitations. RESPIRATORY: Denies cough. GASTROINTESTINAL: Denies abdominal pain, diarrhea, constipation, nausea or vomiting. MUSCULOSKELETAL: Denies myalgias. NEUROLOGIC: Denies numbness, tingling, headacbe or weakness. ENDOCRINE: Denies fatigue, weight change, polydipsia or polyurina. GENITOURINARY: Denies burning, hematuria or urgency with micturation. HEMATOLOGIC: Denies history of anemia or bleeding. PHYSICAL EXAMINATION Blood pressure 161/78, heart rate 58, afebrile, oxygen saturations 96% on room air CONSTITUTIONAL: No apparent distress. HEENT: Head is normocephalic. Pupils are equal, round. Sclerae anicteric. Mucous membranes of the mouth are moist. No JVD. No carotid bruit. CHEST EXAMINATION: Lungs are clear to auscultation. No chest wall tenderness is noted on palpation or with deep breathing. HEART EXAMINATION: Regular rate and rhythm. S1, S2 heard. Pansystolic murmur noted at apex and right sternal border, no gallops or rub. ABDOMEN: Soft, nontender. Positive bowel sounds. EXTREMITIES: 2+ peripheral pulses, no lower extremity edema and no calf tenderness. NEUROLOGIC EXAMINATION: Patient is awake, alert and oriented x3. ASSESSMENT Chest pain Coronary artery disease (intermediate triple vessel CAD 10/2020 cardiac cath) Type 2 diabetes Hypertension Dyslipidemia Hypothyroidism PLAN We will plan for cardiac catheterization tomorrow 04/03/[address] Back Continue home cardiac medications NPO after midnight I have discussed the risks, benefits and alternative therapies for the above- mentioned procedure and for both sedation/analgesia as well as necessary blood product administration, if indicated, as they pertain to this patient. The patient has indicated understanding and acceptance of the risks and procedures discussed. Questions have been answered appropriately and she is agreeable to move forward with the above-stated procedure. Further recommendations based on clinical course Nurse practitioner note has been reviewed by physician. Signing provider agrees with the documented findings, assessment, and plan of care. Past Medical History Past Medical History: Asthma, Cancer, Chest Pain / Angina, COPD, CVA/TIA, Diabetes Mellitus, Fibromyalgia, GERD/Reflux, Hyperlipidemia, Hypertension, Mitral Valve Prolapse (MVP), Pneumonia, Skin Disorder, Sleep Apnea/CPAP/BIPAP, Thyroid Disorder Additional Past Medical History / Comment(s): heart murmur, hx rheumatic fever, environmental allergies, hiatal hernia, hx IBS, skin dx called granuloma annulare, hx thyroid cancer, cancer rt breast, TIA- no residual effects, irregular heartbeat, leaking aortic and mitral valves, no cpap used, "severe acid reflux", sepsis after breast surgery, PNA 10/2021 History of Any Multi-Drug Resistant Organisms: None Reported Past Surgical History: Back Surgery, Breast Surgery, Cholecystectomy, Heart Catheterization, Hysterectomy, Orthopedic Surgery Additional Past Surgical History / Comment(s): thyroidectomy, rt radical mastectomy,left mastectomy,constance breast reconstruction x 2-second implant (left breast) removed due to sepsis, cervical fusion x 2, titanium rods-lumbar, rt shoulder arthroscopy, constance cataracts, Past Anesthesia/Blood Transfusion Reactions: Previous Problems w/ Anesthesia, Postoperative Nausea & Vomiting (PONV) Additional Past Anesthesia/Blood Transfusion Reaction / Comment(s): woke up during EGD in past Past Psychological History: Anxiety Additional Psychological History / Comment(s): PAST ANXIETY Smoking Status: Never smoker Past Alcohol Use History: None Reported Past Drug Use History: None Reported Additional Drug Use History / Comment(s): cbd cream - Past Family History Mother Family Medical History: Cancer Additional Family Medical History / Comment(s): kidney Sister(s) Family Medical History: Cancer Additional Family Medical History / Comment(s): pancreatic Brother(s) Family Medical History: Cancer Additional Family Medical History / Comment(s): colon, thryoid cancer Daughter(s) Family Medical History: Cancer Additional Family Medical History / Comment(s): skin Medications and Allergies Home Medications Medication Instructions Recorded Confirmed Type DULoxetine HCL [Cymbalta] 60 mg PO DAILY 05/03/14 04/01/22 History Montelukast Sodium [Singulair] 10 mg PO HS 10/14/17 04/01/22 History Levothyroxine Sodium [Synthroid] 62.5 mcg PO [place] 05/24/18 04/01/22 History Losartan Potassium 25 mg PO DAILY 09/25/19 04/01/22 History hydroCHLOROthiazide 25 mg PO DAILY 09/25/19 04/01/22 History Albuterol Inhaler [Ventolin Hfa 2 puff INHALATION RT-Q6H PRN 10/01/20 04/01/22 History Inhaler] Aspirin [Adult Low Dose Aspirin EC] 81 mg PO DAILY 10/01/20 04/01/22 History Levothyroxine Sodium [Synthroid] 125 mcg PO [id number] 10/01/20 04/01/22 History Omeprazole [PriLOSEC] 40 mg PO DAILY 10/01/20 04/01/22 History Rosuvastatin Calcium [Crestor] 10 mg PO DAILY 10/01/20 04/01/22 History Isosorbide Mononitrate ER [Imdur] 30 mg PO DAILY 04/02/21 04/01/22 History Metoprolol Succinate (ER) [Toprol 25 mg PO DAILY 10/27/21 04/01/22 History Xl] metFORMIN HCL ER [Glucophage XR] 1,000 mg PO W/SUPPER 10/27/21 04/01/22 History Fluticasone/Umeclidin/Vilanter 1 puff INHALATION RT-DAILY 04/01/22 04/01/22 History [Trelegy Ellipta 200-62.5-25] Latanoprost/Pf [Latanoprost 0.005% 1 drop RIGHT EYE HS 04/01/22 04/01/22 History Eye Drop] Allergies Allergy/AdvReac Type Severity Reaction Status Date / Time nickel Allergy Itching/raw Verified 04/01/22 15:01 skin lisinopril AdvReac Severe Cough Verified 04/01/22 15:01 tramadol AdvReac Severe severe Verified 04/01/22 15:01 fatigue, elevated BP adhesive tape AdvReac PULLS SKIN Verified 04/01/22 15:01 OFF hydrocodone bitartrate AdvReac Hallucinati Verified 04/01/22 15:01 [From [place]] ons methylprednisolone AdvReac red puffy Verified 04/01/22 15:01 [From Medrol] face naproxen sodium [From Aleve] AdvReac lowers BP Verified 04/01/22 15:01 bandaid AdvReac pulls skin Uncoded 04/01/22 15:01 off Physical Exam Vitals: Vital Signs Temp Pulse Pulse Pulse Resp BP BP 04/02/22 07:51 60 04/02/22 07:40 58 L 04/02/22 06:58 98.4 F 58 L 18 161/78 04/02/22 02:35 97.8 F 53 L 16 141/74 04/02/22 02:00 59 L 16 04/01/22 19:20 97.7 F 59 L 16 134/68 04/01/22 19:11 61 18 04/01/22 17:21 97.8 F 61 18 151/56 04/01/22 16:40 98.4 F 64 18 129/73 04/01/22 16:07 60 18 126/61 04/01/22 12:30 98.5 F 58 L 20 138/71 Pulse Ox 04/02/22 07:51 04/02/22 07:40 04/02/22 06:58 96 04/02/22 02:35 96 04/02/22 02:00 04/01/22 19:20 95 04/01/22 19:11 04/01/22 17:21 99 04/01/22 16:40 96 04/01/22 16:07 96 04/01/22 12:30 97 Intake and Output 04/01/22 04/02/22 04/02/22 22:59 06:59 14:59 Intake Total 0 Balance 0 Intake: Oral 0 Other: Voiding Method Toilet # Voids 1 2 Weight 80.286 kg Results 04/01/22 13:18 04/01/22 13:18 Cardiac Enzymes 04/01/22 04/01/22 04/01/22 Range/Units 13:18 13:18 15:17 AST 32 (14-36) U/L Troponin I <0.012 <0.012 (0.000-0.034) ng/mL 04/01/22 Range/Units 18:10 AST (14-36) U/L Troponin I <0.012 (0.000-0.034) ng/mL Coagulation 04/01/22 Range/Units 13:18 PT 10.0 (9.0-12.0) sec APTT 24.3 (22.0-30.0) sec CBC 04/01/22 Range/Units 13:18 WBC 5.3 (3.8-10.6) k/uL RBC 4.44 (3.80-5.40) m/uL Hgb 11.6 (11.4-16.0) gm/dL Hct 36.5 (34.0-46.0) % Plt Count 187 (150-450) k/uL Comprehensive Metabolic Panel 04/01/22 Range/Units 13:18 Sodium 139 (137-145) mmol/L Potassium 4.2 (3.5-5.1) mmol/L Chloride 101 (98-107) mmol/L Carbon Dioxide 33 H (22-30) mmol/L BUN 28 H (7-17) mg/dL Creatinine 0.81 (0.52-1.04) mg/dL Glucose 97 (74-99) mg/dL Calcium 8.4 (8.4-10.2) mg/dL AST 32 (14-36) U/L ALT 25 (4-34) U/L Alkaline Phosphatase 93 (38-126) U/L Total Protein 6.5 (6.3-8.2) g/dL Albumin 3.9 (3.5-5.0) g/dL Current Medications Generic Name Dose Route Start Last Admin Trade Name Freq PRN Reason Stop Dose Admin Acetaminophen 650 mg 04/01/22 14:11 Acetaminophen Tab 325 Mg Tab PO Q6HR PRN Mild Pain or Fever > 100.5 Albuterol Sulfate 2.5 mg 04/01/22 17:40 Albuterol Nebulized 2.5 Mg/3 Ml INHALATION RT-Q6H PRN Shortness Of Breath Alprazolam 0.25 mg 04/02/22 08:06 Alprazolam 0.25 Mg Tab PO Q6HR PRN Mild Anxiety Alprazolam 0.5 mg 04/02/22 08:06 Alprazolam 0.5 Mg Tab PO Q6HR PRN Moderate Anxiety Aspirin 81 mg 04/02/22 09:00 04/02/22 08:31 Aspirin 81 Mg PO 81 mg DAILY [facility] Administration Atorvastatin Calcium 20 mg 04/01/22 17:45 04/02/22 08:30 Atorvastatin 20 Mg Tab PO 20 mg DAILY [facility] Administration Budesonide/Formoterol Fumarate 2 puff 04/02/22 08:00 04/02/22 07:40 Symbicort 80-4.5 Mcg Inhaler INHALATION 2 puff RT-BID [facility] Administration Duloxetine HCl 60 mg 04/02/22 09:00 04/02/22 08:30 Duloxetine Hcl 60 Mg Capsule.Dr PO 60 mg DAILY [facility] Administration Hydrochlorothiazide 25 mg 04/02/22 09:00 04/02/22 08:31 Hydrochlorothiazide 25 Mg Tab PO 25 mg DAILY [facility] Administration Heparin Sodium (Porcine) 10, 1,001 mls @ 999 mls/hr 04/03/22 07:00 000 unit/ Sodium Chloride IRRIGATION 04/03/22 23:00 ONCE PRN INTRA-OP Heparin Sodium (Porcine) 2,500 250.5 mls @ 250 mls/hr 04/03/22 07:00 unit/ Sodium Chloride IRRIGATION 04/03/22 23:00 ONCE PRN INTRA-OP Sodium Chloride 1,000 ml/ IV 1,000 mls @ 80.286 mls/hr 04/03/22 00:00 Solution IV .[id number] CARTER 1 ML/KG/HR Insulin Aspart 0 unit 04/01/22 21:00 04/02/22 07:57 Insulin Aspart (Novolog) 100 Unit/Ml Vial SQ Not Given ACHS [facility] Protocol Ipratropium [place] 0.5 mg 04/02/22 08:00 04/02/22 07:40 Ipratropium 0.5 Mg/2.5 Ml Nebu INHALATION 0.5 mg RT-QID [facility] Administration Isosorbide Mononitrate 30 mg 04/02/22 09:00 04/02/22 08:30 Isosorbide Mononitrate Er 30 Mg Tab.Er.24h PO 30 mg DAILY [facility] Administration Latanoprost 1 drops 04/01/22 21:00 04/01/22 21:22 Latanoprost 0.005% Ophth Drops 2.5 Ml Btl RIGHT EYE Not Given HS [facility] Levothyroxine Sodium 125 mcg 04/02/22 06:30 04/02/22 06:07 Levothyroxine 125 Mcg Tab PO 125 mcg MoTuWeThFrSa@0630 [facility] Administration Levothyroxine Sodium 62.5 mcg 04/05/22 06:30 Levothyroxine 125 Mcg Tab PO [place]@0630 [facility] Losartan Potassium 25 mg 04/02/22 09:00 04/02/22 08:30 Losartan 25 Mg Tab PO 25 mg DAILY [facility] Administration Metformin HCl 1,000 mg 04/02/22 17:30 Metformin 500 Mg Tab PO W/SUPPER [facility] Metoprolol Succinate 25 mg 04/01/22 17:45 04/02/22 08:31 Metoprolol Succinate (Er) 25 Mg Tab.Er.24h PO 25 mg DAILY [facility] Administration Montelukast Sodium 10 mg 04/01/22 21:00 04/01/22 20:41 Montelukast 10 Mg Tab PO 10 mg HS [facility] Administration Naloxone HCl 0.2 mg 04/01/22 14:11 Naloxone 0.4 Mg/Ml 1 Ml Vial IV Q2M PRN Opioid Reversal Nitroglycerin 0.4 mg 04/02/22 08:06 Nitroglycerin Sl Tabs 0.4 Mg Tab SUBLINGUAL Q5M PRN Chest Pain Pantoprazole Sodium 40 mg 04/02/22 09:00 04/02/22 08:30 Pantoprazole 40 Mg Tablet PO 40 mg DAILY [facility] Administration Intake and Output 04/01/22 04/02/22 04/02/22 22:59 06:59 14:59 Intake Total 0 Balance 0 Intake: Oral 0 Other: Voiding Method Toilet # Voids 1 2 Weight 80.286 kg 04/01/22 13:18 04/01/22 13:18
[2022-04-02 09:21] LABS: African American GFR (CKD) 81.8 (60.0-200.0); Anion Gap 7.8 mmol/L (10.00-18.00); BUN/Creat Ratio 21.63 Ratio (12.00-20.00); Blood Urea Nitrogen 17.3 mg/dL (9.0-27.0); Calcium 8.5 mg/dL (8.7-10.3); Carbon Dioxide 30.2 mmol/L (20.0-27.5); Non-African American GFR(CKD) 70.6 (60.0-200.0); Potassium 4.2 mmol/L (3.5-5.5)
[2022-04-02 14:54] LABS: Glucose,Whole Blood 98 mg/dL (75-99)
[2022-04-02 17:17] LABS: Glucose,Whole Blood 114 mg/dL (75-99)
[2022-04-02] MEDS ORDERED: metFORMIN 500 MG TAB PO SCH (17:30)
[2022-04-02 19:25] LABS: Glucose,Whole Blood 198 mg/dL (75-99)
[2022-04-02] MEDS: LATANOPROST 0.005% OPHTH DROPS 2.5 ML BTL RIGHT EYE SCH (21:42)
[2022-04-02] MEDS: MONTELUKAST 10 MG TAB PO SCH (21:43)
[2022-04-02 22:02] LABS: Glucose,Whole Blood 83 mg/dL (75-99)
[2022-04-03] MEDS: SODIUM CHLORIDE 0.9% 1,000 ML in EMPTY BAG 1 BAG IV SCH ×2 (01:05→13:09)
--- NOTE | 2022-04-03 04:29 | P.PN ---
Subjective Progress Note Date: 04/02/22 This is a pleasant 76 year old female who was admitted with chest pain and had an abnormal echo and was scheduled outpatient for cardiac catheterization but had difficulties with increasing shortness of breath and was sent to the ED for further evaluation. Cardiology following and planning cardiac catheterization in the am. Patient continues with some chest heaviness and recommend to continue with tele monitoring and will be NPO at midnight. Recommend repeat labs. Patient is afebrile and denies shortness of breath. Review of systems: Constitutional: No reports of fatigue, fever, or chills Cardiovascular: reports of chest discomfort, denies palpitations Respiratory: No reports of shortness of breath or cough GI: no reports of nausea, no reports of of vomiting : No reports of dysuria or retention Neurovascular: reports of generalized weakness All medications have been reviewed Active Medications Acetaminophen (Acetaminophen Tab 325 Mg Tab) 650 mg PO Q6HR PRN PRN Reason: Mild Pain or Fever > 100.5 Albuterol Sulfate (Albuterol Nebulized 2.5 Mg/3 Ml) 2.5 mg INHALATION RT-Q6H PRN PRN Reason: Shortness Of Breath Alprazolam (Alprazolam 0.25 Mg Tab) 0.25 mg PO Q6HR PRN PRN Reason: Mild Anxiety Alprazolam (Alprazolam 0.5 Mg Tab) 0.5 mg PO Q6HR PRN PRN Reason: Moderate Anxiety Aspirin (Aspirin 81 Mg) 81 mg PO DAILY [facility] Last Admin: 04/02/22 08:31 Dose: 81 mg Atorvastatin Calcium (Atorvastatin 20 Mg Tab) 20 mg PO DAILY [facility] Last Admin: 04/02/22 08:30 Dose: 20 mg Budesonide/Formoterol Fumarate (Symbicort 80-4.5 Mcg Inhaler) 2 puff INHALATION RT-BID [facility] Last Admin: 04/02/22 20:35 Dose: 2 puff Duloxetine HCl (Duloxetine Hcl 60 Mg Capsule.Dr) 60 mg PO DAILY [facility] Last Admin: 04/02/22 08:30 Dose: 60 mg Hydrochlorothiazide (Hydrochlorothiazide 25 Mg Tab) 25 mg PO DAILY [facility] Last Admin: 04/02/22 08:31 Dose: 25 mg Heparin Sodium (Porcine) 10, (000 unit/ Sodium Chloride) 1,001 mls @ 999 mls/hr IRRIGATION ONCE PRN PRN Reason: INTRA-OP Stop: 04/03/22 23:00 Heparin Sodium (Porcine) 2,500 (unit/ Sodium Chloride) 250.5 mls @ 250 mls/hr IRRIGATION ONCE PRN PRN Reason: INTRA-OP Stop: 04/03/22 23:00 Sodium Chloride 1,000 ml/ IV (Solution) 1,000 mls @ 80.286 mls/hr IV .[id number] [facility] Last Admin: 04/03/22 01:05 Dose: 80.286 mls/hr Insulin Aspart (Insulin Aspart (Novolog) 100 Unit/Ml Vial) 0 unit SQ ACHS [facility]; Protocol Last Admin: 04/02/22 22:02 Dose: Not Given Ipratropium [place] (Ipratropium 0.5 Mg/2.5 Ml Nebu) 0.5 mg INHALATION RT-QID [facility] Last Admin: 04/02/22 20:35 Dose: 0.5 mg Isosorbide Mononitrate (Isosorbide Mononitrate Er 30 Mg Tab.Er.24h) 30 mg PO DAILY [facility] Last Admin: 04/02/22 08:30 Dose: 30 mg Latanoprost (Latanoprost 0.005% Ophth Drops 2.5 Ml Btl) 1 drops RIGHT EYE [facility] Last Admin: 04/02/22 21:42 Dose: 1 drops Levothyroxine Sodium (Levothyroxine 125 Mcg Tab) 125 mcg PO MoTuWeThFrSa@0630 [facility] Last Admin: 04/02/22 06:07 Dose: 125 mcg Levothyroxine Sodium (Levothyroxine 125 Mcg Tab) 62.5 mcg PO Fitzpatrick@0630 [facility] Losartan Potassium (Losartan 25 Mg Tab) 25 mg PO DAILY [facility] Last Admin: 04/02/22 08:30 Dose: 25 mg Metformin HCl (Metformin 500 Mg Tab) 1,000 mg PO W/SUPPER [facility] Last Admin: 04/02/22 17:52 Dose: Not Given Metoprolol Succinate (Metoprolol Succinate (Er) 25 Mg Tab.Er.24h) 25 mg PO DAILY [facility] Last Admin: 04/02/22 08:31 Dose: 25 mg Montelukast Sodium (Montelukast 10 Mg Tab) 10 mg PO HS [facility] Last Admin: 04/02/22 21:43 Dose: 10 mg Naloxone HCl (Naloxone 0.4 Mg/Ml 1 Ml Vial) 0.2 mg IV Q2M PRN PRN Reason: Opioid Reversal Nitroglycerin (Nitroglycerin Sl Tabs 0.4 Mg Tab) 0.4 mg SUBLINGUAL Q5M PRN PRN Reason: Chest Pain Pantoprazole Sodium (Pantoprazole 40 Mg Tablet) 40 mg PO DAILY [facility] Last Admin: 04/02/22 08:30 Dose: 40 mg PHYSICAL EXAMINATION: GENERAL: The patient is alert and oriented x4, Well developed, well nourished. obese HEENT: Pupils are round and equally reacting to light. EOMI. no scleral icterus. No conjunctival pallor. Normocephalic, atraumatic. No pharyngeal erythema. No thyromegaly. CARDIOVASCULAR: S1 and S2 muffled PULMONARY: diminished breath sounds bilaterally with no wheezing or rhonchi noted. ABDOMEN: soft. Nontender on exam. obese. non-distended, normoactive bowel sounds. No palpable organomegaly. MUSCULOSKELETAL: No joint swelling or deformity. EXTREMITIES: No cyanosis, clubbing, or pedal edema. NEUROLOGICAL: Gross neurological examination did not reveal any focal deficits. Diffuse weakness SKIN: No rashes. Assessment: Possible coronary artery disease with abnormal stress test Abnormal 2D echo HIstory of asthma COPD, not in exacerbation CVA, TIA history Diabetes mellitus, type 2 Multiple medical issues GI prophylaxis DVT prophylaxis Full code Plan: Recommend to continue with current medications and management with cardiology following. Recommend cardiac catheterization and will be done in am on 04/03/22. Recommend telemetry monitoring and repeat am labs. Due to muliple complex medic al issues, prognosis is guarded. Will await cardiology report. The impression and plan of care has been dictated by Savana Cardenas, nurse practitioner as directed. MD Ebony I have performed a history and examination and MDM of this patient, discussed the same with the dictator, and agree with the dictator's assessment and plan as written ,documented as a scribe. Based on total visit time, I have performed more than 50% of the visit. Any additional findings or plans will be noted. Objective - Vital Signs Vital signs: Vital Signs Temp 98.4 F 04/02/22 06:58 Pulse 60 04/02/22 07:51 Resp 18 04/02/22 06:58 BP 161/78 04/02/22 06:58 Pulse Ox 96 04/02/22 06:58 FiO2 Intake & Output 04/01/22 04/02/22 04/02/22 18:59 06:59 18:59 Intake Total 0 Balance 0 Weight 80.286 kg Intake: Oral 0 Other: Voiding Method Toilet Toilet # Voids 2 - Labs CBC & Chem 7: 04/02/22 05:55 04/02/22 05:55 Labs: Abnormal Lab Results - Last 24 Hours (Table) 04/01/22 04/01/22 04/02/22 Range/Units 13:18 19:23 05:55 WBC 3.90 L (4.50-10.00) X 10*3/uL Hgb 11.0 L (12.0-15.0) g/dL Hct 36.8 L (37.2-46.3) % MCH 24.9 L (27.0-32.0) pg MCHC 29.9 L (32.0-37.0) g/dL Carbon Dioxide 33 H (22-30) mmol/L Anion Gap (10.00-18.00) mmol/L BUN 28 H (7-17) mg/dL BUN/Creatinine Ratio (12.00-20.00) Ratio POC Glucose (mg/dL) 130 H (75-99) mg/dL Calcium (8.7-10.3) mg/dL 04/02/22 Range/Units 05:55 WBC (4.50-10.00) X 10*3/uL Hgb (12.0-15.0) g/dL Hct (37.2-46.3) % MCH (27.0-32.0) pg MCHC (32.0-37.0) g/dL Carbon Dioxide 30.2 H (22-30) mmol/L Anion Gap 7.80 L (10.00-18.00) mmol/L BUN (7-17) mg/dL BUN/Creatinine Ratio 21.63 H (12.00-20.00) Ratio POC Glucose (mg/dL) (75-99) mg/dL Calcium 8.5 L (8.7-10.3) mg/dL
[2022-04-03] MEDS: LEVOTHYROXINE 125 MCG TAB PO SCH (05:58)
[2022-04-03 06:55] LABS: Basophils % (A) 0 %; Eosinophils # (A) 0.1 k/uL (0-0.7); Eosinophils % (A) 1 %; HGB 12.8 gm/dL (11.4-16.0); Hypochromasia Slight; Lymphocytes # (A) 1.9 k/uL (1.0-4.8); Lymphocytes % (A) 32 %; MCH 25.6 pg (25.0-35.0); MCHC 30.6 g/dL (31.0-37.0); MCV 83.7 fL (80.0-100.0); Mean Platelet Volume 7.7; Monocytes # (A) 0.3 k/uL (0-1.0); Monocytes % (A) 5 %; Neutrophils # (A) 3.5 k/uL (1.3-7.7); Neutrophils % (A) 59 %; Platelet Count 252 k/uL (150-450); RBC 5.02 m/uL (3.80-5.40); RDW 13.9 % (11.5-15.5)
[2022-04-03] MEDS ORDERED: HEPARIN SODIUM,PORCINE 10,000 UNIT in SODIUM CHLORIDE 0.9% 1,000 ML IRRIGATION PRN (07:00)
[2022-04-03] MEDS ORDERED: HEPARIN SODIUM,PORCINE 2,500 UNIT in SODIUM CHLORIDE 0.9% 250 ML IRRIGATION PRN (07:00)
[2022-04-03 07:09] LABS: Glucose,Whole Blood 101 mg/dL (75-99)
[2022-04-03] MEDS: INSULIN ASPART (NovoLOG) 100 UNIT/ML VIAL SQ SCH ×2 (07:10→13:11)
[2022-04-03 07:13] LABS: African American GFR (CKD) 70 (>60 ml/min/1.73 sqM); Anion Gap 10 mmol/L; Blood Urea Nitrogen 21 mg/dL (7-17); Calcium 8.6 mg/dL (8.4-10.2); Carbon Dioxide 30 mmol/L (22-30); Chloride 100 mmol/L (98-107); Glucose 106 mg/dL (74-99); Non-African American GFR(CKD) 61 (>60 ml/min/1.73 sqM); Potassium 4.2 mmol/L (3.5-5.1); Sodium 140 mmol/L (137-145)
[2022-04-03] MEDS: METOPROLOL SUCCINATE (ER) 25 MG TAB.ER.24H PO SCH (07:19)
[2022-04-03] MEDS: DULoxetine HCL 60 MG CAPSULE.DR PO SCH (07:19)
[2022-04-03] MEDS: LOSARTAN 25 MG TAB PO SCH (07:19)
[2022-04-03] MEDS: PANTOPRAZOLE 40 MG TABLET PO SCH (07:19)
[2022-04-03] MEDS: ISOSORBIDE MONONITRATE ER 30 MG TAB.ER.24H PO SCH (07:19)
[2022-04-03] MEDS: ATORVASTATIN 20 MG TAB PO SCH (07:19)
[2022-04-03] MEDS: ASPIRIN 81 MG PO SCH ×2 (07:19→07:22)
[2022-04-03] MEDS: hydroCHLOROthiazide 25 MG TAB PO SCH (07:20)
--- NOTE | 2022-04-03 07:25 | P.PN ---
Progress Note - Text Progress Note Date: 04/03/22 The patient is a pleasant 76-year-old female patient with a past medical history significant for coronary artery disease as well as diabetes and hypertension and dyslipidemia was admitted to the hospital with chest discomfort and shortness of breath. Initially she was scheduled to undergo a heart catheterization as an outpatient but she ended in the hospital. She is asymptomatic since she was admitted to the hospital which is hemodynamically stable. The procedure was discussed with her in details. The patient is going to undergo the procedure later on today
[2022-04-03] MEDS ORDERED: ASPIRIN 325 MG TAB ONE (07:27)
[2022-04-03] MEDS ORDERED: IV FLUID CONTINUATION 1,000 ML IV ONE (07:30)
[2022-04-03] MEDS ORDERED: ASPIRIN 325 MG TAB PO ONE (07:30)
[2022-04-03] MEDS: SYMBICORT 80-4.5 MCG INHALER INHALATION SCH (07:34)
[2022-04-03] MEDS: IPRATROPIUM 0.5 MG/2.5 ML NEBU INHALATION SCH ×3 (07:34→15:00)
[2022-04-03] MEDS ORDERED: VERAPAMIL 2.5 MG/ML 2 ML AMP ONE (07:45)
[2022-04-03] MEDS ORDERED: LIDOCAINE 1% INJ 10MG/ML (5 ML VIAL-PF) SQ ONE (08:02)
[2022-04-03] MEDS ORDERED: MIDAZOLAM 2 MG/2 ML VIAL IV ONE (08:02)
[2022-04-03] MEDS ORDERED: IOPAMIDOL-370 125ML BTL INJ ONE (08:36)
[2022-04-03] MEDS ORDERED: RX INFO: IV CONTRAST WAS GIVEN 1 EACH MISC MISCELLANE PRN (08:44)
[2022-04-03] MEDS ORDERED: SODIUM CHLORIDE 0.9% 1,000 ML IV SCH (08:45)
--- NOTE | 2022-04-03 08:53 | P.PCN ---
Date of Procedure: 04/03/22 Operative Findings: CARDIAC CATHETERIZATION PERFORMING PHYSICIAN: Santi Back MD, RPVI PROCEDURE PERFORMED: 1. Selective right and left coronary angiogram 2. Left heart catheterization 3. Right heart catheterization INDICATION: Chest discomfort and shortness of breath concerning for angina in this patient was a 76 known to have CAD as well as diabetes and hypertension and dyslipidemia COMPLICATION: None APPROACH: Right radial artery LEVEL OF SEDATION: Moderate with a sedation length of 20 minute PROCEDURE DESCRIPTION: After obtaining an informed consent, the patient was brought to cardiac analytical lab technician. Local anesthesia was performed using lidocaine subcutaneously. The right radial artery was cannulated using Seldinger technique, the guidewire passed easily, following that we advanced a 5-[place] sheath dilator assembly, the wire and dilator were removed and sheath was flushed. Following that, 2 mg of verapamil along with 5000 unit heparin were given. Selective right and left coronary angiogram using a 6-[place] JR4 and JL 3.5 catheters. Following that we did left heart catheterization using 6-[place] pigtail catheter. Right heart catheterization was performed using [place] catheter with a sheath was placed in the basilic vein on the right side. The procedure was completed there was no complication. SELECTIVE CORONARY ANGIOGRAM: The right coronary artery: Is a large caliber vessel and dominant vessel. The RCA has mild disease only but is a calcified vessel. Distally bifurcates into PDA and PLV branches. Left main: Is angiographically normal and bifurcates into an LCx and LAD The left circumflex: Is a large caliber vessel. The proximal left circumflex is angiographically normal and gives rise into the first and second OM. First OM has mild disease only. Second OM appeared to be angiographically normal. The circumflex distally gives rises into a third OM seems to be normal but the circumflex after has a lesion appeared to be in the range of 60-70%. The left anterior descending artery: Is a large caliber vessel. The LAD has intermediate lesion in the midportion. No high-grade stenosis was identified. HEMODYNAMICS: Pulmonary capillary wedge pressure was 10 mmHg PA pressures were as follow systolic of 22 and mean of 15 mmHg RV pressures were as follow systolic of 27 and in diastole, 5 mmHg RA pressure was 3 mmHg LVEDP was 10 mmHg Cardiac output was 4.47 L/m with a cardiac index of 2.41 L/m/m Transpulmonary gradient was 5 mmHg Pulmonary vascular resistance was 1.11 [place] unit CONCLUSION: 1. Intermediate disease involving the distal left circumflex. Intermediate disease involving the mid LAD 2. Normal left and right sided filling pressures. Normal pulmonary artery pressure. Normal pulmonary vascular resistance POSTPROCEDURE MANAGEMENT: Medical treatment and follow-up with the patient
[2022-04-03 11:45] LABS: Glucose,Whole Blood 146 mg/dL (75-99)
[2022-04-03 13:39] VITALS: BP 139/69; RESP 18; TEMP 97.5
[2022-04-03 15:09] VITALS: PULSE 69
[2022-04-05] MEDS ORDERED: LEVOTHYROXINE 125 MCG TAB PO SCH (06:30)
== END 2022-04-03 15:53 | disposition home or self-care (01) | DRG 287 ==
LOC: EC 11:56 → 6NMEDSUR 14:21 → OBSVTOIN 04-02 15:37
PROVIDERS: ADMIT Internal Medicine; ATTEND Internal Medicine
DX: I25.119 Atherosclerotic heart disease of native coronary artery with unspecified angina pectoris (principal); E89.0 Postprocedural hypothyroidism; E78.5 Hyperlipidemia, unspecified; E11.9 Type 2 diabetes mellitus without complications; I10 Essential (primary) hypertension; I34.1 Nonrheumatic mitral (valve) prolapse; I49.3 Ventricular premature depolarization; Z86.73 Personal history of transient ischemic attack (TIA), and cerebral infarction without residual deficits; J44.9 Chronic obstructive pulmonary disease, unspecified; M79.7 Fibromyalgia; L92.0 Granuloma annulare; Z79.51 Long term (current) use of inhaled steroids; Z79.82 Long term (current) use of aspirin; Z79.84 Long term (current) use of oral hypoglycemic drugs; Z79.890 Hormone replacement therapy; Z79.899 Other long term (current) drug therapy; Z90.49 Acquired absence of other specified parts of digestive tract; Z85.850 Personal history of malignant neoplasm of thyroid; Z90.710 Acquired absence of both cervix and uterus; Z80.8 Family history of malignant neoplasm of other organs or systems; Z90.13 Acquired absence of bilateral breasts and nipples; Z98.42 Cataract extraction status, left eye; Z98.41 Cataract extraction status, right eye; Z98.890 Other specified postprocedural states; Z88.6 Allergy status to analgesic agent; Z88.5 Allergy status to narcotic agent; Z88.8 Allergy status to other drugs, medicaments and biological substances; Z91.048 Other nonmedicinal substance allergy status; Z80.51 Family history of malignant neoplasm of kidney; Z80.0 Family history of malignant neoplasm of digestive organs; Z98.1 Arthrodesis status
CPT/HCPCS: 36415; 71046; 80048; 80053; 83735; 83880; 84484; 85025; 85610; 85730; 93005; 93460; 94640; 99285

== ENCOUNTER 2022-04-18 14:06 | Inpatient (IN) | payer MEDICARE, BC ==
[2022-04-18] MEDS ORDERED: IPRATROPIUM-ALBUTEROL 3 ML NEB INHALATION STA (15:18)
[2022-04-18] MEDS: MAGNESIUM SULFATE-D5W PMX 1 GM in DEXTROSE/WATER 1 100ML.BAG IVPB SCH ×2 (15:38→16:41)
--- NOTE | 2022-04-18 16:29 | XR ---
EXAMINATION TYPE: XR chest 2V DATE OF EXAM: 04/18/2022 3:49 PM COMPARISON: Chest radiographs from 04/01/2022 TECHNIQUE: XR chest 2V Frontal and lateral views of the chest. CLINICAL INDICATION:Female, 76 years old with history of cough; FINDINGS: Lungs/Pleura: There is no evidence of pleural effusion, focal consolidation, or pneumothorax. Pulmonary vascularity: Unremarkable. Heart/mediastinum: Cardiomediastinal silhouette is unremarkable. Musculoskeletal: No acute osseous pathology. IMPRESSION: No acute cardiopulmonary disease/process.
[2022-04-18 17:24] LABS: Basophils % (A) 1 %; Eosinophils # (A) 0.1 k/uL (0-0.7); Eosinophils % (A) 1 %; HCT 35.2 % (34.0-46.0); HGB 11.1 gm/dL (11.4-16.0); Lymphocytes # (A) 0.8 k/uL (1.0-4.8); Lymphocytes % (A) 11 %; MCH 25.8 pg (25.0-35.0); MCHC 31.6 g/dL (31.0-37.0); MCV 81.9 fL (80.0-100.0); Mean Platelet Volume 8.6; Monocytes # (A) 0.3 k/uL (0-1.0); Monocytes % (A) 4 %; Neutrophils % (A) 84 %; Platelet Count 203 k/uL (150-450); RDW 14.5 % (11.5-15.5); WBC 7.2 k/uL (3.8-10.6)
[2022-04-18] MEDS ORDERED: NALOXONE 0.4 MG/ML 1 ML VIAL IV PRN (17:31)
[2022-04-18] MEDS ORDERED: LEVOTHYROXINE 125 MCG TAB PO SCH (17:45)
[2022-04-18] MEDS: IPRATROPIUM-ALBUTEROL 3 ML NEB INHALATION SCH (17:46)
--- NOTE | 2022-04-18 17:48 | ED ---
General Adult HPI - General Chief complaint: Shortness of Breath Stated complaint: SOB Time Seen by Provider: 04/18/22 15:04 Source: patient, RN notes reviewed, old records reviewed Mode of arrival: ambulatory Limitations: no limitations - History of Present Illness Initial comments: Patient is a 76-year-old female with past medical history remarkable for asthma, COPD, diabetes, TIAs, hypertension, mitral valve prolapse presents emergency Department complaining of upper respiratory infectious symptoms as well as wheezing. Initially presented to urgent care with a 2 to three-day history of worsening shortness of breath with a productive cough of yellow mucus. Patient is also been wheezing over that period of time as well. She attempted home br eathing treatments with minimal improvement. No known sick contacts. No fevers. Took home Covid test that were negative. No abdominal pain, nausea, vomiting. Other acute complaints at this time. Presents over concern for upper respirations symptoms. Initially presented to urgent care where she received 2 breathing treatments approximately 30 minutes prior to arrival as well as IM Decadron. - Related Data Home Medications Medication Instructions Recorded Confirmed DULoxetine HCL [Cymbalta] 60 mg PO DAILY 05/03/14 04/18/22 Montelukast Sodium [Singulair] 10 mg PO HS 10/14/17 04/18/22 Levothyroxine Sodium [Synthroid] 62.5 mcg PO LOCKWOOD 05/24/18 04/18/22 Losartan Potassium 25 mg PO DAILY 09/25/19 04/18/22 hydroCHLOROthiazide 25 mg PO DAILY 09/25/19 04/18/22 Albuterol Inhaler [Ventolin Hfa 2 puff INHALATION RT-Q6H PRN 10/01/20 04/18/22 Inhaler] Aspirin [Adult Low Dose Aspirin EC] 81 mg PO DAILY 10/01/20 04/18/22 Levothyroxine Sodium [Synthroid] 125 mcg PO MOTUWETHFRSA 10/01/20 04/18/22 Omeprazole [PriLOSEC] 40 mg PO DAILY 10/01/20 04/18/22 Rosuvastatin Calcium [Crestor] 10 mg PO DAILY 10/01/20 04/18/22 Isosorbide Mononitrate ER [Imdur] 30 mg PO DAILY 04/02/21 04/18/22 Metoprolol Succinate (ER) [Toprol 25 mg PO DAILY 10/27/21 04/18/22 XL] metFORMIN HCL ER [Glucophage XR] 1,000 mg PO W/SUPPER 10/27/21 04/18/22 Fluticasone/Umeclidin/Vilanter 1 puff INHALATION RT-DAILY 04/01/22 04/18/22 [Trelegy Ellipta 200-62.5-25] Latanoprost/Pf [Latanoprost 0.005% 1 drop RIGHT EYE HS 04/01/22 04/18/22 Eye Drop] Azithromycin [Zithromax Z-pack (6 See Taper PO DAILY 04/18/22 04/18/22 tabs)] Nitroglycerin Sl Tabs [Nitrostat] 0.4 mg SL Q5M PRN 04/18/22 04/18/22 Previous Rx's Medication Instructions Recorded Acetaminophen Tab [Tylenol] 650 mg PO Q6HR PRN tab 04/03/22 Allergies Allergy/AdvReac Type Severity Reaction Status Date / Time methylprednisolone Allergy red puffy Verified 04/18/22 15:56 [From Medrol] face nickel Allergy Itching/raw Verified 04/18/22 15:56 skin lisinopril AdvReac Severe Cough Verified 04/18/22 15:56 tramadol AdvReac Severe severe Verified 04/18/22 15:56 fatigue, elevated BP adhesive tape AdvReac PULLS SKIN Verified 04/18/22 15:56 OFF hydrocodone bitartrate AdvReac Hallucinati Verified 04/18/22 15:56 [From [place]] ons naproxen sodium [From Aleve] AdvReac lowers BP Verified 04/18/22 15:56 bandaid AdvReac pulls skin Uncoded 04/18/22 15:56 off Review of Systems ROS Statement: Those systems with pertinent positive or pertinent negative responses have been documented in the HPI. Review of Systems: CONST: Denies fever EYES: Denies blurry vision ENT: Endorses nasal congestion C/V: Denies Chest pain RESP: Endorses productive cough. GI: Denies abdominal pain : Denies dysuria SKIN: Denies rash. MSK: Denies joint pain. NEURO: Denies headache ROS Other: All systems not noted in ROS Statement are negative. Past Medical History Past Medical History: Asthma, Cancer, Chest Pain / Angina, COPD, CVA/TIA, Diabetes Mellitus, Fibromyalgia, GERD/Reflux, Hyperlipidemia, Hypertension, Mitral Valve Prolapse (MVP), Pneumonia, Skin Disorder, Sleep Apnea/CPAP/BIPAP, Thyroid Disorder Additional Past Medical History / Comment(s): heart murmur, hx rheumatic fever, environmental allergies, hiatal hernia, hx IBS, skin dx called granuloma annulare, hx thyroid cancer, cancer rt breast, TIA- no residual effects, irregular heartbeat, leaking aortic and mitral valves, no cpap used, "severe acid reflux", sepsis after breast surgery, PNA 10/2021 History of Any Multi-Drug Resistant Organisms: None Reported Past Surgical History: Back Surgery, Breast Surgery, Cholecystectomy, Heart Catheterization, Hysterectomy, Orthopedic Surgery Additional Past Surgical History / Comment(s): thyroidectomy, rt radical mastectomy,left mastectomy,constance breast reconstruction x 2-second implant (left breast) removed due to sepsis, cervical fusion x 2, titanium rods-lumbar, rt shoulder arthroscopy, constance cataracts, Past Anesthesia/Blood Transfusion Reactions: Previous Problems w/ Anesthesia, Postoperative Nausea & Vomiting (PONV) Additional Past Anesthesia/Blood Transfusion Reaction / Comment(s): woke up during EGD in past Past Psychological History: Anxiety Smoking Status: Never smoker Past Alcohol Use History: None Reported Past Drug Use History: None Reported - Past Family History Mother Family Medical History: Cancer Additional Family Medical History / Comment(s): kidney Sister(s) Family Medical History: Cancer Additional Family Medical History / Comment(s): pancreatic Brother(s) Family Medical History: Cancer Additional Family Medical History / Comment(s): colon, thryoid cancer Daughter(s) Family Medical History: Cancer Additional Family Medical History / Comment(s): skin General Exam - General Exam Comments Initial Comments: General: Appears in mild respiratory distress. HEAD: Normal with no signs of head trauma. EYES: PERRLA, EOMI, conjunctiva normal, no discharge. ENT: Hearing grossly intact, normal oropharynx. RESPIRATORY: Bilateral end expiratory wheezing. Mild tachypnea. No hypoxia at rest. C/V: Regular rate and rhythm. S1 and S2 auscultated, no edema, peripheral pulses 2+ and intact throughout ABD: Abd is soft, nontender, nondistended EXT: Normal range of motion, no obvious deformity SKIN: No rashes or lesions observed on exposed skin. NEURO: Alert and Oriented 4. Limitations: no limitations Course Vital Signs 04/18/22 04/18/22 04/18/22 14:42 15:58 16:10 Temperature 98.1 F Pulse Rate 81 81 85 Respiratory 22 Rate Blood Pressure 121/49 O2 Sat by Pulse 97 Oximetry 04/18/22 04/18/22 04/18/22 16:29 17:46 17:57 Temperature Pulse Rate 82 84 92 Respiratory 18 Rate Blood Pressure 119/53 O2 Sat by Pulse 95 Oximetry 04/18/22 18:12 Temperature Pulse Rate 92 Respiratory 16 Rate Blood Pressure 126/53 O2 Sat by Pulse 89 L Oximetry Medical Decision Making - Medical Decision Making Based on patient's presentation and physical exam, I'm concerned for bronchitis as well as an acute COPD exacerbation. She is very obvious wheezing in bilateral lung mckeon. Occasional become mildly hypoxic in the low 90%'s when talking at length. She received steroids as well as breathing treatments shortly prior to arrival and she'll be administered an additional breathing treatment in addition to testing for flu and Covid. Chest x-ray will also be obtained. We will assess for improvement, however she may require admission. Patient was in agreement this plan. Patient's screening EKG showed no signs of acute ischemia. Chest x-ray showed no acute cardio pulmonary process. Laboratory studies were remarkable for a negative COVID-19, negative flu swabs. On reevaluation, patient's respiratory exam is slightly improved but she still relatively wheezy. I discussed with her that she is likely experiencing bron chitis in addition to a COPD exacerbation. Due to her increased work of breathing despite 3 breathing treatments as well as steroids, and magnesium, I would like to admit her to the hospital observation for further treatment. She was in agreement this plan. She'll be started on IV doxycycline and blood cultures were sent. Basic labs were also ordered. CBC was unremarkable. There was a delay in obtaining the BMP. BMP is unremarkable. Head to recent blood work. I spoke with the admitting doctor, observation on-call Dr. Bal accepted the patient. Patient was admitted in stable condition. Vital signs remained within normal limits and stable. - Lab Data Result diagrams: 04/18/22 18:15 04/18/22 18:08 Lab Results 04/18/22 04/18/22 04/18/22 Range/Units 15:35 15:35 17:10 WBC 7.2 (3.8-10.6) k/uL RBC 4.30 (3.80-5.40) m/uL Hgb 11.1 L (11.4-16.0) gm/dL Hct 35.2 (34.0-46.0) % MCV 81.9 (80.0-100.0) fL MCH 25.8 (25.0-35.0) pg MCHC 31.6 (31.0-37.0) g/dL RDW 14.5 (11.5-15.5) % Plt Count 203 (150-450) k/uL MPV 8.6 Neutrophils % 84 % Lymphocytes % 11 % Monocytes % 4 % Eosinophils % 1 % Basophils % 1 % Neutrophils # 6.0 (1.3-7.7) k/uL Lymphocytes # 0.8 L (1.0-4.8) k/uL Monocytes # 0.3 (0-1.0) k/uL Eosinophils # 0.1 (0-0.7) k/uL Basophils # 0.0 (0-0.2) k/uL Coronavirus (PCR) Not Detected (Not Detectd) Influenza Type A RNA Not Detected (Not Detectd) Influenza Type B (PCR) Not Detected (Not Detectd) - EKG Data -: EKG Interpreted by Me EKG Comments: 12-lead Electrocardiogram Interpretation Note EKG was reviewed and interpreted by myself. 12-lead ECG performed at 1447 is interpreted by me as revealing normal sinus rhythm at a rate of 73 beats per minute. [place] is normal. OR interval is 131 ms, QRS duration is 98 ms, QTc is 411 ms.. There were no ST or T wave abnormalities to suggest myocardial ischemia or injury. R wave progression across the precordium was satisfactory. By my interpretation this EKG is non-diagnostic for acute ischemia. Disposition Clinical Impression: Acute bronchitis, COPD exacerbation Disposition: ADMITTED IP TO THIS HOSP Condition: Stable Time of Disposition: 17:25
[2022-04-18] MEDS: DOXYCYCLINE 100 MG in SODIUM CHLORIDE 0.9% 100 ML IVPB SCH (18:06)
--- NOTE | 2022-04-18 18:09 | P.HPIM ---
History of Present Illness H&P Date: 04/18/22 Chief Complaint: Shortness of breath This is a 76-year-old white female who reported to the hospital with increased shortness of breath and dry cough. She states that she has history of asthma. She tried inhaler at home with partial improvement. She continued to have dry c ough with shortness of breath. She denies subjective fever or chills. She denies hematuria dysuria hematemesis or hematochezia. She denies chest pain. Should improve when she reported to the emergency room. Currently she does not appear to be in distress. Patient's daughter is at bedside. Patient is not on home oxygen. She denies smoking. Review of Systems 10 systems reviewed, pertinent positive and negative findings as in HPI. No chest pain. Positive for shortness of breath and wheezing. Past Medical History Past Medical History: Asthma, Cancer, Chest Pain / Angina, COPD, CVA/TIA, Diabetes Mellitus, Fibromyalgia, GERD/Reflux, Hyperlipidemia, Hypertension, Mitral Valve Prolapse (MVP), Pneumonia, Skin Disorder, Sleep Apnea/CPAP/BIPAP, Thyroid Disorder Additional Past Medical History / Comment(s): heart murmur, hx rheumatic fever, environmental allergies, hiatal hernia, hx IBS, skin dx called granuloma annulare, hx thyroid cancer, cancer rt breast, TIA- no residual effects, irregular heartbeat, leaking aortic and mitral valves, no cpap used, "severe acid reflux", sepsis after breast surgery, PNA 10/2021 History of Any Multi-Drug Resistant Organisms: None Reported Past Surgical History: Back Surgery, Breast Surgery, Cholecystectomy, Heart Catheterization, Hysterectomy, Orthopedic Surgery Additional Past Surgical History / Comment(s): thyroidectomy, rt radical mastectomy,left mastectomy,constance breast reconstruction x 2-second implant (left breast) removed due to sepsis, cervical fusion x 2, titanium rods-lumbar, rt shoulder arthroscopy, constance cataracts, Past Anesthesia/Blood Transfusion Reactions: Previous Problems w/ Anesthesia, Postoperative Nausea & Vomiting (PONV) Additional Past Anesthesia/Blood Transfusion Reaction / Comment(s): woke up dur ing EGD in past Past Psychological History: Anxiety Smoking Status: Never smoker Past Alcohol Use History: None Reported Past Drug Use History: None Reported - Past Family History Mother Family Medical History: Cancer Additional Family Medical History / Comment(s): kidney Sister(s) Family Medical History: Cancer Additional Family Medical History / Comment(s): pancreatic Brother(s) Family Medical History: Cancer Additional Family Medical History / Comment(s): colon, thryoid cancer Daughter(s) Family Medical History: Cancer Additional Family Medical History / Comment(s): skin Medications and Allergies Home Medications Medication Instructions Recorded Confirmed Type DULoxetine HCL [Cymbalta] 60 mg PO DAILY 05/03/14 04/18/22 History Montelukast Sodium [Singulair] 10 mg PO HS 10/14/17 04/18/22 History Levothyroxine Sodium [Synthroid] 62.5 mcg PO LOCKWOOD 05/24/18 04/18/22 History Losartan Potassium 25 mg PO DAILY 09/25/19 04/18/22 History hydroCHLOROthiazide 25 mg PO DAILY 09/25/19 04/18/22 History Albuterol Inhaler [Ventolin Hfa 2 puff INHALATION RT-Q6H PRN 10/01/20 04/18/22 History Inhaler] Aspirin [Adult Low Dose Aspirin EC] 81 mg PO DAILY 10/01/20 04/18/22 History Levothyroxine Sodium [Synthroid] 125 mcg PO MOTUWETHFRSA 10/01/20 04/18/22 History Omeprazole [PriLOSEC] 40 mg PO DAILY 10/01/20 04/18/22 History Rosuvastatin Calcium [Crestor] 10 mg PO DAILY 10/01/20 04/18/22 History Isosorbide Mononitrate ER [Imdur] 30 mg PO DAILY 04/02/21 04/18/22 History Metoprolol Succinate (ER) [Toprol 25 mg PO DAILY 10/27/21 04/18/22 History XL] metFORMIN HCL ER [Glucophage XR] 1,000 mg PO W/SUPPER 10/27/21 04/18/22 History Fluticasone/Umeclidin/Vilanter 1 puff INHALATION RT-DAILY 04/01/22 04/18/22 History [Trelegy Ellipta 200-62.5-25] Latanoprost/Pf [Latanoprost 0.005% 1 drop RIGHT EYE HS 04/01/22 04/18/22 History Eye Drop] Acetaminophen Tab [Tylenol] 650 mg PO Q6HR PRN tab 04/03/22 04/18/22 Rx Azithromycin [Zithromax Z-pack (6 See Taper PO DAILY 04/18/22 04/18/22 History tabs)] Nitroglycerin Sl Tabs [Nitrostat] 0.4 mg SL Q5M PRN 04/18/22 04/18/22 History Allergies Allergy/AdvReac Type Severity Reaction Status Date / Time methylprednisolone Allergy red puffy Verified 04/18/22 15:56 [From Medrol] face nickel Allergy Itching/raw Verified 04/18/22 15:56 skin lisinopril AdvReac Severe Cough Verified 04/18/22 15:56 tramadol AdvReac Severe severe Verified 04/18/22 15:56 fatigue, elevated BP adhesive tape AdvReac PULLS SKIN Verified 04/18/22 15:56 OFF hydrocodone bitartrate AdvReac Hallucinati Verified 04/18/22 15:56 [From [place]] ons naproxen sodium [From Aleve] AdvReac lowers BP Verified 04/18/22 15:56 bandaid AdvReac pulls skin Uncoded 04/18/22 15:56 off Physical Exam Vitals: Vital Signs Temp Pulse Resp BP Pulse Ox 04/18/22 17:57 92 04/18/22 17:46 84 04/18/22 16:29 82 18 119/53 95 04/18/22 16:10 85 04/18/22 15:58 81 04/18/22 14:42 98.1 F 81 22 121/49 97 Intake and Output 04/18/22 04/18/22 04/18/22 06:59 14:59 22:59 Other: Weight 80.286 kg Constitutional: No acute distress, conversant, pleasant Eyes: Anicteric sclerae, moist conjunctiva, no lid-lag, PERRLA ENMT: NC/AT,Oropharynx clear, no erythema, exudates Neck:Supple, FROM, no masses, or JVD, No carotid bruits; No thyromegaly Lungs: Decreased breath sounds, no wheezing Cardiovascular: Heart regular in rate and rhythm, No murmurs, gallops, or rubs no peripheral edema Abdominal: Soft Nontender, non distended, no guarding, no rebound or rigidity, Normoactive bowel sounds No hepatomegaly, No splenomegaly, No palpable mass No abdominal wall hernia noted Skin: Normal temperature, tone, texture, turgor, No induration No subcutaneous nodules, No rash, lesions, No ulcers Extremities:No digital cyanosis No clubbing, Pedal pulses intact and symmetrical Radial pulses intact and symmetrical Normal gait and station, No calf tenderness Psychiatric: Alert and oriented to person, place and time, Appropriate affect Intact judgement Neuro: Muscles Strength 5/5 in all 4 extremities, Sensation to light touch grossly present throughout, Cranial nerves II-XII grossly intact. No focal se nsory deficits Results CBC & Chem 7: 04/18/22 17:10 Labs: Abnormal Lab Results - Last 24 Hours (Table) 04/18/22 Range/Units 17:10 Hgb 11.1 L (11.4-16.0) gm/dL Lymphocytes # 0.8 L (1.0-4.8) k/uL Assessment and Plan Plan: 1. Acute on chronic COPD exacerbation/asthma exacerbation: Oxygen bronchodilators, IV steroids and empirically on antibiotics with doxycycline. Continue to check cardiac enzymes and d-dimer. Chest x-ray unremarkable. 2. GERD without esophagitis: Continue PPI 3. Essential hypertension: Continue metoprolol and losartan 4. Diabetes type 2 with hyperglycemia: Place on insulin sliding scale. 5. Hypothyroidism: Continue Synthroid 6. History of coronary artery disease: No evidence of acute current syndrome, continue to check cardiac enzymes, continue aspirin, statin, losartan isosorbide and metoprolol. 7. History of mitral valve prolapse: Follows up with cardiology as an outpatient. Cardiac monitoring in place. DVT prophylaxis: SCDs Disposition: Home in 1-2 days pending clinical progression.
[2022-04-18 18:50] LABS: HCT 32.7 % (34.0-46.0); HGB 10.5 gm/dL (11.4-16.0); MCH 26.2 pg (25.0-35.0); MCHC 32.2 g/dL (31.0-37.0); MCV 81.2 fL (80.0-100.0); Mean Platelet Volume 7.7; Platelet Count 198 k/uL (150-450); RBC 4.03 m/uL (3.80-5.40); RDW 14.8 % (11.5-15.5); WBC 8.1 k/uL (3.8-10.6)
[2022-04-18 18:53] LABS: Glucose,Whole Blood 220 mg/dL (75-99)
[2022-04-18 19:04] LABS: Albumin 3.9 g/dL (3.5-5.0); Calcium 8.3 mg/dL (8.4-10.2); Potassium 3.8 mmol/L (3.5-5.1); Total Bilirubin 0.3 mg/dL (0.2-1.3); Total Protein 6.4 g/dL (6.3-8.2)
[2022-04-18] MEDS: DEXAMETHASONE SOD PHOSPHATE 10 MG/ML 1 ML VIAL IVP SCH (21:55)
[2022-04-18 21:56] LABS: Glucose,Whole Blood 332 mg/dL (75-99)
[2022-04-18] MEDS: HEPARIN SODIUM,PORCINE/PF 5,000 UNIT/0.5 ML SYRINGE SQ SCH (21:56)
[2022-04-18] MEDS: LATANOPROST 0.005% OPHTH DROPS 2.5 ML BTL RIGHT EYE SCH (21:56)
[2022-04-18] MEDS: MONTELUKAST 10 MG TAB PO SCH (21:56)
[2022-04-18] MEDS: INSULIN ASPART (NovoLOG) 100 UNIT/ML VIAL SQ SCH (22:02)
[2022-04-19] MEDS: IPRATROPIUM-ALBUTEROL 3 ML NEB INHALATION SCH ×8 (00:13→23:14)
[2022-04-19] MEDS: DOXYCYCLINE 100 MG in SODIUM CHLORIDE 0.9% 100 ML IVPB SCH ×2 (06:09→18:13)
[2022-04-19] MEDS ORDERED: LEVOTHYROXINE 125 MCG TAB PO SCH (06:30)
[2022-04-19 08:17] LABS: Glucose,Whole Blood 194 mg/dL (75-99)
[2022-04-19] MEDS: ISOSORBIDE MONONITRATE ER 30 MG TAB.ER.24H PO SCH (08:40)
[2022-04-19] MEDS: LOSARTAN 25 MG TAB PO SCH (08:40)
[2022-04-19] MEDS: INSULIN ASPART (NovoLOG) 100 UNIT/ML VIAL SQ SCH ×4 (08:40→21:57)
[2022-04-19] MEDS: hydroCHLOROthiazide 25 MG TAB PO SCH (08:40)
[2022-04-19] MEDS: DULoxetine HCL 60 MG CAPSULE.DR PO SCH (08:40)
[2022-04-19] MEDS: HEPARIN SODIUM,PORCINE/PF 5,000 UNIT/0.5 ML SYRINGE SQ SCH ×2 (08:40→22:11)
[2022-04-19] MEDS: ASPIRIN 81 MG PO SCH (08:40)
[2022-04-19] MEDS: METOPROLOL SUCCINATE (ER) 25 MG TAB.ER.24H PO SCH (08:41)
[2022-04-19] MEDS: PANTOPRAZOLE 40 MG TABLET PO SCH (08:41)
[2022-04-19] MEDS: DEXAMETHASONE SOD PHOSPHATE 10 MG/ML 1 ML VIAL IVP SCH ×2 (08:41→22:10)
[2022-04-19] MEDS: ATORVASTATIN 20 MG TAB PO SCH (08:43)
[2022-04-19 09:22] LABS: Basophils # (A) 0.01 X 10*3/uL (0.00-0.10); Basophils % (A) 0.1 %; Eosinophils # (A) 0 X 10*3/uL (0.04-0.35); Eosinophils % (A) 0 %; HCT 30.2 % (37.2-46.3); HGB 9.3 g/dL (12.0-15.0); Immature Grans, Automated 0.6 %; Lymphocytes # (A) 0.49 X 10*3/uL (0.90-5.00); Lymphocytes % (A) 5.1 %; MCH 24.9 pg (27.0-32.0); MCHC 30.8 g/dL (32.0-37.0); Mean Platelet Volume 10.2 fL (9.5-12.2); Monocytes # (A) 0.31 X 10*3/uL (0.20-1.00); Monocytes % (A) 3.2 %; NRBC Per 100 WBC 0 /100 WBCS (0.0-0.0); Neutrophils # (A) 8.67 X 10*3/uL (1.80-7.70); Platelet Count 200 X 10*3/uL (140-440); RBC 3.73 X 10*6/uL (4.10-5.20); RDW 14.3 % (11.5-14.5); WBC 9.54 X 10*3/uL (4.50-10.00)
[2022-04-19 11:50] LABS: Glucose,Whole Blood 149 mg/dL (75-99)
--- NOTE | 2022-04-19 12:08 | P.PN ---
Subjective Progress Note Date: 04/19/22 Hospital course: Patient is a very pleasant 76-year-old female with a past medical history CAD, mitral valve prolapse, hypertension, hyperlipidemia, history of TIAs, fibromyalgia, and asthma. Patient presented to the emergency department on 04/18/22 with a chief complaint of worsening shortness of breath and dry cough unrelieved with home inhaler usage. Patient reports that she has been experiencing shortness of breath since October. Patient states back in October she has had some home remodeling done and a wall knockdown and had some extensive dust in her home which resulted in her developing pneumonia requiring hospitalization. Patient reports since her discharge she has never fully recovered. Patient reports she has been under evaluation outpatient by jar capper, Dr. Maddox and intelligence officer basic Dr. Back. She underwent full evaluation in the emergency department. Chest x-ray was completed negative for acute cardiopulmonary process. EKG showing normal sinus rhythm with no noted T- wave or ST abnormalities, showing no signs of acute ischemia at this time. CBC unremarkable. D-dimer normal findings at 0.58. CMP also unremarkable with the exception of hyperglycemia with blood glucose of 332. Troponins negative at less than 0.012 2 draws. Coronavirus, influenza A, and influenza B PCR is all negative. Vital signs unremarkable. Physical exam: Patient was seen and fully evaluated at bedside this morning. Patient was noted to have increased respiratory effort, face flushed, and she was overall ill appearing. Patient reports continued significant shortness of breath. She is receiving breathing treatments scheduled [id number] every 4 hours and as needed. Patient's lungs tight and very wheezy, but she is maintaining SpO2 on room air. Patient denies having any headache, fevers, chest pain, palpitations, nausea, or vomiting. Patient does report that she feels that she has a left lump cannot bring it up with her cough. Vital signs reviewed and stable. General: Nontoxic, no distress and appears stated age. acutely ill-appearing Derm: Skin warm and dry, normal coloration for ethnicity. Head: Atraumatic, normocephalic and symmetric. Eyes: EOMs intact, no lid lag, and anicteric sclera Mouth: no lip lesions, mucus membranes moist Cardiovascular: regular rate and rhythm with normal S1S2, systolic murmur, positive posterior tibial pulses bilaterally, and cap refill < 2 seconds. Lungs: Respirations even, regular, and unlabored on room air. Patient does have increased respiratory effort, but no distress. Lungs tight with moderate diffuse expiratory wheezes bilaterally Abdominal: soft, nontender to palpation, no guarding, no appreciable organomegaly Ext: ROM intact. No gross muscle atrophy, no edema, no contractures Neuro: Speech clear, face symmetrical and CN II-XII grossly intact with no noted focal neuro deficits Psych: Alert and oriented to person, place, time, and situation. Appropriate and pleasant affect. Assessment and Plan of Care: Acute on chronic respiratory failure, acute COPD exacerbation -Consult to Pulmonology -Oxygenation to be administered and titrated as needed to maintain SPO2 equal to or greater than 92% -Telemetry monitoring. -Monitor Pulse-oximetry -Duonebs scheduled and as needed for SOB and/or wheezing -Incentive Spirometry -Steroids: Decadron -Antibiotics: Doxycycline -Singulair -Tessalon Perles Hypertension -Monitor vital signs and continue daily medication regimen with isosorbide mononitrate, losartan, and metoprolol Hyperlipidemia -Continue daily medication regimen with atorvastatin. CODE STATUS: Full code DVT prophylaxis: Heparin Discussed with: Patient and RN Anticipated discharge date: Possibly tomorrow pending improvement Anticipated discharge place: Home A total of 36 minutes was spent on the care of this complex patient more than 50% of the time was spent in counseling and care coordination. I reviewed the documentation as provided by the MANUEL above, who is the original author of this note. I agree with the documented assessment and plan, with the following changes: none Objective - Vital Signs Vital signs: Vital Signs Temp 98.4 F 04/19/22 02:00 Pulse 96 04/19/22 05:10 Resp 17 04/19/22 02:00 BP 110/64 04/19/22 02:00 Pulse Ox 99 04/19/22 02:00 FiO2 Intake & Output 04/18/22 04/19/22 04/19/22 18:59 06:59 18:59 Weight 80.286 kg 80.286 kg Other: Voiding Method Toilet # Voids 1 - Labs CBC & Chem 7: 04/19/22 06:31 04/19/22 06:31 Labs: Abnormal Lab Results - Last 24 Hours (Table) 04/18/22 04/18/22 04/18/22 Range/Units 17:10 18:08 18:15 Hgb 11.1 L 10.5 L (11.4-16.0) gm/dL Hct 32.7 L (34.0-46.0) % Lymphocytes # 0.8 L (1.0-4.8) k/uL Sodium 136 L (137-145) mmol/L BUN 22 H (7-17) mg/dL Glucose 201 H (74-99) mg/dL POC Glucose (mg/dL) (75-99) mg/dL Calcium 8.3 L (8.4-10.2) mg/dL 04/18/22 04/18/22 04/19/22 Range/Units 18:42 21:55 07:50 Hgb (11.4-16.0) gm/dL Hct (34.0-46.0) % Lymphocytes # (1.0-4.8) k/uL Sodium (137-145) mmol/L BUN (7-17) mg/dL Glucose (74-99) mg/dL POC Glucose (mg/dL) 220 H 332 H 194 H (75-99) mg/dL Calcium (8.4-10.2) mg/dL
[2022-04-19 13:05] LABS: ALT 24 U/L (8-44); AST 21 U/L (13-35); African American GFR (CKD) 87.2 (60.0-200.0); Albumin 3.9 g/dL (3.8-4.9); Albumin/Globulin Ratio 2.07 (1.60-3.17); Alkaline Phosphatase 88 U/L (41-126); BUN/Creat Ratio 31.49 Ratio (12.00-20.00); Blood Urea Nitrogen 23.9 mg/dL (9.0-27.0); Calcium 8.4 mg/dL (8.7-10.3); Carbon Dioxide 22.4 mmol/L (20.0-27.5); Chloride 102 mmol/L (96-109); Globulin 1.9 g/dL (1.6-3.3); Glucose 250 mg/dL (70-110); Non-African American GFR(CKD) 75.3 (60.0-200.0); Sodium 138 mmol/L (135-145); Total Bilirubin <0.15 mg/dL (0.30-1.20); Total Protein 5.8 g/dL (6.2-8.2)
[2022-04-19] MEDS ORDERED: LORazepam 2 MG/ML INJ IV STA (15:06)
[2022-04-19] MEDS ORDERED: IPRATROPIUM-ALBUTEROL 3 ML NEB INHALATION PRN (15:06)
[2022-04-19 16:59] LABS: Glucose,Whole Blood 228 mg/dL (75-99)
[2022-04-19] MEDS ORDERED: metFORMIN 500 MG TAB PO SCH (17:30)
[2022-04-19] MEDS: BENZONATATE 100 MG CAP PO SCH ×2 (18:14→23:27)
[2022-04-19 20:16] LABS: Glucose,Whole Blood 116 mg/dL (75-99)
[2022-04-19] MEDS: LATANOPROST 0.005% OPHTH DROPS 2.5 ML BTL RIGHT EYE SCH (22:10)
[2022-04-19] MEDS: MONTELUKAST 10 MG TAB PO SCH (22:11)
[2022-04-20] MEDS: IPRATROPIUM-ALBUTEROL 3 ML NEB INHALATION SCH ×5 (03:44→20:54)
[2022-04-20] MEDS: DOXYCYCLINE 100 MG in SODIUM CHLORIDE 0.9% 100 ML IVPB SCH (05:43)
[2022-04-20] MEDS: LEVOTHYROXINE 125 MCG TAB PO SCH (05:43)
[2022-04-20 07:01] LABS: Glucose,Whole Blood 150 mg/dL (75-99)
[2022-04-20] MEDS: INSULIN ASPART (NovoLOG) 100 UNIT/ML VIAL SQ SCH ×4 (08:05→19:49)
[2022-04-20] MEDS: HEPARIN SODIUM,PORCINE/PF 5,000 UNIT/0.5 ML SYRINGE SQ SCH ×2 (08:05→19:49)
[2022-04-20] MEDS: BENZONATATE 100 MG CAP PO SCH ×3 (08:05→19:50)
[2022-04-20] MEDS: ISOSORBIDE MONONITRATE ER 30 MG TAB.ER.24H PO SCH (08:06)
[2022-04-20] MEDS: ATORVASTATIN 20 MG TAB PO SCH (08:06)
[2022-04-20] MEDS: ASPIRIN 81 MG PO SCH (08:06)
[2022-04-20] MEDS: METOPROLOL SUCCINATE (ER) 25 MG TAB.ER.24H PO SCH (08:06)
[2022-04-20] MEDS: PANTOPRAZOLE 40 MG TABLET PO SCH (08:06)
[2022-04-20] MEDS: hydroCHLOROthiazide 25 MG TAB PO SCH (08:06)
[2022-04-20] MEDS: LOSARTAN 25 MG TAB PO SCH (08:06)
[2022-04-20] MEDS: DULoxetine HCL 60 MG CAPSULE.DR PO SCH (08:06)
[2022-04-20] MEDS: DEXAMETHASONE SOD PHOSPHATE 10 MG/ML 1 ML VIAL IVP SCH ×2 (08:32→19:48)
[2022-04-20] MEDS ORDERED: ALPRAZolam 0.25 MG TAB PO PRN (08:34)
--- NOTE | 2022-04-20 11:01 | P.CNPUL ---
History of Present Illness Consult date: 04/20/22 Reason for consult: dyspnea, cough Chief complaint: Dyspnea, cough, wheezing History of present illness: This is a 76-year-old female patient with past medical history of chronic bronchial asthma, hypertension, diabetes mellitus type 2, hypothyroidism, mitral valve prolapse, history of rheumatic fever, previous history of CVA and previous history of pneumonia who presented to the emergency department on 04/18/2022 wi th complaints of upper respiratory symptoms, runny nose, coughing, shortness of breath and wheezing. Patient was having cough with production of yellow mucus, she has tried some breathing treatments with minimal improvement. She denies any history of fevers. She took a home "attest that was negative. He reports no pain, no nausea or vomiting. No chest discomfort. Patient initially was seen at an urgent care, where she was given breathing treatments, and IM Decadron and was directed to the emergency department for evaluation. Chest x- ray in the emergency department showing no acute cardiopulmonary disease. Labs showed normal white count at 7.2, hemoglobin of 11.1, d-dimer was within normal limits at 0.58, electrolytes and renal profile were unremarkable, serum glucose was elevated to 220, troponins were negative 2 at less than 0.012. COVID-19, influenza A and B were negative. Patient was started on IV Decadron 6 mg twice daily, doxycycline, nebulized bronchodilators, Singulair and this consult was requested Review of Systems All systems: negative Constitutional: Denies chills, Denies fever Eyes: denies blurred vision, denies pain Ears, nose, mouth and throat: Denies headache, Denies sore throat Cardiovascular: Denies chest pain, Denies shortness of breath Respiratory: Reports cough, Reports cough with sputum, Reports dyspnea, Reports wheezing Gastrointestinal: Denies abdominal pain, Denies diarrhea, Denies nausea, Denies vomiting Genitourinary: Denies dysuria, Denies hematuria Musculoskeletal: Denies myalgias Integumentary: Denies pruritus, Denies rash Neurological: Denies numbness, Denies weakness Psychiatric: Denies anxiety, Denies depression Endocrine: Denies fatigue, Denies weight change Past Medical History Past Medical History: Asthma, Cancer, Chest Pain / Angina, COPD, CVA/TIA, Diabetes Mellitus, Fibromyalgia, GERD/Reflux, Hyperlipidemia, Hypertension, Mitral Valve Prolapse (MVP), Pneumonia, Skin Disorder, Sleep Apnea/CPAP/BIPAP, Thyroid Disorder Additional Past Medical History / Comment(s): heart murmur, hx rheumatic fever, environmental allergies, hiatal hernia, hx IBS, skin dx called granuloma annulare, hx thyroid cancer, cancer rt breast, TIA- no residual effects, irregular heartbeat, leaking aortic and mitral valves, no cpap used, "severe acid reflux", sepsis after breast surgery, PNA 10/2021 History of Any Multi-Drug Resistant Organisms: None Reported Past Surgical History: Back Surgery, Breast Surgery, Cholecystectomy, Heart Catheterization, Hysterectomy, Orthopedic Surgery Additional Past Surgical History / Comment(s): thyroidectomy, rt radical mas tectomy,left mastectomy,constance breast reconstruction x 2-second implant (left breast) removed due to sepsis, cervical fusion x 2, titanium rods-lumbar, rt shoulder arthroscopy, constance cataracts, Past Anesthesia/Blood Transfusion Reactions: Previous Problems w/ Anesthesia, Postoperative Nausea & Vomiting (PONV) Additional Past Anesthesia/Blood Transfusion Reaction / Comment(s): woke up during EGD in past Past Psychological History: Anxiety Additional Psychological History / Comment(s): PAST ANXIETY Smoking Status: Never smoker Past Alcohol Use History: None Reported Past Drug Use History: None Reported Additional Drug Use History / Comment(s): cbd cream - Past Family History Mother Family Medical History: Cancer Additional Family Medical History / Comment(s): kidney Sister(s) Family Medical History: Cancer Additional Family Medical History / Comment(s): pancreatic Brother(s) Family Medical History: Cancer Additional Family Medical History / Comment(s): colon, thryoid cancer Daughter(s) Family Medical History: Cancer Additional Family Medical History / Comment(s): skin Medications and Allergies Home Medications Medication Instructions Recorded Confirmed Type DULoxetine HCL [Cymbalta] 60 mg PO DAILY 05/03/14 04/18/22 History Montelukast Sodium [Singulair] 10 mg PO HS 10/14/17 04/18/22 History Levothyroxine Sodium [Synthroid] 62.5 mcg PO [place] 05/24/18 04/18/22 History Losartan Potassium 25 mg PO DAILY 09/25/19 04/18/22 History hydroCHLOROthiazide 25 mg PO DAILY 09/25/19 04/18/22 History Albuterol Inhaler [Ventolin Hfa 2 puff INHALATION RT-Q6H PRN 10/01/20 04/18/22 History Inhaler] Aspirin [Adult Low Dose Aspirin EC] 81 mg PO DAILY 10/01/20 04/18/22 History Levothyroxine Sodium [Synthroid] 125 mcg PO MOTUWETHFRSA 10/01/20 04/18/22 History Omeprazole [PriLOSEC] 40 mg PO DAILY 10/01/20 04/18/22 History Rosuvastatin Calcium [Crestor] 10 mg PO DAILY 10/01/20 04/18/22 History Isosorbide Mononitrate ER [Imdur] 30 mg PO DAILY 04/02/21 04/18/22 History Metoprolol Succinate (ER) [Toprol 25 mg PO DAILY 10/27/21 04/18/22 History XL] metFORMIN HCL ER [Glucophage XR] 1,000 mg PO W/SUPPER 10/27/21 04/18/22 History Fluticasone/Umeclidin/Vilanter 1 puff INHALATION RT-DAILY 04/01/22 04/18/22 History [Trelegy Ellipta 200-62.5-25] Latanoprost/Pf [Latanoprost 0.005% 1 drop RIGHT EYE HS 04/01/22 04/18/22 History Eye Drop] Acetaminophen Tab [Tylenol] 650 mg PO Q6HR PRN tab 04/03/22 04/18/22 Rx Azithromycin [Zithromax Z-pack (6 See Taper PO DAILY 04/18/22 04/18/22 History tabs)] Nitroglycerin Sl Tabs [Nitrostat] 0.4 mg SL Q5M PRN 04/18/22 04/18/22 History Allergies Allergy/AdvReac Type Severity Reaction Status Date / Time methylprednisolone Allergy red puffy Verified 04/18/22 15:56 [From Medrol] face nickel Allergy Itching/raw Verified 04/18/22 15:56 skin lisinopril AdvReac Severe Cough Verified 04/18/22 15:56 tramadol AdvReac Severe severe Verified 04/18/22 15:56 fatigue, elevated BP adhesive tape AdvReac PULLS SKIN Verified 04/18/22 15:56 OFF hydrocodone bitartrate AdvReac Hallucinati Verified 04/18/22 15:56 [From [place]] ons naproxen sodium [From Aleve] AdvReac lowers BP Verified 04/18/22 15:56 bandaid AdvReac pulls skin Uncoded 04/18/22 15:56 off Physical Exam Vitals: Vital Signs Temp Pulse Pulse Pulse Pulse Pulse Pulse 04/20/22 08:56 99 107 H 97 110 H 04/20/22 07:46 90 04/20/22 07:34 88 04/20/22 07:00 97.8 F 95 04/20/22 03:58 92 04/20/22 03:44 92 04/20/22 02:00 98.6 F 107 H 04/20/22 01:57 91 04/19/22 23:28 96 04/19/22 23:15 96 04/19/22 22:10 91 04/19/22 20:08 92 04/19/22 19:56 90 04/19/22 19:00 99.3 F 91 04/19/22 15:51 96 04/19/22 15:38 92 04/19/22 14:45 98.2 F 96 04/19/22 14:00 96 04/19/22 12:54 92 04/19/22 12:38 92 Resp BP Pulse Ox Pulse Ox Pulse Ox Pulse Ox Pulse Ox 04/20/22 08:56 98 99 95 94 L 04/20/22 07:46 04/20/22 07:34 04/20/22 07:00 14 125/63 99 04/20/22 03:58 04/20/22 03:44 04/20/22 02:00 18 131/65 97 04/20/22 01:57 19 04/19/22 23:28 04/19/22 23:15 04/19/22 22:10 19 04/19/22 20:08 04/19/22 19:56 04/19/22 19:00 19 101/60 97 04/19/22 15:51 04/19/22 15:38 04/19/22 14:45 20 123/66 98 04/19/22 14:00 20 04/19/22 12:54 04/19/22 12:38 Intake and Output 04/19/22 04/20/22 04/20/22 22:59 06:59 14:59 Intake Total 600 360 Balance 600 360 Intake: Oral 600 360 Other: Voiding Method Toilet Toilet # Voids 2 2 GENERAL EXAM: Alert, active, comfortable in no apparent distress. HEAD: Normocephalic/atraumatic. EYES: Normal reaction of pupils, equal size. Conjunctiva pink, sclera white. NOSE: Clear with pink turbinates. THROAT: No erythema or exudates. NECK: No masses, no JVD, no thyroid enlargement, no adenopathy. CHEST: No chest wall deformity. Symmetrical expansion. LUNGS: Equal air entry with scattered wheezing CVS: Regular rate and rhythm, normal S1 and S2, no gallops, no murmurs, no rubs ABDOMEN: Soft, nontender. No hepatosplenomegaly, normal bowel sounds, no guar ding or rigidity. EXTREMITIES: No clubbing, no edema, no cyanosis, 2+ pulses and upper and lower extremities. MUSCULOSKELETAL: Muscle strength and tone normal. SPINE: No scoliosis or deformity SKIN: No rashes CENTRAL NERVOUS SYSTEM: Alert and oriented -3. No focal deficits, tone is normal in all 4 extremities. PSYCHIATRIC: Alert and oriented -3. Appropriate affect. Intact judgment and insight. Results - Laboratory Findings CBC and BMP: 04/19/22 06:31 04/19/22 06:31 PT/INR, D-dimer D-Dimer 0.58 mg/L FEU (<0.60) 04/18/22 18:42 Abnormal lab findings: Abnormal Labs 04/18/22 04/18/22 04/18/22 17:10 18:08 18:15 RBC Hgb 11.1 L 10.5 L Hct 32.7 L MCH MCHC Immature Gran # Neutrophils # Lymphocytes # 0.8 L Eosinophils # Sodium 136 L BUN 22 H BUN/Creatinine Ratio Glucose 201 H POC Glucose (mg/dL) Calcium 8.3 L Total Bilirubin Total Protein 04/18/22 04/18/22 04/19/22 18:42 21:55 06:31 RBC 3.73 L Hgb 9.3 L Hct 30.2 L MCH 24.9 L MCHC 30.8 L Immature Gran # 0.06 H Neutrophils # 8.67 H Lymphocytes # 0.49 L Eosinophils # 0 L Sodium BUN BUN/Creatinine Ratio Glucose POC Glucose (mg/dL) 220 H 332 H Calcium Total Bilirubin Total Protein 06/12/22 06/12/22 06/12/22 06:31 07:50 11:38 RBC Hgb Hct MCH MCHC Immature Gran # Neutrophils # Lymphocytes # Eosinophils # Sodium BUN BUN/Creatinine Ratio 31.49 H Glucose 250 H POC Glucose (mg/dL) 194 H 149 H Calcium 8.4 L Total Bilirubin <0.15 L Total Protein 5.8 L 04/19/22 04/19/22 04/20/22 16:57 20:14 07:00 RBC Hgb Hct MCH MCHC Immature Gran # Neutrophils # Lymphocytes # Eosinophils # Sodium BUN BUN/Creatinine Ratio Glucose POC Glucose (mg/dL) 228 H 116 H 150 H Calcium Total Bilirubin Total Protein - Diagnostic Findings Chest x-ray: report reviewed, image reviewed Assessment and Plan Plan: Assessment: #1. Acute exacerbation of COPD, chest x-ray showed no acute pulmonary process, COVID-19, influenza A and B were negative. #2. History of chronic bronchial asthma, unspecified #3. History of mild to moderate mitral regurgitation #4. History of coronary artery disease #5. Type 2 diabetes mellitus #6. Hypertension #7. Dyslipidemia #8. Hypothyroidism #9. Lifetime nonsmoker #10. GERD/reflux #11. History of CVA #12. History of rheumatic fever #13. Depression #14. Previous episode of pneumonia Plan: Continue current medical treatment Continue Decadron, nebulized bronchodilators and antibiotics Chest x-ray showing no acute pulmonary process, Mild wheezing on physical exam, and coughing Continue cough syrup If improves in the next 24 hours, patient may be considered for discharge home Continue to follow her clinical course I have personally seen and examined the patient, performed the documentation and the assessment and plan as written. Number of minutes spent on the visit: [15] Time with Patient: Greater than 30
[2022-04-20 11:57] LABS: Glucose,Whole Blood 257 mg/dL (75-99)
--- NOTE | 2022-04-20 13:36 | P.PN ---
Subjective Progress Note Date: 04/20/22 Hospital course: Patient is a very pleasant 76-year-old female with a past medical history CAD, mitral valve prolapse, hypertension, hyperlipidemia, history of TIAs, fibromyalgia, and asthma. Patient presented to the emergency department on 04/18/22 with a chief complaint of worsening shortness of breath and dry cough unrelieved with home inhaler usage. Patient reports that she has been experiencing shortness of breath since October. Patient states back in October she has had some home remodeling done and a wall knockdown and had some extensive dust in her home which resulted in her developing pneumonia requiring hospitalization. Patient reports since her discharge she has never fully recovered. Patient reports she has been under evaluation outpatient by cellar supervisor, Dr. Maddox and barber tool sharpener Dr. Back. She underwent full evaluation in the emergency department. Chest x-ray was completed negative for acute cardiopulmonary process. EKG showing normal sinus rhythm with no noted T- wave or ST abnormalities, showing no signs of acute ischemia at this time. CBC unremarkable. D-dimer normal findings at 0.58. CMP also unremarkable with the exception of hyperglycemia with blood glucose of 332. Troponins negative at less than 0.012 2 draws. Coronavirus, influenza A, and influenza B PCR is all negative. Vital signs unremarkable. Physical exam: Patient was seen and fully evaluated at bedside this morning. She was sitting up at bedside in the chair. Patient appeared to be doing much better this morning when compared to yesterday. Patient reports some improvement in shortness of breath and cough. She continues to report cough remains dry and nonproductive, but feels that if she could just cough something up, she would feel a little better. Patient very shaky and jittery and reported having slight improvement of this from the Ativan given yesterday. Pulmonary evaluated the patient this morning and started her on Xanax as needed for anxiety. Patient will require an additional night in the hospital with continued [id number] breathing treatments and IV steroids. Patient otherwise denies having any complaints including headache, lightheadedness, dizziness, chest pain, palpitations, nausea, or vomiting. Ambulatory pulse oximetry was completed, patient maintained SpO2 at or above 94% throughout entire evaluation. Vital signs reviewed and stable. General: Nontoxic, no distress and appears stated age. Derm: Skin warm and dry, normal coloration for ethnicity. Head: Atraumatic, normocephalic and symmetric. Eyes: EOMs intact, no lid lag, and anicteric sclera Mouth: no lip lesions, mucus membranes moist Cardiovascular: regular rate and rhythm with normal S1S2, systolic murmur, positive posterior tibial pulses bilaterally, and cap refill < 2 seconds. Lungs: Respirations even, regular, and unlabored on room air. Lungs with equal air entry and diffuse expiratory wheezes bilaterally. No accessory muscle usage noted. Abdominal: soft, nontender to palpation, no guarding, no appreciable organomegaly Ext: ROM intact. No gross muscle atrophy, no edema, no contractures Neuro: Speech clear, face symmetrical and CN II-XII grossly intact with no noted focal neuro deficits Psych: Alert and oriented to person, place, time, and situation. Appropriate and pleasant affect. Assessment and Plan of Care: Acute on chronic respiratory failure, acute COPD exacerbation -Pulmonary following, appreciate further recommendations -Oxygenation to be administered and titrated as needed to maintain SPO2 equal to or greater than 92% -Telemetry monitoring. -Monitor Pulse-oximetry -Duonebs scheduled and as needed for SOB and/or wheezing -Incentive Spirometry -Steroids: Decadron -Antibiotics: Doxycycline -Singulair -Tessalon Perles Hypertension -Monitor vital signs and continue daily medication regimen with isosorbide mononitrate, losartan, and metoprolol Hyperlipidemia -Continue daily medication regimen with atorvastatin. CODE STATUS: Full code DVT prophylaxis: Heparin Discussed with: Patient and RN Anticipated discharge date: Possibly tomorrow pending improvement Anticipated discharge place: Home A total of 35 minutes was spent on the care of this complex patient more than 50% of the time was spent in counseling and care coordination. I reviewed the documentation as provided by the MANUEL above, who is the original author of this note. I agree with the documented assessment and plan, with the following changes: none Objective - Vital Signs Vital signs: Vital Signs Temp 97.8 F 04/20/22 07:00 Pulse 90 04/20/22 07:46 Resp 14 04/20/22 07:00 BP 125/63 04/20/22 07:00 Pulse Ox 99 04/20/22 07:00 FiO2 Intake & Output 04/19/22 04/20/22 04/20/22 18:59 06:59 18:59 Intake Total 720 Balance 720 Intake: Oral 720 Other: Voiding Method Toilet Toilet # Voids 0 2 - Labs CBC & Chem 7: 04/19/22 06:31 04/19/22 06:31 Labs: Abnormal Lab Results - Last 24 Hours (Table) 04/19/22 04/19/22 04/19/22 Range/Units 06:31 06:31 11:38 RBC 3.73 L (4.10-5.20) X 10*6/uL Hgb 9.3 L (12.0-15.0) g/dL Hct 30.2 L (37.2-46.3) % MCH 24.9 L (27.0-32.0) pg MCHC 30.8 L (32.0-37.0) g/dL Immature Gran # 0.06 H (0.00-0.04) X 10*3/uL Neutrophils # 8.67 H (1.80-7.70) X 10*3/uL Lymphocytes # 0.49 L (0.90-5.00) X 10*3/uL Eosinophils # 0 L (0.04-0.35) X 10*3/uL BUN/Creatinine Ratio 31.49 H (12.00-20.00) Ratio Glucose 250 H (70-110) mg/dL POC Glucose (mg/dL) 149 H (75-99) mg/dL Calcium 8.4 L (8.7-10.3) mg/dL Total Bilirubin <0.15 L (0.30-1.20) mg/dL Total Protein 5.8 L (6.2-8.2) g/dL 04/19/22 04/19/22 04/20/22 Range/Units 16:57 20:14 07:00 RBC (4.10-5.20) X 10*6/uL Hgb (12.0-15.0) g/dL Hct (37.2-46.3) % MCH (27.0-32.0) pg MCHC (32.0-37.0) g/dL Immature Gran # (0.00-0.04) X 10*3/uL Neutrophils # (1.80-7.70) X 10*3/uL Lymphocytes # (0.90-5.00) X 10*3/uL Eosinophils # (0.04-0.35) X 10*3/uL BUN/Creatinine Ratio (12.00-20.00) Ratio Glucose (70-110) mg/dL POC Glucose (mg/dL) 228 H 116 H 150 H (75-99) mg/dL Calcium (8.7-10.3) mg/dL Total Bilirubin (0.30-1.20) mg/dL Total Protein (6.2-8.2) g/dL Microbiology - Last 24 Hours (Table) 04/18/22 17:45 Blood Culture - Preliminary Blood No Growth after 24 hours 04/18/22 17:30 Blood Culture - Preliminary Blood No Growth after 24 hours
[2022-04-20 16:45] LABS: Glucose,Whole Blood 142 mg/dL (75-99)
[2022-04-20 19:38] LABS: Glucose,Whole Blood 161 mg/dL (75-99)
[2022-04-20] MEDS: DOXYCYCLINE 100 MG CAP PO SCH (19:49)
[2022-04-20] MEDS: LATANOPROST 0.005% OPHTH DROPS 2.5 ML BTL RIGHT EYE SCH (19:49)
[2022-04-20] MEDS: MONTELUKAST 10 MG TAB PO SCH (19:50)
[2022-04-21] MEDS: IPRATROPIUM-ALBUTEROL 3 ML NEB INHALATION SCH ×7 (00:13→23:29)
[2022-04-21] MEDS: LEVOTHYROXINE 125 MCG TAB PO SCH (05:48)
[2022-04-21 07:24] LABS: Glucose,Whole Blood 133 mg/dL (75-99)
[2022-04-21] MEDS: PANTOPRAZOLE 40 MG TABLET PO SCH (07:35)
[2022-04-21] MEDS: INSULIN ASPART (NovoLOG) 100 UNIT/ML VIAL SQ SCH ×5 (07:35→21:25)
[2022-04-21] MEDS: METOPROLOL SUCCINATE (ER) 25 MG TAB.ER.24H PO SCH (09:10)
[2022-04-21] MEDS: BENZONATATE 100 MG CAP PO SCH ×3 (09:10→21:26)
[2022-04-21] MEDS: DULoxetine HCL 60 MG CAPSULE.DR PO SCH (09:10)
[2022-04-21] MEDS: DOXYCYCLINE 100 MG CAP PO SCH ×2 (09:11→21:26)
[2022-04-21] MEDS: ASPIRIN 81 MG PO SCH (09:11)
[2022-04-21] MEDS: hydroCHLOROthiazide 25 MG TAB PO SCH (09:11)
[2022-04-21] MEDS: ISOSORBIDE MONONITRATE ER 30 MG TAB.ER.24H PO SCH (09:11)
[2022-04-21] MEDS: ATORVASTATIN 20 MG TAB PO SCH (09:11)
[2022-04-21] MEDS: DEXAMETHASONE SOD PHOSPHATE 10 MG/ML 1 ML VIAL IVP SCH ×2 (09:11→21:26)
[2022-04-21] MEDS: LOSARTAN 25 MG TAB PO SCH (09:11)
[2022-04-21] MEDS: HEPARIN SODIUM,PORCINE/PF 5,000 UNIT/0.5 ML SYRINGE SQ SCH ×2 (09:12→21:26)
[2022-04-21] MEDS: ALPRAZolam 0.5 MG TAB PO PRN ×2 (09:23→21:26)
--- NOTE | 2022-04-21 11:42 | P.PN ---
Subjective Progress Note Date: 04/21/22 Principal diagnosis: Shortness of breath, cough This is a 76-year-old female patient with past medical history of chronic bronchial asthma, hypertension, diabetes mellitus type 2, hypothyroidism, mitral valve prolapse, history of rheumatic fever, previous history of CVA and previous history of pneumonia who presented to the emergency department on 04/18/2022 with complaints of upper respiratory symptoms, runny nose, coughing, shortness of breath and wheezing. Patient was having cough with production of yellow mucus, she has tried some breathing treatments with minimal improvement. She denies any history of fevers. She took a home "attest that was negative. He reports no pain, no nausea or vomiting. No chest discomfort. Patient initially was seen at an urgent care, where she was given breathing treatments, and IM Decadron and was directed to the emergency department for evaluation. Chest x- ray in the emergency department showing no acute cardiopulmonary disease. Labs showed normal white count at 7.2, hemoglobin of 11.1, d-dimer was within normal limits at 0.58, electrolytes and renal profile were unremarkable, serum glucose was elevated to 220, troponins were negative 2 at less than 0.012. COVID-19, influenza A and B were negative. Patient was started on IV Decadron 6 mg twice daily, doxycycline, nebulized bronchodilators, Singulair and this consult was requested On 04/21/2022 patient was seen in follow-up on medical surgical floor, she continues to have persistent coughing, and shortness of breath with exertion, however vital signs have been stable. She is on 2 L of oxygen pulse ox is 99%, she's been afebrile, hemodynamically she has been stable, denies any chest discomfort or hemoptysis, she is shaky and anxious, yesterday we started her on low-dose Xanax 0.25 mg twice daily as needed. She continues on nebulized bronchodilators and IV Decadron 6 mg twice daily and empiric antibiotics in the form of doxycycline. Objective - Vital Signs Vital signs: Vital Signs Temp 98.7 F 04/21/22 07:46 Pulse 73 04/21/22 11:22 Resp 20 04/21/22 08:00 BP 134/73 04/21/22 07:46 Pulse Ox 95 04/21/22 10:00 FiO2 Intake & Output 0604/21/22 04/21/22 18:59 06:59 18:59 Intake Total 960 236 Balance 960 236 Intake: Oral 960 236 Other: Voiding Method Toilet # Voids 3 2 - Exam GENERAL EXAM: Alert, active, comfortable in no apparent distress. HEAD: Normocephalic/atraumatic. EYES: Normal reaction of pupils, equal size. Conjunctiva pink, sclera white. NOSE: Clear with pink turbinates. THROAT: No erythema or exudates. NECK: No masses, no JVD, no thyroid enlargement, no adenopathy. CHEST: No chest wall deformity. Symmetrical expansion. LUNGS: Equal air entry with scattered wheezing CVS: Regular rate and rhythm, normal S1 and S2, no gallops, no murmurs, no rubs ABDOMEN: Soft, nontender. No hepatosplenomegaly, normal bowel sounds, no guarding or rigidity. EXTREMITIES: No clubbing, no edema, no cyanosis, 2+ pulses and upper and lower extremities. MUSCULOSKELETAL: Muscle strength and tone normal. SPINE: No scoliosis or deformity SKIN: No rashes CENTRAL NERVOUS SYSTEM: Alert and oriented -3. No focal deficits, tone is normal in all 4 extremities. PSYCHIATRIC: Alert and oriented -3. Appropriate affect. Intact judgment and insight. - Labs CBC & Chem 7: 04/19/22 06:31 04/19/22 06:31 Labs: Abnormal Lab Results - Last 24 Hours (Table) 04/20/22 04/20/22 04/20/22 Range/Units 11:55 16:43 19:36 POC Glucose (mg/dL) 257 H 142 H 161 H (75-99) mg/dL 04/21/22 Range/Units 07:23 POC Glucose (mg/dL) 133 H (75-99) mg/dL Microbiology - Last 24 Hours (Table) 04/18/22 17:45 Blood Culture - Preliminary Blood No Growth after 48 hours 04/18/22 17:30 Blood Culture - Preliminary Blood No Growth after 48 hours Assessment and Plan Plan: Assessment: #1. Acute exacerbation of COPD, chest x-ray showed no acute pulmonary process, COVID-19, influenza A and B were negative. #2. History of chronic bronchial asthma, unspecified #3. History of mild to moderate mitral regurgitation #4. History of coronary artery disease #5. Type 2 diabetes mellitus #6. Hypertension #7. Dyslipidemia #8. Hypothyroidism #9. Lifetime nonsmoker #10. GERD/reflux #11. History of CVA #12. History of rheumatic fever #13. Depression #14. Previous episode of pneumonia Plan: Continue current medical treatment Patient continues to have persistent cough, and wheezing, Not ready for discharge, would recommend continuing current medical treatment Continue Decadron, nebulized bronchodilators and antibiotics Continue cough syrup We'll increase Xanax 0.25 milligrams to 0.5 mg 3 times a day as needed for anxiety Add Symbicort 2 puffs twice daily I have personally seen and examined the patient, performed the documentation and the assessment and plan as written. Number of minutes spent on the visit: [10] Time with Patient: Less than 30
[2022-04-21 12:13] LABS: Glucose,Whole Blood 141 mg/dL (75-99)
--- NOTE | 2022-04-21 14:26 | P.PN ---
Subjective Progress Note Date: 04/21/22 Hospital course: Patient is a very pleasant 76-year-old female with a past medical history CAD, mitral valve prolapse, hypertension, hyperlipidemia, history of TIAs, fibromyalgia, and asthma. Patient presented to the emergency department on 04/18/22 with a chief complaint of worsening shortness of breath and dry cough unrelieved with home inhaler usage. Patient reports that she has been experiencing shortness of breath since October. Patient states back in October she has had some home remodeling done and a wall knockdown and had some extensive dust in her home which resulted in her developing pneumonia requiring hospitalization. Patient reports since her discharge she has never fully recovered. Patient reports she has been under evaluation outpatient by child care sitter, Dr. Maddox and warehouse supervisor 3rd shift Dr. Back. She underwent full evaluation in the emergency department. Chest x-ray was completed negative for acute cardiopulmonary process. EKG showing normal sinus rhythm with no noted T- wave or ST abnormalities, showing no signs of acute ischemia at this time. CBC unremarkable. D-dimer normal findings at 0.58. CMP also unremarkable with the exception of hyperglycemia with blood glucose of 332. Troponins negative at less than 0.012 2 draws. Coronavirus, influenza A, and influenza B PCR is all negative. Vital signs unremarkable. Physical exam: Patient was seen and fully evaluated at bedside this morning. She was again sitting up in chair. Patient continues to have significant coughing, wheezing, and shortness of breath with exertion. Patient is noted to have 3-4 word conversational dyspnea and remains shaky. Pulmonary bedside adding Symbicort to daily medication regimen and increasing Xanax 0.5 mg 3 times daily. Patient continues to show increased respiratory effort, but remains in no acute respiratory distress and is maintaining SpO2 at 97-99%. At this time patient to continue with Decadron, scheduled DuoNeb and as needed, doxycycline, Tessalon Perles and Symbicort. Vital signs reviewed and stable. General: Nontoxic, no distress and appears stated age. Derm: Skin warm and dry, normal coloration for ethnicity. Head: Atraumatic, normocephalic and symmetric. Eyes: EOMs intact, no lid lag, and anicteric sclera Mouth: no lip lesions, mucus membranes moist Cardiovascular: regular rate and rhythm with normal S1S2, systolic murmur, positive posterior tibial pulses bilaterally, and cap refill < 2 seconds. Lungs: Respirations even, regular, and unlabored on room air. Lungs with equal air entry and moderate diffuse expiratory wheezes bilaterally. No accessory muscle usage noted. Abdominal: soft, nontender to palpation, no guarding, no appreciable organomegaly Ext: ROM intact. No gross muscle atrophy, no edema, no contractures Neuro: Speech clear, face symmetrical and CN II-XII grossly intact with no noted focal neuro deficits Psych: Alert and oriented to person, place, time, and situation. Appropriate and pleasant affect. Assessment and Plan of Care: Acute on chronic respiratory failure, acute COPD exacerbation -Pulmonary following, appreciate further recommendations -Oxygenation to be administered and titrated as needed to maintain SPO2 equal to or greater than 92% -Telemetry monitoring. -Monitor Pulse-oximetry -Duonebs scheduled and as needed for SOB and/or wheezing -Incentive Spirometry -Steroids: Decadron -Antibiotics: Doxycycline -Singulair -Tessalon Perles Hypertension -Monitor vital signs and continue daily medication regimen with isosorbide mononitrate, losartan, and metoprolol Hyperlipidemia -Continue daily medication regimen with atorvastatin. CODE STATUS: Full code DVT prophylaxis: Heparin Discussed with: Patient and RN Anticipated discharge date: Possibly tomorrow pending improvement Anticipated discharge place: Home A total of 35 minutes was spent on the care of this complex patient more than 50% of the time was spent in counseling and care coordination. I reviewed the documentation as provided by the MANUEL above, who is the original author of this note. I agree with the documented assessment and plan, with the following changes: none Objective - Vital Signs Vital signs: Vital Signs Temp 98.7 F 04/21/22 07:46 Pulse 86 04/21/22 08:00 Resp 20 04/21/22 07:46 BP 134/73 04/21/22 07:46 Pulse Ox 99 04/21/22 07:46 FiO2 Intake & Output 04/20/22 04/21/22 04/21/22 18:59 06:59 18:59 Intake Total 960 236 Balance 960 236 Intake: Oral 960 236 Other: Voiding Method Toilet # Voids 3 2 - Labs CBC & Chem 7: 04/19/22 06:31 04/19/22 06:31 Labs: Abnormal Lab Results - Last 24 Hours (Table) 04/20/22 04/20/22 04/20/22 Range/Units 11:55 16:43 19:36 POC Glucose (mg/dL) 257 H 142 H 161 H (75-99) mg/dL 04/21/22 Range/Units 07:23 POC Glucose (mg/dL) 133 H (75-99) mg/dL Microbiology - Last 24 Hours (Table) 04/18/22 17:45 Blood Culture - Preliminary Blood No Growth after 48 hours 04/18/22 17:30 Blood Culture - Preliminary Blood No Growth after 48 hours
[2022-04-21 17:21] LABS: Glucose,Whole Blood 183 mg/dL (75-99)
[2022-04-21] MEDS: SYMBICORT 160-4.5 MCG INHALER INHALATION SCH (20:03)
[2022-04-21 21:08] LABS: Glucose,Whole Blood 152 mg/dL (75-99)
[2022-04-21] MEDS: MONTELUKAST 10 MG TAB PO SCH (21:26)
[2022-04-21] MEDS: LATANOPROST 0.005% OPHTH DROPS 2.5 ML BTL RIGHT EYE SCH (21:27)
[2022-04-22] MEDS: IPRATROPIUM-ALBUTEROL 3 ML NEB INHALATION SCH ×4 (03:33→15:00)
[2022-04-22] MEDS: LEVOTHYROXINE 125 MCG TAB PO SCH (05:56)
[2022-04-22] MEDS: SYMBICORT 160-4.5 MCG INHALER INHALATION SCH (07:10)
[2022-04-22 07:11] LABS: Glucose,Whole Blood 152 mg/dL (75-99)
[2022-04-22 07:32] VITALS: RESP 18
[2022-04-22] MEDS: INSULIN ASPART (NovoLOG) 100 UNIT/ML VIAL SQ SCH ×2 (07:35→12:57)
[2022-04-22] MEDS: HEPARIN SODIUM,PORCINE/PF 5,000 UNIT/0.5 ML SYRINGE SQ SCH (07:35)
[2022-04-22] MEDS: ISOSORBIDE MONONITRATE ER 30 MG TAB.ER.24H PO SCH (07:36)
[2022-04-22] MEDS: LOSARTAN 25 MG TAB PO SCH (07:36)
[2022-04-22] MEDS: PANTOPRAZOLE 40 MG TABLET PO SCH (07:36)
[2022-04-22] MEDS: ASPIRIN 81 MG PO SCH (07:36)
[2022-04-22] MEDS: DEXAMETHASONE SOD PHOSPHATE 10 MG/ML 1 ML VIAL IVP SCH (07:36)
[2022-04-22] MEDS: ATORVASTATIN 20 MG TAB PO SCH (07:36)
[2022-04-22] MEDS: DULoxetine HCL 60 MG CAPSULE.DR PO SCH (07:36)
[2022-04-22] MEDS: METOPROLOL SUCCINATE (ER) 25 MG TAB.ER.24H PO SCH (07:36)
[2022-04-22] MEDS: hydroCHLOROthiazide 25 MG TAB PO SCH (07:37)
[2022-04-22] MEDS: DOXYCYCLINE 100 MG CAP PO SCH (07:37)
[2022-04-22] MEDS: BENZONATATE 100 MG CAP PO SCH ×2 (07:37→16:37)
[2022-04-22] MEDS: ALPRAZolam 0.5 MG TAB PO PRN (08:09)
--- NOTE | 2022-04-22 08:49 | P.PN ---
Subjective Progress Note Date: 04/22/22 Principal diagnosis: Shortness of breath, cough This is a 76-year-old female patient with past medical history of chronic bronchial asthma, hypertension, diabetes mellitus type 2, hypothyroidism, mitral valve prolapse, history of rheumatic fever, previous history of CVA and previous history of pneumonia who presented to the emergency department on 04/18/2022 with complaints of upper respiratory symptoms, runny nose, coughing, shortness of breath and wheezing. Patient was having cough with production of yellow mucus, she has tried some breathing treatments with minimal improvement. She denies any history of fevers. She took a home "attest that was negative. He reports no pain, no nausea or vomiting. No chest discomfort. Patient initially was seen at an urgent care, where she was given breathing treatments, and IM Decadron and was directed to the emergency department for evaluation. Chest x- ray in the emergency department showing no acute cardiopulmonary disease. Labs showed normal white count at 7.2, hemoglobin of 11.1, d-dimer was within normal limits at 0.58, electrolytes and renal profile were unremarkable, serum glucose was elevated to 220, troponins were negative 2 at less than 0.012. COVID-19, influenza A and B were negative. Patient was started on IV Decadron 6 mg twice daily, doxycycline, nebulized bronchodilators, Singulair and this consult was requested On 04/21/2022 patient was seen in follow-up on medical surgical floor, she continues to have persistent coughing, and shortness of breath with exertion, however vital signs have been stable. She is on 2 L of oxygen pulse ox is 99%, she's been afebrile, hemodynamically she has been stable, denies any chest discomfort or hemoptysis, she is shaky and anxious, yesterday we started her on low-dose Xanax 0.25 mg twice daily as needed. She continues on nebulized bronchodilators and IV Decadron 6 mg twice daily and empiric antibiotics in the form of doxycycline. On 04/22/2022 patient seen in follow-up on medical surgical floor. She is awake and alert, in no acute distress, her breathing is improving, her cough is improving. Patient denies any chest pain. No acute issues overnight. She states that she think the Xanax is helping her significantly with her anxiety and tremors. 9 any chest x-rays, no fever or chills. She remains on IV Decadron 6 g twice daily, breathing treatments, doxycycline for empiric antibiotic coverage. Objective - Vital Signs Vital signs: Vital Signs Temp 98.0 F 04/22/22 07:30 Pulse 66 04/22/22 07:30 Resp 18 04/22/22 07:30 BP 135/68 04/22/22 07:30 Pulse Ox 100 04/22/22 07:30 FiO2 Intake & Output 04/21/22 04/22/22 04/22/22 18:59 06:59 18:59 Intake Total 480 118 Balance 480 118 Intake: Oral 480 118 Other: Voiding Method Toilet # Voids 2 2 - Exam GENERAL EXAM: Alert, active, comfortable in no apparent distress. HEAD: Normocephalic/atraumatic. EYES: Normal reaction of pupils, equal size. Conjunctiva pink, sclera white. NOSE: Clear with pink turbinates. THROAT: No erythema or exudates. NECK: No masses, no JVD, no thyroid enlargement, no adenopathy. CHEST: No chest wall deformity. Symmetrical expansion. LUNGS: Equal air entry with scattered wheezing CVS: Regular rate and rhythm, normal S1 and S2, no gallops, no murmurs, no rubs ABDOMEN: Soft, nontender. No hepatosplenomegaly, normal bowel sounds, no guarding or rigidity. EXTREMITIES: No clubbing, no edema, no cyanosis, 2+ pulses and upper and lower extremities. MUSCULOSKELETAL: Muscle strength and tone normal. SPINE: No scoliosis or deformity SKIN: No rashes CENTRAL NERVOUS SYSTEM: Alert and oriented -3. No focal deficits, tone is normal in all 4 extremities. PSYCHIATRIC: Alert and oriented -3. Appropriate affect. Intact judgment and insight. - Labs CBC & Chem 7: 04/19/22 06:31 04/19/22 06:31 Labs: Abnormal Lab Results - Last 24 Hours (Table) 04/21/22 04/21/22 04/21/22 Range/Units 12:07 17:20 21:07 POC Glucose (mg/dL) 141 H 183 H 152 H (75-99) mg/dL 04/22/22 Range/Units 07:09 POC Glucose (mg/dL) 152 H (75-99) mg/dL Microbiology - Last 24 Hours (Table) 04/18/22 17:45 Blood Culture - Preliminary Blood No Growth after 72 hours 04/18/22 17:30 Blood Culture - Preliminary Blood No Growth after 72 hours Assessment and Plan Plan: Assessment: #1. Acute exacerbation of COPD, chest x-ray showed no acute pulmonary process, COVID-19, influenza A and B were negative. #2. History of chronic bronchial asthma, unspecified #3. History of mild to moderate mitral regurgitation #4. History of coronary artery disease #5. Type 2 diabetes mellitus #6. Hypertension #7. Dyslipidemia #8. Hypothyroidism #9. Lifetime nonsmoker #10. GERD/reflux #11. History of CVA #12. History of rheumatic fever #13. Depression #14. Previous episode of pneumonia Plan: Continue current medical treatment cough and wheezing are improving Would benefit from another 24 hours of inpatient care Continue Decadron, nebulized bronchodilators and antibiotics Continue cough syrup Patient thinks she would benefit from Xanax on as needed basis on an outpatient basis Will defer to PCP on that I have personally seen and examined the patient, performed the documentation and the assessment and plan as written. Number of minutes spent on the visit: [10] Time with Patient: Less than 30
[2022-04-22 11:57] LABS: Glucose,Whole Blood 133 mg/dL (75-99)
[2022-04-22] MEDS ORDERED: predniSONE 20 MG TAB PO STA (12:23)
[2022-04-22 13:37] VITALS: BP 126/66; TEMP 98.1
--- NOTE | 2022-04-22 14:16 | P.DS ---
Providers Date of admission: 04/20/22 11:50 Expected date of discharge: 04/22/22 Attending physician: Graham Bal MD Consults: 04/19/22 14:32 Consult Physician Routine Consulting Provider: Ovidio Maddox Consult Reason/Comments: COPD exacerbation Do you want consulting provider notified?: Yes Primary care physician: [facility] Course: Hospital course Patient is a very pleasant 76-year-old female with a past medical history CAD, mitral valve prolapse, hypertension, hyperlipidemia, history of TIAs, fibromyalgia, and asthma. Patient presented to the emergency department on 04/18/22 with a chief complaint of worsening shortness of breath and dry cough unrelieved with home inhaler usage. Patient reports that she has been experiencing shortness of breath since October. Patient states back in October she has had some home remodeling done and a wall knockdown and had some extensive dust in her home which resulted in her developing pneumonia requiring hospitalization. Patient reports since her discharge she has never fully recovered. Patient reports she has been under evaluation outpatient by urban redevelopment specialist, Dr. Maddox and supervisor building maintenance Dr. Back. She underwent full evaluation in the emergency department. Chest x-ray was completed negative for acute cardiopulmonary process. EKG showing normal sinus rhythm with no noted T- wave or ST abnormalities, showing no signs of acute ischemia at this time. CBC unremarkable. D-dimer normal findings at 0.58. CMP also unremarkable with the exception of hyperglycemia with blood glucose of 332. Troponins negative at less than 0.012 2 draws. Coronavirus, influenza A, and influenza B PCR is all negative. Vital signs unremarkable. Patient was evaluated from oxygen on discharge and she did not qualify. She'll be discharged home on short course of prednisone 40 mg daily 4 days total oral doxycycline. Pulmonary ordered nebulizer machine with him coronary to treatment. Unfortunately patient have a high co-pay for her inhaled steroid. Physical exam: Vital signs reviewed and stable. General: Nontoxic, no distress and appears stated age. Derm: Skin warm and dry, normal coloration for ethnicity. Head: Atraumatic, normocephalic and symmetric. Eyes: EOMs intact, no lid lag, and anicteric sclera Mouth: no lip lesions, mucus membranes moist Cardiovascular: regular rate and rhythm with normal S1S2, systolic murmur, positive posterior tibial pulses bilaterally, and cap refill < 2 seconds. Lungs: Respirations even, regular, and unlabored on room air. Lungs with equal air entry and moderate diffuse expiratory wheezes bilaterally. No accessory muscle usage noted. Abdominal: soft, nontender to palpation, no guarding, no appreciable organomegaly Ext: ROM intact. No gross muscle atrophy, no edema, no contractures Neuro: Speech clear, face symmetrical and CN II-XII grossly intact with no noted focal neuro deficits Psych: Alert and oriented to person, place, time, and situation. Appropriate and pleasant affect. Detail the problem list Acute on chronic respiratory failure, acute COPD exacerbation -Pulmonary following, appreciate further recommendations -No need for home oxygen on discharge -Telemetry monitoring. -Monitor Pulse-oximetry -Duonebs scheduled and as needed for SOB and/or wheezing -Incentive Spirometry -Steroids: Decadron switched to by mouth prednisone on discharge -Antibiotics: Doxycycline -Singulair -Tessalon Perles Hypertension -Monitor vital signs and continue daily medication regimen with isosorbide mononitrate, losartan, and metoprolol Hyperlipidemia -Continue daily medication regimen with atorvastatin. Condition at discharge: Stable. Time spent in discharge process 35 minutes Patient Condition at Discharge: Stable Plan - Discharge Summary New Discharge Prescriptions: New predniSONE [Deltasone] 40 mg PO DAILY #10 tab Benzonatate [Tessalon Perles] 200 mg PO TID #20 cap Albuterol Sulfate [Albuterol Sulfate Hfa] 2 puff PO Q6H PRN 30 Days #1 pack PRN Reason: Shortness Of Breath Budesonide-Formot 160-4.5 Mcg [Symbicort 160-4.5 Mcg Inhaler] 2 puff INHALATION BID 30 Days #10.2 gm Doxycycline [Vibramycin] 100 mg PO BID #14 cap ALPRAZolam [Xanax] 0.5 mg PO BID PRN #12 tab PRN Reason: Anxiety Ipratropium-Albuterol Nebulize [Duoneb 0.5 mg-3 mg/3 ml Soln] 3 ml INHALATION QID 30 Days #6 pack Continue DULoxetine HCL [Cymbalta] 60 mg PO DAILY Montelukast Sodium [Singulair] 10 mg PO HS Levothyroxine Sodium [Synthroid] 62.5 mcg PO [place] Losartan Potassium 25 mg PO DAILY hydroCHLOROthiazide 25 mg PO DAILY Albuterol Inhaler [Ventolin Hfa Inhaler] 2 puff INHALATION RT-Q6H PRN PRN Reason: Shortness Of Breath Aspirin [Adult Low Dose Aspirin EC] 81 mg PO DAILY Levothyroxine Sodium [Synthroid] 125 mcg PO MOTUWETHFRSA Omeprazole [PriLOSEC] 40 mg PO DAILY Rosuvastatin Calcium [Crestor] 10 mg PO DAILY metFORMIN HCL ER [Glucophage XR] 1,000 mg PO W/SUPPER Metoprolol Succinate (ER) [Toprol XL] 25 mg PO DAILY Isosorbide Mononitrate ER [Imdur] 30 mg PO DAILY Latanoprost/Pf [Latanoprost 0.005% Eye Drop] 1 drop RIGHT EYE HS Acetaminophen Tab [Tylenol] 650 mg PO Q6HR PRN tab PRN Reason: Mild Pain Or Fever > 100.5 Nitroglycerin Sl Tabs [Nitrostat] 0.4 mg SL Q5M PRN PRN Reason: Chest Pain Discontinued Azithromycin [Zithromax Z-pack (6 tabs)] See Taper PO DAILY Discharge Medication List DULoxetine HCL [Cymbalta] 60 mg PO DAILY 05/03/14 [History] Montelukast Sodium [Singulair] 10 mg PO HS 10/14/17 [History] Levothyroxine Sodium [Synthroid] 62.5 mcg PO [place] 05/24/18 [History] Losartan Potassium 25 mg PO DAILY 09/25/19 [History] hydroCHLOROthiazide 25 mg PO DAILY 09/25/19 [History] Albuterol Inhaler [Ventolin Hfa Inhaler] 2 puff INHALATION RT-Q6H PRN 10/01/20 [History] Aspirin [Adult Low Dose Aspirin EC] 81 mg PO DAILY 10/01/20 [History] Levothyroxine Sodium [Synthroid] 125 mcg PO MOTUWETHFRSA 10/01/20 [History] Omeprazole [PriLOSEC] 40 mg PO DAILY 10/01/20 [History] Rosuvastatin Calcium [Crestor] 10 mg PO DAILY 10/01/20 [History] Isosorbide Mononitrate ER [Imdur] 30 mg PO DAILY 04/02/21 [History] Metoprolol Succinate (ER) [Toprol XL] 25 mg PO DAILY 10/27/21 [History] metFORMIN HCL ER [Glucophage XR] 1,000 mg PO W/SUPPER 10/27/21 [History] Latanoprost/Pf [Latanoprost 0.005% Eye Drop] 1 drop RIGHT EYE HS 04/01/22 [History] Acetaminophen Tab [Tylenol] 650 mg PO Q6HR PRN tab 04/03/22 [Rx] Nitroglycerin Sl Tabs [Nitrostat] 0.4 mg SL Q5M PRN 04/18/22 [History] ALPRAZolam [Xanax] 0.5 mg PO BID PRN #12 tab 04/22/22 [Rx] Albuterol Sulfate [Albuterol Sulfate Hfa] 2 puff PO Q6H PRN 30 Days #1 pack 04/22/22 [Rx] Benzonatate [Tessalon Perles] 200 mg PO TID #20 cap 04/22/22 [Rx] Budesonide-Formot 160-4.5 Mcg [Symbicort 160-4.5 Mcg Inhaler] 2 puff INHALATION BID 30 Days #10.2 gm 04/22/22 [Rx] Doxycycline [Vibramycin] 100 mg PO BID #14 cap 04/22/22 [Rx] Ipratropium-Albuterol Nebulize [Duoneb 0.5 mg-3 mg/3 ml Soln] 3 ml INHALATION QID 30 Days #6 pack 04/22/22 [Rx] predniSONE [Deltasone] 40 mg PO DAILY #10 tab 04/22/22 [Rx] Follow up Appointment(s)/Referral(s): [facility], [NON-STAFF] - 1 Week Elli Gan III, MD [Primary Care Provider] - 1-2 days [facility] [NON-STAFF] - As Needed (Nebulizer ordered through) Ovidio Maddox DO [Doctor of Osteopathic Medicine] - 05/08/22 2:00 pm Discharge/Stand Alone Forms: Outpatient Counseling, Personal Media Assistant
[2022-04-22 15:13] VITALS: PULSE 82
== END 2022-04-22 17:17 | disposition home health service (06) | DRG 190 ==
LOC: EC 14:06 → 6NMEDSUR 17:30 → OBSVTOIN 04-20 11:50
PROVIDERS: ADMIT Internal Medicine; ATTEND Internal Medicine
DX: J44.1 Chronic obstructive pulmonary disease with (acute) exacerbation (principal); J96.20 Acute and chronic respiratory failure, unspecified whether with hypoxia or hypercapnia; K21.9 Gastro-esophageal reflux disease without esophagitis; Z20.822 Contact with and (suspected) exposure to COVID-19; I25.10 Atherosclerotic heart disease of native coronary artery without angina pectoris; I10 Essential (primary) hypertension; E11.65 Type 2 diabetes mellitus with hyperglycemia; E78.5 Hyperlipidemia, unspecified; J30.2 Other seasonal allergic rhinitis; M79.7 Fibromyalgia; E89.0 Postprocedural hypothyroidism; F32.A Depression, unspecified; F41.9 Anxiety disorder, unspecified; R01.1 Cardiac murmur, unspecified; I34.0 Nonrheumatic mitral (valve) insufficiency; I34.1 Nonrheumatic mitral (valve) prolapse; Z79.82 Long term (current) use of aspirin; Z79.84 Long term (current) use of oral hypoglycemic drugs; Z79.890 Hormone replacement therapy; Z79.899 Other long term (current) drug therapy; Z85.850 Personal history of malignant neoplasm of thyroid; Z86.73 Personal history of transient ischemic attack (TIA), and cerebral infarction without residual deficits; Z87.01 Personal history of pneumonia (recurrent); Z90.12 Acquired absence of left breast and nipple; Z90.710 Acquired absence of both cervix and uterus; Z90.49 Acquired absence of other specified parts of digestive tract; Z98.1 Arthrodesis status; Z88.8 Allergy status to other drugs, medicaments and biological substances; Z88.5 Allergy status to narcotic agent; Z91.048 Other nonmedicinal substance allergy status; Z98.42 Cataract extraction status, left eye; Z98.41 Cataract extraction status, right eye
CPT/HCPCS: 36415; 71046; 80053; 84484; 85025; 85027; 85379; 87040; 87502; 87635; 93005; 94640; 94760; 96365; 96366; 96367; 99285

== ENCOUNTER 2022-07-15 16:31 | Observation (INO) | payer MEDICARE, BC ==
[2022-07-15] MEDS ORDERED: SODIUM CHLORIDE 0.9% 500 ML 500 ML IV STA (16:53)
--- NOTE | 2022-07-15 16:58 | ED ---
General Adult HPI - General Chief complaint: Chest Pain Stated complaint: chest pain Time Seen by Provider: 07/15/22 16:35 Source: patient, RN notes reviewed, old records reviewed Mode of arrival: ambulatory Limitations: no limitations - History of Present Illness Initial comments: This a 76-year-old female presents emergency department stating she was having chest pain starting at 2:00 today radiated up into her neck on both sides. Patient states she's had this before but never as lasted so long. Patient states she doesn't know she was short of breath at all because the pain was so significant she wasn't paying attention. Patient denies any diaphoretic episodes. Patient's any nausea vomiting. Patient denies any recent fever chills or cough. Patient denies abdominal pain. Patient denies any history of smoking but she does have diabetes. Patient denies any lightheadedness or dizziness. Patient denies any recent injury or trauma. Patient denies any fever chills or cough. Patient denies swelling to the legs or calf tenderness is no - Related Data Home Medications Medication Instructions Recorded Confirmed DULoxetine HCL [Cymbalta] 60 mg PO DAILY 05/03/14 04/18/22 Montelukast Sodium [Singulair] 10 mg PO HS 10/14/17 04/18/22 Levothyroxine Sodium [Synthroid] 62.5 mcg PO LOCKWOOD 05/24/18 04/18/22 Losartan Potassium 25 mg PO DAILY 09/25/19 04/18/22 hydroCHLOROthiazide 25 mg PO DAILY 09/25/19 04/18/22 Albuterol Inhaler [Ventolin Hfa 2 puff INHALATION RT-Q6H PRN 10/01/20 04/18/22 Inhaler] Aspirin [Adult Low Dose Aspirin EC] 81 mg PO DAILY 10/01/20 04/18/22 Levothyroxine Sodium [Synthroid] 125 mcg PO MOTUWETHFRSA 10/01/20 04/18/22 Omeprazole [PriLOSEC] 40 mg PO DAILY 10/01/20 04/18/22 Rosuvastatin Calcium [Crestor] 10 mg PO DAILY 10/01/20 04/18/22 Isosorbide Mononitrate ER [Imdur] 30 mg PO DAILY 04/02/21 04/18/22 Metoprolol Succinate (ER) [Toprol 25 mg PO DAILY 10/27/21 04/18/22 XL] metFORMIN HCL ER [Glucophage XR] 1,000 mg PO W/SUPPER 10/27/21 04/18/22 Latanoprost/Pf [Latanoprost 0.005% 1 drop RIGHT EYE HS 04/01/22 04/18/22 Eye Drop] Nitroglycerin Sl Tabs [Nitrostat] 0.4 mg SL Q5M PRN 04/18/22 04/18/22 Previous Rx's Medication Instructions Recorded Acetaminophen Tab [Tylenol] 650 mg PO Q6HR PRN tab 04/03/22 ALPRAZolam [Xanax] 0.5 mg PO BID PRN #12 tab 04/22/22 Albuterol Sulfate [Albuterol 2 puff PO Q6H PRN 30 Days #1 pack 04/22/22 Sulfate Hfa] Benzonatate [Tessalon Perles] 200 mg PO TID #20 cap 04/22/22 Budesonide-Formot 160-4.5 Mcg 2 puff INHALATION BID 30 Days 04/22/22 [Symbicort 160-4.5 Mcg Inhaler] #10.2 gm Doxycycline [Vibramycin] 100 mg PO BID #14 cap 04/22/22 Ipratropium-Albuterol Nebulize 3 ml INHALATION QID 30 Days #360 ml 04/22/22 [Duoneb 0.5 mg-3 mg/3 ml Soln] predniSONE [Deltasone] 40 mg PO DAILY #10 tab 04/22/22 Allergies Allergy/AdvReac Type Severity Reaction Status Date / Time methylprednisolone Allergy red puffy Verified 07/15/22 16:35 [From Medrol] face nickel Allergy Itching/raw Verified 07/15/22 16:35 skin lisinopril AdvReac Severe Cough Verified 07/15/22 16:35 tramadol AdvReac Severe severe Verified 07/15/22 16:35 fatigue, elevated BP adhesive tape AdvReac PULLS SKIN Verified 07/15/22 16:35 OFF hydrocodone bitartrate AdvReac Hallucinati Verified 07/15/22 16:35 [From [place]] ons naproxen sodium [From Aleve] AdvReac lowers BP Verified 07/15/22 16:35 bandaid AdvReac pulls skin Uncoded 07/15/22 16:35 off Review of Systems ROS Statement: Those systems with pertinent positive or pertinent negative responses have been documented in the HPI. ROS Other: All systems not noted in ROS Statement are negative. Past Medical History Past Medical History: Asthma, Cancer, Chest Pain / Angina, COPD, CVA/TIA, Diabetes Mellitus, Fibromyalgia, GERD/Reflux, Hyperlipidemia, Hypertension, Mitral Valve Prolapse (MVP), Pneumonia, Skin Disorder, Sleep Apnea/CPAP/BIPAP, Thyroid Disorder Additional Past Medical History / Comment(s): heart murmur, hx rheumatic fever, environmental allergies, hiatal hernia, hx IBS, skin dx called granuloma annulare, hx thyroid cancer, cancer rt breast, TIA- no residual effects, irregular heartbeat, leaking aortic and mitral valves, no cpap used, "severe acid reflux", sepsis after breast surgery, PNA 10/2021 History of Any Multi-Drug Resistant Organisms: None Reported Past Surgical History: Back Surgery, Breast Surgery, Cholecystectomy, Heart C atheterization, Hysterectomy, Orthopedic Surgery Additional Past Surgical History / Comment(s): thyroidectomy, rt radical mastectomy,left mastectomy,constance breast reconstruction x 2-second implant (left breast) removed due to sepsis, cervical fusion x 2, titanium rods-lumbar, rt shoulder arthroscopy, constance cataracts, Past Anesthesia/Blood Transfusion Reactions: Previous Problems w/ Anesthesia, Postoperative Nausea & Vomiting (PONV) Additional Past Anesthesia/Blood Transfusion Reaction / Comment(s): woke up during EGD in past Past Psychological History: Anxiety Smoking Status: Never smoker - Past Family History Mother Family Medical History: Cancer Additional Family Medical History / Comment(s): kidney Sister(s) Family Medical History: Cancer Additional Family Medical History / Comment(s): pancreatic Brother(s) Family Medical History: Cancer Additional Family Medical History / Comment(s): colon, thryoid cancer Daughter(s) Family Medical History: Cancer Additional Family Medical History / Comment(s): skin General Exam - General Exam Comments Initial Comments: GENERAL: Patient is well-developed and well-nourished. Patient is nontoxic and well-h ydrated and is in mild distress. ENT: Neck is soft and supple. No significant lymphadenopathy is noted. Oropharynx is clear. Moist mucous membranes. Neck has full range of motion without eliciting any pain. EYES: The sclera were anicteric and conjunctiva were pink and moist. Extraocular move ments were intact and pupils were equal round and reactive to light. Eyelids were unremarkable. PULMONARY: Unlabored respirations. Good breath sounds bilaterally. CARDIOVASCULAR: She has irregularly irregular heart rate ABDOMEN: Soft and nontender with normal bowel sounds. SKIN: Skin is clear with no lesions or rashes and otherwise unremarkable. NEUROLOGIC: Patient is alert and oriented x3. Cranial nerves II through XII are grossly intact. Motor and sensory are also intact. Normal speech, volume and content. Symmetrical smile. MUSCULOSKELETAL: Normal extremities with adequate strength and full range of motion. LYMPHATICS: No significant lymphadenopathy is noted PSYCHIATRIC: Normal psychiatric evaluation. Limitations: no limitations Course Vital Signs 07/15/22 16:33 Temperature 97.6 F Pulse Rate 148 H Respiratory 20 Rate Blood Pressure 107/59 O2 Sat by Pulse 97 Oximetry Medical Decision Making - Medical Decision Making EKG shows atrial flutter at a rate of 151 bpm QRS is 92 QT interval is 2 7070 QTC is 363. Patient's EKG shows no ST segment elevation. Patient seemed to convert to a normal sinus rhythm a repeat EKG did show a sinus rhythm at [address] interval is 136 dresses 90 QT interval 354 QTC is 44. Patient's EKG shows multiple PACs EKG shows no ST segment elevation or depression. Chest x-ray shows no acute normalities. I spoke with the [facility] significant with the patient admitted the patient I wrote admitting orders. - Lab Data Result diagrams: 07/15/22 17:22 07/15/22 17:22 Lab Results 07/15/22 07/15/22 07/15/22 Range/Units 17:22 17:22 17:22 WBC 7.3 (3.8-10.6) k/uL RBC 4.48 (3.80-5.40) m/uL Hgb 11.5 (11.4-16.0) gm/dL Hct 36.1 (34.0-46.0) % MCV 80.5 (80.0-100.0) fL MCH 25.6 (25.0-35.0) pg MCHC 31.8 (31.0-37.0) g/dL RDW 13.8 (11.5-15.5) % Plt Count 198 (150-450) k/uL MPV 7.9 Neutrophils % 69 % Lymphocytes % 22 % Monocytes % 5 % Eosinophils % 2 % Basophils % 0 % Neutrophils # 5.1 (1.3-7.7) k/uL Lymphocytes # 1.6 (1.0-4.8) k/uL Monocytes # 0.4 (0-1.0) k/uL Eosinophils # 0.1 (0-0.7) k/uL Basophils # 0.0 (0-0.2) k/uL Hypochromasia Slight PT 10.7 (9.0-12.0) sec INR 1.0 (<1.2) APTT 24.6 (22.0-30.0) sec Sodium 139 (137-145) mmol/L Potassium 3.9 (3.5-5.1) mmol/L Chloride 99 (98-107) mmol/L Carbon Dioxide 26 (22-30) mmol/L Anion Gap 14 mmol/L BUN 24 H (7-17) mg/dL Creatinine 0.85 (0.52-1.04) mg/dL Est GFR (CKD-EPI)AfAm 76 (>60 ml/min/1.73 sqM) Est GFR (CKD-EPI)NonAf 66 (>60 ml/min/1.73 sqM) Glucose 181 H (74-99) mg/dL Calcium 8.6 (8.4-10.2) mg/dL Magnesium 1.4 L (1.6-2.3) mg/dL Total Bilirubin 0.3 (0.2-1.3) mg/dL AST 35 (14-36) U/L ALT 24 (4-34) U/L Alkaline Phosphatase 100 (38-126) U/L Troponin I (0.000-0.034) ng/mL Total Protein 6.6 (6.3-8.2) g/dL Albumin 4.2 (3.5-5.0) g/dL TSH 0.331 L (0.465-4.680) mIU/L 07/15/22 Range/Units 17:22 WBC (3.8-10.6) k/uL RBC (3.80-5.40) m/uL Hgb (11.4-16.0) gm/dL Hct (34.0-46.0) % MCV (80.0-100.0) fL MCH (25.0-35.0) pg MCHC (31.0-37.0) g/dL RDW (11.5-15.5) % Plt Count (150-450) k/uL MPV Neutrophils % % Lymphocytes % % Monocytes % % Eosinophils % % Basophils % % Neutrophils # (1.3-7.7) k/uL Lymphocytes # (1.0-4.8) k/uL Monocytes # (0-1.0) k/uL Eosinophils # (0-0.7) k/uL Basophils # (0-0.2) k/uL Hypochromasia PT (9.0-12.0) sec INR (<1.2) APTT (22.0-30.0) sec Sodium (137-145) mmol/L Potassium (3.5-5.1) mmol/L Chloride (98-107) mmol/L Carbon Dioxide (22-30) mmol/L Anion Gap mmol/L BUN (7-17) mg/dL Creatinine (0.52-1.04) mg/dL Est GFR (CKD-EPI)AfAm (>60 ml/min/1.73 sqM) Est GFR (CKD-EPI)NonAf (>60 ml/min/1.73 sqM) Glucose (74-99) mg/dL Calcium (8.4-10.2) mg/dL Magnesium (1.6-2.3) mg/dL Total Bilirubin (0.2-1.3) mg/dL AST (14-36) U/L ALT (4-34) U/L Alkaline Phosphatase (38-126) U/L Troponin I <0.012 (0.000-0.034) ng/mL Total Protein (6.3-8.2) g/dL Albumin (3.5-5.0) g/dL TSH (0.465-4.680) mIU/L Disposition Clinical Impression: Atrial flutter with rapid ventricular response Disposition: ADMITTED IP TO THIS HOSP Referrals: Elli Gan III, MD [Primary Care Provider] - 1-2 days Time of Disposition: 19:18
[2022-07-15 17:47] LABS: Albumin 4.2 g/dL (3.5-5.0); Calcium 8.6 mg/dL (8.4-10.2); Magnesium 1.4 mg/dL (1.6-2.3); Potassium 3.9 mmol/L (3.5-5.1); Total Bilirubin 0.3 mg/dL (0.2-1.3); Total Protein 6.6 g/dL (6.3-8.2)
[2022-07-15 17:55] LABS: Basophils % (A) 0 %; Eosinophils # (A) 0.1 k/uL (0-0.7); Eosinophils % (A) 2 %; HCT 36.1 % (34.0-46.0); HGB 11.5 gm/dL (11.4-16.0); Hypochromasia Slight; Lymphocytes # (A) 1.6 k/uL (1.0-4.8); Lymphocytes % (A) 22 %; MCH 25.6 pg (25.0-35.0); MCHC 31.8 g/dL (31.0-37.0); MCV 80.5 fL (80.0-100.0); Mean Platelet Volume 7.9; Monocytes # (A) 0.4 k/uL (0-1.0); Monocytes % (A) 5 %; Neutrophils # (A) 5.1 k/uL (1.3-7.7); Neutrophils % (A) 69 %; Platelet Count 198 k/uL (150-450); RBC 4.48 m/uL (3.80-5.40); RDW 13.8 % (11.5-15.5); WBC 7.3 k/uL (3.8-10.6)
[2022-07-15 18:01] LABS: Partial Thromboplastin Time 24.6 sec (22.0-30.0); Prothrombin Time 10.7 sec (9.0-12.0)
[2022-07-15] MEDS ORDERED: HEPARIN SODIUM 1,000 UN/ML (10ML VL) IV ONE (19:05)
[2022-07-15] MEDS ORDERED: HEPARIN SOD,PORK IN 0.45% NACL 25,000 UNIT in 0.45% NACL 1 250ML.BAG IV SCH (19:15)
[2022-07-15] MEDS ORDERED: NITROGLYCERIN SL TABS 0.4 MG TAB SUBLINGUAL PRN (19:19)
[2022-07-15] MEDS: ACETAMINOPHEN TAB 325 MG TAB PO PRN (23:20)
--- NOTE | 2022-07-16 08:10 | P.HPIM ---
History of Present Illness This is a pleasant 76 years old female with past medical history of hypertension, hyperlipidemia, diabetes mellitus type 2 and hypothyroidism. History of CVA/TIA, COPD, fibromyalgia, GERD, mitral valve prolapse, sleep apnea, Her PCP is Dr. Gan and she follows up with Dr. 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 Also she sees Dr. Dao for asthma, she never smoked. She has recurrent chest pain that lasted for a minute like 3 episodes in May and one episode about 2 weeks ago in June which work her up from sleep. Her pain is central goes to the shoulder and the jaws. She has another episode yesterday but it went up to the face and lasted 3 hours which made her worried and decided to come to emergency room. She described chest pain is nonspecific but her / chest pain has resolved now on after she was placed on heparin drip. She denies dyspnea or coughing, no diarrhea or vomiting, no dysuria or urgency, no headache or dizziness or blurred vision. No weakness or numbness No smoking, alcohol or illicit drugs Patient is hemodynamically stable. Labs are unremarkable including CBC, INR, BMP and liver enzymes. Her troponin is negative while the second one and 31 elevated at 0.04 and 0.05. TSH is low but free T4 is normal at 1.7. Magnesium is low at 1.4 EKG: Sinus rhythm at [address]-T changes First EKG: Atrial fibrillation with RVR at 151. Chest x-ray: No acute pulmonary abnormality (the radiology report in the chart) Patient currently heart rate is controlled on 60-70 and patient is maintained on Cardizem drip Review of Systems Review of systems CONSTITUTIONAL: No fever, no malaise, no fatigue. HEENT: No recent visual problems or hearing problems. Denied any sore throat. CARDIOVASCULAR: No orthopnea, PND, no palpitations, no syncope. PULMONARY: No shortness of breath, no cough, no hemoptysis. GASTROINTESTINAL: No diarrhea, no nausea, no vomiting, no abdominal pain. Normoactive bowel sounds. NEUROLOGICAL: No headaches, no weakness, no numbness. HEMATOLOGICAL: Denies any bleeding or petechiae. GENITOURINARY: Denies any burning micturition, frequency, or urgency. MUSCULOSKELETAL/RHEUMATOLOGICAL: Denies any joint pain, swelling, or any muscle pain. ENDOCRINE: Denies any polyuria or polydipsia. Past Medical History Past Medical History: Asthma, Cancer, Chest Pain / Angina, COPD, CVA/TIA, Diabetes Mellitus, Fibromyalgia, GERD/Reflux, Hyperlipidemia, Hypertension, Mitral Valve Prolapse (MVP), Pneumonia, Skin Disorder, Sleep Apnea/CPAP/BIPAP, Thyroid Disorder Additional Past Medical History / Comment(s): heart murmur, hx rheumatic fever, environmental allergies, hiatal hernia, hx IBS, skin dx called granuloma annulare, hx thyroid cancer, cancer rt breast, TIA- no residual effects, irregular heartbeat, leaking aortic and mitral valves, no cpap used, "severe acid reflux", sepsis after breast surgery, PNA 10/2021 History of Any Multi-Drug Resistant Organisms: None Reported Past Surgical History: Back Surgery, Breast Surgery, Cholecystectomy, Heart Catheterization, Hysterectomy, Orthopedic Surgery Additional Past Surgical History / Comment(s): thyroidectomy, rt radical ma stectomy,left mastectomy,constance breast reconstruction x 2-second implant (left breast) removed due to sepsis, cervical fusion x 2, titanium rods-lumbar, rt shoulder arthroscopy, constance cataracts, Past Anesthesia/Blood Transfusion Reactions: Previous Problems w/ Anesthesia, Postoperative Nausea & Vomiting (PONV) Additional Past Anesthesia/Blood Transfusion Reaction / Comment(s): woke up during EGD in past Past Psychological History: Anxiety Additional Psychological History / Comment(s): PAST ANXIETY Smoking Status: Never smoker Past Alcohol Use History: None Reported Past Drug Use History: None Reported Additional Drug Use History / Comment(s): cbd cream - Past Family History Mother Family Medical History: Cancer Additional Family Medical History / Comment(s): kidney Sister(s) Family Medical History: Cancer Additional Family Medical History / Comment(s): pancreatic Brother(s) Family Medical History: Cancer Additional Family Medical History / Comment(s): colon, thryoid cancer Daughter(s) Family Medical History: Cancer Additional Family Medical History / Comment(s): skin Medications and Allergies Home Medications Medication Instructions Recorded Confirmed Type DULoxetine HCL [Cymbalta] 60 mg PO DAILY 05/03/14 07/15/22 History Montelukast Sodium [Singulair] 10 mg PO HS 10/14/17 07/15/22 History Levothyroxine Sodium [Synthroid] 62.5 mcg PO LOCKWOOD 05/24/18 07/15/22 History Losartan Potassium 25 mg PO DAILY 09/25/19 07/15/22 History hydroCHLOROthiazide 25 mg PO DAILY 09/25/19 07/15/22 History Aspirin [Adult Low Dose Aspirin EC] 81 mg PO DAILY 10/01/20 07/15/22 History Levothyroxine Sodium [Synthroid] 125 mcg PO MOTUWETHFRSA 10/01/20 07/15/22 History Omeprazole [PriLOSEC] 40 mg PO DAILY 10/01/20 07/15/22 History Rosuvastatin Calcium [Crestor] 10 mg PO DAILY 10/01/20 07/15/22 History Isosorbide Mononitrate ER [Imdur] 30 mg PO DAILY 04/02/21 07/15/22 History Metoprolol Succinate (ER) [Toprol 25 mg PO DAILY 10/27/21 07/15/22 History XL] metFORMIN HCL ER [Glucophage XR] 1,000 mg PO W/SUPPER 10/27/21 07/15/22 History Latanoprost/Pf [Latanoprost 0.005% 1 drop RIGHT EYE HS 04/01/22 07/15/22 History Eye Drop] Allergies Allergy/AdvReac Type Severity Reaction Status Date / Time methylprednisolone Allergy red puffy Verified 07/15/22 19:57 [From Medrol] face nickel Allergy Itching/raw Verified 07/15/22 19:57 skin lisinopril AdvReac Severe Cough Verified 07/15/22 19:57 tramadol AdvReac Severe severe Verified 07/15/22 19:57 fatigue, elevated BP adhesive tape AdvReac PULLS SKIN Verified 07/15/22 19:57 OFF hydrocodone bitartrate AdvReac Hallucinati Verified 07/15/22 19:57 [From [place]] ons naproxen sodium [From Aleve] AdvReac lowers BP Verified 07/15/22 19:57 bandaid AdvReac pulls skin Uncoded 07/15/22 16:35 off Physical Exam Vitals: Vital Signs Temp Pulse Pulse Resp BP BP Pulse Ox 07/16/22 03:42 97.8 F 61 16 129/56 95 07/16/22 02:00 16 07/16/22 00:00 98.9 F 73 17 104/89 98 07/15/22 19:32 69 16 102/70 98 07/15/22 16:33 97.6 F 148 H 20 107/59 97 Intake and Output 07/15/22 07/15/22 07/16/22 14:59 22:59 06:59 Intake Total 83.5 Balance 83.5 Intake: Intake, IV Titration 83.5 Amount Heparin Sod,Pork in 0.45% 83.5 NaCl 25,000 unit In 0.45 % NaCl 1 250ml.bag @ 11. 789 UNITS/KG/HR 10 mls/hr IV .Q24H [facility] Rx#: [id number] Other: Voiding Method Toilet # Voids 1 Weight 84.822 kg GENERAL: The patient is alert and oriented x3, not in any acute distress. Well developed, well nourished. HEENT: Pupils are round and equally reacting to light. EOMI. No scleral icterus. No conjunctival pallor. Normocephalic, atraumatic. No pharyngeal erythema. No thyromegaly. CARDIOVASCULAR: S1 and S2 present. No murmurs, rubs, or gallops. PULMONARY: Chest is clear to auscultation, no wheezing or crackles. ABDOMEN: Soft, nontender, nondistended, normoactive bowel sounds. No palpable organomegaly. MUSCULOSKELETAL: No joint swelling or deformity. EXTREMITIES: No cyanosis, clubbing, or pedal edema. NEUROLOGICAL: Gross neurological examination did not reveal any focal deficits. SKIN: No rashes. no petechiae. Results CBC & Chem 7: 07/15/22 17:22 07/15/22 17:22 Labs: Abnormal Lab Results - Last 24 Hours (Table) 07/15/22 07/15/22 07/16/22 Range/Units 17:22 20:25 02:07 APTT 53.3 H (22.0-30.0) sec BUN 24 H (7-17) mg/dL Glucose 181 H (74-99) mg/dL Magnesium 1.4 L (1.6-2.3) mg/dL Troponin I 0.045 H* (0.000-0.034) ng/mL TSH 0.331 L (0.465-4.680) mIU/L 07/16/22 Range/Units 02:12 APTT (22.0-30.0) sec BUN (7-17) mg/dL Glucose (74-99) mg/dL Magnesium (1.6-2.3) mg/dL Troponin I 0.050 H* (0.000-0.034) ng/mL TSH (0.465-4.680) mIU/L Thrombosis Risk Factor Assmnt - Choose All That Apply Each Factor Represents 1 point: Abnormal pulmonary function (COPD), Obesity (BMI >25) Each Risk Factor Represents 3 Points: Age 75 years or older Thrombosis Risk Factor Assessment Total Risk Factor Score: 5 Thrombosis Risk Factor Assessment Level: High Risk Assessment and Plan Assessment: A. fib and RVR, present on admission Hypomagnesemia elevated troponin, most likely secondary to A. fib and RVR Hypertension 2 diabetes mellitus History of CVA/TIA History of COPD/asthma Fibromyalgia History of GERD History of mitral valve prolapse Sleep apnea Plan: This is a pleasant 76 years old female who presents with A. fib and RVR. Continue with heparin drip Resume the patient metoprolol 25 mg and monitor blood pressure Hold HCTZ for borderline blood pressure and hypomagnesemia Monitor magnesium and replace appropriately Cardiology consult Labs and medication were reviewed.. Continue same treatment. Continue with symptomatic treatment. Resume home medication. Monitor lytes and vitals. DVT and GI prophylaxis. Further recommendations as per clinical course of the patient DVT prophylaxis: heparin GI Prophylaxis: Pepcid PT/OT: Pending Prognosis is guarded
[2022-07-16 08:34] LABS: Calcium 7.8 mg/dL (8.4-10.2); Magnesium 1.5 mg/dL (1.6-2.3); Potassium 3.8 mmol/L (3.5-5.1)
[2022-07-16] MEDS ORDERED: METOPROLOL SUCCINATE (ER) 25 MG TAB.ER.24H PO SCH (09:00)
[2022-07-16] MEDS ORDERED: ASPIRIN 325 MG TAB PO SCH (09:00)
[2022-07-16 09:07] LABS: Chol/HDL Ratio 2.85 Ratio; LDL Cholesterol,Calculated 67.7 mg/dL (0.0-131.0); VLDL Calculation 19.96 mg/dL (5.00-40.00)
[2022-07-16] MEDS: DULoxetine HCL 60 MG CAPSULE.DR PO SCH (11:00)
[2022-07-16] MEDS: ACETAMINOPHEN TAB 325 MG TAB PO PRN (11:01)
[2022-07-16] MEDS: ISOSORBIDE MONONITRATE ER 30 MG TAB.ER.24H PO SCH (11:01)
[2022-07-16] MEDS: metFORMIN 500 MG TAB PO SCH ×2 (11:01→20:06)
[2022-07-16] MEDS: APIXABAN 5 MG TAB PO SCH ×2 (11:01→20:06)
[2022-07-16] MEDS: ASPIRIN 81 MG PO SCH (11:01)
[2022-07-16] MEDS: LEVOTHYROXINE 125 MCG TAB PO SCH (11:01)
[2022-07-16] MEDS: METOPROLOL SUCCINATE (ER) 50 MG TAB.ER.24H PO SCH (11:01)
--- NOTE | 2022-07-16 11:06 | CONS ---
CONSULTATION CHIEF COMPLAINT: Chest pain. HISTORY OF PRESENT ILLNESS: Brandy is a 76-year-old lady with history of coronary artery disease, on medical therapy, hypertension, diabetes, dyslipidemia, and hypothyroidism, who presented to hospital complaining of chest pain. She had sudden onset precordial chest pressure, moderate intensity that radiated to her neck and jaw area. When she initially presented to the hospital, she was found to be in atrial fibrillation with rapid ventricular rate and subsequently converted to sinus rhythm. Her symptoms have resolved as the heart rate came down. She has had 3 sets of troponin that came back elevated. The first set was normal. The second 2 sets were at 0.04 and 0.05. Her post-conversion EKG shows sinus rhythm with PACs without significant ST-T wave changes. She has known CAD and underwent cardiac catheterization on April 03, 2022 that showed intermediate disease involving distal circumflex coronary artery and mid LAD. She was advised medical therapy. I believe the troponin elevation is related to atrial fibrillation with rapid ventricular rate. The patient did not have an acute coronary syndrome on this admission. The plan at this stage is to start her on an anticoagulant, increase the dose of beta jeff, and if she remains stable and in sinus rhythm, discharge her home tomorrow. PAST MEDICAL HISTORY: Significant for coronary artery disease, on medical therapy, hypertension, diabetes, dyslipidemia, and hypothyroidism. CURRENT MEDICATIONS: Include; 1. Synthroid. 2. Hydrochlorothiazide. 3. Crestor 10 daily. 4. Prilosec. 5. Singulair. 6. Toprol. 7. Losartan 25 daily. 8. Glucophage. 9. Imdur. 10.Aspirin. ALLERGIES: The patient is allergic to nickel, lisinopril, tramadol, adhesive tape, Aleve, and Band- Aid. FAMILY HISTORY: Negative for premature coronary artery disease. SOCIAL HISTORY: Negative for current smoking, EtOH abuse or drug abuse. REVIEW OF SYSTEMS: 14 out of 14 review of systems has been performed. Pertinents are as documented. PHYSICAL EXAMINATION: GENERAL: The patient is comfortable at rest. VITAL SIGNS: Heart rate is 67 beats per minute. Blood pressure is 140/61, respiratory rate of 18, O2 saturation is 96% on room air. NECK: There is no jugular venous distention. Carotid upstroke is normal. There is no bruit. CHEST: Reveals good air entry bilaterally. HEART: Reveals first and second heart sounds, a grade 3/6 ejection systolic murmur in the aortic area. ABDOMEN: Soft. EXTREMITIES: Did not reveal any edema. Peripheral pulses are felt. LABORATORY DATA: Labs show that the creatinine is 0.8. Troponins are elevated. Hemoglobin is 11.5. TSH is low at 0.03 with a normal free T4. ASSESSMENT: 1. Paroxysmal atrial fibrillation. 2. Elevated troponin related to atrial fibrillation with rapid ventricular rate. 3. Known coronary artery disease, on medical therapy. 4. Aortic stenosis. PLAN: I will obtain a 2D echo to assess her LV function, wall motion and the aortic valve. I will start the patient on Eliquis 5 b.i.d. Continue the beta jeff. If she has further episodes of atrial fibrillation, I will consider starting her on amiodarone for rhythm suppression. I am going to discharge her home tomorrow. She does not need a cardiac catheterization as she just had one in March and was advised medical therapy. MMODL / IJN: [id number] /
--- NOTE | 2022-07-16 11:07 | CA ---
Transthoracic Echo Report Name: Brandy Pulido Age: 76 Gender: F : 1945 Exam Date: 07/16/2022 10:21 Exam Location: [facility] Ht (in): 64 Wt (lb): 187 Ordering Physician: Hola Cruz MD ([id number]) Attending/Referring Phys: Nancy DUENAS Replenisher Sania Salinas RDCS Procedure CPT: Indications: Chest Pain Cardiac Hx: Technical Quality: Good Contrast 1: Total Dose (mL): Contrast 2: Total Dose (mL): MEASUREMENTS (Male / Female) Normal Values 2D ECHO LV Diastolic Diameter PLAX 3.6 cm 4.2 - 5.9 / 3.9 - 5.3 cm LV Systolic Diameter PLAX 2.3 cm IVS Diastolic Thickness 1.3 cm 0.6 - 1.0 / 0.6 - 0.9 cm LVPW Diastolic Thickness 1.2 cm 0.6 - 1.0 / 0.6 - 0.9 cm LV Relative Wall Thickness 0.7 RV Internal Dim ED PLAX 3.1 cm LVOT Diameter 1.9 cm LA Systolic Diameter LX 3.7 cm 3.0 - 4.0 / 2.7 - 3.8 cm LA Volume 63.0 cm??? 18 - 58 / 22 - 52 cm??? M-MODE Aortic Root Diameter MM 3.0 cm MV E Point Septal Separation 0.3 cm AV Cusp Separation MM 1.3 cm DOPPLER AV Peak Velocity 259.9 cm/s AV Peak Gradient 27.0 mmHg AV Mean Velocity 163.6 cm/s AV Mean Gradient 12.8 mmHg AV Velocity Time Integral 57.4 cm LVOT Peak Velocity 155.5 cm/s LVOT Peak Gradient 9.7 mmHg AV Area Cont Eq pk 1.6 cm??? MV Area PHT 1.9 cm??? Mitral E Point Velocity 137.0 cm/s Mitral A Point Velocity 132.7 cm/s Mitral E to A Ratio 1.0 MV Deceleration Time 392.4 ms MV E' Velocity 7.3 cm/s Mitral E to MV E' Ratio 18.9 TR Peak Velocity 295.8 cm/s TR Peak Gradient 35.0 mmHg Right Ventricular Systolic Press 40.0 mmHg FINDINGS Left Ventricle Left ventricular ejection fraction is estimated at 55-60 %. Left ventricular cavity size normal. Mild concentric left ventricular hypertrophy. Right Ventricle Normal right ventricular size and function. Mild pulmonary hypertension. Right Atrium Normal right atrial size. Left Atrium Moderately increased left atrial volume. No evidence for an atrial septal defect. Mitral Valve Mitral valve thickened. Trace to mild mitral regurgitation. Aortic Valve Focal thickening of the aortic valve cusps. Mild aortic stenosis with a peak gradient of 27 mmHg and a mean gradient of 13 mmHg. Trace to mild aortic regurgitation. Tricuspid Valve mild tricuspid regurgitation. Pulmonic Valve Structurally normal pulmonic valve. Pericardium Normal pericardium. No pericardial effusion. Aorta Normal size aortic root and proximal ascending aorta. CONCLUSIONS Normal LV size and systolic function with no evidence of any wall motion abnormalities. Mildly enlarged left atrium. There is mitral annular calcification and aortic sclerosis without significant gradient across aortic valve. No pericardial effusion Previewed by: Dr. Ev Camacho MD (Electronically Signed) Final Date: 16 July 2022 11:07
--- NOTE | 2022-07-16 12:12 | XR ---
EXAMINATION TYPE: XR chest 2V DATE OF EXAM: 07/15/2022 COMPARISON: Chest x-ray 04/18/2022 HISTORY: Dysrhythmia TECHNIQUE: Frontal and lateral views of the chest are obtained. FINDINGS: There is no focal air space opacity, pleural effusion, or pneumothorax seen. The cardiac silhouette size is within normal limits. The osseous structures are intact, flowing anterior osteop hytes with preservation of disc height suggests DISH. Surgical clips are present in the upper abdomen . There are overlying leads. Eventration of right hemidiaphragm, right hemidiaphragm remains elevated . Arthropathy noted at the acromioclavicular joints. IMPRESSION: No acute cardiopulmonary process.
[2022-07-16] MEDS: PANTOPRAZOLE 40 MG TABLET PO SCH (14:22)
[2022-07-16 17:00] LABS: Glucose,Whole Blood 91 mg/dL (70-110)
[2022-07-16 19:59] LABS: Glucose,Whole Blood 125 mg/dL (70-110)
[2022-07-16] MEDS: LATANOPROST 0.005% OPHTH DROPS 2.5 ML BTL RIGHT EYE SCH (20:05)
[2022-07-16] MEDS: MONTELUKAST 10 MG TAB PO SCH (20:06)
[2022-07-17 06:01] LABS: Glucose,Whole Blood 95 mg/dL (70-110)
[2022-07-17] MEDS: LEVOTHYROXINE 125 MCG TAB PO SCH (06:19)
[2022-07-17] MEDS: PANTOPRAZOLE 40 MG TABLET PO SCH (06:19)
[2022-07-17 09:05] VITALS: RESP 18
[2022-07-17] MEDS: DULoxetine HCL 60 MG CAPSULE.DR PO SCH (09:05)
[2022-07-17] MEDS: metFORMIN 500 MG TAB PO SCH ×2 (09:05→21:27)
[2022-07-17] MEDS: METOPROLOL SUCCINATE (ER) 50 MG TAB.ER.24H PO SCH (09:05)
[2022-07-17] MEDS: ASPIRIN 81 MG PO SCH (09:05)
[2022-07-17] MEDS: ISOSORBIDE MONONITRATE ER 30 MG TAB.ER.24H PO SCH (09:06)
[2022-07-17] MEDS: APIXABAN 5 MG TAB PO SCH ×2 (09:06→21:27)
[2022-07-17 11:48] LABS: Glucose,Whole Blood 94 mg/dL (70-110)
--- NOTE | 2022-07-17 11:54 | P.PN ---
Subjective Progress Note Date: 07/17/22 HISTORY OF PRESENT ILLNESS: Patient examined this morning at the bedside. Patient denies chest pain or pressure. She denies shortness of breath. She denies any palpitations. Telem etry reveals sinus mechanism with a heart rate in the 50s. Echocardiogram completed revealing ejection fraction 55-60% with mild aortic stenosis. Patient's blood pressures are elevated this morning with a systolic ranging between [id number]. PHYSICAL EXAM: VITAL SIGNS: Reviewed. GENERAL: Well-developed in no acute distress. NECK: Supple. No JVD or thyromegaly LUNGS: Respirations even and unlabored. Lungs essentially clear to auscultation bilaterally. HEART: Regular rate and rhythm. S1 and S2 heard. EXTREMITIES: Normal range of motion. No clubbing or cyanosis. Peripheral pulses intact. No lower extremity edema ASSESSMENT: Paroxysmal atrial fibrillation Elevated troponins, secondary to above, acute coronary syndrome ruled out Coronary artery disease Mild aortic stenosis Hypertension PLAN: Continue current cardiac medications Resume patient's home dose of losartan for optimal blood pressure control Patient to be discharged home today from a cardiac standpoint and follow up on an outpatient basis with Dr. Back Nurse practitioner note has been reviewed by physician. Signing provider agrees with the documented findings, assessment, and plan of care. Objective - Vital Signs Vital signs: Vital Signs Temp 98.8 F 07/17/22 08:00 Pulse 61 07/17/22 08:00 Resp 18 07/17/22 08:00 BP 157/68 07/17/22 08:00 Pulse Ox 98 07/17/22 08:00 FiO2 Intake & Output 07/16/22 07/17/22 07/17/22 18:59 06:59 18:59 Intake Total 240 240 Balance 240 240 Intake: Oral 240 240 Other: Voiding Method Toilet # Voids 2 - Labs CBC & Chem 7: 07/15/22 17:22 07/16/22 07:07 Labs: Abnormal Lab Results - Last 24 Hours (Table) 07/16/22 Range/Units 19:57 POC Glucose (mg/dL) 125 H (70-110) mg/dL
[2022-07-17] MEDS: LOSARTAN 25 MG TAB PO SCH (12:40)
[2022-07-17] MEDS: hydroCHLOROthiazide 25 MG TAB PO SCH (12:40)
[2022-07-17 16:36] LABS: Glucose,Whole Blood 95 mg/dL (70-110)
[2022-07-17] MEDS ORDERED: ALPRAZolam 0.5 MG TAB PO PRN (17:57)
[2022-07-17] MEDS ORDERED: ALPRAZolam 0.5 MG TAB PO ONE (18:01)
--- NOTE | 2022-07-17 18:02 | P.PN ---
Subjective This is a pleasant 76 years old female with past medical history of hypertension, hyperlipidemia, diabetes mellitus type 2 and hypothyroidism. Hist ory of CVA/TIA, COPD, fibromyalgia, GERD, mitral valve prolapse, sleep apnea, Her PCP is Dr. Gan and she follows up with Dr. Back her sewer repairer. Also she sees Dr. Dao for asthma, she never smoked. She has recurrent chest pain that lasted for a minute like 3 episodes in May and one episode about 2 weeks ago in June which work her up from sleep. Her pain is central goes to the shoulder and the jaws. She has another episode yesterday but it went up to the face and lasted 3 hours which made her worried and decided to come to emergency room. She described chest pain is nonspecific but her / chest pain has resolved now on after she was placed on heparin drip. She denies dyspnea or coughing, no diarrhea or vomiting, no dysuria or urgency, no headache or dizziness or blurred vision. No weakness or numbness No smoking, alcohol or illicit drugs Patient is hemodynamically stable. Labs are unremarkable including CBC, INR, BMP and liver enzymes. Her troponin is negative while the second one and 31 elevated at 0.04 and 0.05. TSH is low but free T4 is normal at 1.7. Magnesium is low at 1.4 EKG: Sinus rhythm at [address]-T changes First EKG: Atrial fibrillation with RVR at 151. Chest x-ray: No acute pulmonary abnormality (the radiology report in the chart) Patient currently heart rate is controlled on 60-70 and patient is maintained on Cardizem drip 07/17/2022 This morning patient was doing well and she was asymptomatic, her heart rate was controlled and 50s and low 60s and She was kept on her dose of metoprolol 50 mg. Also Eliquis is started and tolerated that well. Also resumed her hydrochlorothiazide and electrolytes are placed however I discussed the case with sewer repairer team for discharge. Her co-pay is ten dollars and she agrees with it also she got one month free. Before discharge she developed chest pain on and off and she got anxious and because she lives alone she wanted to stay one more night in the hospital. We will keep monitoring while in telemetry. Most likely will discharge the patient in the morning. Also will provide one-time dose of Xanax Objective - Vital Signs Vital signs: Vital Signs Temp 98.8 F 07/17/22 08:00 Pulse 52 L 07/17/22 16:00 Resp 18 07/17/22 16:00 BP 144/76 07/17/22 16:00 Pulse Ox 97 07/17/22 16:00 FiO2 Intake & Output 07/16/22 07/17/22 07/17/22 18:59 06:59 18:59 Intake Total 240 360 Output Total 0 Balance 240 360 Intake: Oral 240 360 Output: Urine 0 Stool 0 Urine/Stool Mix 0 Other: Voiding Method Toilet # Voids 2 0 # Bowel Movements 0 - Exam GENERAL: The patient is alert and oriented x3, not in any acute distress. Well developed, well nourished. HEENT: Pupils are round and equally reacting to light. EOMI. No scleral icterus. No conjunctival pallor. Normocephalic, atraumatic. No pharyngeal erythema. No thyromegaly. CARDIOVASCULAR: S1 and S2 present. No murmurs, rubs, or gallops. PULMONARY: Chest is clear to auscultation, no wheezing or crackles. ABDOMEN: Soft, nontender, nondistended, normoactive bowel sounds. No palpable organomegaly. MUSCULOSKELETAL: No joint swelling or deformity. EXTREMITIES: No cyanosis, clubbing, or pedal edema. NEUROLOGICAL: Gross neurological examination did not reveal any focal deficits. SKIN: No rashes. no petechiae. - Labs CBC & Chem 7: 07/15/22 17:22 07/16/22 07:07 Labs: Abnormal Lab Results - Last 24 Hours (Table) 07/16/22 Range/Units 19:57 POC Glucose (mg/dL) 125 H (70-110) mg/dL Assessment and Plan Assessment: A. fib and RVR, present on admission Hypomagnesemia elevated troponin, most likely secondary to A. fib and RVR Hypertension 2 diabetes mellitus History of CVA/TIA History of COPD/asthma Fibromyalgia History of GERD History of mitral valve prolapse Sleep apnea Plan: This is a pleasant 76 years old female who presents with A. fib and RVR. Patient is on liquids and metoprolol and heart rate controlled and sewer repairer cleared her for discharge Patient developed chest pain make her course her most likely secondary to her anxiety. Patient does not want to go home today. Give one-time dose of Xanax Possible discharge in the morning if she remains stable Resume hydrochlorothiazide. Replace magnesium per protocol Labs and medication were reviewed.. Continue same treatment. Continue with symptomatic treatment. Resume home medication. Monitor lytes and vitals. DVT and GI prophylaxis. Further recommendations as per clinical course of the patient DVT prophylaxis: heparin GI Prophylaxis: Pepcid PT/OT: Recommended home, no need for home health care Prognosis is guarded
[2022-07-17] MEDS ORDERED: Magnesium Replacement Protocol 1 EACH MISC MISCELLANE PRN (18:03)
[2022-07-17] MEDS ORDERED: Potassium Replacement Protocol 1 EACH MISC MISCELLANE PRN (18:03)
[2022-07-17 19:19] LABS: Magnesium 1.5 mg/dL (1.6-2.3); Potassium 4.6 mmol/L (3.5-5.1)
[2022-07-17] MEDS: MONTELUKAST 10 MG TAB PO SCH (21:27)
[2022-07-17] MEDS: LATANOPROST 0.005% OPHTH DROPS 2.5 ML BTL RIGHT EYE SCH (21:28)
[2022-07-18] MEDS: MAGNESIUM SULFATE-D5W PMX 1 GM in DEXTROSE/WATER 1 100ML.BAG IVPB SCH ×2 (01:52→03:10)
[2022-07-18 05:47] LABS: Glucose,Whole Blood 101 mg/dL (70-110)
[2022-07-18] MEDS: LEVOTHYROXINE 125 MCG TAB PO SCH (07:09)
[2022-07-18] MEDS: PANTOPRAZOLE 40 MG TABLET PO SCH (07:09)
[2022-07-18] MEDS ORDERED: MAGNESIUM SULFATE-D5W PMX 1 GM in DEXTROSE/WATER 1 100ML.BAG IVPB ONE (07:30)
[2022-07-18 08:43] LABS: Magnesium 2.1 mg/dL (1.6-2.3); Potassium 4.5 mmol/L (3.5-5.1)
[2022-07-18] MEDS: APIXABAN 5 MG TAB PO SCH (09:06)
[2022-07-18] MEDS: ASPIRIN 81 MG PO SCH (09:06)
[2022-07-18] MEDS: DULoxetine HCL 60 MG CAPSULE.DR PO SCH (09:06)
[2022-07-18] MEDS: LOSARTAN 25 MG TAB PO SCH (09:06)
[2022-07-18] MEDS: METOPROLOL SUCCINATE (ER) 50 MG TAB.ER.24H PO SCH (09:06)
[2022-07-18] MEDS: metFORMIN 500 MG TAB PO SCH (09:06)
[2022-07-18] MEDS: ISOSORBIDE MONONITRATE ER 30 MG TAB.ER.24H PO SCH (09:06)
[2022-07-18] MEDS: hydroCHLOROthiazide 25 MG TAB PO SCH (09:07)
[2022-07-18 09:08] VITALS: BP 123/47; PULSE 57; TEMP 98.1
[2022-07-18 12:07] LABS: Glucose,Whole Blood 73 mg/dL (70-110)
--- NOTE | 2022-07-18 23:42 | P.DS ---
Providers Date of admission: 07/15/22 19:22 Attending physician: Ilya Arenas Consults: 07/15/22 19:22 Consult Physician Urgent Consulting Provider: [facility] Consult Reason/Comments: A flutter with rapid ventricular response Do you want consulting provider notified?: Yes Primary care physician: Elli Gan [facility] Course: Diagnoses: A. fib and RVR, present on admission Hypomagnesemia elevated troponin, most likely secondary to A. fib and RVR Hypertension 2 diabetes mellitus History of CVA/TIA History of COPD/asthma Fibromyalgia History of GERD History of mitral valve prolapse Sleep apnea Hospital course: This is a pleasant 76 years old female with past medical history of hypertension, hyperlipidemia, diabetes mellitus type 2 and hypothyroidism. History of CVA/TIA, COPD, fibromyalgia, GERD, mitral valve prolapse, sleep apnea, Her PCP is Dr. Gan and she follows up with Dr. Back her nursing staff development coordinator. She has recurrent chest pain that lasted for a minute like 3 episodes in May and one episode about 2 weeks ago in June which work her up from sleep. Her pain is central goes to the shoulder and the jaws. She has another episode yesterday but it went up to the face and lasted 3 hours which made her worried and decided to come to emergency room. Patient was found to be in A. fib and RVR area to the patient has been evaluated by nursing staff development coordinator and treated with Eliquis and metoprolol 50 mg, does increase from her home 25 mg. Hypomagnesemia replaced. Ejection fraction 55-60%. Patient remains clinically stable. on The day of discharge she denies chest pain or dyspnea. No change in urine or bowel habits. Was cleared for discharge by nursing staff development coordinator. Problems and management plan were discussed with the patient and he verbalized understanding and acceptance Patient was found stable and can be discharged home however he needs follow-up as an outpatient. Patient was instructed to follow up with PCP Dr. Gan within one week and patient agrees Patient was instructed to follow up with her nursing staff development coordinator Dr. Back in one to 2 weeks and she agrees Also patient agrees with the co-pay for her Eliquis, also one month free is provided for her Physical exam Gen: patient is a AAOx3, no distress CVS: S1-S2, RRR, no murmur Lungs: B/L CTA, no wheezing Abdomen: soft, no distention, no tenderness, positive bowel sounds Extremity: no leg edema or induration Time spent more than 35 minutes She described chest pain is nonspecific but her 3/ chest pain has resolved now on after she was placed on heparin drip. She denies dyspnea or coughing, no diarrhea or vomiting, no dysuria or urgency, no headache or dizziness or blurred vision. No weakness or numbness No smoking, alcohol or illicit drugs Patient is hemodynamically stable. Labs are unremarkable including CBC, INR, BMP and liver enzymes. Her troponin is negative while the second one and 31 elevated at 0.04 and 0.05. TSH is low but free T4 is normal at 1.7. Magnesium is low at 1.4 EKG: Sinus rhythm at [address]-T changes First EKG: Atrial fibrillation with RVR at 151. Chest x-ray: No acute pulmonary abnormality (the radiology report in the chart) Patient currently heart rate is controlled on 60-70 and patient is maintained on Cardizem drip 07/17/2022 This morning patient was doing well and she was asymptomatic, her heart rate was controlled and 50s and low 60s and She was kept on her dose of metoprolol 50 mg. Also Eliquis is started and tolerated that well. Also resumed her hydrochlorothiazide and electrolytes are placed however I discussed the case with nursing staff development coordinator team for discharge. Her co-pay is ten dollars and she agrees with it also she got one month free. Before discharge she developed chest pain on and off and she got anxious and because she lives alone she wanted to stay one more night in the hospital. We will keep monitoring while in telemetry. Most likely will discharge the patient in the morning. Also will provide one-time dose of Xanax Plan - Discharge Summary New Discharge Prescriptions: New Apixaban [Eliquis] 5 mg PO BID #60 tab Metoprolol Succinate (ER) [Toprol XL] 50 mg PO DAILY #30 tab Continue DULoxetine HCL [Cymbalta] 60 mg PO DAILY Montelukast Sodium [Singulair] 10 mg PO HS Levothyroxine Sodium [Synthroid] 62.5 mcg PO [place] Losartan Potassium 25 mg PO DAILY hydroCHLOROthiazide 25 mg PO DAILY Aspirin [Adult Low Dose Aspirin EC] 81 mg PO DAILY Levothyroxine Sodium [Synthroid] 125 mcg PO MOTUWETHFRSA Omeprazole [PriLOSEC] 40 mg PO DAILY Rosuvastatin Calcium [Crestor] 10 mg PO DAILY metFORMIN HCL ER [Glucophage XR] 1,000 mg PO W/SUPPER Isosorbide Mononitrate ER [Imdur] 30 mg PO DAILY Latanoprost/Pf [Latanoprost 0.005% Eye Drop] 1 drop RIGHT EYE HS Discontinued Metoprolol Succinate (ER) [Toprol XL] 25 mg PO DAILY Discharge Medication List DULoxetine HCL [Cymbalta] 60 mg PO DAILY 05/03/14 [History] Montelukast Sodium [Singulair] 10 mg PO HS 10/14/17 [History] Levothyroxine Sodium [Synthroid] 62.5 mcg PO [place] 05/24/18 [History] Losartan Potassium 25 mg PO DAILY 09/25/19 [History] hydroCHLOROthiazide 25 mg PO DAILY 09/25/19 [History] Aspirin [Adult Low Dose Aspirin EC] 81 mg PO DAILY 10/01/20 [History] Levothyroxine Sodium [Synthroid] 125 mcg PO MOTUWETHFRSA 10/01/20 [History] Omeprazole [PriLOSEC] 40 mg PO DAILY 10/01/20 [History] Rosuvastatin Calcium [Crestor] 10 mg PO DAILY 10/01/20 [History] Isosorbide Mononitrate ER [Imdur] 30 mg PO DAILY 04/02/21 [History] metFORMIN HCL ER [Glucophage XR] 1,000 mg PO W/SUPPER 10/27/21 [History] Latanoprost/Pf [Latanoprost 0.005% Eye Drop] 1 drop RIGHT EYE HS 04/01/22 [History] Apixaban [Eliquis] 5 mg PO BID #60 tab 07/16/22 [Rx] Metoprolol Succinate (ER) [Toprol XL] 50 mg PO DAILY #30 tab 07/17/22 [Rx] Follow up Appointment(s)/Referral(s): Santi Back MD [STAFF PHYSICIAN] - 1 Week (Please call the office to make an appointment [phone]) Elli Gan III, MD [Primary Care Provider] - 1-2 days (Please call to make an appointment.) Patient Instructions/Handouts: Angina (DC), Atrial Flutter (DC) Activity/Diet/Wound Care/Special Instructions: Free Eliquis coupon will be applied in [facility]. heart healthy diet activity is restricted till see your doctor Discharge Disposition: HOME SELF-CARE
== END 2022-07-18 12:56 | disposition home or self-care (01) ==
LOC: EC 16:31 → 3SCARD 19:22
PROVIDERS: ADMIT Hospitalist; ATTEND Hospitalist
DX: I48.0 Paroxysmal atrial fibrillation (principal); E83.42 Hypomagnesemia; R79.89 Other specified abnormal findings of blood chemistry; I10 Essential (primary) hypertension; E11.9 Type 2 diabetes mellitus without complications; R07.89 Other chest pain; F41.9 Anxiety disorder, unspecified; J44.9 Chronic obstructive pulmonary disease, unspecified; I25.10 Atherosclerotic heart disease of native coronary artery without angina pectoris; I48.92 Unspecified atrial flutter; I27.20 Pulmonary hypertension, unspecified; I08.3 Combined rheumatic disorders of mitral, aortic and tricuspid valves; E78.5 Hyperlipidemia, unspecified; M79.7 Fibromyalgia; K21.9 Gastro-esophageal reflux disease without esophagitis; G47.30 Sleep apnea, unspecified; E89.0 Postprocedural hypothyroidism; K44.9 Diaphragmatic hernia without obstruction or gangrene; K58.9 Irritable bowel syndrome, unspecified; L92.0 Granuloma annulare; E66.9 Obesity, unspecified; Z68.32 Body mass index [BMI] 32.0-32.9, adult; Z79.899 Other long term (current) drug therapy; Z79.890 Hormone replacement therapy; Z79.82 Long term (current) use of aspirin; Z79.84 Long term (current) use of oral hypoglycemic drugs; Z79.51 Long term (current) use of inhaled steroids; Z88.6 Allergy status to analgesic agent; Z88.5 Allergy status to narcotic agent; Z88.8 Allergy status to other drugs, medicaments and biological substances; Z91.048 Other nonmedicinal substance allergy status; Z86.73 Personal history of transient ischemic attack (TIA), and cerebral infarction without residual deficits; Z87.01 Personal history of pneumonia (recurrent); Z85.850 Personal history of malignant neoplasm of thyroid; Z86.19 Personal history of other infectious and parasitic diseases; Z90.49 Acquired absence of other specified parts of digestive tract; Z90.710 Acquired absence of both cervix and uterus; Z90.12 Acquired absence of left breast and nipple; Z98.1 Arthrodesis status; Z98.42 Cataract extraction status, left eye; Z98.41 Cataract extraction status, right eye; Z98.890 Other specified postprocedural states; Z80.51 Family history of malignant neoplasm of kidney; Z80.0 Family history of malignant neoplasm of digestive organs; Z80.8 Family history of malignant neoplasm of other organs or systems
CPT/HCPCS: 96376; 96361; 96365; 96366 ×2; 99285; 36415; 93005 ×2; 93306; 97161; 97165; 84439; 80061; 80053; 80048; 83735 ×4; 84132 ×2; 84443; 84484 ×2; 85025; 85610; 85730 ×2; 83036; 71046; G0378 ×4; J1644 ×2; J3475

== ENCOUNTER 2022-09-29 06:46 | Day surgery (SDC) | payer MEDICARE, BC ==
[~2022-09-29 06:46] MED LIST changes: +LIDOCAINE 1% (10MG/ML) FOR IV START INTRADERMA PRN; -ONDANSETRON 4 MG/2 ML VIAL IVP ONE
[2022-09-29 07:17] VITALS: RESP 16; TEMP 96
[2022-09-29 07:27] LABS: Glucose,Whole Blood 116 mg/dL (70-110)
[2022-09-29] MEDS ORDERED: LIDOCAINE 2% INJ 20 MG/ML (2 ML VIAL) ONE (07:40)
[2022-09-29] MEDS ORDERED: PROPOFOL 10 MG/ML 20 ML VIAL IV ONE (07:40)
--- NOTE | 2022-09-29 08:13 | P.PCN ---
Date of Procedure: 09/29/22 Procedure(s) Performed: Brief history: Patient is a pleasant 77-year-old white female scheduled for an elective upper endoscopy as well as colonoscopy as a part of evaluation of long-standing history of GERD and a history of colon polyps. Last colonoscopy was 3 years ago. Procedure performed: EGD With biopsy Colonoscopy with snare polypectomy and biopsy Preoperative diagnosis: Long-standing history of GERD History of colon polyps Anesthesia: MAC Procedure: After informed consent was obtained from the patient was brought into the endoscopy unit and IV sedation was administered by anesthesia under continuous monitoring. Initially upper endoscopy was done. The Olympus GF 160 video endoscope was inserted inserted into the mouth and esophagus intubated without any difficulty and was gradually advanced into the stomach and duodenum and carefully examined. The bulb and second part of the duodenum appeared normal. The scope was then withdrawn into the stomach adequately insufflated with air and upon careful examination the antrum and body, small gastric polyps which were biopsied. Mucosa of the cardia and fundus appeared normal. The scope was then withdrawn into the esophagus. Small sliding type hiatal hernia noted. The GE junction was located at 35 cm to the incisors. It appeared regular with no erythema erosions or ulcerations. Rest of the esophagus appeared normal. Patient tolerated the procedure well. At this time the patient continued to remain sedation. Initial digital rectal examination was normal. Olympus CF 160 video colonoscope was then inserted into the rectum and gradually advanced to the cecum without any difficulty. Careful examination was performed as the scope was gradually being withdrawn. The prep was excellent. The cecum, adequately millimeters polyp that was removed by cold biopsy. In the hepatic flexure there was a 3 mm polyp that was removed by cold biopsy and the 7 mm polyp that was removed by snare polypectomy. Rest of the ascending colon, transverse colon, descending colon, sigmoid colon and rectum appeared normal. Scattered sigmoid diverticula seen. Retroflexion was performed in the rectum and no lesions were noted. Patient tolerated the procedure well. Impression: 1. Upper endoscopy revealed small hiatal hernia and gastric polyps 2. Colonoscopy revealed 3 mm and 7 mm hepatic flexure polyp status post biopsy and snare polypectomy, 3 mm cecal polyp status post cold biopsy and scattered sigmoid diverticulosis Recommendations: Findings of this examination were discussed with the patient as well as her family. She was advised to follow with the biopsy results. Continue with current medications and follow antireflux measures. If the biopsy results adenoma she can have a repeat colonoscopy in 5 yearsago and overall medical condition
[2022-09-29 08:29] VITALS: BP 136/60; PULSE 64
== END 2022-09-29 09:06 | disposition home or self-care (01) ==
LOC: ORWHC2ENDO 06:46
PROVIDERS: ATTEND Internal Medicine Gastroenterology
DX: Z12.11 Encounter for screening for malignant neoplasm of colon (principal); D12.3 Benign neoplasm of transverse colon; K57.30 Diverticulosis of large intestine without perforation or abscess without bleeding; K29.50 Unspecified chronic gastritis without bleeding; K31.7 Polyp of stomach and duodenum; K44.9 Diaphragmatic hernia without obstruction or gangrene; Z80.0 Family history of malignant neoplasm of digestive organs; K21.9 Gastro-esophageal reflux disease without esophagitis; K63.89 Other specified diseases of intestine; Z88.5 Allergy status to narcotic agent; Z88.6 Allergy status to analgesic agent; Z88.8 Allergy status to other drugs, medicaments and biological substances; Z91.048 Other nonmedicinal substance allergy status; Z79.899 Other long term (current) drug therapy
CPT/HCPCS: 88305; 45385; 45380; 43239; J2704; J2001

== ENCOUNTER 2022-12-03 16:12 | Observation (INO) | payer MEDICARE, BC ==
--- NOTE | 2022-12-03 16:55 | ED ---
Chest Pain HPI - General Chief Complaint: Chest Pain Stated Complaint: Chest Pain Time Seen by Provider: 12/03/22 16:33 Source: patient, family, RN notes reviewed Mode of arrival: ambulatory Limitations: no limitations - History of Present Illness Initial Comments: 77-year-old female history of multiple medical issues including coronary artery disease and states she had the onset this afternoon and around 1 PM of sharp left midsternal chest pain that initially was just in one localized area but then later spread up to her neck and left shoulder and back and left arm. His been intermittent on and off currently she is pain-free states when she has a pain was as severe as 6/10 severity she does states she is not Eliquis 5 mg twice a day. No fevers chills nausea vomiting sweats or other symptoms. She states she was working doing [employer] type activities when the pain started. MD Complaint: chest pain - Related Data Home Medications Medication Instructions Recorded Confirmed DULoxetine HCL [Cymbalta] 60 mg PO DAILY 05/03/14 12/03/22 Montelukast Sodium [Singulair] 10 mg PO HS 10/14/17 12/03/22 Levothyroxine Sodium [Synthroid] 62.5 mcg PO LOCKWOOD 05/24/18 12/03/22 Losartan Potassium 25 mg PO DAILY 09/25/19 12/03/22 hydroCHLOROthiazide 25 mg PO DAILY 09/25/19 12/03/22 Aspirin [Adult Low Dose Aspirin EC] 81 mg PO DAILY 10/01/20 12/03/22 Levothyroxine Sodium [Synthroid] 125 mcg PO MOTUWETHFRSA 10/01/20 12/03/22 Omeprazole [PriLOSEC] 40 mg PO DAILY 10/01/20 12/03/22 Rosuvastatin Calcium [Crestor] 10 mg PO DAILY 10/01/20 12/03/22 Isosorbide Mononitrate ER [Imdur] 30 mg PO DAILY 04/02/21 12/03/22 metFORMIN HCL ER [Glucophage XR] 500 mg PO BID-W/MEALS 10/27/21 12/03/22 Fluticasone/Umeclidin/Vilanter 1 puff INHALATION RT-DAILY 09/28/22 12/03/22 [Trelegy Ellipta 200-62.5-25] Latanoprost Ophth [Xalatan 0.005%] 1 drop RIGHT EYE HS 09/28/22 12/03/22 Magnesium 200 mg PO BID 12/03/22 12/03/22 Previous Rx's Medication Instructions Recorded Apixaban [Eliquis] 5 mg PO BID #60 tab 07/16/22 Metoprolol Succinate (ER) [Toprol 50 mg PO DAILY #30 tab 07/17/22 XL] Allergies Allergy/AdvReac Type Severity Reaction Status Date / Time methylprednisolone Allergy red puffy Verified 10/22/22 14:42 [From Medrol] face nickel Allergy Itching/raw Verified 10/22/22 14:42 skin lisinopril AdvReac Severe Cough Verified 10/22/22 14:42 tramadol AdvReac Severe severe Verified 10/22/22 14:42 fatigue, elevated BP adhesive tape AdvReac PULLS SKIN Verified 10/22/22 14:42 OFF hydrocodone bitartrate AdvReac Hallucinati Verified 10/22/22 14:42 [From [place]] ons naproxen sodium [From Aleve] AdvReac lowers BP Verified 10/22/22 14:42 bandaid AdvReac pulls skin Uncoded 10/22/22 14:42 off Review of Systems ROS Statement: Those systems with pertinent positive or pertinent negative responses have been documented in the HPI. ROS Other: All systems not noted in ROS Statement are negative. EKG Findings - EKG Results: EKG: interpreted by ERMD, sinus rhythm (EKG interpreted by pr EKG shows sinus rhythm a 63. Interval 139 QRS duration 106 QT since QTC 450/[address]-T wave changes seen) Past Medical History Past Medical History: Atrial Fibrillation, Asthma, Cancer, Chest Pain / Angina, COPD, CVA/TIA, Diabetes Mellitus, Fibromyalgia, GERD/Reflux, Hyperlipidemia, Hypertension, Mitral Valve Prolapse (MVP), Osteoarthritis (OA), Pneumonia, Skin Disorder, Sleep Apnea/CPAP/BIPAP, Thyroid Disorder Additional Past Medical History / Comment(s): heart murmur, hx rheumatic fever, environmental allergies, hiatal hernia, hx IBS, skin dx called granuloma annulare, hx thyroid cancer, cancer rt breast, TIA- no residual effects, irregular heartbeat, leaking aortic and mitral valves, no cpap used, "severe acid reflux", sepsis after breast surgery History of Any Multi-Drug Resistant Organisms: None Reported Past Surgical History: Back Surgery, Breast Surgery, Cholecystectomy, Heart Catheterization, Hysterectomy, Orthopedic Surgery Additional Past Surgical History / Comment(s): thyroidectomy, rt radical mastectomy,left mastectomy,constance breast reconstruction x 2-second implant (left breast) removed due to sepsis, cervical fusion x 2, titanium rods-lumbar, rt shoulder arthroscopy, constance cataracts, rt knee arthroscopy Past Anesthesia/Blood Transfusion Reactions: Previous Problems w/ Anesthesia, Postoperative Nausea & Vomiting (PONV) Additional Past Anesthesia/Blood Transfusion Reaction / Comment(s): woke up during EGD in past Past Psychological History: Anxiety Smoking Status: Never smoker - Past Family History Mother Family Medical History: Cancer Additional Family Medical History / Comment(s): kidney Sister(s) Family Medical History: Cancer Additional Family Medical History / Comment(s): esophageal Brother(s) Family Medical History: Cancer Additional Family Medical History / Comment(s): colon, thryoid cancer Daughter(s) Family Medical History: Cancer Additional Family Medical History / Comment(s): skin General Exam - General Exam Comments Initial Comments: This is a well-developed well-nourished awake alert oriented 4 female Limitations: no limitations General appearance: alert, in no apparent distress Head exam: Present: atraumatic, normocephalic, normal inspection Eye exam: Present: normal appearance, PERRL, EOMI. Absent: scleral icterus, conjunctival injection, periorbital swelling ENT exam: Present: normal exam, mucous membranes moist Neck exam: Present: normal inspection, full ROM, other (or bruits ). Absent: tenderness, meningismus, lymphadenopathy Respiratory exam: Present: normal lung sounds bilaterally. Absent: respiratory distress, wheezes, rales, rhonchi, stridor, chest wall tenderness Cardiovascular Exam: Present: regular rate, normal rhythm, normal heart sounds. Absent: systolic murmur, diastolic murmur, rubs, gallop, clicks GI/Abdominal exam: Present: soft, normal bowel sounds. Absent: distended, tenderness, guarding, rebound, rigid Extremities exam: Present: normal inspection, full ROM, normal capillary refill. Absent: tenderness, pedal edema, joint swelling, calf tenderness Back exam: Present: normal inspection Neurological exam: Present: alert, oriented X3, CN II-XII intact Psychiatric exam: Present: normal affect, normal mood Skin exam: Present: warm, dry, intact, normal color. Absent: rash Course Vital Signs 12/03/22 12/03/22 12/03/22 16:16 17:00 17:30 Temperature 97.6 F Pulse Rate 67 65 65 Respiratory 18 20 21 Rate Blood Pressure 119/65 123/67 121/59 O2 Sat by Pulse 98 98 97 Oximetry 12/03/22 12/03/22 18:00 18:30 Temperature Pulse Rate 60 63 Respiratory 17 19 Rate Blood Pressure 125/59 123/63 O2 Sat by Pulse 98 98 Oximetry Chest Pain MDM - MDM Imaging interpreted by me no acute process. I did discuss [employer] the patient and her pain is gotten better it is somewhat atypical however due to her previous history patient will be admitted for inpatient evaluation and treatment of chest pain with cardiology consultation. I did discuss case with Zachary Kathleen covering for Dr. Arenas. Patient family are in agreement.Was pt. sent in by a medical professional or institution (, PA, REAL PROPERTY EVALUATOR, urgent care, hospital, or usp...) When possible be specific @ -[No] Did you speak to anyone other than the patient for history (EMS, parent, family, police, friend...)? What history was obtained from this source @ -[No] Did you review nursing and triage notes (agree or disagree)? Why? @ -[I reviewed and agree with nursing and triage notes] Were old charts reviewed (outside hosp., previous admission, EMS record, old EKG, old radiological studies, urgent care reports/EKG's, usp records)? Report findings @ -[No old charts were reviewed] Differential Diagnosis (chest pain, altered mental status, abdominal pain women, abdominal pain men, vaginal bleeding, weakness, fever, dyspnea, syncope, headache, dizziness, GI bleed, back pain, seizure, CVA, palpatations, mental health)? @ -Chest pain, hypertension] EKG interpreted by me (3pts min.). @ -[As above] X-rays interpreted by me (1pt min.). @ -[As above] CT interpreted by me (1pt min.). @ -[None done] U/S interpreted by me (1pt. min.). @ -[None done] What testing was considered but not performed or refused? (CT, X-rays, U/S, labs)? Why? @ -[None] What meds were considered but not given or refused? Why? @ -[None] Did you discuss the management of the patient with other professionals (professionals i.e. , PA, REAL PROPERTY EVALUATOR, lab, RT, psych nurse, social science instructor, manager strategic, teacher, special skills officer, casey saw operator)? Give summary @ -[No] Was smoking cessation discussed for >3mins.? @ -[No] Was critical care preformed (if so, how long)? @ -[No] Were there social determinants of health that impacted care today? How? (Homelessness, low income, unemployed, alcoholism, drug addiction, transportation, low edu. Level, literacy, decrease access to med. care, long term, rehab)? @ -[No] Was there de-escalation of care discussed even if they declined (Discuss DNR or withdrawal of care, Hospice)? DNR status @ -[No] What co-morbidities impacted this encounter? (DM, HTN, Smoking, COPD, CAD, Cancer, CVA, ARF, Chemo, Hep., AIDS, mental health diagnosis, sleep apnea, morbid obesity)? @ -[COPD/asthma and diabetes angina hypertension] Was patient admitted / discharged? Hospital course, mention meds given and route, prescriptions, significant lab abnormalities, going to OR and other pertinent info. @ -[hospital course] admitted Undiagnosed new problem with uncertain prognosis? @ -[No] Drug Therapy requiring intensive monitoring for toxicity (Heparin, Nitro, Insulin, Cardizem)? @ -[No] Were any procedures done? @ -[No] Diagnosis/symptom? @ -[Chest pain, prerenal azotemia] Acute, or Chronic, or Acute on Chronic? @ -[default] Uncomplicated (without systemic symptoms) or Complicated (systemic symptoms)? @ -[default] Side effects of treatment? @ -[No] Exacerbation, Progression, or Severe Exacerbation? @ -[No] Poses a threat to life or bodily function? How? (Chest pain, [place], MA, pneumonia, PE, COPD, DKA, ARF, appy, cholecystitis, CVA, Diverticulitis, Homicidal, Suicidal, threat to staff... and all critical care pts) @ -[No] Disposition Clinical Impression: Chest pain, Prerenal azotemia Disposition: ADMITTED IP TO THIS HOSP Condition: Stable Referrals: Elli Gan III, MD [Primary Care Provider] - 1-2 days Decision Date: 12/03/22 Decision Time: 21:00
[2022-12-03 17:14] LABS: Anisocytosis Slight; Basophils % (A) 0 %; Eosinophils # (A) 0.1 k/uL (0-0.7); Eosinophils % (A) 2 %; HCT 33.1 % (34.0-46.0); HGB 11.3 gm/dL (11.4-16.0); Lymphocytes # (A) 1.4 k/uL (1.0-4.8); Lymphocytes % (A) 25 %; MCH 27.8 pg (25.0-35.0); MCHC 34.2 g/dL (31.0-37.0); MCV 81.2 fL (80.0-100.0); Mean Platelet Volume 7.7; Microcytosis Slight; Monocytes # (A) 0.3 k/uL (0-1.0); Monocytes % (A) 6 %; Neutrophils # (A) 3.6 k/uL (1.3-7.7); Neutrophils % (A) 65 %; Platelet Count 155 k/uL (150-450); RBC 4.08 m/uL (3.80-5.40); RDW 17.7 % (11.5-15.5); WBC 5.5 k/uL (3.8-10.6)
--- NOTE | 2022-12-03 17:17 | XR ---
EXAMINATION TYPE: XR chest 2V DATE OF EXAM: 12/03/2022 COMPARISON: Chest x-ray July 15, 2022 HISTORY: Chest pain. TECHNIQUE: Frontal and lateral views of the chest are obtained. FINDINGS: There is no suspicious focal air space opacity, pleural effusion, or pneumothorax seen. T he cardiac silhouette size is stable and within normal limits. Some bridging spurs in the lower thora cic spine are noted. Overlying EKG leads redemonstrated. IMPRESSION: No acute cardiopulmonary process. No significant change from prior.
[2022-12-03 17:21] LABS: Albumin 4.3 g/dL (3.5-5.0); Calcium 8.3 mg/dL (8.4-10.2); Magnesium 1.7 mg/dL (1.6-2.3); Potassium 3.7 mmol/L (3.5-5.1); Total Bilirubin 0.6 mg/dL (0.2-1.3); Total Protein 6.8 g/dL (6.3-8.2)
[2022-12-03 17:26] LABS: Partial Thromboplastin Time 27.6 sec (22.0-30.0); Prothrombin Time 10.6 sec (9.0-12.0)
[2022-12-03] MEDS ORDERED: NITROGLYCERIN SL TABS 0.4 MG TAB SUBLINGUAL PRN (21:55)
[2022-12-04 01:12] LABS: Glucose,Whole Blood 108 mg/dL (70-110)
[2022-12-04] MEDS: SODIUM CHLORIDE 0.9% 1,000 ML IV SCH ×2 (01:26→10:45)
[2022-12-04] MEDS ORDERED: LEVOTHYROXINE 125 MCG TAB PO SCH (06:30)
[2022-12-04] MEDS ORDERED: PANTOPRAZOLE 40 MG TABLET PO SCH (07:30)
[2022-12-04] MEDS ORDERED: SYMBICORT 80-4.5 MCG INHALER INHALATION SCH (08:00)
[2022-12-04] MEDS: IPRATROPIUM 0.5 MG/2.5 ML NEBU INHALATION SCH ×3 (08:36→16:10)
[2022-12-04 08:59] LABS: Glucose,Whole Blood 104 mg/dL (70-110)
[2022-12-04] MEDS ORDERED: ISOSORBIDE MONONITRATE ER 30 MG TAB.ER.24H PO SCH (09:00)
[2022-12-04] MEDS ORDERED: METOPROLOL SUCCINATE (ER) 50 MG TAB.ER.24H PO SCH (09:00)
[2022-12-04] MEDS ORDERED: MAGNESIUM OXIDE 400 MG TAB PO SCH (09:00)
[2022-12-04] MEDS ORDERED: LOSARTAN 25 MG TAB PO SCH (09:00)
[2022-12-04] MEDS ORDERED: ASPIRIN 81 MG PO SCH (09:00)
[2022-12-04] MEDS ORDERED: hydroCHLOROthiazide 25 MG TAB PO SCH (09:00)
[2022-12-04] MEDS ORDERED: DULoxetine HCL 60 MG CAPSULE.DR PO SCH (09:00)
[2022-12-04] MEDS ORDERED: ATORVASTATIN 20 MG TAB PO SCH (09:00)
[2022-12-04 09:01] LABS: Basophils # (A) 0.03 X 10*3/uL (0.00-0.10); Basophils % (A) 0.6 %; Eosinophils # (A) 0.14 X 10*3/uL (0.04-0.35); Eosinophils % (A) 2.8 %; HCT 32.7 % (37.2-46.3); HGB 10.5 g/dL (12.0-15.0); Immature Grans, Automated 0.2 %; Lymphocytes # (A) 1.46 X 10*3/uL (0.90-5.00); MCH 27.3 pg (27.0-32.0); MCHC 32.1 g/dL (32.0-37.0); MCV 84.9 fL (80.0-97.0); Mean Platelet Volume 9.9 fL (9.5-12.2); Monocytes # (A) 0.48 X 10*3/uL (0.20-1.00); Monocytes % (A) 9.5 %; NRBC Per 100 WBC 0 /100 WBCS (0.0-0.0); Neutrophils # (A) 2.91 X 10*3/uL (1.80-7.70); Neutrophils % (A) 57.9 %; Platelet Count 150 X 10*3/uL (140-440); RBC 3.85 X 10*6/uL (4.10-5.20); RDW 17.3 % (11.5-14.5); WBC 5.03 X 10*3/uL (4.50-10.00)
[2022-12-04 09:06] VITALS: RESP 16
[2022-12-04 09:23] LABS: African American GFR (CKD) 70.5 (60.0-200.0); BUN/Creat Ratio 30.78 Ratio (12.00-20.00); Blood Urea Nitrogen 27.7 mg/dL (9.0-27.0); Calcium 8.7 mg/dL (8.7-10.3); Carbon Dioxide 28.7 mmol/L (20.0-27.5); Chloride 102 mmol/L (96-109); Chol/HDL Ratio 4.06 Ratio; Glucose 156 mg/dL (70-110); LDL Cholesterol,Calculated 68.1 mg/dL (0.0-131.0); Non-African American GFR(CKD) 60.8 (60.0-200.0); Potassium 3.3 mmol/L (3.5-5.5); Sodium 142 mmol/L (135-145)
[2022-12-04] MEDS ORDERED: ISOSORBIDE MONONITRATE ER 60 MG TAB.ER.24H PO SCH (10:15)
[2022-12-04] MEDS: metFORMIN 500 MG TAB PO SCH ×2 (10:44→18:31)
[2022-12-04 12:43] LABS: Glucose,Whole Blood 118 mg/dL (70-110)
[2022-12-04 15:11] VITALS: BP 134/66; TEMP 98
[2022-12-04 16:13] VITALS: PULSE 64
--- NOTE | 2022-12-04 16:43 | CA ---
Transthoracic Echo Report Name: Brandy Pulido Age: 77 Gender: F : 1945 Exam Date: 12/04/2022 12:18 Exam Location: [facility] Ht (in): 64 Wt (lb): 179 Ordering Physician: Hola Cruz MD ([id number]) Attending/Referring Phys: Nancy DUENAS Magnetic Grinder Operator Meryl Ochoa RDCS Procedure CPT: Indications: Chest Pain Cardiac Hx: Technical Quality: Fair Contrast 1: Total Dose (mL): Contrast 2: Total Dose (mL): MEASUREMENTS (Male / Female) Normal Values 2D ECHO LV Diastolic Diameter PLAX 3.9 cm 4.2 - 5.9 / 3.9 - 5.3 cm LV Systolic Diameter PLAX 2.4 cm IVS Diastolic Thickness 1.5 cm 0.6 - 1.0 / 0.6 - 0.9 cm LVPW Diastolic Thickness 1.2 cm 0.6 - 1.0 / 0.6 - 0.9 cm LV Relative Wall Thickness 0.7 RV Internal Dim ED PLAX 2.2 cm M-MODE Aortic Root Diameter MM 3.1 cm LA Systolic Diameter MM 4.3 cm LA Ao Ratio MM 1.4 AV Cusp Separation MM 1.3 cm DOPPLER AV Peak Velocity 260.4 cm/s AV Peak Gradient 27.1 mmHg AV Mean Velocity 196.2 cm/s AV Mean Gradient 16.5 mmHg AV Velocity Time Integral 63.5 cm LVOT Peak Velocity 80.7 cm/s LVOT Peak Gradient 2.6 mmHg MV Area PHT 2.6 cm??? Mitral E Point Velocity 98.1 cm/s Mitral A Point Velocity 97.7 cm/s Mitral E to A Ratio 1.0 MV Deceleration Time 293.8 ms TR Peak Velocity 263.5 cm/s TR Peak Gradient 27.8 mmHg Right Ventricular Systolic Press 32.7 mmHg FINDINGS Left Ventricle Moderately increased septal wall thickness. Mildly increased posterior wall thickness. Normal left ventricular systolic function with no obvious regional wall motion abnormalities. Left ventricular ejection fraction is estimated at 55-60 %. Right Ventricle Normal right ventricular size right ventricular systolic pressure within normal limits. Right Atrium Normal right atrial size. Left Atrium Normal left atrial size. Mitral Valve Structurally normal mitral valve. Mild mitral regurgitation. Aortic Valve Trileaflet aortic valve. Trace to mild aortic regurgitation. Mild aortic stenosis with a peak gradient of 27 mmHg and a mean gradient of 17mmHg. Tricuspid Valve Structurally normal tricuspid valve. Mild tricuspid regurgitation. Pulmonic Valve Structurally normal pulmonic valve. Trace pulmonic regurgitation. Pericardium No pericardial effusion. Aorta Normal size aortic root and proximal ascending aorta. CONCLUSIONS Normal LV systolic function Mild aortic stenosis Trace aortic regurgitation Mild mitral and tricuspid regurgitation Previewed by: Dr. Hola Cruz MD (Electronically Signed) Final Date: 04 December 2022 16:42
[2022-12-04 17:33] LABS: Glucose,Whole Blood 129 mg/dL (70-110)
[2022-12-04] MEDS ORDERED: MONTELUKAST 10 MG TAB PO SCH (21:00)
[2022-12-04] MEDS ORDERED: LATANOPROST 0.005% OPHTH DROPS 2.5 ML BTL RIGHT EYE SCH (21:00)
--- NOTE | 2022-12-04 21:33 | CONS ---
CONSULTATION CHIEF COMPLAINT: Chest pain. HISTORY OF PRESENT ILLNESS: This is a 77-year-old lady with history of coronary artery disease, on medical therapy; hypertension; diabetes; and dyslipidemia, who presented to hospital complaining of chest discomfort. 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 She describes it as a sharp precordial pain that radiates to her neck and somewhat to her back. She has had similar symptoms back in July when I evaluated her. She has known CAD and had a cardiac catheterization in March of 2022, that revealed intermediate disease involving circumflex coronary artery and mid LAD, for which she was advised medical therapy. At the time of my evaluation this morning, she appears comfortable at rest, and her chest discomfort has resolved. She has had 3 sets of troponins that are all within normal limits. An EKG shows sinus rhythm without significant ST-T wave changes. I am going to obtain a 2D echo on her to complete her workup. PAST MEDICAL HISTORY: Significant for coronary artery disease, on medical therapy; hypertension; hypothyroidism; dyslipidemia; and diabetes. MEDICATIONS: Include: 1. Losartan. 2. Entresto. 3. Synthroid. 4. Imdur. 5. Aspirin. 6. Cymbalta. 7. Eliquis. 8. Toprol-XL. 9. Singulair. 10.Hydrochlorothiazide. ALLERGIES: The patient is allergic to: 1. Lisinopril. 2. Tramadol. 3. [place]. 4. Aleve. 5. Band-Aid. 6. Medrol. FAMILY HISTORY: Negative for premature coronary artery disease. SOCIAL HISTORY: Negative for current smoking, EtOH abuse, or drug abuse. REVIEW OF SYSTEMS: A 14 out of 14 review of systems has been performed, pertinents are as documented. PHYSICAL EXAMINATION: GENERAL: The patient is comfortable at rest. VITAL SIGNS: Stable. NECK: There is no jugular venous distention. Carotid upstroke is normal. There is no bruit. CHEST: Reveals good air entry bilaterally. HEART: Reveals first and second heart sounds. No gallop. No murmur. No rub. ABDOMEN: Soft and nontender. EXTREMITIES: Did not reveal any edema. Peripheral pulses are felt. LABORATORY DATA: Show that the troponins are negative. EKG does not reveal ischemic changes. I reviewed her previous cardiac catheterization and echocardiograms. ASSESSMENT: 1. Precordial chest pain. 2. Known [id number] nonobstructive coronary artery disease. 3. Hypertension. 4. Dyslipidemia. 5. Diabetes. PLAN: The patient's chest discomfort could be either due to vasospasm or small vessel coronary artery disease. We will increase the dose of Imdur to 60 mg daily. Continue rest of her medications including beta-blockers, ROSANNA inhibitors, and statins. We will obtain an echo, and we should be able to discharge her home later today and arrange followup with Dr. Back, her primary accounting bookkeeper. MMLUISL / HOWIEN: [id number] /
--- NOTE | 2022-12-04 22:02 | P.HPIM ---
History of Present Illness Please consider this note as combined H and P and discharge summary This is a pleasant 77 years old female with multiple medical problems as below Presents because of chest pain of one-day duration. Patient has central chest pain about 6/10 in severity. Left sharp perspective by coughing or deep breathing as per patient. 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 The pain was radiating to her left shoulder and left neck but not was completely resolved and she rated as 0/10. She has some dry cough but occasional no worsening dyspnea. She has chronic mild dyspnea for the last 6 months related to her history of asthma and COPD she states but no recent worsening. She denies any other neurological GI or urinary symptoms, no headache dizziness weakness or numbness, no vomiting diarrhea or abdominal pain, no dysuria urgency. She's nonsmoker, no alcohol or illicit drugs. Vitals stable on admission and saturating 98% on room air Labs showed mild anemia with hemoglobin 11.3. D-dimer is negative at 0.5. Creatinine is slightly elevated to 1.24 Troponins 2 is negative ProBNP 125. Lipase negative EKG normal sinus rhythm at [address]-T changes Chest x-ray: No acute cardiopulmonary process. Emergency room started on normal saline and continued with home dose of aspirin 81 mg and metoprolol. Patient tolerated by senior mechanical project manager, echocardiogram came back negative and cardiology cleared her for discharge, With ejection fraction is 55-60% indicating normal LV systolic function with mild aortic stenosis and mild mitral and tricuspid regurgitation. Review of Systems Review of systems CONSTITUTIONAL: No fever, no malaise, no fatigue. HEENT: No recent visual problems or hearing problems. Denied any sore throat. CARDIOVASCULAR: No orthopnea, PND, no palpitations, no syncope. PULMONARY: No shortness of breath, no cough, no hemoptysis. GASTROINTESTINAL: No diarrhea, no nausea, no vomiting, no abdominal pain. Normoactive bowel sounds. NEUROLOGICAL: No headaches, no weakness, no numbness. HEMATOLOGICAL: Denies any bleeding or petechiae. GENITOURINARY: Denies any burning micturition, frequency, or urgency. MUSCULOSKELETAL/RHEUMATOLOGICAL: Denies any joint pain, swelling, or any muscle pain. ENDOCRINE: Denies any polyuria or polydipsia. Past Medical History Past Medical History: Atrial Fibrillation, Asthma, Cancer, Chest Pain / Angina, COPD, CVA/TIA, Diabetes Mellitus, Fibromyalgia, GERD/Reflux, Hyperlipidemia, Hypertension, Mitral Valve Prolapse (MVP), Osteoarthritis (OA), Pneumonia, Skin Disorder, Sleep Apnea/CPAP/BIPAP, Thyroid Disorder Additional Past Medical History / Comment(s): heart murmur, hx rheumatic fever, environmental allergies, hiatal hernia, hx IBS, skin dx called granuloma annulare, hx thyroid cancer, cancer rt breast, TIA- no residual effects, irregular heartbeat, leaking aortic and mitral valves, no cpap used, "severe acid reflux", sepsis after breast surgery History of Any Multi-Drug Resistant Organisms: None Reported Past Surgical History: Back Surgery, Breast Surgery, Cholecystectomy, Heart Catheterization, Hysterectomy, Orthopedic Surgery Additional Past Surgical History / Comment(s): thyroidectomy, rt radical maste ctomy,left mastectomy,constance breast reconstruction x 2-second implant (left breast) removed due to sepsis, cervical fusion x 2, titanium rods-lumbar, rt shoulder arthroscopy, constance cataracts, rt knee arthroscopy Past Anesthesia/Blood Transfusion Reactions: Previous Problems w/ Anesthesia, Postoperative Nausea & Vomiting (PONV) Additional Past Anesthesia/Blood Transfusion Reaction / Comment(s): woke up during EGD in past Past Psychological History: Anxiety Smoking Status: Never smoker - Past Family History Mother Family Medical History: Cancer Additional Family Medical History / Comment(s): kidney Sister(s) Family Medical History: Cancer Additional Family Medical History / Comment(s): esophageal Brother(s) Family Medical History: Cancer Additional Family Medical History / Comment(s): colon, thryoid cancer Daughter(s) Family Medical History: Cancer Additional Family Medical History / Comment(s): skin Medications and Allergies Home Medications Medication Instructions Recorded Confirmed Type DULoxetine HCL [Cymbalta] 60 mg PO DAILY 05/03/14 12/03/22 History Montelukast Sodium [Singulair] 10 mg PO HS 10/14/17 12/03/22 History Levothyroxine Sodium [Synthroid] 62.5 mcg PO LOCKWOOD 05/24/18 12/03/22 History Losartan Potassium 25 mg PO DAILY 09/25/19 12/03/22 History hydroCHLOROthiazide 25 mg PO DAILY 09/25/19 12/03/22 History Aspirin [Adult Low Dose Aspirin EC] 81 mg PO DAILY 10/01/20 12/03/22 History Levothyroxine Sodium [Synthroid] 125 mcg PO MOTUWETHFRSA 10/01/20 12/03/22 Hist ory Omeprazole [PriLOSEC] 40 mg PO DAILY 10/01/20 12/03/22 History Rosuvastatin Calcium [Crestor] 10 mg PO DAILY 10/01/20 12/03/22 History metFORMIN HCL ER [Glucophage XR] 500 mg PO BID-W/MEALS 10/27/21 12/03/22 History Apixaban [Eliquis] 5 mg PO BID #60 tab 07/16/22 12/03/22 Rx Metoprolol Succinate (ER) [Toprol 50 mg PO DAILY #30 tab 07/17/22 12/03/22 Rx XL] Fluticasone/Umeclidin/Vilanter 1 puff INHALATION RT-DAILY 09/28/22 12/03/22 History [Trelegy Ellipta 200-62.5-25] Latanoprost Ophth [Xalatan 0.005%] 1 drop RIGHT EYE HS 09/28/22 12/03/22 History Magnesium 200 mg PO BID 12/03/22 12/03/22 History Isosorbide Mononitrate ER [Imdur] 60 mg PO DAILY #30 tab 12/04/22 Rx Nitroglycerin Sl Tabs [Nitrostat] 0.4 mg SUBLINGUAL Q5M PRN #20 tab 12/04/22 Rx Allergies Allergy/AdvReac Type Severity Reaction Status Date / Time methylprednisolone Allergy red puffy Verified 10/22/22 14:42 [From Medrol] face nickel Allergy Itching/raw Verified 10/22/22 14:42 skin lisinopril AdvReac Severe Cough Verified 10/22/22 14:42 tramadol AdvReac Severe severe Verified 10/22/22 14:42 fatigue, elevated BP adhesive tape AdvReac PULLS SKIN Verified 10/22/22 14:42 OFF hydrocodone bitartrate AdvReac Hallucinati Verified 10/22/22 14:42 [From [place]] ons naproxen sodium [From Aleve] AdvReac lowers BP Verified 10/22/22 14:42 bandaid AdvReac pulls skin Uncoded 10/22/22 14:42 off Physical Exam Vitals: Vital Signs Temp Pulse Pulse Resp BP BP Pulse Ox 12/04/22 08:52 72 12/04/22 08:37 72 12/04/22 07:57 68 12/04/22 07:00 98.5 F 59 L 16 125/65 96 12/04/22 02:00 68 12/04/22 00:54 98.6 F 54 L 18 136/63 96 12/03/22 22:00 68 25 H 12/03/22 21:00 64 8 L 12/03/22 20:00 62 9 L 117/55 12/03/22 19:00 63 18 123/61 12/03/22 18:30 63 19 123/63 98 12/03/22 18:00 60 17 125/59 98 12/03/22 17:30 65 21 121/59 97 12/03/22 17:00 65 20 123/67 98 12/03/22 16:16 97.6 F 67 18 119/65 98 Intake and Output 12/03/22 12/04/22 12/04/22 22:59 06:59 14:59 Intake Total 540 Balance 540 Intake: Oral 540 Other: Voiding Method Toilet Weight 81.193 kg 81.193 kg GENERAL: The patient is alert and oriented x3, not in any acute distress. Well developed, well nourished. HEENT: Pupils are round and equally reacting to light. EOMI. No scleral icterus. No conjunctival pallor. Normocephalic, atraumatic. No pharyngeal erythema. No thyromegaly. CARDIOVASCULAR: S1 and S2 present. No murmurs, rubs, or gallops. PULMONARY: Chest is clear to auscultation, no wheezing or crackles. ABDOMEN: Soft, nontender, nondistended, normoactive bowel sounds. No palpable organomegaly. MUSCULOSKELETAL: No joint swelling or deformity. EXTREMITIES: No cyanosis, clubbing, or pedal edema. NEUROLOGICAL: Gross neurological examination did not reveal any focal deficits. SKIN: No rashes. no petechiae. Results CBC & Chem 7: 12/04/22 04:56 12/04/22 04:56 Labs: Abnormal Lab Results - Last 24 Hours (Table) 12/03/22 12/03/22 12/04/22 Range/Units 16:58 16:58 04:56 RBC (4.10-5.20) X 10*6/uL Hgb 11.3 L (11.4-16.0) gm/dL Hct 33.1 L (34.0-46.0) % RDW 17.7 H (11.5-15.5) % Potassium 3.3 L (3.5-5.5) mmol/L Carbon Dioxide 31 H 28.7 H (22-30) mmol/L BUN 29 H 27.7 H (7-17) mg/dL Creatinine 1.24 H (0.52-1.04) mg/dL BUN/Creatinine Ratio 30.78 H (12.00-20.00) Ratio Glucose 138 H 156 H (74-99) mg/dL Calcium 8.3 L (8.4-10.2) mg/dL Triglycerides 206.00 H (0.00-149.00) mg/dL VLDL Cholesterol, Calc 41.20 H (5.00-40.00) mg/dL HDL Cholesterol 35.70 L (40.00-60.00) mg/dL 12/04/22 Range/Units 04:56 RBC 3.85 L (4.10-5.20) X 10*6/uL Hgb 10.5 L (11.4-16.0) gm/dL Hct 32.7 L (34.0-46.0) % RDW 17.3 H (11.5-15.5) % Potassium (3.5-5.5) mmol/L Carbon Dioxide (22-30) mmol/L BUN (7-17) mg/dL Creatinine (0.52-1.04) mg/dL BUN/Creatinine Ratio (12.00-20.00) Ratio Glucose (74-99) mg/dL Calcium (8.4-10.2) mg/dL Triglycerides (0.00-149.00) mg/dL VLDL Cholesterol, Calc (5.00-40.00) mg/dL HDL Cholesterol (40.00-60.00) mg/dL Assessment and Plan Assessment: Chest pain, rule cardiac causes ruled out. D-dimer negative. Chest pain resolved prior to Discharge Mild Acute kidney injury, resolved Chronic atrial fibrillation on Eliquis COPD History of CVA/TIA Diabetes mellitus Hypertension Hyperlipidemia History of GERD History of osteoarthritis Hypothyroidism Plan: Echocardiogram showed normal LV function. D-dimer negative for chest and resolved Cardiology consult cleared the patient for discharge Patient is already on aspirin Eliquis at home which she confirms she have them at home. Patient denies any other new symptoms. Problems and management plan were discussed with the patient and he verbalized understanding and acceptance Patient was found stable and can be discharged home in guarded prognosis however he needs follow-up as an outpatient. Patient was instructed to follow up with PCP Dr. Gan within one week and patient agrees Patient also was instructed to follow up with senior mechanical project manager Dr. Kinsey in one week and she agrees with the appointments made for her 2/3, also she has an appoi ntment with her patient service rep Dr. Maddox on this coming December that she intends to follow up with Time spent more than 35 minutes
[2022-12-06] MEDS ORDERED: LEVOTHYROXINE 125 MCG TAB PO SCH (06:30)
== END 2022-12-04 18:47 | disposition home or self-care (01) ==
LOC: EC 16:12 → 6NMEDSUR 21:56
PROVIDERS: ADMIT Hospitalist; ATTEND Hospitalist
DX: R07.89 Other chest pain (principal); N17.9 Acute kidney failure, unspecified; I48.20 Chronic atrial fibrillation, unspecified; J44.9 Chronic obstructive pulmonary disease, unspecified; I08.3 Combined rheumatic disorders of mitral, aortic and tricuspid valves; D64.9 Anemia, unspecified; E11.9 Type 2 diabetes mellitus without complications; I25.10 Atherosclerotic heart disease of native coronary artery without angina pectoris; I10 Essential (primary) hypertension; E78.5 Hyperlipidemia, unspecified; K21.9 Gastro-esophageal reflux disease without esophagitis; M19.90 Unspecified osteoarthritis, unspecified site; E89.0 Postprocedural hypothyroidism; M79.7 Fibromyalgia; G47.30 Sleep apnea, unspecified; L92.0 Granuloma annulare; R05.9 Cough, unspecified; K44.9 Diaphragmatic hernia without obstruction or gangrene; K58.9 Irritable bowel syndrome, unspecified; F41.9 Anxiety disorder, unspecified; Z79.890 Hormone replacement therapy; Z79.82 Long term (current) use of aspirin; Z79.84 Long term (current) use of oral hypoglycemic drugs; Z79.51 Long term (current) use of inhaled steroids; Z79.01 Long term (current) use of anticoagulants; Z79.899 Other long term (current) drug therapy; Z88.6 Allergy status to analgesic agent; Z88.5 Allergy status to narcotic agent; Z88.8 Allergy status to other drugs, medicaments and biological substances; Z91.048 Other nonmedicinal substance allergy status; Z87.01 Personal history of pneumonia (recurrent); Z86.73 Personal history of transient ischemic attack (TIA), and cerebral infarction without residual deficits; Z90.49 Acquired absence of other specified parts of digestive tract; Z90.710 Acquired absence of both cervix and uterus; Z90.13 Acquired absence of bilateral breasts and nipples; Z85.3 Personal history of malignant neoplasm of breast; Z85.850 Personal history of malignant neoplasm of thyroid; Z98.1 Arthrodesis status; Z98.42 Cataract extraction status, left eye; Z98.41 Cataract extraction status, right eye; Z98.890 Other specified postprocedural states; Z86.19 Personal history of other infectious and parasitic diseases; Z80.0 Family history of malignant neoplasm of digestive organs; Z80.51 Family history of malignant neoplasm of kidney; Z80.8 Family history of malignant neoplasm of other organs or systems
CPT/HCPCS: 99285; 36415; 94640 ×2; 93005; 93306; 85379; 83880; 80061; 80053; 80048; 83690; 83735; 84484 ×2; 85025 ×2; 85610; 85730; 71046; G0378 ×2

== ENCOUNTER 2023-04-15 19:11 | Emergency (ER) | payer MEDICARE, BC ==
[2023-04-15 19:27] VITALS: TEMP 98.1
--- NOTE | 2023-04-15 19:48 | ED ---
Arrhythmia/Palpitations HPI - General Chief Complaint: Arrhythmia/Palpitations Stated Complaint: afib Time Seen by Provider: 04/15/23 19:31 Source: patient Mode of arrival: wheelchair Limitations: no limitations - History of Present Illness Initial Comments: 77-year-old female with past medical history of A. fib, rheumatic fever, COPD who presents to the emergency department reporting palpitations and some shortness of breath. Reports for the past few days she has had increased work of breathing at rest and with exertion. She denies fevers chills or cough. No chest pain. Does admit to palpitations. Patient was concerned that she is back in A. fib. She does take anticoagulation no history of coronary disease. Follows with Dr. Kinsey. Denies any calf pain or swelling. She finished antibiotics last week which were ordered through the pulmonology office. States that she is not on any antibiotics. She denies a productive cough. No sick contacts. No other alleviating, precipitating or modifying factors - Related Data Home Medications Medication Instructions Recorded Confirmed DULoxetine HCL [Cymbalta] 60 mg PO DAILY 05/03/14 04/15/23 Montelukast Sodium [Singulair] 10 mg PO HS 10/14/17 04/15/23 Levothyroxine Sodium [Synthroid] 62.5 mcg PO LOCKWOOD 05/24/18 04/15/23 Losartan Potassium 25 mg PO DAILY 09/25/19 04/15/23 Levothyroxine Sodium [Synthroid] 125 mcg PO MOTUWETHFRSA 10/01/20 04/15/23 Omeprazole [PriLOSEC] 40 mg PO DAILY 10/01/20 04/15/23 Rosuvastatin Calcium [Crestor] 10 mg PO DAILY 10/01/20 04/15/23 metFORMIN HCL ER [Glucophage XR] 500 mg PO BID-W/MEALS 10/27/21 04/15/23 Latanoprost Ophth [Xalatan 0.005%] 1 drop RIGHT EYE HS 09/28/22 04/15/23 Magnesium 200 mg PO BID 12/03/22 04/15/23 Albuterol Inhaler [Ventolin Hfa 2 puff INHALATION RT-Q6H PRN 04/15/23 04/15/23 Inhaler] Albuterol Nebulized [Ventolin 2.5 mg INHALATION RT-Q4H PRN 04/15/23 04/15/23 Nebulized] Apixaban [Eliquis] 2.5 mg PO BID 04/15/23 04/15/23 Previous Rx's Medication Instructions Recorded Metoprolol Succinate (ER) [Toprol 50 mg PO DAILY #30 tab 07/17/22 XL] Isosorbide Mononitrate ER [Imdur] 60 mg PO DAILY #30 tab 12/04/22 Clopidogrel [Plavix] 75 mg PO DAILY #90 tab 12/16/22 Allergies Allergy/AdvReac Type Severity Reaction Status Date / Time methylprednisolone Allergy red puffy Verified 04/15/23 20:11 [From Medrol] face nickel Allergy Itching/raw Verified 04/15/23 20:11 skin lisinopril AdvReac Severe Cough Verified 04/15/23 20:11 tramadol AdvReac Severe severe Verified 04/15/23 20:11 fatigue, elevated BP adhesive tape AdvReac PULLS SKIN Verified 04/15/23 20:11 OFF hydrocodone bitartrate AdvReac Hallucinati Verified 04/15/23 20:11 [From [place]] ons naproxen sodium [From Aleve] AdvReac lowers BP Verified 04/15/23 20:11 bandaid AdvReac pulls skin Uncoded 04/15/23 19:27 off Review of Systems ROS Statement: Those systems with pertinent positive or pertinent negative responses have been documented in the HPI. ROS Other: All systems not noted in ROS Statement are negative. Past Medical History Past Medical History: Atrial Fibrillation, Asthma, Cancer, Chest Pain / Angina, COPD, CVA/TIA, Diabetes Mellitus, Fibromyalgia, GERD/Reflux, Hyperlipidemia, Hypertension, Mitral Valve Prolapse (MVP), Osteoarthritis (OA), Pneumonia, Skin Disorder, Sleep Apnea/CPAP/BIPAP, Thyroid Disorder Additional Past Medical History / Comment(s): heart murmur, hx rheumatic fever, environmental allergies, hiatal hernia, hx IBS, skin dx called granuloma annulare, hx thyroid cancer, cancer rt breast, TIA- no residual effects, irregular heartbeat, leaking aortic and mitral valves, no cpap used, "severe acid reflux", sepsis after breast surgery History of Any Multi-Drug Resistant Organisms: None Reported Past Surgical History: Back Surgery, Breast Surgery, Cholecystectomy, Heart Catheterization, Heart Catheterization With Stent, Hysterectomy, Orthopedic Surgery Additional Past Surgical History / Comment(s): thyroidectomy, rt radical mast ectomy,left mastectomy,constance breast reconstruction x 2-second implant (left breast) removed due to sepsis, cervical fusion x 2, titanium rods-lumbar, rt shoulder arthroscopy, constance cataracts, rt knee arthroscopy Past Anesthesia/Blood Transfusion Reactions: Previous Problems w/ Anesthesia, Postoperative Nausea & Vomiting (PONV) Additional Past Anesthesia/Blood Transfusion Reaction / Comment(s): woke up during EGD in past Past Psychological History: Anxiety Smoking Status: Never smoker Past Alcohol Use History: None Reported Past Drug Use History: None Reported - Past Family History Mother Family Medical History: Cancer Additional Family Medical History / Comment(s): kidney Sister(s) Family Medical History: Cancer Additional Family Medical History / Comment(s): esophageal Brother(s) Family Medical History: Cancer Additional Family Medical History / Comment(s): colon, thryoid cancer Daughter(s) Family Medical History: Cancer Additional Family Medical History / Comment(s): skin General Exam Limitations: no limitations General appearance: alert, in no apparent distress Head exam: Present: atraumatic, normocephalic, normal inspection Eye exam: Present: normal appearance, PERRL, EOMI. Absent: scleral icterus, conjunctival injection, periorbital swelling ENT exam: Present: normal exam, mucous membranes moist Neck exam: Present: normal inspection. Absent: tenderness, meningismus, lymphadenopathy Respiratory exam: Present: normal lung sounds bilaterally. Absent: respiratory distress, wheezes, rales, rhonchi, stridor Cardiovascular Exam: Present: regular rate, normal rhythm, systolic murmur. Absent: diastolic murmur, rubs, gallop, clicks GI/Abdominal exam: Present: soft, normal bowel sounds. Absent: distended, tenderness, guarding, rebound, rigid Extremities exam: Present: normal inspection, full ROM, normal capillary refill. Absent: tenderness, pedal edema, joint swelling, calf tenderness Back exam: Present: normal inspection Neurological exam: Present: alert, oriented X3, CN II-XII intact Psychiatric exam: Present: normal affect, normal mood Skin exam: Present: warm, dry, intact, normal color. Absent: rash Course Vital Signs 04/15/23 04/15/23 04/15/23 19:23 19:38 21:43 Temperature 98.1 F Pulse Rate 78 70 73 Respiratory 24 18 18 Rate Blood Pressure 144/79 141/74 132/75 O2 Sat by Pulse 98 97 97 Oximetry Medical Decision Making - Medical Decision Making Was pt. sent in by a medical professional or institution ([facility], [employer], urgent care, hospital, or fci...) When possible be specific @ -No Did you speak to anyone other than the patient for history (EMS, parent, family, police, friend...)? What history was obtained from this source @ -No Did you review nursing and triage notes (agree or disagree)? Why? @ -I reviewed and agree with nursing and triage notes Were old charts reviewed (outside hosp., previous admission, EMS record, old EKG, old radiological studies, urgent care reports/EKG's, fci records)? Report findings @ -No old charts were reviewed Differential Diagnosis (chest pain, altered mental status, abdominal pain women, abdominal pain men, vaginal bleeding, weakness, fever, dyspnea, syncope, headache, dizziness, GI bleed, back pain, seizure, CVA, palpatations, mental health, musculoskeletal)? @ -Differential Dyspnea: Coronary syndrome, arrhythmia, tamponade, asthma, COPD, pulmonary embolism, pneumonia, pneumothorax, pulmonary effusion, anaphylaxis, diabetic ketoacidosis, flailed chest, pulmonary contusion, diaphragmatic rupture, anemia, neuromuscular, this is not meant to be an all-inclusive list. EKG interpreted by me (3pts min.). @ -Yes and demonstrates sinus rhythm with a rate of 70. ID 129. QRS 96. QTC 413. No acute ST segment elevations or depressions X-rays interpreted by me (1pt min.). @ -Chest x-ray demonstrates no acute process and was interpreted by me CT interpreted by me (1pt min.). @ -None done U/S interpreted by me (1pt. min.). @ -None done What testing was considered but not performed or refused? (CT, X-rays, U/S, labs)? Why? @ -None What meds were considered but not given or refused? Why? @ -None Did you discuss the management of the patient with other professionals (professionals i.e. [facility], [employer]OC[employer], lab, RT, psych nurse, social human services assistants, cnc lathe programmer, teacher, risk officer, foster care case manager)? Give summary @ -No Was smoking cessation discussed for >3mins.? @ -No Was critical care preformed (if so, how long)? @ -No Were there social determinants of health that impacted care today? How? (Homelessness, low income, unemployed, alcoholism, drug addiction, transportation, low edu. Level, literacy, decrease access to med. care, long-term, rehab)? @ -No Was there de-escalation of care discussed even if they declined (Discuss DNR or withdrawal of care, Hospice)? DNR status @ -No What co-morbidities impacted this encounter? (DM, HTN, Smoking, COPD, CAD, Cancer, CVA, ARF, Chemo, Hep., AIDS, mental health diagnosis, sleep apnea, morbid obesity)? @ -A. fib, COPD Was patient admitted / discharged? Hospital course, mention meds given and rout e, prescriptions, significant lab abnormalities, going to OR and other pertinent info. @ -Upon arrival patient was placed into room 4. A thorough history and physical exam was performed. IV access is established and laboratory studies are conducted. Patient does not demonstrate any signs of respiratory distress. She does have a few PVCs and PACs which may account for her palpitations. Laboratory studies are within normal limits. Chest x-ray demonstrates no acute process. Patient is reevaluated. Feels comfortable going home. Recommend that she follow up with Dr. Kinsey in regards to her palpitations. May benefit from wearing the Holter monitor. Recommend that she follow up with pulmonology for her shortness of breath. Do not recommend steroids at this time is patient does not demonstrate any signs of respiratory distress or insufficiency. Patient understood and was agreeable to this. She is to return for any new or worsening symptoms. Patient discharged in stable condition Undiagnosed new problem with uncertain prognosis? @ -Yes Drug Therapy requiring intensive monitoring for toxicity (Heparin, Nitro, Insulin, Cardizem)? @ -No Were any procedures done? @ -No Diagnosis/symptom? @ -Acute palpitations-acute PVCs and PACs, acute respiratory insufficiency, history of COPD Acute, or Chronic, or Acute on Chronic? @ -Acute on chronic Uncomplicated (without systemic symptoms) or Complicated (systemic symptoms)? @ -Complicated Side effects of treatment? @ -No Exacerbation, Progression, or Severe Exacerbation? @ -Exacerbation Poses a threat to life or bodily function? How? (Chest pain, [place], [place], pneumonia, PE, COPD, DKA, ARF, appy, cholecystitis, CVA, Diverticulitis, Homicidal, Suicidal, threat to staff... and all critical care pts) @ -No - Lab Data Result diagrams: 04/15/23 19:53 04/15/23 19:53 Lab Results 04/15/23 04/15/23 04/15/23 Range/Units 19:53 19:53 19:53 WBC 6.0 (3.8-10.6) k/uL RBC 4.41 (3.80-5.40) m/uL Hgb 12.4 (11.4-16.0) gm/dL Hct 37.4 (34.0-46.0) % MCV 84.8 (80.0-100.0) fL MCH 28.2 (25.0-35.0) pg MCHC 33.3 (31.0-37.0) g/dL RDW 13.5 (11.5-15.5) % Plt Count 187 (150-450) k/uL MPV 7.5 Neutrophils % 69 % Lymphocytes % 22 % Monocytes % 6 % Eosinophils % 1 % Basophils % 0 % Neutrophils # 4.1 (1.3-7.7) k/uL Lymphocytes # 1.3 (1.0-4.8) k/uL Monocytes # 0.4 (0-1.0) k/uL Eosinophils # 0.1 (0-0.7) k/uL Basophils # 0.0 (0-0.2) k/uL PT 9.7 (9.0-12.0) sec INR 0.9 (<1.2) APTT 24.8 (22.0-30.0) sec D-Dimer 0.36 (<0.60) mg/L FEU Sodium 139 (137-145) mmol/L Potassium 3.9 (3.5-5.1) mmol/L Chloride 103 (98-107) mmol/L Carbon Dioxide 27 (22-30) mmol/L Anion Gap 9 mmol/L BUN 24 H (7-17) mg/dL Creatinine 0.84 (0.52-1.04) mg/dL Est GFR (CKD-EPI)AfAm 76 (>60 ml/min/1.73 sqM) Est GFR (CKD-EPI)NonAf 66 (>60 ml/min/1.73 sqM) Glucose 134 H (74-99) mg/dL Calcium 8.2 L (8.4-10.2) mg/dL Magnesium 1.8 (1.6-2.3) mg/dL Total Bilirubin 0.5 (0.2-1.3) mg/dL AST 32 (14-36) U/L ALT 27 (4-34) U/L Alkaline Phosphatase 100 (38-126) U/L Troponin I (0.000-0.034) ng/mL Total Protein 6.5 (6.3-8.2) g/dL Albumin 3.9 (3.5-5.0) g/dL 04/15/23 Range/Units 19:53 WBC (3.8-10.6) k/uL RBC (3.80-5.40) m/uL Hgb (11.4-16.0) gm/dL Hct (34.0-46.0) % MCV (80.0-100.0) fL MCH (25.0-35.0) pg MCHC (31.0-37.0) g/dL RDW (11.5-15.5) % Plt Count (150-450) k/uL MPV Neutrophils % % Lymphocytes % % Monocytes % % Eosinophils % % Basophils % % Neutrophils # (1.3-7.7) k/uL Lymphocytes # (1.0-4.8) k/uL Monocytes # (0-1.0) k/uL Eosinophils # (0-0.7) k/uL Basophils # (0-0.2) k/uL PT (9.0-12.0) sec INR (<1.2) APTT (22.0-30.0) sec D-Dimer (<0.60) mg/L FEU Sodium (137-145) mmol/L Potassium (3.5-5.1) mmol/L Chloride (98-107) mmol/L Carbon Dioxide (22-30) mmol/L Anion Gap mmol/L BUN (7-17) mg/dL Creatinine (0.52-1.04) mg/dL Est GFR (CKD-EPI)AfAm (>60 ml/min/1.73 sqM) Est GFR (CKD-EPI)NonAf (>60 ml/min/1.73 sqM) Glucose (74-99) mg/dL Calcium (8.4-10.2) mg/dL Magnesium (1.6-2.3) mg/dL Total Bilirubin (0.2-1.3) mg/dL AST (14-36) U/L ALT (4-34) U/L Alkaline Phosphatase (38-126) U/L Troponin I <0.012 (0.000-0.034) ng/mL Total Protein (6.3-8.2) g/dL Albumin (3.5-5.0) g/dL Disposition Clinical Impression: Shortness of breath, Palpitations Disposition: HOME SELF-CARE Condition: Stable Instructions (If sedation given, give patient instructions): Heart Palpitations (ED) Additional Instructions: Please follow-up with Dr. Back in regards to her symptoms. Return for any new or worsening symptoms Is patient prescribed a controlled substance at d/c from ED?: No Referrals: Elli Gan III, MD [Primary Care Provider] - 1-2 days Santi Back MD [STAFF PHYSICIAN] - 1-2 days Time of Disposition: 21:37
[2023-04-15 19:52] VITALS: RESP 18
[2023-04-15 20:01] LABS: Basophils % (A) 0 %; Eosinophils # (A) 0.1 k/uL (0-0.7); Eosinophils % (A) 1 %; HCT 37.4 % (34.0-46.0); HGB 12.4 gm/dL (11.4-16.0); Lymphocytes # (A) 1.3 k/uL (1.0-4.8); Lymphocytes % (A) 22 %; MCH 28.2 pg (25.0-35.0); MCHC 33.3 g/dL (31.0-37.0); MCV 84.8 fL (80.0-100.0); Mean Platelet Volume 7.5; Monocytes # (A) 0.4 k/uL (0-1.0); Monocytes % (A) 6 %; Neutrophils # (A) 4.1 k/uL (1.3-7.7); Neutrophils % (A) 69 %; Platelet Count 187 k/uL (150-450); RBC 4.41 m/uL (3.80-5.40); RDW 13.5 % (11.5-15.5)
[2023-04-15 20:15] LABS: ALT 27 U/L (4-34); AST 32 U/L (14-36); African American GFR (CKD) 76 (>60 ml/min/1.73 sqM); Albumin 3.9 g/dL (3.5-5.0); Alkaline Phosphatase 100 U/L (38-126); Anion Gap 9 mmol/L; Blood Urea Nitrogen 24 mg/dL (7-17); Calcium 8.2 mg/dL (8.4-10.2); Carbon Dioxide 27 mmol/L (22-30); Chloride 103 mmol/L (98-107); Glucose 134 mg/dL (74-99); Magnesium 1.8 mg/dL (1.6-2.3); Non-African American GFR(CKD) 66 (>60 ml/min/1.73 sqM); Potassium 3.9 mmol/L (3.5-5.1); Sodium 139 mmol/L (137-145); Total Bilirubin 0.5 mg/dL (0.2-1.3); Total Protein 6.5 g/dL (6.3-8.2)
[2023-04-15 20:37] LABS: INR 0.9 (<1.2); Partial Thromboplastin Time 24.8 sec (22.0-30.0); Prothrombin Time 9.7 sec (9.0-12.0)
--- NOTE | 2023-04-15 21:12 | XR ---
EXAMINATION TYPE: XR chest 2V DATE OF EXAM: 04/15/2023 8:51 PM COMPARISON: Chest radiographs from 12/10/2022 TECHNIQUE: XR chest 2V Frontal and lateral views of the chest. CLINICAL INDICATION:Female, 77 years old with history of sob; FINDINGS: Lungs/Pleura: There is no evidence of pleural effusion, focal consolidation, or pneumothorax. Pulmonary vascularity: Unremarkable. Heart/mediastinum: Cardiomediastinal silhouette is enlarged and stable. Musculoskeletal: No acute osseous pathology. IMPRESSION: No acute cardiopulmonary disease/process.
[2023-04-15 21:45] VITALS: BP 132/75; PULSE 73
== END 2023-04-15 21:50 | disposition home or self-care (01) ==
LOC: EC 19:11
DX: R00.2 Palpitations (principal); R06.02 Shortness of breath; E78.5 Hyperlipidemia, unspecified; I48.91 Unspecified atrial fibrillation; J44.9 Chronic obstructive pulmonary disease, unspecified; I10 Essential (primary) hypertension; K21.9 Gastro-esophageal reflux disease without esophagitis; E11.9 Type 2 diabetes mellitus without complications; M19.90 Unspecified osteoarthritis, unspecified site; Z86.73 Personal history of transient ischemic attack (TIA), and cerebral infarction without residual deficits; E07.9 Disorder of thyroid, unspecified; F41.9 Anxiety disorder, unspecified; Z88.8 Allergy status to other drugs, medicaments and biological substances; Z88.6 Allergy status to analgesic agent; Z88.5 Allergy status to narcotic agent; Z91.048 Other nonmedicinal substance allergy status; Z79.890 Hormone replacement therapy; Z79.899 Other long term (current) drug therapy; Z79.84 Long term (current) use of oral hypoglycemic drugs; Z79.01 Long term (current) use of anticoagulants
CPT/HCPCS: 36415; 71046; 80053; 83735; 84484; 85025; 85379; 85610; 85730; 93005; 99285

== ENCOUNTER 2023-04-23 07:58 | Day surgery (SDC) | payer MEDICARE, BC ==
[2023-04-22 09:05] VITALS: BMI 30.2
[~2023-04-23 07:58] MED LIST changes: +ALPRAZolam 0.25 MG TAB PO PRN; +ALPRAZolam 0.5 MG TAB PO PRN; +ASPIRIN 325 MG TAB PO STA; +ATORVASTATIN 80 MG TAB PO STA; +HEPARIN SODIUM,PORCINE 10,000 UNIT in SODIUM CHLORIDE 0.9% 1,000 ML IRRIGATION PRN; +HEPARIN SODIUM,PORCINE 2,500 UNIT in SODIUM CHLORIDE 0.9% 250 ML IRRIGATION PRN; -LACTATED RINGERS 1,000 ML IV SCH; -LIDOCAINE 1% (10MG/ML) FOR IV START INTRADERMA PRN; +NITROGLYCERIN SL TABS 0.4 MG TAB SUBLINGUAL PRN
[2023-04-23] MEDS: SODIUM CHLORIDE 0.9% 1,000 ML in EMPTY BAG 1 BAG IV SCH ×2 (08:24→17:20)
[2023-04-23 08:30] LABS: Glucose,Whole Blood 112 mg/dL (70-110)
[2023-04-23] MEDS ORDERED: MIDAZOLAM 2 MG/2 ML VIAL IV ONE ×2 (10:52→11:07)
[2023-04-23] MEDS ORDERED: LIDOCAINE 1% INJ 10MG/ML (30 ML VIAL-PF) SQ ONE (10:56)
[2023-04-23] MEDS ORDERED: HEPARIN SODIUM 1,000 UN/ML (10ML VL) IV ONE (11:23)
[2023-04-23] MEDS ORDERED: IOPAMIDOL-370 100ML BTL INJ ONE (11:35)
[2023-04-23] MEDS ORDERED: IOPAMIDOL-300 100ML BTL INJ ONE (11:36)
[2023-04-23] MEDS ORDERED: RX INFO: IV CONTRAST WAS GIVEN 1 EACH MISC MISCELLANE PRN (11:42)
[2023-04-23] MEDS ORDERED: SODIUM CHLORIDE 0.9% 1,000 ML IV SCH (11:45)
--- NOTE | 2023-04-23 11:47 | P.PCN ---
Date of Procedure: 04/23/23 Operative Findings: CARDIAC CATHETERIZATION PERFORMING PHYSICIAN: Santi Back MD, RPVI PROCEDURE PERFORMED: 1. Selective right and left coronary angiogram 2. Left heart catheterization 3. FFR of the diagonal branch of the LAD 4. Right common femoral artery angiogram and ultrasound guided access of the right common femoral artery INDICATION: Unstable angina COMPLICATION: None APPROACH: Right common femoral artery LEVEL OF SEDATION: Moderate with sedation in length of 43 minutes PROCEDURE DESCRIPTION: After obtaining an informed consent, the patient was brought to cardiac seed analysis laboratory assistant. Local anesthesia was performed using lidocaine subcutaneously. The right common femoral artery was cannulated using Seldinger technique, the guidewire passed easily, following that we advanced a 6 [place] sheath dilator assembly, the wire and dilator were removed and sheath was flushed. Selective right and left coronary angiogram using a 6-[place] JR4 and JL catheters. Following that we did left heart catheterization using 6-[place] pigtail catheter. The procedure was completed there was no complication. SELECTIVE CORONARY ANGIOGRAM: The right coronary artery: Large caliber vessel and a dominant vessel. The ostial RCA is a stented with mild in-stent restenosis. The mid and distal RCA appeared to have mild disease only. The RCA distally bifurcates into PDA and PLV branches. The PDA has a disease appears to be in the range of 40-50% Left main: Is angiographically normal. Bifurcates into LCx and LAD The left circumflex: Large caliber vessel nondominant vessel. The LCx gives rises into a high OM which works as ramus intermedius and has a lesion appeared to be in the range of 40-50%. OM to undergo ointment 3 appeared to have mild disease only. The left anterior descending artery: The LAD has mild disease only. It gives rises proximally into a large diagonal branch which has intermediate lesion. iFR was done and came in to be nonischemic and 0.93 HEMODYNAMICS: The LVEDP was about 10 mmHg was no significant gradient across aortic valve CONCLUSION: 1. Patent stent in the ostial RCA. Mild disease involving the PDA of the RCA appeared to be unchanged compared to before 2. Intermediate disease involving the large first diagonal branch. We did iFR and that came in to be nonischemic 0.94 3. Normal left-sided filling pressures POSTPROCEDURE MANAGEMENT: Medical treatment and follow-up with the patient
[2023-04-23] MEDS ORDERED: hydrALAZINE HCL 20 MG/ML 1 ML VIAL ONE (13:12)
[2023-04-23 17:39] VITALS: RESP 16
[2023-04-23 23:20] VITALS: BP 138/72; PULSE 70; TEMP 98
== END 2023-04-23 22:05 | disposition home or self-care (01) ==
LOC: CATHCVL 07:58 → 6NMEDSUR 11:38 → CATHCVL 22:05
PROVIDERS: ATTEND Internal Medicine Interventional Cardiology
DX: I25.10 Atherosclerotic heart disease of native coronary artery without angina pectoris (principal); I10 Essential (primary) hypertension; E78.5 Hyperlipidemia, unspecified; E11.9 Type 2 diabetes mellitus without complications; Z79.82 Long term (current) use of aspirin; Z79.84 Long term (current) use of oral hypoglycemic drugs; Z79.01 Long term (current) use of anticoagulants; Z79.899 Other long term (current) drug therapy; Z95.5 Presence of coronary angioplasty implant and graft
CPT/HCPCS: 93458; 93799; 76937; C1887 ×3; C1769 ×3; C1894; J2250; J2001; J1644; Q9967 ×2

== ENCOUNTER → 2023-06-03 | Outpatient (CLI) | payer MEDICARE, BC ==
[2023-06-03 14:19] LABS: Basophils # (A) 0.02 X 10*3/uL (0.00-0.10); Basophils % (A) 0.4 %; Eosinophils # (A) 0.12 X 10*3/uL (0.04-0.35); Eosinophils % (A) 2.2 %; HCT 37.3 % (37.2-46.3); HGB 11.8 d/dL (12.0-15.0); Lymphocytes # (A) 1.26 X 10*3/uL (0.90-5.00); Lymphocytes % (A) 22.7 %; MCHC 31.6 d/dL (32.0-37.0); MCV 88.6 FL (80.0-97.0); Mean Platelet Volume 10.3 FL (9.5-12.2); Monocytes % (A) 7.2 %; NRBC Per 100 WBC 0 X 10*3/uL (0.00-0.01); Neutrophils # (A) 3.73 X 10*3/uL (1.80-7.70); Neutrophils % (A) 67.3 %; Platelet Count 181 X 10*3/uL (140-440); RBC 4.21 X 10*6/uL (4.10-5.20); RDW 13.3 % (11.5-14.5); WBC 5.54 X 10*3/uL (4.50-10.00)
[2023-06-03 16:00] LABS: % Iron Saturation 19.88 (12.00-45.00); ALT 25 U/L (8-44); AST 30 U/L (13-35); Albumin 4.4 d/dL (3.8-4.9); Alkaline Phosphatase 86 U/L (41-126); BUN/Creat Ratio 16.33 Ratio (12.00-20.00); Blood Urea Nitrogen 14.7 mg/dL (9.0-27.0); Carbon Dioxide 25.9 mmol/L (21.6-31.8); Chloride 104 mmol/L (96-109); Chol/HDL Ratio 3.64 Ratio; Globulin 2.1 d/dL (1.6-3.3); Glucose 107 mg/dL (70-110); Iron 67 UG/DL (50-170); Potassium 4.6 mmol/L (3.5-5.5); Sodium 143 mmol/L (135-145); T4, Free (Free Thyroxine) 1.91 ng/dL (0.80-1.80); Total Bilirubin 0.6 mg/dL (0.3-1.2); Total Iron Binding Capacity 337 UG/DL (228-460); Total Protein 6.5 d/dL (6.2-8.2)
== END | disposition home or self-care (01) ==
LOC: LABWHC1 09:08
PROVIDERS: ATTEND Family Medicine
DX: I10 Essential (primary) hypertension (principal); I25.10 Atherosclerotic heart disease of native coronary artery without angina pectoris; E03.9 Hypothyroidism, unspecified; E11.65 Type 2 diabetes mellitus with hyperglycemia; J44.1 Chronic obstructive pulmonary disease with (acute) exacerbation; D50.8 Other iron deficiency anemias
CPT/HCPCS: 36415; 80053; 80061; 82728; 83036; 83540; 83550; 84439; 84443; 85025

== ENCOUNTER → 2024-01-11 | Outpatient (CLI) | payer MEDICARE, BC ==
--- NOTE | 2024-01-16 15:21 | MR ---
EXAMINATION TYPE: MR chest wo/w con DATE OF EXAM: 01/11/2024 6:31 PM CLINICAL INDICATION:Female, 78 years old with history of R07.89 Anterior chest wall pain; PHH, Anteri or chest wall pain, More on the right, Hx Breast and Thyroid cancer, Hx Removal of breast and implant s on left side, COMPARISON: CT chest 12/24/2022 TECHNIQUE: Multi planar, multi sequence imaging was obtained through the chest. IV Contrast: 8.5 cc Gadavist FINDINGS: No abnormality involving the anterior chest. In the region of interest anterior chest, no soft tissue, muscular, or osseous abnormality is noted. There is postsurgical changes to the left breast. Susceptibility artifact is identified. Bone marrow signal intensity region appears within normal limits. Right upper lung 9 mm pulmonary nodule-like signal abnormality series 411 image 55. The mediastinum, and paraspinal regions included on the exam are grossly within normal limits. No merry dence of mediastinal adenopathy. There is degeneration changes of the shoulders bilaterally right gre ater than left with subchondral cystic changes within the heads of the humerus. The heart is mildly enlarged for size. Visualized portions of the upper abdominal organs appear without acute process or mass or lymphadenop athy. IMPRESSION 1. Postsurgical changes to left breast, No evidence for mass or abnormal enhancement of the anterior chest to correlate patient's pain. 2. There is suggestion of a right upper lung pulmonary nodule on one of the sequences measuring up t o 9 mm. Further evaluation of the chest with CT chest with IV contrast recommended.
== END | disposition home or self-care (01) ==
LOC: RADMRIMAIN 17:24
PROVIDERS: ATTEND Internal Medicine Geriatric Medicine
DX: R07.89 Other chest pain (principal); Z85.850 Personal history of malignant neoplasm of thyroid; Z85.3 Personal history of malignant neoplasm of breast; Z98.82 Breast implant status; Z98.890 Other specified postprocedural states
CPT/HCPCS: 71552; A9585

== ENCOUNTER → 2024-01-25 | Outpatient (CLI) | payer MEDICARE, BC ==
--- NOTE | 2024-01-26 15:12 | BMR ---
EXAM DATE: 01/25/2024 EXAM DESCRIPTION: MRI-Breast Bilat (W/WO Contrast) INDICATION: Right diagnostic MRI for right breast pain. History of bilateral breast cancer status post flap reconstruction on the right. COMPARISON: Comparison is made with relevant prior imaging in PACS. CONTRAST: 8.5 cc of gadobutrol TECHNIQUE: Multiplanar MRI imaging of both breasts was performed with a dedicated breast coil, before and after intravenous administration of gadolinium contrast, using the standard breast mass protocol. Computer-aided detection was used to aid in interpretation. Study was performed at [facility] with Radiologic interpretation by [facility]. FINDINGS: General breast composition: The breasts are almost entirely fatty Background parenchymal enhancement: Minimal FINDINGS: Right Breast: Review of the dynamic contrast-enhanced series shows post surgical changes status post mastectomy with flap reconstruction. No rapidly enhancing masses, suspicious enhancement patterns or other abnormalities. No enlarged lymph nodes. Left Breast: Review of the dynamic contrast-enhanced series shows postmastectomy changes. No rapidly enhancing masses, suspicious enhancement patterns or other abnormalities. No enlarged lymph nodes. Miscellaneous findings: Small hiatal hernia. IMPRESSION: Postsurgical changes are present in the bilateral breasts with right flap reconstruction. No MRI evidence of malignancy. BI-RADS Category2- Benign Recommendation: Management of breast pain should be based on the clinical level of concern. Clinical evaluation and follow-up are recommended, with management to be determined based on the clinical assessment. Small hiatal hernia. MTDD
== END | disposition home or self-care (01) ==
LOC: RADMRIMAIN 01-19 14:06
PROVIDERS: ATTEND Internal Medicine Geriatric Medicine
DX: N64.4 Mastodynia (principal); Z85.3 Personal history of malignant neoplasm of breast; Z90.11 Acquired absence of right breast and nipple; Z90.12 Acquired absence of left breast and nipple; Z98.890 Other specified postprocedural states
CPT/HCPCS: C8908; A9585; 77049

== ENCOUNTER → 2024-02-01 | Outpatient (CLI) | payer MEDICARE, BC ==
[2024-02-01 14:47] LABS: African American GFR (CKD) 76 (>60 ml/min/1.73 sqM); Blood Urea Nitrogen 17 mg/dL (7-17); Non-African American GFR(CKD) 66 (>60 ml/min/1.73 sqM)
--- NOTE | 2024-02-01 15:50 | CT ---
EXAMINATION TYPE: CT chest w con CT DLP: 318.0 mGycm, Automated exposure control for dose reduction was used. DATE OF EXAM: 02/01/2024 3:19 PM COMPARISON: MRI 01/11/2024. CLINICAL INDICATION:Female, 78 years old with history of R91.1; PHH, LUNG NODULE TECHNIQUE: Multiple axial images were obtained through the chest. Sagittal and coronal reformats were created for review. Contrast used:100ml mL of Isovue 300 with IV Contrast (None if empty) Oral contrast used: (None if empty) FINDINGS: LUNGS/ PLEURA: No focal consolidation, pneumothorax or pleural effusion. No right upper lung pulmonar y nodule to correlate with MRI findings on 01/11/2024. AIRWAY: Patent and unremarkable. HEART: Heart is mildly enlarged for size. Aortic valve calcifications are present. Microcalcification s are present. MEDIASTINUM: No gross evidence of adenopathy. VASCULATURE: No aortic aneurysm. MUSCULOSKELETAL: Mild disc degeneration changes are present throughout the thoracolumbar spine. SOFT TISSUES/LYMPH NODES: The left breast is surgically absent. LOWER NECK: No significant findings. UPPER ABDOMEN: Right upper quadrant cholecystectomy clips. IMPRESSION: 1. No right upper lung pulmonary nodule findings suspected to be artifact on prior MRI. 2. Mild cardiomegaly. 3. No evidence for rib fracture or finding to correlate with previous MRI chest complaint of pain.
== END | disposition home or self-care (01) ==
LOC: RADCTMAIN 13:58
PROVIDERS: ATTEND Internal Medicine Critical Care Medicine
DX: I51.7 Cardiomegaly (principal); R91.1 Solitary pulmonary nodule
CPT/HCPCS: 82565; 84520; 71260; 36415; Q9967

== ENCOUNTER 2024-03-18 18:55 | Observation (INO) | payer MEDICARE, BC ==
[2024-03-18] MEDS: SODIUM CHLORIDE 0.9% 500 ML 500 ML IV STA (19:24)
[2024-03-18 19:42] LABS: Basophils % (A) 1 %; Eosinophils # (A) 0.2 k/uL (0-0.7); Eosinophils % (A) 2 %; HCT 35.7 % (34.0-46.0); HGB 11.8 gm/dL (11.4-16.0); Lymphocytes # (A) 1.8 k/uL (1.0-4.8); Lymphocytes % (A) 22 %; MCH 27.8 pg (25.0-35.0); MCHC 33.1 g/dL (31.0-37.0); MCV 83.9 fL (80.0-100.0); Mean Platelet Volume 7.7; Monocytes # (A) 0.4 k/uL (0-1.0); Monocytes % (A) 5 %; Neutrophils # (A) 5.6 k/uL (1.3-7.7); Neutrophils % (A) 69 %; Platelet Count 198 k/uL (150-450); RBC 4.25 m/uL (3.80-5.40); RDW 13.9 % (11.5-15.5); WBC 8.1 k/uL (3.8-10.6)
[2024-03-18 19:56] LABS: INR 0.9 (<1.2); Partial Thromboplastin Time 25.9 sec (22.0-30.0); Prothrombin Time 10.4 sec (10.0-12.5)
--- NOTE | 2024-03-18 19:58 | ED ---
General Adult HPI - General Chief complaint: Fall Stated complaint: Fall from ladder Time Seen by Provider: 03/18/24 19:24 Source: patient, RN notes reviewed, old records reviewed Mode of arrival: ambulatory Limitations: no limitations - History of Present Illness Initial comments: Patient is a 78-year-old female presents emergency department complaining of fall on blood thinners. Patient has a history of A-fib, COPD, diabetes, hypertension, hyperlipidemia. 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 She fell backwards striking the right side of her back on her bed frame and then landing on her bottom and hitting her back on the wall and ground as well as the back of her head on the wall. Did not lose consciousness she does not believe. Complaining of generalized pain to the chest wall as well as neck, right sided ribs. Denies abdominal pain. Endorses acute on chronic right knee pain. Endorses some sternal discomfort as well as right-sided rib discomfort. Patient drove herself here. Presents for further evaluation at this time. Presents as a level 2 trauma. I was made aware of the patient when she was placed in a room. - Related Data Home Medications Medication Instructions Recorded Confirmed DULoxetine HCL [Cymbalta] 60 mg PO DAILY 05/03/14 03/18/24 Montelukast Sodium [Singulair] 10 mg PO HS 10/14/17 03/18/24 Losartan Potassium 25 mg PO DAILY 09/25/19 03/18/24 Levothyroxine Sodium [Synthroid] 125 mcg PO DAILY 10/01/20 03/18/24 Omeprazole [PriLOSEC] 40 mg PO DAILY 10/01/20 03/18/24 metFORMIN HCL ER [Glucophage XR] 500 mg PO BID-W/MEALS 10/27/21 03/18/24 Latanoprost Ophth [Xalatan 0.005%] 1 drop RIGHT EYE HS 09/28/22 03/18/24 Magnesium 200 mg PO BID 12/03/22 03/18/24 Eliquis (Unknown Dose) 0.5 tab PO BID 03/18/24 03/18/24 Hydrocortisone Cream 1 applic TOPICAL BID 03/18/24 03/18/24 [Hydrocortisone 2.5% Cream] Metoprolol Succinate (ER) [Toprol 100 mg PO DAILY 03/18/24 03/18/24 Xl] Rosuvastatin [Crestor] 20 mg PO DAILY 03/18/24 03/18/24 Previous Rx's Medication Instructions Recorded Isosorbide Mononitrate ER [Imdur] 60 mg PO DAILY #30 tab 12/04/22 Clopidogrel [Plavix] 75 mg PO DAILY #90 tab 12/16/22 Allergies Allergy/AdvReac Type Severity Reaction Status Date / Time methylprednisolone Allergy red puffy Verified 03/18/24 20:12 [From Medrol] face nickel Allergy Itching/raw Verified 03/18/24 20:12 skin lisinopril AdvReac Severe Cough Verified 03/18/24 20:12 tramadol AdvReac Severe severe Verified 03/18/24 20:12 fatigue, elevated BP adhesive tape AdvReac PULLS SKIN Verified 03/18/24 20:12 OFF hydrocodone bitartrate AdvReac Hallucinati Verified 03/18/24 20:12 [From [place]] ons naproxen sodium [From Aleve] AdvReac lowers BP Verified 03/18/24 20:12 bandaid AdvReac pulls skin Uncoded 03/18/24 20:12 off Review of Systems ROS Statement: Those systems with pertinent positive or pertinent negative responses have been documented in the HPI. Review of Systems: CONST: Denies fever EYES: Denies blurry vision ENT: Denies nasal congestion C/V: Denies Chest pain RESP: Denies shortness of breath GI: Denies abdominal pain : Denies dysuria SKIN: Denies rash. MSK: Endorses neck and back pain. NEURO: Denies headache ROS Other: All systems not noted in ROS Statement are negative. Past Medical History Past Medical History: Atrial Fibrillation, Asthma, Cancer, Chest Pain / Angina, COPD, CVA/TIA, Diabetes Mellitus, Fibromyalgia, GERD/Reflux, Hyperlipidemia, Hypertension, Mitral Valve Prolapse (MVP), Osteoarthritis (OA), Pneumonia, Skin Disorder, Sleep Apnea/CPAP/BIPAP, Thyroid Disorder Additional Past Medical History / Comment(s): heart murmur, hx rheumatic fever, environmental allergies, hiatal hernia, hx IBS, skin dx called granuloma annulare, hx thyroid cancer, cancer rt breast, TIA- no residual effects, irregular heartbeat, leaking aortic and mitral valves, no cpap used, "severe acid reflux", sepsis after breast surgery History of Any Multi-Drug Resistant Organisms: None Reported Past Surgical History: Back Surgery, Breast Surgery, Cholecystectomy, Heart Catheterization, Heart Catheterization With Stent, Hysterectomy, Orthopedic Surgery Additional Past Surgical History / Comment(s): thyroidectomy, rt radical mastectomy,left mastectomy,constance breast reconstruction x 2-second implant (left breast) removed due to sepsis, cervical fusion x 2, titanium rods-lumbar, rt shoulder arthroscopy, constance cataracts, rt knee arthroscopy, COLONOSCOPY Past Anesthesia/Blood Transfusion Reactions: Previous Problems w/ Anesthesia, Postoperative Nausea & Vomiting (PONV) Additional Past Anesthesia/Blood Transfusion Reaction / Comment(s): woke up during EGD in past Date of Last Stent Placement:: UNK Past Psychological History: Anxiety Smoking Status: Never smoker - Past Family History Mother Family Medical History: Cancer Additional Family Medical History / Comment(s): kidney Sister(s) Family Medical History: Cancer Additional Family Medical History / Comment(s): esophageal Brother(s) Family Medical History: Cancer Additional Family Medical History / Comment(s): colon, thryoid cancer Daughter(s) Family Medical History: Cancer Additional Family Medical History / Comment(s): skin General Exam - General Exam Comments Initial Comments: General: Appears in mild to moderate distress secondary to pain. HEAD: Normal with no signs of head trauma. Negative Diaz sign. Negative raccoon eyes. EYES: PERRLA, EOMI, conjunctiva normal, no discharge. Pupils are 3 mm and equal bilaterally. ENT: Hearing grossly intact, normal oropharynx. RESPIRATORY: Clear breath sounds bilaterally. No wheezes, rales, or rhonchi. C/V: Regular rate and rhythm. S1 and S2 auscultated, held symmetrical edema, peripheral pulses 2+ and intact throughout ABD: Abd is soft, nontender, nondistended EXT: Normal range of motion, no obvious deformity. Midline cervical spine tenderness to palpation. No significant midline thoracic spine or lumbar spine tenderness to palpation. Patient does have right-sided posterior rib tenderness to palpation without evidence of flail chest. No step-offs or deformities appreciated the ribs or the spine. Patient placed in a cervical collar. Pelvis is stable. Some mild tenderness to palpation generally of the right knee however normal range of motion. No other obvious pain at this time. Patient is complaining of some rib pain as well as some reproducible sternal pain. SKIN: No rashes or lesions observed on exposed skin. NEURO: Alert and oriented x 4. Cranial nerves II-XII intact. No focal sensory or strength deficits. GCS of 15. Limitations: no limitations Course Vital Signs 03/18/24 03/18/24 03/18/24 19:08 19:24 19:30 Temperature 98.3 F Pulse Rate 59 L 67 72 Respiratory 18 20 18 Rate Blood Pressure 120/71 134/73 151/69 O2 Sat by Pulse 98 98 97 Oximetry 03/18/24 03/18/24 03/18/24 19:54 20:18 21:00 Temperature Pulse Rate 63 62 62 Respiratory 18 14 16 Rate Blood Pressure 162/81 178/70 168/82 O2 Sat by Pulse 96 97 98 Oximetry Medical Decision Making - Medical Decision Making Was pt. sent in by a medical professional or institution (, PA, [facility], urgent care, hospital, or alf...) When possible be specific @ -No Did you speak to anyone other than the patient for history (EMS, parent, family, police, friend...)? What history was obtained from this source @ -No Did you review nursing and triage notes (agree or disagree)? Why? @ -I reviewed and agree with nursing and triage notes Were old charts reviewed (outside hosp., previous admission, EMS record, old EKG, old radiological studies, urgent care reports/EKG's, alf records)? Report findings @ -Old charts reviewed to confirm medication, as well as for EKG comparison. Differential Diagnosis (chest pain, altered mental status, abdominal pain women, abdominal pain men, vaginal bleeding, weakness, fever, dyspnea, syncope, headache, dizziness, GI bleed, back pain, seizure, CVA, palpatations, mental health, musculoskeletal)? @ -Differential Musculoskeletal Muscular strain, contusion, ligament sprain, fracture, arthritis, septic arthritis, bursitis, cellulitis, muscle spasm, nerve compression, DVT, arterial occlusion, herpes zoster, electrolyte abnormality, tumor.... This is not meant to be in all inclusive list. Also includes intracranial trauma, intrathoracic trauma, intra-abdominal trauma. EKG interpreted by me (3pts min.). @ -As above X-rays interpreted by me (1pt min.). @ -Chest x-ray unremarkable for obvious acute cardiopulmonary process or injury. Pelvis x-ray unremarkable for any obvious acute injury or process.Patient's knee x-ray reveals what appears to be a sequela of an old injury. Patient is nontender at the site radiology is concerned with on x-ray. CT interpreted by me (1pt min.). @ -CT brain and C-spine negative for any obvious acute traumatic injury.CT spin e as well as chest abdomen pelvis negative for any obvious traumatic injury. U/S interpreted by me (1pt. min.). @ -None done What testing was considered but not performed or refused? (CT, X-rays, U/S, labs)? Why? @ -None What meds were considered but not given or refused? Why? @ -Offered analgesia medications which were initially declined by the patient. Did you discuss the management of the patient with other professionals (professionals i.e. , PA, [facility], lab, RT, psych nurse, social work instructor, machine sweeper brush maker, teacher, information assurance officer, welfare case worker)? Give summary @ -Discussed the case with on-call trauma, Dr. Marie who was in agreement with plan for imaging. I will notify him of any updates and he will evaluate the patient at bedside. Patient was evaluated at bedside and cervical collar cleare d by Dr. Marie. Patient admitted under trauma service to observation for repeat CT imaging in the morning 12 hours after the initial. This was ordered. Was smoking cessation discussed for >3mins.? @ -No Was critical care preformed (if so, how long)? @ -Yes, 36 minutes. Were there social determinants of health that impacted care today? How? (Homelessness, low income, unemployed, alcoholism, drug addiction, transportation, low edu. Level, literacy, decrease access to med. care, longterm, rehab)? @ -No Was there de-escalation of care discussed even if they declined (Discuss DNR or withdrawal of care, Hospice)? DNR status @ -No What co-morbidities impacted this encounter? (DM, HTN, Smoking, COPD, CAD, Cancer, CVA, ARF, Chemo, Hep., AIDS, mental health diagnosis, sleep apnea, morbid obesity)? @ -None Was patient admitted / discharged? Hospital course, mention meds given and route, prescriptions, significant lab abnormalities, going to OR and other pertinent info. @ -Based on the patient's presentation and physical exam, presents emergency department complaining of a fall from above ground level on blood thinners. Takes Eliquis as well as Plavix. Is complaining of neck pain primarily. Did not lose consciousness. Patient does meet for a level 2 trauma activation. ATLS protocol followed. Patient does have bruising to the posterior right thorax as well. Due to the diffuse back pain, chest wall pain I did recommend CT imaging of the chest and pelvis in addition to CT brain and spine. Patient was in agreement this plan. She was placed in a cervical collar. Vital signs a re within acceptable limits. She will be given a small fluid bolus. Patient agreement this plan.Discussed the case with on-call trauma, Dr. Marie who was in agreement with plan for imaging. I will notify him of any updates and he will evaluate the patient at bedside. EKG shows sinus rhythm with PAC. CT brain and C-spine unremarkable for any obvious traumatic injury. Chest and pelvis x-ray also negative for any obvious traumatic injury. CT thoracic and lumbar as well as chest and pelvis negative for any obvious acute traumatic injury. Patient's laboratory studies within acceptable limits. Patient C-spine cleared by Dr. Marie of trauma who evaluated the patient at bedside. Requested patient be made observation admission under his service which I was in agreement with. Repeat CT brain ordered for 12 hours after the initial at 8:30 AM on March 19, 2024. Patient updated and was in agreement this plan. Patient admitted in stable condition. Anti-Coagulation will be held at this time. Patient's knee x-ray reveals what appears to be a sequela of an old injury. Patient is nontender at the site radiology is concerned with on x-ray. Undiagnosed new problem with uncertain prognosis? @ -No Drug Therapy requiring intensive monitoring for toxicity (Heparin, Nitro, Insulin, Cardizem)? @ -No Were any procedures done? @ -No Diagnosis/symptom? @ -Fall on blood thinners, muscle strains, neck strain Acute, or Chronic, or Acute on Chronic? @ -Acute Uncomplicated (without systemic symptoms) or Complicated (systemic symptoms)? @ -Complicated Side effects of treatment? @ -None Exacerbation, Progression, or Severe Exacerbation] @ -No Poses a threat to life or bodily function? @ -Potentially, yes - Lab Data Result diagrams: 03/18/24 19:25 03/18/24 19:25 Lab Results 03/18/24 03/18/24 03/18/24 Range/Units 19:18 19:25 19:25 WBC 8.1 (3.8-10.6) k/uL RBC 4.25 (3.80-5.40) m/uL Hgb 11.8 (11.4-16.0) gm/dL Hct 35.7 (34.0-46.0) % MCV 83.9 (80.0-100.0) fL MCH 27.8 (25.0-35.0) pg MCHC 33.1 (31.0-37.0) g/dL RDW 13.9 (11.5-15.5) % Plt Count 198 (150-450) k/uL MPV 7.7 Neutrophils % 69 % Lymphocytes % 22 % Monocytes % 5 % Eosinophils % 2 % Basophils % 1 % Neutrophils # 5.6 (1.3-7.7) k/uL Lymphocytes # 1.8 (1.0-4.8) k/uL Monocytes # 0.4 (0-1.0) k/uL Eosinophils # 0.2 (0-0.7) k/uL Basophils # 0.0 (0-0.2) k/uL PT 10.4 (10.0-12.5) sec INR 0.9 (<1.2) APTT 25.9 (22.0-30.0) sec Sodium (137-145) mmol/L Potassium (3.5-5.1) mmol/L Chloride (98-107) mmol/L Carbon Dioxide (22-30) mmol/L Anion Gap mmol/L BUN (7-17) mg/dL Creatinine (0.52-1.04) mg/dL Est GFR (CKD-EPI)AfAm (>60 ml/min/1.73 sqM) Est GFR (CKD-EPI)NonAf (>60 ml/min/1.73 sqM) Glucose (74-99) mg/dL Calcium (8.4-10.2) mg/dL Total Bilirubin (0.2-1.3) mg/dL AST (14-36) U/L ALT (4-34) U/L Alkaline Phosphatase (38-126) U/L Total Protein (6.3-8.2) g/dL Albumin (3.5-5.0) g/dL Serum Alcohol mg/dL Blood Type Blood Type Confirm O Negative Blood Type Recheck Bld Type Recheck Status Antibody Screen Spec Expiration Date 03/18/24 03/18/24 Range/Units 19:25 19:25 WBC (3.8-10.6) k/uL RBC (3.80-5.40) m/uL Hgb (11.4-16.0) gm/dL Hct (34.0-46.0) % MCV (80.0-100.0) fL MCH (25.0-35.0) pg MCHC (31.0-37.0) g/dL RDW (11.5-15.5) % Plt Count (150-450) k/uL MPV Neutrophils % % Lymphocytes % % Monocytes % % Eosinophils % % Basophils % % Neutrophils # (1.3-7.7) k/uL Lymphocytes # (1.0-4.8) k/uL Monocytes # (0-1.0) k/uL Eosinophils # (0-0.7) k/uL Basophils # (0-0.2) k/uL PT (10.0-12.5) sec INR (<1.2) APTT (22.0-30.0) sec Sodium 139 (137-145) mmol/L Potassium 3.9 (3.5-5.1) mmol/L Chloride 104 (98-107) mmol/L Carbon Dioxide 26 (22-30) mmol/L Anion Gap 9 mmol/L BUN 20 H (7-17) mg/dL Creatinine 0.85 (0.52-1.04) mg/dL Est GFR (CKD-EPI)AfAm 75 (>60 ml/min/1.73 sqM) Est GFR (CKD-EPI)NonAf 65 (>60 ml/min/1.73 sqM) Glucose 129 H (74-99) mg/dL Calcium 8.5 (8.4-10.2) mg/dL Total Bilirubin 0.4 (0.2-1.3) mg/dL AST 30 (14-36) U/L ALT 24 (4-34) U/L Alkaline Phosphatase 97 (38-126) U/L Total Protein 6.7 (6.3-8.2) g/dL Albumin 4.2 (3.5-5.0) g/dL Serum Alcohol <10 mg/dL Blood Type O Negative Blood Type Confirm Blood Type Recheck No Previous Record Bld Type Recheck Status CABO Indicated Antibody Screen NEGATIVE Spec Expiration Date 03/21/20242324 - EKG Data -: EKG Interpreted by Me EKG Comments: 12-lead Electrocardiogram Interpretation Note EKG was reviewed and interpreted by myself. 12-lead ECG performed at 1920 is interpreted by me as revealing normal sinus rhythm at a rate of 61 beats per minute. [place] is normal. AR interval is 134 ms, QRS duration is 93 ms, QTc is 419 ms.. There were no ST or T wave abnormalities to suggest myocardial is chemia or injury. R wave progression across the precordium was satisfactory. By my interpretation this EKG is non-diagnostic for acute ischemia. Critical Care Time Critical Care Time: Yes Total Critical Care Time: 36 Disposition Clinical Impression: Fall, Muscle strain, Neck strain Disposition: ADMITTED IP TO THIS HOSP Condition: Stable Time of Disposition: 21:20
[2024-03-18 20:00] LABS: ALT 24 U/L (4-34); AST 30 U/L (14-36); African American GFR (CKD) 75 (>60 ml/min/1.73 sqM); Albumin 4.2 g/dL (3.5-5.0); Alcohol <10 mg/dL; Alkaline Phosphatase 97 U/L (38-126); Anion Gap 9 mmol/L; Blood Urea Nitrogen 20 mg/dL (7-17); Calcium 8.5 mg/dL (8.4-10.2); Carbon Dioxide 26 mmol/L (22-30); Chloride 104 mmol/L (98-107); Glucose 129 mg/dL (74-99); Non-African American GFR(CKD) 65 (>60 ml/min/1.73 sqM); Potassium 3.9 mmol/L (3.5-5.1); Sodium 139 mmol/L (137-145); Total Bilirubin 0.4 mg/dL (0.2-1.3); Total Protein 6.7 g/dL (6.3-8.2)
--- NOTE | 2024-03-18 20:06 | XR ---
EXAM: XR chest 1V portable CLINICAL INDICATION:Female, 78 years old with history of trauma; [facility] COMPARISON: None. TECHNIQUE: Chest single view. FINDINGS: Lines/tubes/devices: EKG leads over the chest. No indwelling lines are seen. Cardiomediastinum: Cardiac silhouette appears moderately enlarged. Unremarkable mediastinal silhouette. Vasculature: No increased pulmonary vasculature. Lungs/pleura: No consolidation, sizeable effusion, or visible pneumothorax. Bones/soft tissues: Bony thorax appears grossly intact with degenerative changes of the spine and shoulders noted. Region al soft tissues appear unremarkable. IMPRESSION: No acute cardiopulmonary findings.
--- NOTE | 2024-03-18 20:10 | XR ---
EXAMINATION TYPE: XR pelvis AP view DATE OF EXAM: 03/18/2024 7:38 PM CLINICAL INDICATION:Female, 78 years old with history of Trauma; H COMPARISON: None TECHNIQUE: The pelvis was examined in a single frontal projection. FINDINGS: There is no evidence of acute fracture or dislocation. There are mild degenerative changes of the low er lumbar spine with bilateral pedicle screws and posterior fixation rods seen at L3-L4. Mild degener ative changes of the SI joints, hips, pubic symphysis. There is no soft tissue abnormality. No abnor mal calcifications are present. No radiopaque foreign body. IMPRESSION: No acute fracture or dislocation identified, on this single view of the pelvis.
[2024-03-18] MEDS: MORPHINE SULFATE 2 MG/ML SYRINGE IVP STA (20:17)
--- NOTE | 2024-03-18 20:27 | CT ---
EXAMINATION TYPE: CT brain cspine wo con CT DLP: 3933.3 mGycm, Automated exposure control for dose reduction was used. DATE OF EXAM: 03/18/2024 7:58 PM COMPARISON: None. CLINICAL INDICATION:Female, 78 years old with history of trauma; P2 TRAUMA, Fall on thinners, diffic ulty lifting neck. TECHNIQUE: Brain: Multiple axial CT images of the brain were obtained without IV contrast. Cspine: Axial CT images from the skull base to the inferior aspect of T2 we obtained without intraven ous contrast. Coronal and sagittal reformatted images were also reviewed. FINDINGS: Brain: Extra-axial spaces: No abnormal extra-axial fluid collections. Ventricular system: Appear dilated in proportion to the degree of cerebral atrophy. Cerebral parenchyma: No increased attenuation to suggest acute intraparenchymal hemorrhage. The gra y-white matter interface appears maintained. Mild generalized brain atrophy. White matter unremarka ble by CT. Cerebellum: No acute abnormality. Mass effect: No evidence of mass effect or midline shift. Intracranial vasculature: Atherosclerotic calcifications of the larger arteries near the skull base. Soft tissues: Normal. Visualized orbits: Orbital contents appear grossly intact. Calvarium/osseous structures: No evidence of calvarial fracture. Paranasal sinuses and mastoid air cells: Clear. Prominent nasal septal deviation towards the left in its anterior portion. MRI is more sensitive for detecting acute processes such as infarct, and may be considered if clinica lly warranted. Cervical spine: No evidence of acute fracture. The craniocervical junction appears intact with mild to moderate degenerative changes. Degenerative change of the anterior C1-C2 articulation, and moderate degenerative change of the later al articulations with preserved alignment. Otherwise there is mild to moderate multilevel degenerativ e disc disease and some facet arthropathy throughout the cervical spine. There is near complete inter body fusion of C5-C6-C7. No evidence of traumatic malalignment. Straightening of the normal cervical lordosis, can be seen wit h degenerative changes, pain, positioning, muscular spasm. Canal and contents are grossly unremarkable by CT however if of concern MRI may be obtained. C2-C3, mild disc osteophyte complex and moderate facet arthrosis. No significant spinal canal stenosi s, mild bilateral neural foraminal stenosis. C3-C4, there is anterior more than posterior disc osteophyte complex. Moderate bilateral facet hypert rophy. Mild spinal canal stenosis, moderate bilateral neuroforaminal stenosis. C4-C5, anterior more than posterior disc marginal osteophytes. Moderate bilateral facet hypertrophy. Mild to moderate spinal canal stenosis, greater on the left, moderate to severe left and moderate rig ht neural foraminal stenosis. C5-C6-C7, there is near complete interbody fusion. No significant residual posterior spondylotic ridg ing. Mild/moderate bilateral facet arthrosis. Spinal canal is patent, and there does not appear to be significant foraminal narrowing. C7-T1, mild to moderate disc marginal osteophytes, and bridging osteophyte noted anteriorly. Mild fac et arthropathy. Mild spinal canal and neuroforaminal narrowing. The visualized upper thoracic spine and ribs appear grossly intact. No discrete acute soft tissue anomalies are seen. Mild calcifications noted along the arch and in the carotid arteries in the neck. Airway is patent. Visualized lung apices are clear. IMPRESSION: CT head: 1. No acute intracranial CT abnormality. CT cervical spine: 1. No evidence of acute cervical spine fracture or traumatic malalignment. 2. Moderate cervical spondylosis, detailed above..
--- NOTE | 2024-03-18 21:04 | CT ---
EXAMINATION TYPE: CT ChestAbdPelvis w con CT DLP: 3933.3 mGycm, Automated exposure control for dose reduction was used. DATE OF EXAM: 03/18/2024 7:58 PM COMPARISON: None. CLINICAL INDICATION:Female, 78 years old with history of trauma; PHH, P2 TRAUMA, Fall on thinners, d ifficulty lifting neck. TECHNIQUE: Multiple axial images of the chest, abdomen, and pelvis were obtained. Two-dimensional cor onal and sagittal reconstructions were obtained. Contrast used:100 cc mL of Isovue 300 with IV Contrast, Oral contrast used: without Oral Contrast FINDINGS: CHEST: LUNGS/ PLEURA: Mild scattered senescent changes. No consolidative process, pleural effusion, or pneum othorax. Small air cyst noted in the left lower lobe. AIRWAY: Central airways are patent. LOWER NECK: No significant findings. MEDIASTINUM: No enlarged lymph nodes by CT criteria. No hematoma. HEART: Heart is moderately enlarged. Calcifications of the mitral and aortic valves.. No appreciable pericardial effusion. VASCULATURE: Mild to moderate atherosclerotic calcifications of the aorta and branches. Ascending ao rta is 3.5 CM, descending is 2.4 CM. Pulmonary trunk is challenging to assess due to motion but does not appear enlarged measuring about 2.7 cm. Grossly preserved enhancement of the pulmonary arteries, in the limits of non-CTA exam. SOFT TISSUES/LYMPH NODES: Left chest wall changes from prior mastectomy. Fatty atrophy of the inferio r left pectoralis major. No chest wall soft tissue mass or axillary adenopathy. MUSCULOSKELETAL: There are degenerative changes of the shoulders. Mild/moderate degenerative changes throughout the visualized spine. Postoperative changes with bilateral pedicle screws and posterior ro ds at L3-L4. There is no evidence of an acute osseous abnormality. OTHER: No other significant finding. ABDOMEN PELVIS: ABDOMEN LIVER: Unremarkable GALLBLADDER AND BILE DUCTS: The gallbladder is surgically absent. PANCREAS: Unremarkable. SPLEEN: Unremarkable. ADRENAL GLANDS: Unremarkable.. KIDNEYS AND URETERS: Kidneys concentrate and excrete contrast symmetrically. No hydronephrosis or mas ses visualized. No evidence of acute injury. Delayed imaging shows no additional abnormalities. PELVIS BLADDER: Partially contrast filled by the delayed scan, there is no abnormality detected. REPRODUCTIVE: Organs not seen, correlate with history. ABDOMEN & PELVIS STOMACH AND BOWEL: Stomach and small bowel are nondistended. There is no evidence of bowel obstructio n. There are a couple of duodenal diverticula. Appendix is not seen with certainty. There is moderate stool throughout the colon with scattered diverticula proximally, several diverticula in the distal descending and sigmoid region, without clear evidence of diverticulitis. PERITONEUM/RETROPERITONEUM: No evidence of pneumoperitoneum or free fluid. VASCULATURE: Mild atherosclerotic calcifications are present throughout the abdominal aorta and its b ranches. MUSCULOSKELETAL: Mild/moderate degenerative changes throughout the visualized spine. Postoperative ch anges with bilateral pedicle screws and posterior rods at L3-L4. Mild degenerative changes of the hip s, SI joints, pubic symphysis and adjacent pubic bones. There is no evidence of an acute osseous abno rmality. LYMPH NODES: No enlarged nodes by CT size criteria. SOFT TISSUES/ABDOMINAL WALL: Unremarkable OTHER: Forearms hands and wrists are partially seen in the scan, crossed over the abdomen. No gross a cute abnormality detected. Mild degenerative changes. IMPRESSION: 1. No evidence of acute traumatic injury within the chest, abdomen, or pelvis. 2. Moderate cardiomegaly. Mitral valve and aortic calcifications. 3. Other chronic and likely incidental findings, as described above.
--- NOTE | 2024-03-18 21:14 | CT ---
EXAMINATION TYPE: CT thor lumbar spine w con CT DLP: 3933.3 mGycm, Automated exposure control for dose reduction was used. DATE OF EXAM: 03/18/2024 7:58 PM COMPARISON: None.. CLINICAL INDICATION:Female, 78 years old with history of trauma; PHH, P2 TRAUMA, Fall on thinners, d ifficulty lifting neck. TECHNIQUE: CT of the thoracolumbar spine was performed after IV contrast administration, as part of CT chest abd pelvis study. Multiplanar soft tissue and bone windows were obtained and reviewed. . Contrast used: Isovue-300 100 cc IV FINDINGS: Bones appear somewhat osteopenic. There is no evidence for lytic/blastic lesion. No acute fracture or traumatic malalignment is seen. Mild/moderate degenerative changes throughout the visualized spine. No evidence of critical canal or foraminal stenosis. Postoperative changes with bilateral pedicle screws and posterior rods at L3-L4. Hardware appears intact. Partially seen upper sacrum and pelvis show no fracture. Mild degenerative change of the SI joints. No acute paraspinous soft tissue abnormality is seen. For further description of findings, please ref er to body CT. IMPRESSION: 1. No evidence of acute thoracolumbar spine fracture, or traumatic malalignment. 2. Mild/moderate degenerative changes throughout the visualized spine. 3. Postoperative changes with bilateral pedicle screws and posterior rods at L3-L4.
[2024-03-18 21:17] VITALS: RESP 16
[2024-03-18] MEDS ORDERED: ACETAMINOPHEN TAB 325 MG TAB PO PRN (21:20)
[2024-03-18] MEDS ORDERED: NALOXONE 0.4 MG/ML 1 ML VIAL IV PRN (21:20)
--- NOTE | 2024-03-18 21:33 | XR ---
EXAMINATION TYPE: XR knee limited RT DATE OF EXAM: 03/18/2024 8:10 PM CLINICAL INDICATION:Female, 78 years old with history of pain; PHH COMPARISON: None. TECHNIQUE: XR knee limited RT; examined in frontal and lateral projections. FINDINGS: Osseous mineralization appears appropriate. No evidence of destructive lesion or aggressive periostit is. No clear evidence of acute fracture lucency or dislocation. Moderate tricompartmental osteoarthro john. Osseous spur from the superior anterior patella. No significant joint effusion is seen. Seen best on the lateral view projected posterior to the proximal shafts of the tibia and fibula, the re is an unusual appearing structure about 33 mm in length and 6 mm in width, which has the appearanc e and radiotexture of bone but does not appear typical of a fracture, and no donor site is appreciate d. On the frontal view, this seems to be partially visible through the interosseous space. Soft tissu es are otherwise unremarkable. IMPRESSION: 1. Nonspecific calcific/ossific structure in the posterior calf, of uncertain etiology. This seems m ost likely to be sequela of remote injury or dystrophic soft tissue calcification, however correlate clinically for pain/site of trauma to help exclude a chip fracture. 2. Otherwise no acute fracture or dislocation of the knee.
[2024-03-18] MEDS: Acetaminophen-Codeine 300-30mg TAB PO STA (21:36)
[2024-03-18 22:53] LABS: Phencyclidine Screen,Urine Not Detected (NotDetected); Urn Cannabinoid Scrn Not Detected (NotDetected)
[2024-03-18 22:54] LABS: Amphetamine Screen,Urine Not Detected (NotDetected); Barbiturate Screen,Urine Not Detected (NotDetected); Benzodiazepines Screen,Urine Not Detected (NotDetected); Cocaine Screen,Urine Not Detected (NotDetected); Methadone Screen, Urine Not Detected (NotDetected); Opiate Screen,Urine Detected (NotDetected); Oxycodone Screen, Urine Not Detected (NotDetected); Tricyclic Antidepressant,Urine Not Detected (NotDetected)
[2024-03-18] MEDS: LATANOPROST 0.005% OPHTH DROPS 2.5 ML BTL RIGHT EYE SCH (23:57)
--- NOTE | 2024-03-18 23:59 | P.GSHP ---
History of Present Illness H&P Date: 03/18/24 Patient is a 78-year-old female presents emergency department complaining of fall on blood thinners. Patient has a history of A-fib, COPD, diabetes, hypertension, hyperlipidemia. 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 She fell backwards striking the right side of her back on her bed frame and then landing on her bottom and hitting her back on the wall and ground as well as the back of her head on the wall. Did not lose consciousness she does not believe. Complaining of generalized pain to the chest wall as well as neck, right sided ribs. Denies abdominal pain. Endorses acute on chronic right knee pain. Endorses some sternal discomfort as well as right-sided rib discomfort. Patient drove herself here. Presents for further evaluation at this time. Presents as a level 2 trauma. I was made aware of the patient when she was placed in a room. - Review of Systems Comment: A 12 point review of systems was performed and is negative except for the above HPI Past Medical History Past Medical History: Atrial Fibrillation, Asthma, Cancer, Chest Pain / Angina, COPD, CVA/TIA, Diabetes Mellitus, Fibromyalgia, GERD/Reflux, Hyperlipidemia, Hypertension, Mitral Valve Prolapse (MVP), Osteoarthritis (OA), Pneumonia, Skin Disorder, Sleep Apnea/CPAP/BIPAP, Thyroid Disorder Additional Past Medical History / Comment(s): heart murmur, hx rheumatic fever, environmental allergies, hiatal hernia, hx IBS, skin dx called granuloma annulare, hx thyroid cancer, cancer rt breast, TIA- no residual effects, irregular heartbeat, leaking aortic and mitral valves, no cpap used, "severe acid reflux", sepsis after breast surgery History of Any Multi-Drug Resistant Organisms: None Reported Past Surgical History: Back Surgery, Breast Surgery, Cholecystectomy, Heart Catheterization, Heart Catheterization With Stent, Hysterectomy, Orthopedic Surgery Additional Past Surgical History / Comment(s): thyroidectomy, rt radical mastectomy,left mastectomy,constance breast reconstruction x 2-second implant (left breast) removed due to sepsis, cervical fusion x 2, titanium rods-lumbar, rt shoulder arthroscopy, constance cataracts, rt knee arthroscopy, COLONOSCOPY Past Anesthesia/Blood Transfusion Reactions: Previous Problems w/ Anesthesia, Postoperative Nausea & Vomiting (PONV) Additional Past Anesthesia/Blood Transfusion Reaction / Comment(s): woke up during EGD in past Date of Last Stent Placement:: UNK Past Psychological History: Anxiety Smoking Status: Never smoker - Past Family History Mother Family Medical History: Cancer Additional Family Medical History / Comment(s): kidney Sister(s) Family Medical History: Cancer Additional Family Medical History / Comment(s): esophageal Brother(s) Family Medical History: Cancer Additional Family Medical History / Comment(s): colon, thryoid cancer Daughter(s) Family Medical History: Cancer Additional Family Medical History / Comment(s): skin Medications and Allergies Home Medications Medication Instructions Recorded Confirmed Type DULoxetine HCL [Cymbalta] 60 mg PO DAILY 05/03/14 03/18/24 History Montelukast Sodium [Singulair] 10 mg PO HS 10/14/17 03/18/24 History Losartan Potassium 25 mg PO DAILY 09/25/19 03/18/24 History Levothyroxine Sodium [Synthroid] 125 mcg PO DAILY 10/01/20 03/18/24 History Omeprazole [PriLOSEC] 40 mg PO DAILY 10/01/20 03/18/24 History metFORMIN HCL ER [Glucophage XR] 500 mg PO BID-W/MEALS 10/27/21 03/18/24 History Latanoprost Ophth [Xalatan 0.005%] 1 drop RIGHT EYE HS 09/28/22 03/18/24 History Magnesium 200 mg PO BID 12/03/22 03/18/24 History Isosorbide Mononitrate ER [Imdur] 60 mg PO DAILY #30 tab 12/04/22 03/18/24 Rx Clopidogrel [Plavix] 75 mg PO DAILY #90 tab 12/16/22 03/18/24 Rx Eliquis (Unknown Dose) 0.5 tab PO BID 03/18/24 03/18/24 History Hydrocortisone Cream 1 applic TOPICAL BID 03/18/24 03/18/24 History [Hydrocortisone 2.5% Cream] Metoprolol Succinate (ER) [Toprol 100 mg PO DAILY 03/18/24 03/18/24 History Xl] Rosuvastatin [Crestor] 20 mg PO DAILY 03/18/24 03/18/24 History Allergies Allergy/AdvReac Type Severity Reaction Status Date / Time methylprednisolone Allergy red puffy Verified 03/18/24 20:12 [From Medrol] face nickel Allergy Itching/raw Verified 03/18/24 20:12 skin lisinopril AdvReac Severe Cough Verified 03/18/24 20:12 tramadol AdvReac Severe severe Verified 03/18/24 20:12 fatigue, elevated BP adhesive tape AdvReac PULLS SKIN Verified 03/18/24 20:12 OFF hydrocodone bitartrate AdvReac Hallucinati Verified 03/18/24 20:12 [From [place]o] ons naproxen sodium [From Aleve] AdvReac lowers BP Verified 03/18/24 20:12 bandaid AdvReac pulls skin Uncoded 03/18/24 20:12 off Surgical - Exam Osteopathic Statement: *. No significant issues noted on an osteopathic structural exam other than those noted in the History and Physical/Consult. Vital Signs Temp Pulse Resp BP Pulse Ox 98.3 F 59 L 18 120/71 98 03/18/24 19:08 03/18/24 19:08 03/18/24 19:08 03/18/24 19:08 03/18/24 19:08 - General GEN: NAD, AO X 4 HEENT: SMALL HEMATOMA/LAC ON POSTERIOR SCALP NOT REQUIRING INTERVENTION, PARASPINAL NECK PAIN CV: RRR PUL: NON LABORED BREATHING CHEST: NO PAIN UPON PALPATION ABD: SOFT, ROTUND, NON DISTENDED, NO GUARDING OR REBOUND TENDERNESS EXT: RGHT KNEE PAIN NEURO: CN 2-12 INTACT Results - Labs 03/18/24 19:25 03/18/24 19:25 Abnormal Lab Results - Last 24 Hours (Table) 03/18/24 03/18/24 Range/Units 19:25 21:54 BUN 20 H (7-17) mg/dL Glucose 129 H (74-99) mg/dL Urine Opiates Screen Detected H (NotDetected) Diabetes panel 03/18/24 Range/Units 19:25 Sodium 139 (137-145) mmol/L Potassium 3.9 (3.5-5.1) mmol/L Chloride 104 (98-107) mmol/L Carbon Dioxide 26 (22-30) mmol/L BUN 20 H (7-17) mg/dL Creatinine 0.85 (0.52-1.04) mg/dL Glucose 129 H (74-99) mg/dL Calcium 8.5 (8.4-10.2) mg/dL AST 30 (14-36) U/L ALT 24 (4-34) U/L Alkaline Phosphatase 97 (38-126) U/L Total Protein 6.7 (6.3-8.2) g/dL Albumin 4.2 (3.5-5.0) g/dL Calcium panel 03/18/24 Range/Units 19:25 Calcium 8.5 (8.4-10.2) mg/dL Albumin 4.2 (3.5-5.0) g/dL Pituitary panel 03/18/24 Range/Units 19:25 Sodium 139 (137-145) mmol/L Potassium 3.9 (3.5-5.1) mmol/L Chloride 104 (98-107) mmol/L Carbon Dioxide 26 (22-30) mmol/L BUN 20 H (7-17) mg/dL Creatinine 0.85 (0.52-1.04) mg/dL Glucose 129 H (74-99) mg/dL Calcium 8.5 (8.4-10.2) mg/dL Adrenal panel 03/18/24 Range/Units 19:25 Sodium 139 (137-145) mmol/L Potassium 3.9 (3.5-5.1) mmol/L Chloride 104 (98-107) mmol/L Carbon Dioxide 26 (22-30) mmol/L BUN 20 H (7-17) mg/dL Creatinine 0.85 (0.52-1.04) mg/dL Glucose 129 H (74-99) mg/dL Calcium 8.5 (8.4-10.2) mg/dL Total Bilirubin 0.4 (0.2-1.3) mg/dL AST 30 (14-36) U/L ALT 24 (4-34) U/L Alkaline Phosphatase 97 (38-126) U/L Total Protein 6.7 (6.3-8.2) g/dL Albumin 4.2 (3.5-5.0) g/dL Assessment and Plan Assessment: 78 yo female s/p mechanical fall from ladder (attempting to pain) currently on eliquis/plavix small posterior scalp lac -initial ct head/neck negative for acute process -repeat ct head in am -likely able to restart blood thinner in the next 24hrs -follow up right knee xray Time with Patient: Greater than 30
[2024-03-19] MEDS: MORPHINE SULFATE 4 MG/ML SYRINGE IV PRN (01:00)
[2024-03-19 05:32] LABS: Basophils % (A) 1 %; Eosinophils # (A) 0.1 k/uL (0-0.7); Eosinophils % (A) 3 %; HCT 32.2 % (34.0-46.0); HGB 10.4 gm/dL (11.4-16.0); Lymphocytes # (A) 1.6 k/uL (1.0-4.8); Lymphocytes % (A) 30 %; MCH 27.4 pg (25.0-35.0); MCHC 32.3 g/dL (31.0-37.0); MCV 84.7 fL (80.0-100.0); Mean Platelet Volume 8.5; Monocytes # (A) 0.3 k/uL (0-1.0); Monocytes % (A) 6 %; Neutrophils # (A) 3.1 k/uL (1.3-7.7); Neutrophils % (A) 58 %; Platelet Count 156 k/uL (150-450); RBC 3.79 m/uL (3.80-5.40); WBC 5.3 k/uL (3.8-10.6)
[2024-03-19 05:41] LABS: ALT 20 U/L (4-34); AST 26 U/L (14-36); African American GFR (CKD) 80 (>60 ml/min/1.73 sqM); Albumin 3.4 g/dL (3.5-5.0); Alkaline Phosphatase 84 U/L (38-126); Anion Gap 6 mmol/L; Blood Urea Nitrogen 18 mg/dL (7-17); Calcium 7.9 mg/dL (8.4-10.2); Carbon Dioxide 27 mmol/L (22-30); Chloride 106 mmol/L (98-107); Glucose 110 mg/dL (74-99); Non-African American GFR(CKD) 69 (>60 ml/min/1.73 sqM); Potassium 3.9 mmol/L (3.5-5.1); Sodium 139 mmol/L (137-145); Total Bilirubin 0.3 mg/dL (0.2-1.3); Total Protein 5.7 g/dL (6.3-8.2)
[2024-03-19] MEDS: LEVOTHYROXINE 125 MCG TAB PO SCH (06:56)
[2024-03-19] MEDS: ATORVASTATIN 40 MG TAB PO SCH (08:49)
[2024-03-19] MEDS: LOSARTAN 25 MG TAB PO SCH (08:49)
[2024-03-19] MEDS: MAGNESIUM OXIDE 400 MG TAB PO SCH (08:49)
[2024-03-19] MEDS: PANTOPRAZOLE 40 MG TABLET PO SCH (08:49)
[2024-03-19] MEDS: DULoxetine HCL 60 MG CAPSULE.DR PO SCH (08:50)
--- NOTE | 2024-03-19 09:12 | CT ---
EXAMINATION TYPE: CT brain wo con DATE OF EXAM: 03/19/2024 COMPARISON: 03/18/2024 HISTORY: 78-year-old female pain after Fall on thinners, 12 hour repeat scan TECHNIQUE: Examination was done in axial plane without intravenous contrast. Coronal and sagittal r econstructions performed. CT DLP: 1201.1 mGycm Automated exposure control for dose reduction was used. FINDINGS: There is no evidence of acute intracranial hemorrhage, acute ischemic changes, mass, mass-effect, or extra-axial fluid collection. There is no effacement of cerebral sulci or basal subarachnoid cister ns. There is no hydrocephalus. There is no midline shift. Enriquez-white matter distinction is preserv ed. Leftward nasal septum deviation. Paranasal sinuses and mastoid air cells are well pneumatized. Orbits and globes are intact. IMPRESSION: No acute intracranial abnormality seen.
[2024-03-19 09:45] VITALS: BP 137/64; PULSE 61; TEMP 98.1
[2024-03-19] MEDS: Acetaminophen-Codeine 300-30mg TAB PO PRN (10:54)
[2024-03-19] MEDS: METOPROLOL SUCCINATE (ER) 100 MG TAB.ER.24H PO SCH (10:55)
[2024-03-19] MEDS: ISOSORBIDE MONONITRATE ER 60 MG TAB.ER.24H PO SCH (10:55)
--- NOTE | 2024-03-19 11:59 | P.DS ---
Providers Date of admission: 03/18/24 21:22 Expected date of discharge: 03/19/24 Attending physician: Christiano Marie DO Primary care physician: [facility] Course: this is a 78-year-old female who had a fall on blood thinners. Patient admitted to the hospital for observation. Patient 2 CT scans the brain which were negative. On the day of discharge patient felt well. she had no complaints.She was discharged home. Patient Condition at Discharge: Good Plan - Discharge Summary New Discharge Prescriptions: No Action DULoxetine HCL [Cymbalta] 60 mg PO DAILY Montelukast Sodium [Singulair] 10 mg PO HS Losartan Potassium 25 mg PO DAILY Levothyroxine Sodium [Synthroid] 125 mcg PO DAILY Omeprazole [PriLOSEC] 40 mg PO DAILY metFORMIN HCL ER [Glucophage XR] 500 mg PO BID-W/MEALS Latanoprost Ophth [Xalatan 0.005%] 1 drop RIGHT EYE HS Magnesium 200 mg PO BID Hydrocortisone Cream [Hydrocortisone 2.5% Cream] 1 applic TOPICAL BID Eliquis (Unknown Dose) 0.5 tab PO BID Isosorbide Mononitrate ER [Imdur] 60 mg PO DAILY #30 tab Clopidogrel [Plavix] 75 mg PO DAILY #90 tab Rosuvastatin [Crestor] 20 mg PO DAILY Metoprolol Succinate (ER) [Toprol Xl] 100 mg PO DAILY Discharge Medication List DULoxetine HCL [Cymbalta] 60 mg PO DAILY 05/03/14 [History] Montelukast Sodium [Singulair] 10 mg PO HS 10/14/17 [History] Losartan Potassium 25 mg PO DAILY 09/25/19 [History] Levothyroxine Sodium [Synthroid] 125 mcg PO DAILY 10/01/20 [History] Omeprazole [PriLOSEC] 40 mg PO DAILY 10/01/20 [History] metFORMIN HCL ER [Glucophage XR] 500 mg PO BID-W/MEALS 10/27/21 [History] Latanoprost Ophth [Xalatan 0.005%] 1 drop RIGHT EYE HS 09/28/22 [History] Magnesium 200 mg PO BID 12/03/22 [History] Isosorbide Mononitrate ER [Imdur] 60 mg PO DAILY #30 tab 12/04/22 [Rx] Clopidogrel [Plavix] 75 mg PO DAILY #90 tab 12/16/22 [Rx] Eliquis (Unknown Dose) 0.5 tab PO BID 03/18/24 [History] Hydrocortisone Cream [Hydrocortisone 2.5% Cream] 1 applic TOPICAL BID 03/18/24 [History] Metoprolol Succinate (ER) [Toprol Xl] 100 mg PO DAILY 03/18/24 [History] Rosuvastatin [Crestor] 20 mg PO DAILY 03/18/24 [History] Follow up Appointment(s)/Referral(s): Eduardo Fry MD [Primary Care Provider] - 1-2 days
--- NOTE | 2024-03-20 00:53 | CONS ---
CONSULTATION REASON FOR CONSULTATION: Advice regarding atrial ablation and other medical issues, requested by Surgery. HISTORY OF PRESENT ILLNESS: This is an 78-year-old woman with a past medical history of multiple medical problems including atrial fibrillation, history of COPD, diabetes type 2, had complaints of back pain after falling from a ladder. The Surgery has done extensive evaluation and Radiology evaluation, which did not show any acute abnormality. Surgery is planning the patient to be discharged with conservative line of management. There is no history of any fever, rigors, or chills at this time. The patient had a small posterior scalp laceration. Blood thinners are supposed to be started within the 24 hours. No fever. No cough. PAST MEDICAL HISTORY: Reviewed include COPD, atrial fibrillation. Rest of the history and rest of the chart is also reviewed. HOME MEDICATIONS: Reviewed include Singulair. Dose and rest of medications reviewed. ALLERGIES: Multiple allergies, lisinopril, Ultram. Rest of the allergies are noted. FAMILY HISTORY: History of kidney cancer. SOCIAL HISTORY: No history of smoking or alcohol. REVIEW OF SYSTEMS: Fourteen-point review is negative except as mentioned earlier. PHYSICAL EXAMINATION: VITAL SIGNS: Pulse 61, blood pressure 137/62, respirations 16. CHEST: Clear to auscultation. CARDIOVASCULAR: S1, S2. ABDOMEN: Soft, nontender. NERVOUS SYSTEM: Nonfocal. SKIN: No ulcer, rash, bleeding. JOINTS: No active deforming arthropathy. LABORATORY DATA: Reviewed. ASSESSMENT: 1. Status post fall and back pain, possibly musculoskeletal. 2. Small posterior scalp laceration. 3. Chronic obstructive pulmonary disease. 4. Atrial fibrillation. 5. Diabetes mellitus, type 2. 6. Hypertension. 7. Hyperlipidemia. 8. Multiple complex medical issues. RECOMMENDATIONS AND DISCUSSION: This is an 78-year-old woman, who presented with multiple medical issues. At this time, the patient is medically stable. I would recommend to resume the home medications and the blood thinners can also be restarted per Surgery recommendations. Recommend to close followup in the outpatient setting with Dr. Fry. Otherwise, further recommendations to follow. MMODL / IJN: [id number] /
== END 2024-03-19 15:36 | disposition home or self-care (01) ==
LOC: EC 18:55 → 6NMEDSUR 21:22
PROVIDERS: ADMIT Surgery; ATTEND Surgery
DX: S16.1XXA Strain of muscle, fascia and tendon at neck level, initial encounter (principal); S01.01XA Laceration without foreign body of scalp, initial encounter; S20.20XA Contusion of thorax, unspecified, initial encounter; W11.XXXA Fall on and from ladder, initial encounter; I48.91 Unspecified atrial fibrillation; J44.9 Chronic obstructive pulmonary disease, unspecified; E78.5 Hyperlipidemia, unspecified; I10 Essential (primary) hypertension; E11.9 Type 2 diabetes mellitus without complications; G89.29 Other chronic pain; M25.561 Pain in right knee; Z79.890 Hormone replacement therapy; Z79.84 Long term (current) use of oral hypoglycemic drugs; Z79.01 Long term (current) use of anticoagulants; Z79.02 Long term (current) use of antithrombotics/antiplatelets; Z79.899 Other long term (current) drug therapy; Z88.6 Allergy status to analgesic agent; Z88.5 Allergy status to narcotic agent; Z88.8 Allergy status to other drugs, medicaments and biological substances; Z91.048 Other nonmedicinal substance allergy status
CPT/HCPCS: 96376; 96361; 96374; 99291; 36415; 94760; 93005; 86900; 86901; 80053 ×2; 85025 ×2; 85610; 85730; 86850; 80306; 72170; 73560; 71045; 72129; 72125; 72132; 70450 ×2; 71260; 74177; G0378 ×2; G0480; J2270 ×2; Q9967; 80320

== ENCOUNTER → 2024-04-09 | Outpatient (CLI) | payer MEDICARE, BC ==
--- NOTE | 2024-04-09 13:37 | MR ---
EXAMINATION TYPE: MR brain wo/w con DATE OF EXAM: 04/09/2024 COMPARISON: 06/05/2014 HISTORY: Fell and hit back of head on March 17, 2024, Pain back of head and neck, Hx Breast cancer 1988 and Thyroid cancer TECHNIQUE: Multiplanar, multisequence images of the brain and brainstem is performed without and with IV contras t, utilizing 8.5 mL intravenous Gadavist . Findings: On the T1-weighted sagittal images, the midline structures including the craniovertebral junction rel ationships appear normal. The ventricles, basal cisterns and sulci over the convexities are within normal limits for the patien t's age and there is no mass effect or shift of midline structures There is mild ischemic white matter demyelination. Based on diffusion-weighted imaging, there is no diffusion restriction or acute ischemic event. Following contrast administration, there is no pathological enhancement. The posterior fossa including the brainstem, fourth ventricle and cerebellar pontine angles appear no rmal. Intraorbital contents are normal and symmetric. Visualized paranasal sinuses and mastoid air cells ar e well aerated. IMPRESSION: Mild senescent changes with no other significant abnormality.
== END | disposition home or self-care (01) ==
LOC: RADMRIMAIN 11:46
PROVIDERS: ATTEND Internal Medicine Geriatric Medicine
DX: R51.9 Headache, unspecified (principal); M54.2 Cervicalgia; Z85.3 Personal history of malignant neoplasm of breast; Z85.850 Personal history of malignant neoplasm of thyroid
CPT/HCPCS: 70553; A9585

== ENCOUNTER 2024-07-03 15:07 | Observation (INO) | payer MEDICARE, BC ==
--- NOTE | 2024-07-03 15:43 | ED ---
General Adult HPI - General Chief complaint: Chest Pain Stated complaint: chest pain Time Seen by Provider: 07/03/24 15:19 Source: patient, family, RN notes reviewed, old records reviewed Mode of arrival: ambulatory Limitations: no limitations - History of Present Illness Initial comments: 78 female history of aortic stenosis and coronary artery disease presenting with exertional chest pain and dyspnea. Patient is currently on Eliquis. She does report a minor cough. She reports central chest pain which is worse with worse with exertion. No associated nausea or vomiting. No diaphoresis. Pain does not radiate. No no pain while at rest. - Related Data Home Medications Medication Instructions Recorded Confirmed DULoxetine HCL [Cymbalta] 60 mg PO DAILY 05/03/14 07/03/24 Montelukast Sodium [Singulair] 10 mg PO HS 10/14/17 07/03/24 Levothyroxine Sodium [Synthroid] 125 mcg PO DAILY 10/01/20 07/03/24 Omeprazole [PriLOSEC] 40 mg PO DAILY 10/01/20 07/03/24 metFORMIN HCL ER [Glucophage XR] 500 mg PO BID 10/27/21 07/03/24 Latanoprost Ophth [Xalatan 0.005%] 1 drop BOTH EYES HS 09/28/22 07/03/24 Metoprolol Succinate (ER) [Toprol 100 mg PO DAILY 03/18/24 07/03/24 Xl] Rosuvastatin [Crestor] 20 mg PO DAILY 03/18/24 07/03/24 Apixaban [Eliquis] 2.5 mg PO DIRECTED 07/03/24 07/03/24 Doxycycline Hyclate 100 mg PO DIRECTED 07/03/24 07/03/24 Losartan [Cozaar] 25 mg PO DAILY 07/03/24 07/03/24 Losartan [Cozaar] 25 mg PO DAILY 07/03/24 07/03/24 Magnesium Oxide [Mag-Ox] 400 mg PO BID 07/03/24 07/03/24 Promethazine/Dextromethorphan 5 ml PO Q4H PRN 07/03/24 07/03/24 [Promethazine-Dm Syrup] predniSONE [Deltasone] 40 mg PO DIRECTED 07/03/24 07/03/24 Previous Rx's Medication Instructions Recorded Isosorbide Mononitrate ER [Imdur] 60 mg PO DAILY #30 tab 12/04/22 Clopidogrel [Plavix] 75 mg PO DAILY #90 tab 12/16/22 Allergies Allergy/AdvReac Type Severity Reaction Status Date / Time methylprednisolone Allergy red puffy Verified 07/03/24 17:22 [From Medrol] face nickel Allergy Itching/raw Verified 07/03/24 17:22 skin lisinopril AdvReac Severe Cough Verified 07/03/24 17:22 tramadol AdvReac Severe severe Verified 07/03/24 17:22 fatigue, elevated BP adhesive tape AdvReac PULLS SKIN Verified 07/03/24 17:22 OFF hydrocodone bitartrate AdvReac Hallucinati Verified 07/03/24 17:22 [From [place]] ons naproxen sodium [From Aleve] AdvReac lowers BP Verified 07/03/24 17:22 bandaid AdvReac pulls skin Uncoded 07/03/24 17:22 off Review of Systems ROS Statement: Those systems with pertinent positive or pertinent negative responses have been documented in the HPI. ROS Other: All systems not noted in ROS Statement are negative. Past Medical History Past Medical History: Atrial Fibrillation, Asthma, Cancer, Chest Pain / Angina, COPD, CVA/TIA, Diabetes Mellitus, Fibromyalgia, GERD/Reflux, Hyperlipidemia, Hypertension, Mitral Valve Prolapse (MVP), Osteoarthritis (OA), Pneumonia, Skin Disorder, Sleep Apnea/CPAP/BIPAP, Thyroid Disorder Additional Past Medical History / Comment(s): heart murmur, hx rheumatic fever, environmental allergies, hiatal hernia, hx IBS, skin dx called granuloma annulare, hx thyroid cancer, cancer rt breast, TIA- no residual effects, irregular heartbeat, leaking aortic and mitral valves, no cpap used, "severe acid reflux", sepsis after breast surgery History of Any Multi-Drug Resistant Organisms: None Reported Past Surgical History: Back Surgery, Breast Surgery, Cholecystectomy, Heart Catheterization, Heart Catheterization With Stent, Hysterectomy, Orthopedic Surgery Additional Past Surgical History / Comment(s): thyroidectomy, rt radical mastectomy,left mastectomy,constance breast reconstruction x 2-second implant (left breast) removed due to sepsis, cervical fusion x 2, titanium rods-lumbar, rt s [place] arthroscopy, constance cataracts, rt knee arthroscopy, COLONOSCOPY Past Anesthesia/Blood Transfusion Reactions: Previous Problems w/ Anesthesia, Postoperative Nausea & Vomiting (PONV) Additional Past Anesthesia/Blood Transfusion Reaction / Comment(s): woke up during EGD in past Date of Last Stent Placement:: UNK Past Psychological History: Anxiety Smoking Status: Never smoker - Past Family History Mother Family Medical History: Cancer Additional Family Medical History / Comment(s): kidney Sister(s) Family Medical History: Cancer Additional Family Medical History / Comment(s): esophageal Brother(s) Family Medical History: Cancer Additional Family Medical History / Comment(s): colon, thryoid cancer Daughter(s) Family Medical History: Cancer Additional Family Medical History / Comment(s): skin General Exam Limitations: no limitations General appearance: alert, in no apparent distress Head exam: Present: atraumatic, normocephalic Eye exam: Present: normal appearance, PERRL ENT exam: Present: normal exam Neck exam: Present: normal inspection. Absent: tenderness, meningismus Respiratory exam: Present: other (bronchospastic cough) Cardiovascular Exam: Present: regular rate, normal rhythm, systolic murmur GI/Abdominal exam: Present: soft. Absent: distended, tenderness, guarding Extremities exam: Present: normal inspection, normal capillary refill Neurological exam: Present: alert, CN II-XII intact. Absent: motor sensory deficit Psychiatric exam: Present: normal affect, normal mood Skin exam: Present: warm, dry, intact. Absent: cyanosis, diaphoretic Course Vital Signs 07/03/24 15:13 Temperature 98 F Pulse Rate 104 H Respiratory 20 Rate Blood Pressure 135/64 O2 Sat by Pulse 98 Oximetry Medical Decision Making - Medical Decision Making Was pt. sent in by a medical professional or institution (, PA, TACK MAKER, urgent care, hospital, or custodial...) When possible be specific @ -No Did you speak to anyone other than the patient for history (EMS, parent, family, police, friend...)? What history was obtained from this source @ -No Did you review nursing and triage notes (agree or disagree)? Why? @ -I reviewed and agree with nursing and triage notes Were old charts reviewed (outside hosp., previous admission, EMS record, old EKG, old radiological studies, urgent care reports/EKG's, custodial records)? Report findings @ -No old charts were reviewed Differential Chest Pain: Stable Angina, Unstable Angina, STEMI, NSTEMI Aortic Dissection, Pneumothorax, Musculoskeletal, Esophageal Spasm GERD, Cholecystitis, Pancreatitis, Zoster, this is not meant to be an all-inclusive list. EKG interpreted by me (3pts min.). @ -Sinus rhythm with PVC rate of 97 MD interval 146, QRS duration 84, QTc [address] segment elevation X-rays interpreted by me (1pt min.). @ -[Chest x-ray is negative for acute cardiopulmonary findings CT interpreted by me (1pt min.). @ -None done U/S interpreted by me (1pt. min.). @ -None done What testing was considered but not performed or refused? (CT, X-rays, U/S, labs)? Why? @ -None What meds were considered but not given or refused? Why? @ -None Did you discuss the management of the patient with other professionals (professionals i.e. , PA, TACK MAKER, lab, RT, psych nurse, licensed clinical social worker, air reduction equipment operator, teacher, traffic maintenance officer, cyanide case hardener)? Give summary @ -[facility] for [facility] Was smoking cessation discussed for >3mins.? @ -No Was critical care preformed (if so, how long)? @ -No Were there social determinants of health that impacted care today? How? (Homelessness, low income, unemployed, alcoholism, drug addiction, transportation, low edu. Level, literacy, decrease access to med. care, half-way, rehab)? @ -No Was there de-escalation of care discussed even if they declined (Discuss DNR or withdrawal of care, Hospice)? DNR status @ -No What co-morbidities impacted this encounter? (DM, HTN, Smoking, COPD, CAD, Cancer, CVA, ARF, Chemo, Hep., AIDS, mental health diagnosis, sleep apnea, mo rbid obesity)? @ -[aortic Stenosis, CAD Was patient admitted / discharged? Hospital course, mention meds given and route, prescriptions, significant lab abnormalities, going to OR and other pertinent info. @ -78-year-old female presenting with exertional chest pain and dyspnea. History of CAD and aortic stenosis. EKG is sinus without ST segment elevation. Chest x-ray is clear. She has a mild leukocytosis, elevated blood glucose. She has an age-adjusted normal D-dimer and a negative troponin. She has a negative BNP. Patient is chest pain-free while in the emergency department. She will be placed in observation for serial cardiac enzymes, telemetry, and cardiology consultation. Undiagnosed new problem with uncertain prognosis? @ -[No Drug Therapy requiring intensive monitoring for toxicity (Heparin, Nitro, Insulin, Cardizem)? @ -No Were any procedures done? @ -No Diagnosis/symptom? @ - CHEST Pain rule out Acute, or Chronic, or Acute on Chronic? @ -acute Uncomplicated (without systemic symptoms) or Complicated (systemic symptoms)? @ -Default Side effects of treatment? @ -No Exacerbation, Progression, or Severe Exacerbation? @ -No Poses a threat to life or bodily function? How? (Chest pain, [place], OR, pneumonia, PE, COPD, DKA, ARF, appy, cholecystitis, CVA, Diverticulitis, Homicidal, Suicidal, threat to staff... and all critical care pts) @ -[Yes, ACS - Lab Data Result diagrams: 07/03/24 15:39 07/03/24 15:39 Lab Results 07/03/24 07/03/24 07/03/24 Range/Units 15:39 15:39 15:39 WBC 13.1 H (3.8-10.6) k/uL RBC 4.16 (3.80-5.40) m/uL Hgb 11.4 (11.4-16.0) gm/dL Hct 34.7 (34.0-46.0) % MCV 83.4 (80.0-100.0) fL MCH 27.3 (25.0-35.0) pg MCHC 32.8 (31.0-37.0) g/dL RDW 14.7 (11.5-15.5) % Plt Count 184 (150-450) k/uL MPV 8.2 Neutrophils % 90 % Lymphocytes % 5 % Monocytes % 4 % Eosinophils % 0 % Basophils % 0 % Neutrophils # 11.8 H (1.3-7.7) k/uL Lymphocytes # 0.7 L (1.0-4.8) k/uL Monocytes # 0.5 (0-1.0) k/uL Eosinophils # 0.0 (0-0.7) k/uL Basophils # 0.0 (0-0.2) k/uL Hypochromasia Slight PT 11.0 (10.0-12.5) sec INR 1.0 (<1.2) APTT 24.3 (22.0-30.0) sec D-Dimer (<0.60) mg/L FEU Sodium 140 (137-145) mmol/L Potassium 3.6 (3.5-5.1) mmol/L Chloride 105 (98-107) mmol/L Carbon Dioxide 21 L (22-30) mmol/L Anion Gap 14 mmol/L BUN 26 H (7-17) mg/dL Creatinine 0.92 (0.52-1.04) mg/dL Est GFR (CKD-EPI)AfAm 68 (>60 ml/min/1.73 sqM) Est GFR (CKD-EPI)NonAf 59 (>60 ml/min/1.73 sqM) Glucose 276 H (74-99) mg/dL Calcium 8.7 (8.4-10.2) mg/dL Magnesium 1.3 L (1.6-2.3) mg/dL Total Bilirubin 0.4 (0.2-1.3) mg/dL AST 31 (14-36) U/L ALT 27 (4-34) U/L Alkaline Phosphatase 95 (38-126) U/L Troponin I (0.000-0.034) ng/mL NT-Pro-B Natriuret Pep 467 pg/mL Total Protein 6.6 (6.3-8.2) g/dL Albumin 4.2 (3.5-5.0) g/dL 07/03/24 07/03/24 Range/Units 15:39 15:39 WBC (3.8-10.6) k/uL RBC (3.80-5.40) m/uL Hgb (11.4-16.0) gm/dL Hct (34.0-46.0) % MCV (80.0-100.0) fL MCH (25.0-35.0) pg MCHC (31.0-37.0) g/dL RDW (11.5-15.5) % Plt Count (150-450) k/uL MPV Neutrophils % % Lymphocytes % % Monocytes % % Eosinophils % % Basophils % % Neutrophils # (1.3-7.7) k/uL Lymphocytes # (1.0-4.8) k/uL Monocytes # (0-1.0) k/uL Eosinophils # (0-0.7) k/uL Basophils # (0-0.2) k/uL Hypochromasia PT (10.0-12.5) sec INR (<1.2) APTT (22.0-30.0) sec D-Dimer 0.65 H (<0.60) mg/L FEU Sodium (137-145) mmol/L Potassium (3.5-5.1) mmol/L Chloride (98-107) mmol/L Carbon Dioxide (22-30) mmol/L Anion Gap mmol/L BUN (7-17) mg/dL Creatinine (0.52-1.04) mg/dL Est GFR (CKD-EPI)AfAm (>60 ml/min/1.73 sqM) Est GFR (CKD-EPI)NonAf (>60 ml/min/1.73 sqM) Glucose (74-99) mg/dL Calcium (8.4-10.2) mg/dL Magnesium (1.6-2.3) mg/dL Total Bilirubin (0.2-1.3) mg/dL AST (14-36) U/L ALT (4-34) U/L Alkaline Phosphatase (38-126) U/L Troponin I <0.012 (0.000-0.034) ng/mL NT-Pro-B Natriuret Pep pg/mL Total Protein (6.3-8.2) g/dL Albumin (3.5-5.0) g/dL Disposition Clinical Impression: Chest pain Disposition: ADMITTED IP TO THIS HOSP Condition: Stable Is patient prescribed a controlled substance at d/c from ED?: No Referrals: Eduardo Fry MD [Primary Care Provider] - 1-2 days Time of Disposition: 17:47
[2024-07-03 15:48] LABS: Basophils % (A) 0 %; Eosinophils % (A) 0 %; HCT 34.7 % (34.0-46.0); HGB 11.4 gm/dL (11.4-16.0); Hypochromasia Slight; Lymphocytes # (A) 0.7 k/uL (1.0-4.8); Lymphocytes % (A) 5 %; MCH 27.3 pg (25.0-35.0); MCHC 32.8 g/dL (31.0-37.0); MCV 83.4 fL (80.0-100.0); Mean Platelet Volume 8.2; Monocytes # (A) 0.5 k/uL (0-1.0); Monocytes % (A) 4 %; Neutrophils # (A) 11.8 k/uL (1.3-7.7); Neutrophils % (A) 90 %; Platelet Count 184 k/uL (150-450); RBC 4.16 m/uL (3.80-5.40); RDW 14.7 % (11.5-15.5); WBC 13.1 k/uL (3.8-10.6)
[2024-07-03 16:04] LABS: Partial Thromboplastin Time 24.3 sec (22.0-30.0)
--- NOTE | 2024-07-03 16:08 | XR ---
EXAMINATION TYPE: XR chest 2V DATE OF EXAM: 07/03/2024 COMPARISON: 04/15/2023 HISTORY: Chest pain TECHNIQUE: Frontal and lateral views of the chest are obtained. FINDINGS: There is no focal air space opacity, pleural effusion, or pneumothorax seen. The cardiac silhouette size is within normal limits. The osseous structures are intact. IMPRESSION: No acute cardiopulmonary process.
[2024-07-03 16:13] LABS: AST 31 U/L (14-36); African American GFR (CKD) 68 (>60 ml/min/1.73 sqM); Albumin 4.2 g/dL (3.5-5.0); Alkaline Phosphatase 95 U/L (38-126); Anion Gap 14 mmol/L; Blood Urea Nitrogen 26 mg/dL (7-17); Calcium 8.7 mg/dL (8.4-10.2); Carbon Dioxide 21 mmol/L (22-30); Chloride 105 mmol/L (98-107); Glucose 276 mg/dL (74-99); Magnesium 1.3 mg/dL (1.6-2.3); Non-African American GFR(CKD) 59 (>60 ml/min/1.73 sqM); Potassium 3.6 mmol/L (3.5-5.1); Sodium 140 mmol/L (137-145); Total Bilirubin 0.4 mg/dL (0.2-1.3); Total Protein 6.6 g/dL (6.3-8.2)
[2024-07-03 16:23] LABS: NT-Pro-B-Type Natriuretic Pept 467 pg/mL
[2024-07-03 16:26] LABS: ALT 27 U/L (4-34)
[2024-07-03] MEDS: MAGNESIUM SULFATE-D5W PMX 1 GM in DEXTROSE/WATER 1 100ML.BAG IVPB ONE (17:05)
[2024-07-03] MEDS ORDERED: NALOXONE 0.4 MG/ML 1 ML VIAL IV PRN (17:43)
[2024-07-03] MEDS ORDERED: ONDANSETRON 4 MG/2 ML VIAL IVP PRN (17:43)
[2024-07-03] MEDS ORDERED: ACETAMINOPHEN TAB 325 MG TAB PO PRN (17:43)
[2024-07-04] MEDS ORDERED: NITROGLYCERIN SL TABS 0.4 MG TAB SUBLINGUAL PRN (11:01)
[2024-07-04] MEDS ORDERED: ALPRAZolam 0.25 MG TAB PO PRN (11:01)
[2024-07-04] MEDS ORDERED: ALPRAZolam 0.5 MG TAB PO PRN (11:01)
[2024-07-04] MEDS: ENOXAPARIN 80 MG/0.8 ML SYRINGE SQ STA ×2 (12:11→13:12)
[2024-07-04] MEDS: ATORVASTATIN 40 MG TAB PO SCH (12:12)
[2024-07-04] MEDS: METOPROLOL SUCCINATE (ER) 100 MG TAB.ER.24H PO SCH (12:12)
[2024-07-04] MEDS: LEVOTHYROXINE 125 MCG TAB PO SCH (12:12)
[2024-07-04] MEDS: ISOSORBIDE MONONITRATE ER 60 MG TAB.ER.24H PO SCH (12:12)
[2024-07-04] MEDS: APIXABAN 5 MG TAB PO SCH (12:13)
--- NOTE | 2024-07-04 12:33 | P.CRDCN ---
History of Present Illness History of present illness: HISTORY OF PRESENT ILLNESS: This is a 78-year-old female with a past medical history significant for coronary artery disease with previous stenting of the RCA, known intermediate disease involving large diagnosed branch, valvular heart disease paroxysmal atrial fibrillation, hypertension, and hyperlipidemia. Patient follows in the office with Dr. Back. We have been asked to see the patient in consultation for chest pain. Patient examined at the bedside in the ER. She states she has been coughing alot recently for about 6 weeks. She states she went to urgent care and was given breathing treatments/inhalers and steroids. She states she was starting to feel better. She states she was doing a breating treatment and then she was walking around her house when she developed chest discomfort and a lump in her throat. She also felt palpitations. She states the pain was in the middle of her chest. She denies worsening pain with deep inspiration or chest wall palpation. DIAGNOSTICS: - EKG reveals sinus mechanism with PVCs. Minimal diffuse ST depression. - Chest xray negative for acute process - Laboratory data: WBC 13.1. Hemoglobin 11.4. Platelet count 184. Sodium 140. Potassium 3.6. BUN 26. Creatinine 0.92. Troponin negative x 3. proBNP 467. Magnesium 1.3. - Current home cardiac medications include rosuvastatin 20 mg daily, metoprolol succinate 100 mg daily, losartan 25 mg daily, Imdur 60 mg daily, Plavix 75 mg daily, Eliquis 2.5 mg twice a day - Most recent echocardiogram obtained in April 2024 at the cardiology office revealed ejection fraction 55%, mild aortic regurgitation, mild aortic stenosis, moderate mitral stenosis, mild to moderate tricuspid regurgitation - Cardiac catheterization history: April 2023 revealing patent stent in the ostial RCA. Mild disease involving the PDA of the RCA appeared to be unchanged compared to before. Intermediate disease involving the large first diagnosed branch. iFR nonischemic at 0.94. Normal left-sided filling pressures. -Patient underwent Lexiscan stress test in March 2024 which was negative for ischemia REVIEW OF SYSTEMS: At the time of my exam: CONSTITUTIONAL: Denies fever or chills. HEENT: Denies blurred vision, vision changes, or eye pain. Denies hemoptysis CARDIOVASCULAR: Denies chest pain. Denies orthopnea. Denies PND. Denies palpitations RESPIRATORY: Denies shortness of breath. GASTROINTESTINAL: Denies abdominal pain. Denies nausea or vomiting. HEMATOLOGIC: Denies bleeding disorders. GENITOURINARY: Denies any blood in urine. SKIN: Denies pruitis. Denies rash. PHYSICAL EXAM: VITAL SIGNS: Reviewed. GENERAL: Well-developed in no acute distress. HEENT: Head is normocephalic. Pupils are equal, round. Sclerae anicteric. Mucous membranes of the mouth are moist. Neck supple. No JVD or thyromegaly LUNGS: Respirations even and unlabored. Lungs essentially clear to auscultation bilaterally. HEART: Regular rate and rhythm. S1 and S2 heard. ABDOMEN: Soft. Nondistended. Nontender. EXTREMITIES: Normal range of motion. No clubbing or cyanosis. Peripheral pulses intact. No lower extremity edema NEUROLOGIC: Awake and alert. Oriented x 3. ASSESSMENT: Chest pain, troponin negative x 3 Coronary artery disease with previous stenting of the RCA Known intermediate disease of large diagonal branch, IFR nonischemic at 0.94 in April 2023 Paroxysmal atrial fibrillation Hypertension Hyperlipidemia PLAN: An acute coronary event has been ruled out Resume home cardiac medications Give one-time dose of Lovenox 80 mg Hold Eliquis. Resume tomorrow evening N.p.o. at midnight Patient to undergo cardiac catheterization tomorrow with Dr. Back Further recommendations pending patient course Nurse practitioner note has been reviewed by physician. Signing provider agrees with the documented findings, assessment, and plan of care documented by UPHOLSTERY TECHNICIAN as a scribe. Past Medical History Past Medical History: Atrial Fibrillation, Asthma, Cancer, Chest Pain / Angina, COPD, CVA/TIA, Diabetes Mellitus, Fibromyalgia, GERD/Reflux, Hyperlipidemia, Hypertension, Mitral Valve Prolapse (MVP), Osteoarthritis (OA), Pneumonia, Skin Disorder, Sleep Apnea/CPAP/BIPAP, Thyroid Disorder Additional Past Medical History / Comment(s): heart murmur, hx rheumatic fever, environmental allergies, hiatal hernia, hx IBS, skin dx called granuloma lesa ulare, hx thyroid cancer, cancer rt breast, TIA- no residual effects, irregular heartbeat, leaking aortic and mitral valves, no cpap used, "severe acid reflux", sepsis after breast surgery History of Any Multi-Drug Resistant Organisms: None Reported Past Surgical History: Back Surgery, Breast Surgery, Cholecystectomy, Heart Catheterization, Heart Catheterization With Stent, Hysterectomy, Orthopedic Surgery Additional Past Surgical History / Comment(s): thyroidectomy, rt radical mastectomy,left mastectomy,constance breast reconstruction x 2-second implant (left breast) removed due to sepsis, cervical fusion x 2, titanium rods-lumbar, rt shoulder arthroscopy, constance cataracts, rt knee arthroscopy, COLONOSCOPY Past Anesthesia/Blood Transfusion Reactions: Previous Problems w/ Anesthesia, Postoperative Nausea & Vomiting (PONV) Additional Past Anesthesia/Blood Transfusion Reaction / Comment(s): woke up during EGD in past Date of Last Stent Placement:: UNK Past Psychological History: Anxiety Smoking Status: Never smoker - Past Family History Mother Family Medical History: Cancer Additional Family Medical History / Comment(s): kidney Sister(s) Family Medical History: Cancer Additional Family Medical History / Comment(s): esophageal Brother(s) Family Medical History: Cancer Additional Family Medical History / Comment(s): colon, thryoid cancer Daughter(s) Family Medical History: Cancer Additional Family Medical History / Comment(s): skin Medications and Allergies Home Medications Medication Instructions Recorded Confirmed Type DULoxetine HCL [Cymbalta] 60 mg PO DAILY 05/03/14 07/03/24 History Montelukast Sodium [Singulair] 10 mg PO HS 10/14/17 07/03/24 History Levothyroxine Sodium [Synthroid] 125 mcg PO DAILY 10/01/20 07/03/24 History Omeprazole [PriLOSEC] 40 mg PO DAILY 10/01/20 07/03/24 History metFORMIN HCL ER [Glucophage XR] 500 mg PO BID 10/27/21 07/03/24 History Latanoprost Ophth [Xalatan 0.005%] 1 drop BOTH EYES HS 09/28/22 07/03/24 History Isosorbide Mononitrate ER [Imdur] 60 mg PO DAILY #30 tab 12/04/22 07/03/24 Rx Clopidogrel [Plavix] 75 mg PO DAILY #90 tab 12/16/22 07/03/24 Rx Metoprolol Succinate (ER) [Toprol 100 mg PO DAILY 03/18/24 07/03/24 History Xl] Rosuvastatin [Crestor] 20 mg PO DAILY 03/18/24 07/03/24 History Apixaban [Eliquis] 2.5 mg PO BID 07/03/24 07/04/24 History Doxycycline Hyclate 100 mg PO DIRECTED 07/03/24 07/03/24 History Losartan [Cozaar] 25 mg PO DAILY 07/03/24 07/03/24 History Losartan [Cozaar] 25 mg PO DAILY 07/03/24 07/03/24 History Magnesium Oxide [Mag-Ox] 400 mg PO BID 07/03/24 07/03/24 History Promethazine/Dextromethorphan 5 ml PO Q4H PRN 07/03/24 07/03/24 History [Promethazine-Dm Syrup] predniSONE [Deltasone] 40 mg PO DIRECTED 07/03/24 07/03/24 History Allergies Allergy/AdvReac Type Severity Reaction Status Date / Time methylprednisolone Allergy red puffy Verified 07/03/24 17:22 [From Medrol] face nickel Allergy Itching/raw Verified 07/03/24 17:22 skin lisinopril AdvReac Severe Cough Verified 07/03/24 17:22 tramadol AdvReac Severe severe Verified 07/03/24 17:22 fatigue, elevated BP adhesive tape AdvReac PULLS SKIN Verified 07/03/24 17:22 OFF hydrocodone bitartrate AdvReac Hallucinati Verified 07/03/24 17:22 [From [place]] ons naproxen sodium [From Aleve] AdvReac lowers BP Verified 07/03/24 17:22 bandaid AdvReac pulls skin Uncoded 07/03/24 17:22 off Physical Exam Vitals: Vital Signs Temp Pulse Resp BP Pulse Ox 07/04/24 07:09 74 16 130/62 07/04/24 04:00 77 16 130/60 07/04/24 03:00 78 16 108/55 07/04/24 02:28 70 18 128/58 97 07/03/24 23:56 94 18 120/76 97 07/03/24 20:25 86 16 178/75 95 07/03/24 17:52 82 16 123/70 100 07/03/24 15:13 98 F 104 H 20 135/64 98 Intake and Output 07/03/24 07/04/24 07/04/24 22:59 06:59 14:59 Other: Weight 83.915 kg Results 07/03/24 15:39 07/03/24 15:39 Cardiac Enzymes 07/03/24 07/03/24 07/03/24 Range/Units 15:39 15:39 18:22 AST 31 (14-36) U/L Troponin I <0.012 0.014 (0.000-0.034) ng/mL 07/03/24 Range/Units 20:29 AST (14-36) U/L Troponin I 0.018 (0.000-0.034) ng/mL Coagulation 07/03/24 Range/Units 15:39 PT 11.0 (10.0-12.5) sec APTT 24.3 (22.0-30.0) sec CBC 07/03/24 Range/Units 15:39 WBC 13.1 H (3.8-10.6) k/uL RBC 4.16 (3.80-5.40) m/uL Hgb 11.4 (11.4-16.0) gm/dL Hct 34.7 (34.0-46.0) % Plt Count 184 (150-450) k/uL Comprehensive Metabolic Panel 07/03/24 Range/Units 15:39 Sodium 140 (137-145) mmol/L Potassium 3.6 (3.5-5.1) mmol/L Chloride 105 (98-107) mmol/L Carbon Dioxide 21 L (22-30) mmol/L BUN 26 H (7-17) mg/dL Creatinine 0.92 (0.52-1.04) mg/dL Glucose 276 H (74-99) mg/dL Calcium 8.7 (8.4-10.2) mg/dL AST 31 (14-36) U/L ALT 27 (4-34) U/L Alkaline Phosphatase 95 (38-126) U/L Total Protein 6.6 (6.3-8.2) g/dL Albumin 4.2 (3.5-5.0) g/dL Current Medications Generic Name Dose Route Start Last Admin Trade Name Freq PRN Reason Stop Dose Admin Acetaminophen 650 mg 07/03/24 17:43 Acetaminophen Tab 325 Mg Tab PO Q6HR PRN Mild Pain or Fever > 100.5 Naloxone HCl 0.2 mg 07/03/24 17:43 Naloxone 0.4 Mg/Ml 1 Ml Vial IV Q2M PRN Opioid Reversal Ondansetron HCl 4 mg 07/03/24 17:43 Ondansetron 4 Mg/2 Ml Vial IVP Q8HR PRN Nausea And Vomiting Intake and Output 07/03/24 07/04/24 07/04/24 22:59 06:59 14:59 Other: Weight 83.915 kg 07/03/24 15:39 07/03/24 15:39
[2024-07-04] MEDS: CLOPIDOGREL 75 MG TAB PO SCH (13:11)
[2024-07-04] MEDS ORDERED: ALBUTEROL NEBULIZED 2.5 MG/3 ML INHALATION PRN (15:13)
[2024-07-04] MEDS ORDERED: guaiFENesin SYRUP 100MG/5ML 200 MG/10 ML CUP PO PRN (15:13)
--- NOTE | 2024-07-04 15:16 | P.HPIM ---
History of Present Illness H&P Date: 07/04/24 This is a pleasant 78-year-old female with medical history significant for atrial fibrillation, asthma, COPD, stroke, diabetes mellitus, fibromyalgia, reflux, hypertension, hyperlipidemia, mitral valve prolapse, sleep apnea, hypothyroidism, right-sided breast cancer with prior mastectomy, coronary artery disease with prior cardiac stenting. Patient has a strong cardiac history in her family. Comes into the hospital with complaints of mid sternal chest pain fall that was worse with exertion she is also complaining of shortness of breath and cough ongoing for the last 6 weeks she was evaluated at the urgent care center on Wednesday and was given cough syrup, steroids and breathing treatments. Patient denies any fever or chills. Patient states that she had to use a breathing treatment and then got up to the bathroom to ambulate and afterwards she became so short of breath and started having chest pain that she came to the hospital for further evaluation. Patient states it felt like she had a lump in her throat and also palpitations. She is not having any dizziness or lightheadeness. No nausea, vomiting or diarrhea. She states at the moment chest pain has resolved. Chest x-ray on admission reveals no acute cardiopulmonary process. EKG reveals sinus rhythm with occasional ventricular premature complexes. Blood cell count of 13.1, D-dimer of 0.65, glucose of 276, magnesium of 1.3. Troponin level was negative x 3. REVIEW OF SYSTEMS: CONSTITUTIONAL: No fever, no malaise, no fatigue. HEENT: No recent visual problems or hearing problems. Denied any sore throat. CARDIOVASCULAR: No chest pain, orthopnea, PND, no palpitations, no syncope. PULMONARY: No shortness of breath, no cough, no hemoptysis. GASTROINTESTINAL: No diarrhea, no nausea, no vomiting, no abdominal pain. NEUROLOGICAL: No headaches, no weakness, no numbness. HEMATOLOGICAL: Denies any bleeding or petechiae. GENITOURINARY: Denies any burning micturition, frequency, or urgency. MUSCULOSKELETAL/RHEUMATOLOGICAL: Denies any joint pain, swelling, or any muscle pain. ENDOCRINE: Denies any polyuria or polydipsia. The rest of the 14-point review of systems is negative. PHYSICAL EXAMINATION: GENERAL: The patient is alert and oriented x3, not in any acute distress. Well developed, well nourished. HEENT: Pupils are round and equally reacting to light. EOMI. No scleral icterus. No conjunctival pallor. Normocephalic, atraumatic. No pharyngeal erythema. No thyromegaly. CARDIOVASCULAR: S1 and S2 present. No murmurs, rubs, or gallops. PULMONARY: Chest is clear to auscultation, no wheezing or crackles. ABDOMEN: Soft, nontender, nondistended, normoactive bowel sounds. No palpable organomegaly. MUSCULOSKELETAL: No joint swelling or deformity. EXTREMITIES: No cyanosis, clubbing, or pedal edema. NEUROLOGICAL: Gross neurological examination did not reveal any focal deficits. SKIN: No rashes. Assessment -Chest pain, troponin negative x 3 -Coronary artery disease with prior cardiac stenting of the RCA patient also has known disease in other vessels that are being watched -Paroxysmal atrial fibrillation valvular heart disease maintained on Eliquis -Diabetes mellitus type 2 -History of hypertension -History of hyperlipidemia -History of stroke -History of asthma, COPD with mild acute exacerbation -Hypothyroidism, -history of breast cancer with bilateral mastectomy -Gastroesophageal reflux disease -Fibromyalgia -Sleep apnea GI prophylaxis Full Code Plan ACS has been ruled out Patient will undergo cardiac catheterization tomorrow with Dr. Nazanin Perry being held by cardiology and can resume tomorrow evening after cath Hold metformin at this time and continue with Accu-Cheks ACHS and sliding scale insulin Continue albuterol scheduled and as needed; robitussin as needed check a procalcitonin level. The impression and plan of care has been dictated by Elvie Shah Nurse Practitioner as directed. Dr. James MD I have performed a history and physical examination and medical decision making of this patient, discussed the same with the dictator, and agree with the di ctators assessment and plan as written, documented as a scribe. Based on total visit time, I have performed more than 50% of this visit. Past Medical History Past Medical History: Atrial Fibrillation, Asthma, Cancer, Chest Pain / Angina, COPD, CVA/TIA, Diabetes Mellitus, Fibromyalgia, GERD/Reflux, Hyperlipidemia, Hypertension, Mitral Valve Prolapse (MVP), Osteoarthritis (OA), Pneumonia, Skin Disorder, Sleep Apnea/CPAP/BIPAP, Thyroid Disorder Additional Past Medical History / Comment(s): heart murmur, hx rheumatic fever, environmental allergies, hiatal hernia, hx IBS, skin dx called granuloma annulare, hx thyroid cancer, cancer rt breast, TIA- no residual effects, irregular heartbeat, leaking aortic and mitral valves, no cpap used, "severe acid reflux", sepsis after breast surgery History of Any Multi-Drug Resistant Organisms: None Reported Past Surgical History: Back Surgery, Breast Surgery, Cholecystectomy, Heart Catheterization, Heart Catheterization With Stent, Hysterectomy, Orthopedic Surgery Additional Past Surgical History / Comment(s): thyroidectomy, rt radical mastectomy,left mastectomy,constance breast reconstruction x 2-second implant (left breast) removed due to sepsis, cervical fusion x 2, titanium rods-lumbar, rt shoulder arthroscopy, constance cataracts, rt knee arthroscopy, COLONOSCOPY Past Anesthesia/Blood Transfusion Reactions: Previous Problems w/ Anesthesia, Postoperative Nausea & Vomiting (PONV) Additional Past Anesthesia/Blood Transfusion Reaction / Comment(s): woke up dur ing EGD in past Date of Last Stent Placement:: UNK Past Psychological History: Anxiety Smoking Status: Never smoker - Past Family History Mother Family Medical History: Cancer Additional Family Medical History / Comment(s): kidney Sister(s) Family Medical History: Cancer Additional Family Medical History / Comment(s): esophageal Brother(s) Family Medical History: Cancer Additional Family Medical History / Comment(s): colon, thryoid cancer Daughter(s) Family Medical History: Cancer Additional Family Medical History / Comment(s): skin Medications and Allergies Home Medications Medication Instructions Recorded Confirmed Type DULoxetine HCL [Cymbalta] 60 mg PO DAILY 05/03/14 07/03/24 History Montelukast Sodium [Singulair] 10 mg PO HS 10/14/17 07/03/24 History Levothyroxine Sodium [Synthroid] 125 mcg PO DAILY 10/01/20 07/03/24 History Omeprazole [PriLOSEC] 40 mg PO DAILY 10/01/20 07/03/24 History metFORMIN HCL ER [Glucophage XR] 500 mg PO BID 10/27/21 07/03/24 History Latanoprost Ophth [Xalatan 0.005%] 1 drop BOTH EYES HS 09/28/22 07/03/24 History Isosorbide Mononitrate ER [Imdur] 60 mg PO DAILY #30 tab 12/04/22 07/03/24 Rx Clopidogrel [Plavix] 75 mg PO DAILY #90 tab 12/16/22 07/03/24 Rx Metoprolol Succinate (ER) [Toprol 100 mg PO DAILY 03/18/24 07/03/24 History Xl] Rosuvastatin [Crestor] 20 mg PO DAILY 03/18/24 07/03/24 History Apixaban [Eliquis] 2.5 mg PO BID 07/03/24 07/04/24 History Doxycycline Hyclate 100 mg PO DIRECTED 07/03/24 07/03/24 History Losartan [Cozaar] 25 mg PO DAILY 07/03/24 07/03/24 History Losartan [Cozaar] 25 mg PO DAILY 07/03/24 07/03/24 History Magnesium Oxide [Mag-Ox] 400 mg PO BID 07/03/24 07/03/24 History Promethazine/Dextromethorphan 5 ml PO Q4H PRN 07/03/24 07/03/24 History [Promethazine-Dm Syrup] predniSONE [Deltasone] 40 mg PO DIRECTED 07/03/24 07/03/24 History Allergies Allergy/AdvReac Type Severity Reaction Status Date / Time methylprednisolone Allergy red puffy Verified 07/03/24 17:22 [From Medrol] face nickel Allergy Itching/raw Verified 07/03/24 17:22 skin lisinopril AdvReac Severe Cough Verified 07/03/24 17:22 tramadol AdvReac Severe severe Verified 07/03/24 17:22 fatigue, elevated BP adhesive tape AdvReac PULLS SKIN Verified 07/03/24 17:22 OFF hydrocodone bitartrate AdvReac Hallucinati Verified 07/03/24 17:22 [From [place]] ons naproxen sodium [From Aleve] AdvReac lowers BP Verified 07/03/24 17:22 bandaid AdvReac pulls skin Uncoded 07/03/24 17:22 off Physical Exam Vitals: Vital Signs Temp Pulse Resp BP Pulse Ox 07/04/24 08:00 61 16 132/68 98 07/04/24 07:09 74 16 130/62 07/04/24 04:00 77 16 130/60 07/04/24 03:00 78 16 108/55 07/04/24 02:28 70 18 128/58 97 07/03/24 23:56 94 18 120/76 97 07/03/24 20:25 86 16 178/75 95 07/03/24 17:52 82 16 123/70 100 07/03/24 15:13 98 F 104 H 20 135/64 98 Intake and Output 07/03/24 07/04/24 07/04/24 22:59 06:59 14:59 Other: Weight 83.915 kg Results CBC & Chem 7: 07/03/24 15:39 07/03/24 15:39 Labs: Abnormal Lab Results - Last 24 Hours (Table) 07/03/24 07/03/24 07/03/24 Range/Units 15:39 15:39 15:39 WBC 13.1 H (3.8-10.6) k/uL Neutrophils # 11.8 H (1.3-7.7) k/uL Lymphocytes # 0.7 L (1.0-4.8) k/uL D-Dimer 0.65 H (<0.60) mg/L FEU Carbon Dioxide 21 L (22-30) mmol/L BUN 26 H (7-17) mg/dL Glucose 276 H (74-99) mg/dL Magnesium 1.3 L (1.6-2.3) mg/dL Assessment and Plan Time with Patient: Greater than 30
[2024-07-04] MEDS: ALBUTEROL NEBULIZED 2.5 MG/3 ML INHALATION SCH (16:13)
[2024-07-04 20:21] LABS: Glucose,Whole Blood 137 mg/dL (70-110)
[2024-07-04] MEDS ORDERED: APIXABAN 2.5 MG TABLET PO SCH (21:00)
[2024-07-04] MEDS: MAGNESIUM OXIDE 400 MG TAB PO SCH (22:10)
[2024-07-04] MEDS: LATANOPROST 0.005% OPHTH DROPS 2.5 ML BTL BOTH EYES SCH (22:10)
[2024-07-04] MEDS: MONTELUKAST 10 MG TAB PO SCH (22:10)
[2024-07-05] MEDS: SODIUM CHLORIDE 0.9% 1,000 ML in EMPTY BAG 1 BAG IV SCH (03:13)
[2024-07-05] MEDS: ASPIRIN 325 MG TAB PO ONE (04:53)
[2024-07-05] MEDS: ATORVASTATIN 80 MG TAB PO ONE (04:53)
[2024-07-05 06:58] LABS: Glucose,Whole Blood 114 mg/dL (70-110)
[2024-07-05] MEDS ORDERED: CLOPIDOGREL 75 MG TAB PO SCH (09:00)
[2024-07-05] MEDS: PANTOPRAZOLE 40 MG TABLET PO SCH (09:20)
[2024-07-05] MEDS: LOSARTAN 25 MG TAB PO SCH (09:20)
[2024-07-05] MEDS: DULoxetine HCL 60 MG CAPSULE.DR PO SCH (09:20)
[2024-07-05] MEDS: IV FLUID CONTINUATION 1,000 ML IV ONE (14:00)
[2024-07-05] MEDS: MIDAZOLAM 2 MG/2 ML VIAL IVP ONE ×2 (14:23→14:30)
[2024-07-05] MEDS: LIDOCAINE 1% INJ 10MG/ML (20 ML MDV) SQ ONE (14:25)
[2024-07-05] MEDS: HEPARIN SODIUM,PORCINE 10,000 UNIT in SODIUM CHLORIDE 0.9% 1,000 ML IRRIGATION PRN (14:31)
[2024-07-05] MEDS: HEPARIN SODIUM,PORCINE (1 ML) 2,500 UNIT in SODIUM CHLORIDE 0.9% 250 ML IRRIGATION PRN (14:31)
[2024-07-05] MEDS ORDERED: HEPARIN SODIUM 1,000 UN/ML (10ML VL) ONE (14:43)
[2024-07-05] MEDS: HEPARIN SODIUM 1,000 UN/ML (10ML VL) IVP ONE (14:45)
[2024-07-05] MEDS: IOPAMIDOL-370 200ML BTL INJ ONE (14:58)
[2024-07-05] MEDS ORDERED: RX INFO: IV CONTRAST WAS GIVEN 1 EACH MISC MISCELLANE PRN (14:59)
--- NOTE | 2024-07-05 15:03 | P.PCN ---
Date of Procedure: 07/05/24 Operative Findings: CARDIAC CATHETERIZATION PERFORMING PHYSICIAN: Santi Back MD, RPVI PROCEDURE PERFORMED: 1. Selective right and left coronary angiogram and left heart catheterization 2. IFR of the LCx 3. Ultrasound-guided access of the right common femoral artery and selective right common femoral artery angiogram INDICATION: Unstable angina COMPLICATION: None APPROACH: Right common femoral artery LEVEL OF SEDATION: Moderate with sedation in length of 30 minutes PROCEDURE DESCRIPTION: After obtaining an informed consent, the patient was brought to cardiac mechanical laboratory technician. Local anesthesia was performed using lidocaine subcutaneously. The right common femoral artery was cannulated using Seldinger technique, the guidewire passed easily, following that we advanced a 6 Welsh sheath dilator assembly, the wire and dilator were removed and sheath was flushed. Selective right and left coronary angiogram using a 6-Welsh JR4 and JL catheters. Following that we did left heart catheterization using 6-Welsh pigtail catheter. After that I decided to do an IFR of the LCx. After zeroing of the lead wire and equalized imaging evaluation guiding catheter which was JL 4 guiding catheter the left main was engaged and subsequently the circumflex was wired. We did IFR and that came to be at 0.98 which is nonischemic. The procedure was completed there was no complication. SELECTIVE CORONARY ANGIOGRAM: The right coronary artery: The ostial right is stented with mild to moderate in-stent restenosis was identified but [place]-3 flow in the RCA Left main: Is angiographically normal. Bifurcates into an LCx and LAD The left circumflex: Large-caliber vessel nondominant vessel. The LCx distally has intermediate lesion documented to be nonflow limiting by Doppler wire The left anterior descending artery: Large caliber vessel with mild to moderate disease with no high-grade stenosis was identified HEMODYNAMICS: LVEDP was about 18 mmHg with no significant gradient across the aortic valve CONCLUSION: 1. Mild to moderate in-stent restenosis of the RCA by the ostium 2. 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 Mildly elevated left-sided filling pressure POSTPROCEDURE MANAGEMENT: Medical treatment
[2024-07-05] MEDS: SODIUM CHLORIDE 0.9% 1,000 ML IV SCH (20:30)
[2024-07-05] MEDS: APIXABAN 2.5 MG TABLET PO SCH (20:30)
[2024-07-05 20:50] LABS: Glucose,Whole Blood 115 mg/dL (70-110)
[2024-07-06 06:19] LABS: Glucose,Whole Blood 110 mg/dL (70-110)
[2024-07-06] MEDS: DILTIAZEM CD 120 MG CAP.ER.24H PO SCH (11:34)
[2024-07-06 12:19] LABS: Glucose,Whole Blood 127 mg/dL (70-110)
--- NOTE | 2024-07-06 12:40 | P.PN ---
Subjective HISTORY OF PRESENT ILLNESS: This is a 78-year-old female with a past medical history significant for coronary artery disease with previous stenting of the RCA, known intermediate disease involving large diagnosed branch, valvular heart disease paroxysmal atrial fibrillation, hypertension, and hyperlipidemia. Patient follows in the office with Dr. Back. We have been asked to see the patient in consultation for chest pain. Patient examined at the bedside in the ER. She states she has been coughing alot recently for about 6 weeks. She states she went to urgent care and was given breathing treatments/inhalers and steroids. She states she was starting to feel better. She states she was doing a breating treatment and then she was walking around her house when she developed chest discomfort and a lump in her throat. She also felt palpitations. She states the pain was in the middle of her chest. She denies worsening pain with deep inspiration or chest wall palpation. DIAGNOSTICS: - EKG reveals sinus mechanism with PVCs. Minimal diffuse ST depression. - Chest xray negative for acute process - Laboratory data: WBC 13.1. Hemoglobin 11.4. Platelet count 184. Sodium 140. Potassium 3.6. BUN 26. Creatinine 0.92. Troponin negative x 3. proBNP 467. Magnesium 1.3. - Current home cardiac medications include rosuvastatin 20 mg daily, metoprolol succinate 100 mg daily, losartan 25 mg daily, Imdur 60 mg daily, Plavix 75 mg daily, Eliquis 2.5 mg twice a day - Most recent echocardiogram obtained in April 2024 at the cardiology office revealed ejection fraction 55%, mild aortic regurgitation, mild aortic stenosis, moderate mitral stenosis, mild to moderate tricuspid regurgitation - Cardiac catheterization history: April 2023 revealing patent stent in the ostial RCA. Mild disease involving the PDA of the RCA appeared to be unchanged compared to before. Intermediate disease involving the large first diagnosed branch. iFR nonischemic at 0.94. Normal left-sided filling pressures. -Patient underwent Lexiscan stress test in March 2024 which was negative for ischemia 07/06/2024 Patient examined this morning at bedside. Patient is status post cardiac catheterization yesterday with Dr. Back revealing mild to moderate in-stent restenosis of the RCA by the ostium. Intermediate disease involving the distal left circumflex documented to be nonflow limiting by Doppler wire and mildly elevated left-sided filling pressures. Medical management was recommended. Patient currently denies chest pain or pressure. She continues to report shortness of breath. Vital signs are stable. Blood pressure elevated this morning at 186/75. PHYSICAL EXAM: VITAL SIGNS: Reviewed. GENERAL: Well-developed in no acute distress. HEENT: Head is normocephalic. Pupils are equal, round. Sclerae anicteric. Mucous membranes of the mouth are moist. Neck supple. No JVD or thyromegaly LUNGS: Respirations even and unlabored. Lungs essentially clear to auscultation bilaterally. HEART: Regular rate and rhythm. S1 and S2 heard. Systolic murmur noted. ABDOMEN: Soft. Nondistended. Nontender. EXTREMITIES: Normal range of motion. No clubbing or cyanosis. Peripheral pulses intact. No lower extremity edema NEUROLOGIC: Awake and alert. Oriented x 3. ASSESSMENT: Chest pain, troponin negative x 3 Coronary artery disease with previous stenting of the RCA Known intermediate disease of large diagonal branch, IFR nonischemic at 0.94 in April 2023 Paroxysmal atrial fibrillation Hypertension Hyperlipidemia PLAN: Continue current cardiac medications Patient with continued shortness of breath with exertion. Patient does have LVOT gradient on echocardiogram. Will trial Cardizem 120 mg CD for symptom relief. Patient may benefit from Camzyos on an outpatient basis. Patient may be discharged home today from a cardiac standpoint and follow-up postdischarge with Dr. Back Further recommendations pending patient course Nurse practitioner note has been reviewed by physician. Signing provider agrees with the documented findings, assessment, and plan of care documented by STORE GIFT WRAP ASSOCIATE as a scribe. Objective - Vital Signs Vital signs: Vital Signs Temp 98.4 F 07/06/24 07:00 Pulse 76 07/06/24 08:16 Resp 14 07/06/24 07:00 BP 186/75 07/06/24 07:00 Pulse Ox 98 07/06/24 07:00 FiO2 Intake & Output 07/05/24 07/06/24 07/06/24 18:59 06:59 18:59 Intake Total 225 Balance 225 Intake: IV 225 Other: Voiding Method Toilet # Voids 1 - Labs CBC & Chem 7: 07/03/24 15:39 07/03/24 15:39 Labs: Abnormal Lab Results - Last 24 Hours (Table) 07/05/24 Range/Units 20:48 POC Glucose (mg/dL) 115 H (70-110) mg/dL
--- NOTE | 2024-07-06 14:00 | P.PN ---
Subjective Progress Note Date: 07/05/24 This is a pleasant 78-year-old female with medical history significant for atrial fibrillation, asthma, COPD, stroke, diabetes mellitus, fibromyalgia, reflux, hypertension, hyperlipidemia, mitral valve prolapse, sleep apnea, hypothyroidism, right-sided breast cancer with prior mastectomy, coronary artery disease with prior cardiac stenting. Patient has a strong cardiac history in her family. Comes into the hospital with complaints of mid sternal chest pain fall that was worse with exertion she is also complaining of shortness of breath and cough ongoing for the last 6 weeks she was evaluated at the urgent care center on Wednesday and was given cough syrup, steroids and breathing treatments. Patient denies any fever or chills. Patient states that she had to use a breathing treatment and then got up to the bathroom to ambulate and afterwards she became so short of breath and started having chest pain that she came to the hospital for further evaluation. Patient states it felt like she had a lump in her throat and also palpitations. She is not having any dizziness or lightheadeness. No nausea, vomiting or diarrhea. She states at the moment chest pain has resolved. Chest x-ray on admission reveals no acute cardiopulmonary process. EKG reveals sinus rhythm with occasional ventricular premature complexes. Blood cell count of 13.1, D-dimer of 0.65, glucose of 276, magnesium of 1.3. Troponin level was negative x 3. 07/05/2024 Patient evaluated in follow-up today she is going for a cardiac catheterization. Patient does continue to report shortness of breath and dry cough states that this has been ongoing since August when she was diagnosed them with COVID. She has seen her insurance and benefits clerk Dr. Avila in the office. Her chest pain is gone at this time. Review of Systems Constitutional: Denied any fatigue denied any fever. Cardio vascular: denied any chest pain, palpitations Gastrointestinal: denied any nausea, vomiting, diarrhea Pulmonary: Reports shortness of breath cough Neurologic denied any new focal deficits All inpatient medications were reviewed and appropriate changes in these medications as dictated in the interval history and assessment and plan. PHYSICAL EXAMINATION: GENERAL: The patient is alert and oriented x3, not in any acute distress. Well developed, well nourished. HEENT: Pupils are round and equally reacting to light. EOMI. No scleral icterus. No conjunctival pallor. Normocephalic, atraumatic. No pharyngeal erythema. No thyromegaly. CARDIOVASCULAR: S1 and S2 present. No murmurs, rubs, or gallops. PULMONARY: Chest is clear to auscultation, no wheezing or crackles. ABDOMEN: Soft, nontender, nondistended, normoactive bowel sounds. No palpable organomegaly. MUSCULOSKELETAL: No joint swelling or deformity. EXTREMITIES: No cyanosis, clubbing, or pedal edema. NEUROLOGICAL: Gross neurological examination did not reveal any focal deficits. SKIN: No rashes. Assessment -Chest pain, troponin negative x 3 -Coronary artery disease with prior cardiac stenting of the RCA patient also has known disease in other vessels that are being watched -Paroxysmal atrial fibrillation valvular heart disease maintained on Eliquis -Shortness of breath and cough ongoing since covid diagnosis in August 2023 -Diabetes mellitus type 2 -History of hypertension -History of hyperlipidemia -History of stroke -History of asthma, COPD with mild acute exacerbation -Hypothyroidism, -history of breast cancer with bilateral mastectomy -Gastroesophageal reflux disease -Fibromyalgia -Sleep apnea GI prophylaxis Full Code Plan ACS has been ruled out Patient will undergo cardiac catheterization today with Dr. Nazanin Perry being held by cardiology and can resume tomorrow evening after cath Hold metformin at this time and continue with Accu-Cheks ACHS and sliding scale insulin Continue albuterol scheduled and as needed; robitussin as needed procalcitonin level 0.14. Patient likely has long covid. She states she does not tolerate the trelegy inhaler and has dificulty with insurance covering inhalers. We will see how she is feeling tomorrow and possible DC in the next 24 hours. The impression and plan of care has been dictated by Elvie Shah, Nurse Practitioner as directed. Dr. James MD I have performed a history and physical examination and medical decision making of this patient, discussed the same with the dictator, and agree with the dictators assessment and plan as written, documented as a scribe. Based on total visit time, I have performed more than 50% of this visit. Objective - Vital Signs Vital signs: Vital Signs Temp 98.5 F 07/05/24 07:00 Pulse 62 07/05/24 09:17 Resp 17 07/05/24 08:00 BP 159/72 07/05/24 07:00 Pulse Ox 93 L 07/05/24 08:32 FiO2 Intake & Output 07/04/24 07/05/24 07/05/24 18:59 06:59 18:59 Weight 83.915 kg Other: Voiding Method Toilet - Labs CBC & Chem 7: 07/03/24 15:39 07/03/24 15:39 Labs: Abnormal Lab Results - Last 24 Hours (Table) 07/04/24 07/05/24 Range/Units 20:19 06:57 POC Glucose (mg/dL) 137 H 114 H (70-110) mg/dL Assessment and Plan Time with Patient: Less than 30
--- NOTE | 2024-07-06 14:11 | P.DS ---
Providers Date of admission: 07/03/24 17:43 Attending physician: Ilya Arenas Consults: 07/03/24 17:43 Consult Physician Routine Consulting Provider: Santi Back Consult Reason/Comments: CP/dyspnea Do you want consulting provider notified?: Yes Primary care physician: Eduardo Fry [facility] Course: Final Diagnosis -Chest pain, troponin negative x 3 -Coronary artery disease with prior cardiac stenting of the RCA patient also has known disease in other vessels that are being watched Her cath this admission reveals mild to moderate in-stent restenosis of the RCA by the ostium. Intermediate disease involving the distal left circumflex documented to be nonflow limiting by Doppler wire and mildly elevated left-sided filling pressures. -Paroxysmal atrial fibrillation valvular heart disease maintained on Eliquis -Shortness of breath and cough ongoing since covid diagnosis in August 2023 -Diabetes mellitus type 2 -History of hypertension -History of hyperlipidemia -History of stroke -History of asthma, COPD with mild acute exacerbation -Hypothyroidism, -history of breast cancer with bilateral mastectomy -Gastroesophageal reflux disease -Fibromyalgia -Sleep apnea Discharge Disposition Patient is stable for discharge home. Needs to follow up with Dr. Fry PCP in 1 to 2 days. Additionally patient to see Dr Back in 1 to 2 weeks. Has an appt made for 07/12/2024. Per cardiology; patient with continued shortness of breath with exertion. Patient does have LVOT gradient on echocardiogram. Will trial Cardizem 120 mg CD for symptom relief. Additionally for the shortness of breath medicine will adjust inhalers and recommend patient to see her 3rd mate on discharge; Dr. Maddox. Hospital Course This is a pleasant 78-year-old female with medical history significant for atrial fibrillation, asthma, COPD, stroke, diabetes mellitus, fibromyalgia, reflux, hypertension, hyperlipidemia, mitral valve prolapse, sleep apnea, hypothyroidism, right-sided breast cancer with prior mastectomy, coronary artery disease with prior cardiac stenting. Patient has a strong cardiac history in her family. Comes into the hospital with complaints of mid sternal chest pain fall that was worse with exertion she is also complaining of shortness of breath and cough ongoing for the last 6 weeks she was evaluated at the urgent care center on Wednesday and was given cough syrup, steroids and breathing treatments. And actually patient states the shortness of breath has really been ongoing since she was diagnosed with covid back in 2022. Patient denies any fever or chills. Patient states that she had got up to use a breathing treatment and then got up to the bathroom to ambulate and afterwards she became so short of breath and started having chest pain that she came to the hospital for further evaluation. Patient states it felt like she had a lump in her throat and also palpitations. She is not having any dizziness or lightheadeness. No nausea, vomiting or diarrhea. She states at the moment chest pain has resolved. Chest x-ray on admission reveals no acute cardiopulmonary process. EKG reveals sinus rhythm with occasional ventricular premature complexes. Blood cell count of 13.1, D-dimer of 0.65, glucose of 276, magnesium of 1.3. Troponin level was negative x 3. Patient was evaluated with cardiology consultation was taken for cardiac catheterization yesterday with Dr. Back revealing mild to moderate in- stent restenosis of the RCA by the ostium. Intermediate disease involving the distal left circumflex documented to be nonflow limiting by Doppler wire and mildly elevated left-sided filling pressures. Medical management was recommended. Patient currently denies chest pain or pressure. She continues to report shortness of breath. Vital signs are stable. Patient has been cleared medically for discharge. Please see medication reconciliation for a list of current medications. Thank you for allowing us to participate in the care of this patient. The impression and plan of care has been dictated by Elvie Shah, Nurse Practitioner as directed. Dr. James MD I have performed a history and physical examination and medical decision making of this patient, discussed the same with the dictator, and agree with the dictators assessment and plan as written, documented as a scribe. Based on total visit time, I have performed more than 50% of this visit. Patient Condition at Discharge: Stable Plan - Discharge Summary Discharge Rx Participant: Yes New Discharge Prescriptions: New guaiFENesin SYRUP 100MG/5ML [Robitussin] 200 mg PO Q6HR PRN #100 ml PRN Reason: Cough Nitroglycerin Sl Tabs [Nitrostat] 0.4 mg SUBLINGUAL Q5M PRN #15 tab PRN Reason: Chest Pain Apixaban [Eliquis] 2.5 mg PO BID tab Diltiazem Cd [Cardizem CD] 120 mg PO DAILY #90 cap Continue DULoxetine HCL [Cymbalta] 60 mg PO DAILY Montelukast Sodium [Singulair] 10 mg PO HS Levothyroxine Sodium [Synthroid] 125 mcg PO DAILY Omeprazole [PriLOSEC] 40 mg PO DAILY metFORMIN HCL ER [Glucophage XR] 500 mg PO BID Latanoprost Ophth [Xalatan 0.005%] 1 drop BOTH EYES HS Magnesium Oxide [Mag-Ox] 400 mg PO BID Losartan [Cozaar] 25 mg PO DAILY Isosorbide Mononitrate ER [Imdur] 60 mg PO DAILY #30 tab Clopidogrel [Plavix] 75 mg PO DAILY #90 tab Rosuvastatin [Crestor] 20 mg PO DAILY Metoprolol Succinate (ER) [Toprol XL] 100 mg PO DAILY predniSONE [Deltasone] 40 mg PO DIRECTED Doxycycline Hyclate 100 mg PO DIRECTED Losartan [Cozaar] 25 mg PO DAILY Promethazine/Dextromethorphan [Promethazine-Dm 6.25-15 mg/5Ml] 5 ml PO Q4H PRN PRN Reason: Cough Discontinued Apixaban [Eliquis] 2.5 mg PO BID Discharge Medication List DULoxetine HCL [Cymbalta] 60 mg PO DAILY 05/03/14 [History] Montelukast Sodium [Singulair] 10 mg PO HS 10/14/17 [History] Levothyroxine Sodium [Synthroid] 125 mcg PO DAILY 10/01/20 [History] Omeprazole [PriLOSEC] 40 mg PO DAILY 10/01/20 [History] metFORMIN HCL ER [Glucophage XR] 500 mg PO BID 10/27/21 [History] Latanoprost Ophth [Xalatan 0.005%] 1 drop BOTH EYES HS 09/28/22 [History] Isosorbide Mononitrate ER [Imdur] 60 mg PO DAILY #30 tab 12/04/22 [Rx] Clopidogrel [Plavix] 75 mg PO DAILY #90 tab 12/16/22 [Rx] Metoprolol Succinate (ER) [Toprol XL] 100 mg PO DAILY 03/18/24 [History] Rosuvastatin [Crestor] 20 mg PO DAILY 03/18/24 [History] Doxycycline Hyclate 100 mg PO DIRECTED 07/03/24 [History] Losartan [Cozaar] 25 mg PO DAILY 07/03/24 [History] Losartan [Cozaar] 25 mg PO DAILY 07/03/24 [History] Magnesium Oxide [Mag-Ox] 400 mg PO BID 07/03/24 [History] Promethazine/Dextromethorphan [Promethazine-Dm 6.25-15 mg/5Ml] 5 ml PO Q4H PRN 07/03/24 [History] predniSONE [Deltasone] 40 mg PO DIRECTED 07/03/24 [History] Apixaban [Eliquis] 2.5 mg PO BID tab 07/05/24 [Rx] Nitroglycerin Sl Tabs [Nitrostat] 0.4 mg SUBLINGUAL Q5M PRN #15 tab 07/05/24 [Rx] guaiFENesin SYRUP 100MG/5ML [Robitussin] 200 mg PO Q6HR PRN #100 ml 07/05/24 [Rx] Diltiazem Cd [Cardizem CD] 120 mg PO DAILY #90 cap 07/06/24 [Rx] Follow up Appointment(s)/Referral(s): Santi Back MD [STAFF PHYSICIAN] - 07/12/24 3:00 pm (Main office) Eduardo Fry MD [Primary Care Provider] - 1-2 days Ovidio Maddox DO [Doctor of Osteopathic Medicine] - 07/14/24 9:00 am Ambulatory/Diagnostic Orders: Basic Metabolic Panel [LAB.AMB] Time Frame: 3 Days, Location: None Selected Patient Instructions/Handouts: Chest Pain (ED), Chest Pain (DC) Activity/Diet/Wound Care/Special Instructions: Can continue antibiotics and steroids prescribed by the urgent care. Follow up with your PCP Dr. Fry 1 to 2 days Follow up with your database support Dr Back in 1 to 2 weeks Follow up with your lung doctor Dr. Maddox 1 week Continue same eliquis dose 2.5 mg BID. Discharge Disposition: HOME SELF-CARE
[2024-07-06 14:23] VITALS: BP 154/66; PULSE 58; RESP 17; TEMP 98.8
== END 2024-07-06 15:21 | disposition home or self-care (01) ==
LOC: EC 15:07 → 6NMEDSUR 17:43
PROVIDERS: ADMIT Hospitalist; ATTEND Hospitalist
DX: T82.855A Stenosis of coronary artery stent, initial encounter (principal); Y83.1 Surgical operation with implant of artificial internal device as the cause of abnormal reaction of the patient, or of later complication, without mention of misadventure at the time of the procedure; I25.110 Atherosclerotic heart disease of native coronary artery with unstable angina pectoris; J44.1 Chronic obstructive pulmonary disease with (acute) exacerbation; I48.0 Paroxysmal atrial fibrillation; E11.9 Type 2 diabetes mellitus without complications; K21.9 Gastro-esophageal reflux disease without esophagitis; E78.5 Hyperlipidemia, unspecified; I10 Essential (primary) hypertension; G47.30 Sleep apnea, unspecified; E89.0 Postprocedural hypothyroidism; F41.9 Anxiety disorder, unspecified; M79.7 Fibromyalgia; Z85.850 Personal history of malignant neoplasm of thyroid; Z85.3 Personal history of malignant neoplasm of breast; Z86.73 Personal history of transient ischemic attack (TIA), and cerebral infarction without residual deficits; Z90.13 Acquired absence of bilateral breasts and nipples; Z95.5 Presence of coronary angioplasty implant and graft; Z79.01 Long term (current) use of anticoagulants; Z79.899 Other long term (current) drug therapy; Z79.890 Hormone replacement therapy; Z79.84 Long term (current) use of oral hypoglycemic drugs; Z79.02 Long term (current) use of antithrombotics/antiplatelets; Z79.52 Long term (current) use of systemic steroids; Z88.5 Allergy status to narcotic agent; Z88.6 Allergy status to analgesic agent
CPT/HCPCS: 36415; 71046; 80053; 83735; 83880; 84145; 84484; 85025; 85379; 85610; 85730; 93005; 93458; 93799; 94640; 94760; 96361; 96365; 96372; 99285

== ENCOUNTER 2024-07-28 18:48 | Emergency (ER) | payer MEDICARE, BC ==
[2024-07-28 19:18] VITALS: TEMP 98.6
--- NOTE | 2024-07-28 19:35 | ED ---
SOB HPI - General Source: patient, RN notes reviewed Mode of arrival: ambulatory Limitations: no limitations <Sherly Marino - Last Filed: 07/28/24 19:33> - General Source: patient, RN notes reviewed Mode of arrival: ambulatory Limitations: no limitations - History of Present Illness MD Complaint: shortness of breath, cough <Julia Aguirre - Last Filed: 07/28/24 23:05> - General Chief Complaint: Shortness of Breath Stated Complaint: NEETA, Asthmatic Time Seen by Provider: 07/28/24 19:33 - History of Present Illness Initial Comments: Shawn notemargaret is an 78-year-old female presenting to the ER with cough x 2 days with nasal congestion and mild shortness of breath. Patient states she has a history of asthma and COPD and feels as though it is flaring up. (Sherly Marino) This is an 78-year-old female who presents to the emergency department for coughing, congestion, and shortness of breath. States that it started 2 days ago. Denies any fevers/chills or sick contacts. The cough is nonproductive. States that she wonders if this is an asthma or COPD flareup. She uses albuterol inhalers and albuterol nebulizer treatments at home, which have helped with her wheezing. (Julia Aguirre) - Related Data Home Medications Medication Instructions Recorded Confirmed DULoxetine HCL [Cymbalta] 60 mg PO DAILY 05/03/14 07/03/24 Montelukast Sodium [Singulair] 10 mg PO HS 10/14/17 07/03/24 Levothyroxine Sodium [Synthroid] 125 mcg PO DAILY 10/01/20 07/03/24 Omeprazole [PriLOSEC] 40 mg PO DAILY 10/01/20 07/03/24 metFORMIN HCL ER [Glucophage XR] 500 mg PO BID 10/27/21 07/03/24 Latanoprost Ophth [Xalatan 0.005%] 1 drop BOTH EYES HS 09/28/22 07/03/24 Metoprolol Succinate (ER) [Toprol 100 mg PO DAILY 03/18/24 07/03/24 XL] Rosuvastatin [Crestor] 20 mg PO DAILY 03/18/24 07/03/24 Doxycycline Hyclate 100 mg PO DIRECTED 07/03/24 07/03/24 Losartan [Cozaar] 25 mg PO DAILY 07/03/24 07/03/24 Losartan [Cozaar] 25 mg PO DAILY 07/03/24 07/03/24 Magnesium Oxide [Mag-Ox] 400 mg PO BID 07/03/24 07/03/24 Promethazine/Dextromethorphan 5 ml PO Q4H PRN 07/03/24 07/03/24 [Promethazine-Dm 6.25-15 mg/5Ml] predniSONE [Deltasone] 40 mg PO DIRECTED 07/03/24 07/03/24 Previous Rx's Medication Instructions Recorded Isosorbide Mononitrate ER [Imdur] 60 mg PO DAILY #30 tab 12/04/22 Clopidogrel [Plavix] 75 mg PO DAILY #90 tab 12/16/22 Apixaban [Eliquis] 2.5 mg PO BID tab 07/05/24 Nitroglycerin Sl Tabs [Nitrostat] 0.4 mg SUBLINGUAL Q5M PRN #15 tab 07/05/24 guaiFENesin SYRUP 100MG/5ML 200 mg PO Q6HR PRN #100 ml 07/05/24 [Robitussin] Albuterol Sulfate [Ventolin HFA] 1 - 2 puff INHALATION Q6H PRN #1 07/06/24 each Diltiazem Cd [Cardizem CD] 120 mg PO DAILY #90 cap 07/06/24 Azithromycin [Zithromax] 250 mg PO DIRECTED 5 Days #6 tab 07/28/24 Ipratropium-Albuterol Nebulize 3 ml INHALATION Q4-6H PRN #90 ml 07/28/24 [Duoneb 0.5 mg-3 mg/3 ml Soln] predniSONE [Deltasone] 20 mg PO BID 5 Days #10 tab 07/28/24 Allergies Allergy/AdvReac Type Severity Reaction Status Date / Time methylprednisolone Allergy red puffy Verified 07/03/24 17:22 [From Medrol] face nickel Allergy Itching/raw Verified 07/03/24 17:22 skin lisinopril AdvReac Severe Cough Verified 07/03/24 17:22 tramadol AdvReac Severe severe Verified 07/03/24 17:22 fatigue, elevated BP adhesive tape AdvReac PULLS SKIN Verified 07/03/24 17:22 OFF hydrocodone bitartrate AdvReac Hallucinati Verified 07/03/24 17:22 [From [place]] ons naproxen sodium [From Aleve] AdvReac lowers BP Verified 07/03/24 17:22 bandaid AdvReac pulls skin Uncoded 07/03/24 17:22 off Review of Systems ROS Other: All systems not noted in ROS Statement are negative. <Sherly Marino - Last Filed: 07/28/24 19:33> ROS Other: All systems not noted in ROS Statement are negative. <Julia Aguirre - Last Filed: 07/28/24 23:05> ROS Statement: Those systems with pertinent positive or pertinent negative responses have been documented in the HPI. Past Medical History Past Medical History: Atrial Fibrillation, Asthma, Cancer, Chest Pain / Angina, COPD, CVA/TIA, Diabetes Mellitus, Fibromyalgia, GERD/Reflux, Hyperlipidemia, Hypertension, Mitral Valve Prolapse (MVP), Osteoarthritis (OA), Pneumonia, Skin Disorder, Sleep Apnea/CPAP/BIPAP, Thyroid Disorder Additional Past Medical History / Comment(s): heart murmur, hx rheumatic fever, environmental allergies, hiatal hernia, hx IBS, skin dx called granuloma annulare, hx thyroid cancer, cancer rt breast, TIA- no residual effects, irregular heartbeat, leaking aortic and mitral valves, no cpap used, "severe acid reflux", sepsis after breast surgery History of Any Multi-Drug Resistant Organisms: None Reported Past Surgical History: Back Surgery, Breast Surgery, Cholecystectomy, Heart Catheterization, Heart Catheterization With Stent, Hysterectomy, Orthopedic Surgery Additional Past Surgical History / Comment(s): thyroidectomy, rt radical mastectomy,left mastectomy,constance breast reconstruction x 2-second implant (left breast) removed due to sepsis, cervical fusion x 2, titanium rods-lumbar, rt shoulder arthroscopy, constance cataracts, rt knee arthroscopy, COLONOSCOPY Past Anesthesia/Blood Transfusion Reactions: Previous Problems w/ Anesthesia, Postoperative Nausea & Vomiting (PONV) Additional Past Anesthesia/Blood Transfusion Reaction / Comment(s): woke up during EGD in past Date of Last Stent Placement:: UNK Past Psychological History: Anxiety Smoking Status: Never smoker Past Alcohol Use History: None Reported Past Drug Use History: None Reported - Past Family History Mother Family Medical History: Cancer Additional Family Medical History / Comment(s): kidney Sister(s) Family Medical History: Cancer Additional Family Medical History / Comment(s): esophageal Brother(s) Family Medical History: Cancer Additional Family Medical History / Comment(s): colon, thryoid cancer Daughter(s) Family Medical History: Cancer Additional Family Medical History / Comment(s): skin <Sherly Marino - Last Filed: 07/28/24 19:33> General Exam Limitations: no limitations <Sherly Marino - Last Filed: 07/28/24 19:33> Limitations: no limitations General appearance: alert, in no apparent distress Head exam: Present: atraumatic, normocephalic, normal inspection Respiratory exam: Present: decreased breath sounds, prolonged expiratory. Absent: wheezes, rales, rhonchi Cardiovascular Exam: Present: regular rate, normal rhythm, normal heart sounds. Absent: systolic murmur, diastolic murmur, rubs, gallop, clicks Neurological exam: Present: alert, oriented X3, CN II-XII intact Psychiatric exam: Present: normal affect, normal mood Skin exam: Present: warm, dry, intact, normal color. Absent: rash <Julia Aguirre - Last Filed: 07/28/24 23:05> - General Exam Comments Initial Comments: Visual Physical Exam Vital signs reviewed General: Well-appearing, nontoxic, no acute distress. Head: Normocephalic, atraumatic Eyes: PERRLA, EOMI ENT: Airway patent Chest: Nonlabored breathing Skin: No visual rash, normal skin tone Neuro: Alert and oriented 3 Musculoskeletal: No gross abnormalities (Sherly Marino) Course Vital Signs 07/28/24 07/28/24 07/28/24 19:08 21:37 21:45 Temperature 98.6 F Pulse Rate 61 84 85 Respiratory 15 Rate Blood Pressure 136/59 O2 Sat by Pulse 95 Oximetry 07/28/24 07/28/24 22:35 22:46 Temperature Pulse Rate 80 78 Respiratory Rate Blood Pressure O2 Sat by Pulse Oximetry Medical Decision Making <Sherly Marino - Last Filed: 07/28/24 19:33> - Radiology Data Radiology results: report reviewed, image reviewed <Julia Aguirre - Last Filed: 07/28/24 23:05> - Medical Decision Making I completed the quick note portion of this chart signed Sherly Marino PA-C (Sherly Marino) This is an 78 year old female who presents to the emergency department for coughing and shortness of breath. Was pt. sent in by a medical professional or institution? @ -No Did you speak to anyone other than the patient for history? @ -No Did you review nursing and triage notes? @ -Yes, and I agree, it is accurate with regards to the patient's symptoms. Were old charts reviewed? @ -No Differential Diagnosis? @ -Differential Dyspnea: Coronary syndrome, arrhythmia, tamponade, asthma, COPD, pulmonary embolism, pneumonia, pneumothorax, pulmonary effusion, anaphylaxis, diabetic ketoacidosis, flailed chest, pulmonary contusion, diaphragmatic rupture, anemia, neur omuscular, this is not meant to be an all-inclusive list. EKG interpreted by me (3pts min.)? @ -EKG interpreted by me demonstrating the following: Sinus bradycardia. Ventricular rate 55 bpm, ME interval 141 ms, QRS duration 91 ms, QTc 410 ms. X-rays interpreted by me (1pt min.)? @ -Chest x-ray obtained, my interpretation identifies no localized consolidations or infiltrates. CT interpreted by me (1pt min.)? @ -Not obtained U/S interpreted by me (1pt. min.)? @ -Not obtained What testing was considered but not performed? (CT, X-rays, U/S, labs)? Why? @ -None What meds were considered but not given? Why? @ -None Did you discuss the management of the patient with other professionals? @ -No Did you reconcile home meds? @ -No Was smoking cessation discussed for >3mins.? @ -No Was critical care preformed (if so, how long)? @ -No Were there social determinants of health that impacted care today? How? (Homelessness, low income, unemployed, alcoholism, drug addiction, transportation, low edu. Level, literacy, decrease access to med. care, fci, rehab)? @ -No Was there de-escalation of care discussed even if they declined? (Discuss DNR or withdrawal of care, Hospice)? @ -No What co-morbidities impacted this encounter? (DM, HTN, Smoking, COPD, CAD, Cancer, CVA, Hep., AIDS, mental health diagnosis, sleep apnea, morbid obesity)? @ -Asthma, COPD Was patient admitted / discharged? @ -Discharged. COVID, influenza, and RSV testing negative. Chest x-ray reveals no acute process. Symptoms likely related to an asthma versus COPD exacerbation. 2 DuoNeb breathing treatments along with Decadron and Tessalon Perles administered in the emergency department. Prescription for 5-day course of prednisone, azithromycin, and DuoNeb breathing treatments provided with dosing instructions reviewed. Advised close follow-up with her primary care provider and she was given strict return parameters. Case discussed with ED attending Dr. Roe. Return precautions reviewed in depth, the patient is instructed to return to the emergency department with any new, worsening, or concerning symptoms. Patient verbalized understanding. Undiagnosed new problem with uncertain prognosis? @ -None Drug Therapy requiring intensive monitoring for toxicity (Heparin, Nitro, Insulin, Cardizem)? @ -None Were any procedures done? @ -None Diagnosis/symptom? @ -Asthma exacerbation, COPD exacerbation Acute, or Chronic, or Acute on Chronic? @ -Acute on chronic Uncomplicated (without systemic symptoms) or Complicated (systemic symptoms)? @ -Uncomplicated Side effects of treatment? @ -None Exacerbation, Progression, or Severe Exacerbation] @ -Exacerbation Poses a threat to life or bodily function? @ -Not at this time (Julia Aguirre) - Lab Data Lab Results 07/28/24 Range/Units 20:48 Influenza Type A (PCR) Not Detected (Not Detectd) Influenza Type B (PCR) Not Detected (Not Detectd) RSV (PCR) Not Detected (Not Detectd) SARS-CoV-2 (PCR) Not Detected (Not Detectd) Disposition <Sherly Marino - Last Filed: 07/28/24 19:33> Is patient prescribed a controlled substance at d/c from ED?: No <Julia Aguirre - Last Filed: 07/28/24 23:05> Clinical Impression: Asthma exacerbation, COPD exacerbation Disposition: HOME SELF-CARE Instructions (If sedation given, give patient instructions): Bronchospasm (ED) Additional Instructions: Return to the emergency department with any new, worsening, or concerning symptoms. Take the antibiotic as prescribed for 5 days. Take the prednisone twice daily for 5 days. Use the DuoNeb breathing treatments every 4-6 hours to help with wheezing and shortness of breath. You can also use your albuterol inhaler. Follow up with your primary care provider in 1-2 days. Prescriptions: predniSONE [Deltasone] 20 mg PO BID 5 Days #10 tab Ipratropium-Albuterol Nebulize [Duoneb 0.5 mg-3 mg/3 ml Soln] 3 ml INHALATION Q4-6H PRN #90 ml PRN Reason: Shortness Of Breath Azithromycin [Zithromax] 250 mg PO DIRECTED 5 Days #6 tab Referrals: Eduardo Fry MD [Primary Care Provider] - 1-2 days
--- NOTE | 2024-07-28 20:29 | XR ---
EXAMINATION TYPE: XR chest 2V DATE OF EXAM: 07/28/2024 COMPARISON: 07/03/2024 INDICATION: Cough TECHNIQUE: Frontal and lateral views of the chest are obtained. FINDINGS: The heart size is normal. Urinary corders over the midline. The pulmonary vasculature is normal. The lungs are clear. IMPRESSION: 1. No acute pulmonary process. [facility], , 07/28/2024 8:26 PM
[2024-07-28] MEDS: BENZONATATE 100 MG CAP PO STA (21:00)
[2024-07-28] MEDS: DEXAMETHASONE SOD PHOSPHATE 10 MG/ML 1 ML VIAL IM STA (21:01)
[2024-07-28] MEDS: IPRATROPIUM-ALBUTEROL 3 ML NEB INHALATION STA ×2 (21:37→22:35)
[2024-07-28 23:35] VITALS: BP 150/70; PULSE 71; RESP 18
== END 2024-07-28 23:35 | disposition home or self-care (01) ==
LOC: EC 18:48
CPT/HCPCS: 71046; 87636; 93005; 94640; 96372; 99285

== ENCOUNTER → 2024-10-27 | Outpatient (CLI) | payer MEDICARE, BC ==
--- NOTE | 2024-10-27 14:31 | BD ---
EXAMINATION TYPE: Axial Bone Density DATE OF EXAM: 10/27/2024 CLINICAL HISTORY: 79 years old Female. ICD-10 CODE: M81.0 AGE RELATED OSTEO , Additional History: Height: 64 Weight: 185 FRAX RISK QUESTIONS: Alcohol (3 or more units per day): no Family History (Parent hip fracture): no Glucocorticoids (More than 3mos): no (Ex: prednisone, prednisolone, methylprednisolone, dexamethasone, and hydrocortisone). History of Fracture in Adulthood: yes Secondary Osteoporosis: 1. Type 1 Diabetes: no 2. Hyperthyroidism: no 3. Menopause before 45: yes 4. Malnutrition: no 5. Chronic liver disease: no Rheumatoid Arthritis: no Current Tobacco Use: no RISK FACTORS HISTORY OF: History of Wrist Fracture: right wrist When: 2009 Surgery to Spine/Hip(right/left)/Wrist (right/left): lumbar spine/rods and screws 1998 MEDICATIONS: Thyroid Medications: levothyroxine How Long: since age 30 EXAM MEASUREMENTS: Bone mineral densitometry was performed using the [employer] System. Bone mineral density about the R hip (g/cm2): 0.936 Bone mineral density about the L hip (g/cm2): 0.970 T Score values are as follows: -----R Neck: -0.8 -----L Neck: -0.8 -----R Total: -0.6 -----L Total: -0.3 Z Score values are as follows: -----R Neck: 1.0 -----L Neck: 1.0 -----R Total: 1.0 -----L Total: 1.3 Bone mineral density : baseline Bone mineral density about the L Wrist (g/cm2): 0.660 T Score values are as follows: -----Dist. R+U: 0.1 -----Prox. R+U: -0.1 -----Radius total: -0.2 Z Score values are as follows: -----Dist. R+U: 2.9 -----Prox. R+U: 2.7 -----Radius total: 2.6 Bone mineral density : baseline FRAX%s: The graph provided illustrates a 15.4% chance for a major osteoporotic fx and a 2.5% chance f or the hips probability for fx in 10 years time. IMPRESSION: Normal (Values between +1 and -1 indicate normal bone mass). Consider repeating this study in 5 year s or sooner if there is some new clinical indication. NOTE: T-SCORE=SD OF THE YOUNG ADULT MEAN. [facility], , 10/27/2024 2:29 PM
== END | disposition home or self-care (01) ==
LOC: RADBDWWP 12:09
PROVIDERS: ATTEND Internal Medicine Geriatric Medicine
DX: M81.0 Age-related osteoporosis without current pathological fracture (principal)
CPT/HCPCS: 77080

== ENCOUNTER → 2024-11-14 | Outpatient (CLI) | payer MEDICARE, BC ==
--- NOTE | 2024-11-14 15:27 | XR ---
EXAMINATION TYPE: XR ankle complete RT DATE OF EXAM: 11/14/2024 COMPARISON: NONE CLINICAL INDICATION: Female, 79 years old with history of M25.571 Pain in right ankle; TECHNIQUE: 3 views FINDINGS: There is marked fusiform thickening centered along the middle third Achilles tendon. Thicke sarah to 1.8 cm. Small posterior plantar heel spurs. There is some degenerative dorsal midfoot spurrin g on the lateral view. Some additional scattered mild degenerative spurring at the tibiotalar joint. Ankle mortise congruent. No acute fracture, subluxation, dislocation. IMPRESSION: 1. Prominent fusiform thickening middle third Achilles tendon to 1.8 cm on the lateral view. Marked t endinosis versus underlying Achilles tendon injury and the differential. Recommend further clinical c orrelation. MRI if clinically indicated. 2. Scattered mild degenerative spurring at the ankle, posterior and plantar heel spurs, and some dege nerative change in the midfoot as well. 3. Otherwise, no acute osseous abnormality seen. [facility], Workstation: [facility], 11/14/2024 3:25 PM
== END | disposition home or self-care (01) ==
LOC: RADXRMAIN 14:59
PROVIDERS: ATTEND Internal Medicine Geriatric Medicine
DX: M77.31 Calcaneal spur, right foot (principal)

== ENCOUNTER 2025-03-21 08:19 | Emergency (ER) | payer MEDICARE, BC ==
[2025-03-21 08:41] VITALS: RESP 16
[2025-03-21] MEDS ORDERED: Kcentra / Balfaxar PER PHARMACY 1 EACH MISC MISCELLANE PRN (08:53)
[2025-03-21] MEDS: PANTOPRAZOLE 40 MG/10 ML VIAL IVP STA (08:56)
[2025-03-21 08:58] LABS: Basophils # (A) 0.03 10*3/uL (0.00-0.10); Basophils % (A) 0.3 %; Eosinophils # (A) 0.12 10*3/uL (0.04-0.35); Eosinophils % (A) 1.4 %; HCT 24.9 % (37.2-46.3); HGB 8.5 g/dL (12.0-15.0); Lymphocytes # (A) 2.46 10*3/uL (0.90-5.00); Lymphocytes % (A) 27.9 %; MCH 28.9 pg (27.0-32.0); MCHC 34.1 g/dL (32.0-37.0); MCV 84.7 fL (80.0-97.0); Mean Platelet Volume 10.1 fL (9.5-12.2); Monocytes # (A) 0.68 10*3/uL (0.20-1.00); Monocytes % (A) 7.7 %; Neutrophils # (A) 5.52 10*3/uL (1.80-7.70); Neutrophils % (A) 62.5 %; Platelet Count 224 10*3/uL (140-440); RBC 2.94 10*6/uL (4.10-5.20); RDW 12.1 % (11.5-14.5); WBC 8.83 10*3/uL (4.50-10.00)
[2025-03-21 09:07] LABS: ALT 20 U/L (4-34); AST 26 U/L (14-36); African American GFR (CKD) 72 (>60 ml/min/1.73 sqM); Albumin 3.7 g/dL (3.5-5.0); Alkaline Phosphatase 73 U/L (38-126); Anion Gap 6 mmol/L; Blood Urea Nitrogen 36 mg/dL (7-17); Calcium 8.6 mg/dL (8.4-10.2); Carbon Dioxide 28 mmol/L (22-30); Chloride 100 mmol/L (98-107); Glucose 129 mg/dL (74-99); Magnesium 1.5 mg/dL (1.6-2.3); Non-African American GFR(CKD) 63 (>60 ml/min/1.73 sqM); Potassium 3.5 mmol/L (3.5-5.1); Sodium 134 mmol/L (137-145); Total Bilirubin 0.7 mg/dL (0.2-1.3); Total Protein 6.1 g/dL (6.3-8.2)
[2025-03-21 09:13] LABS: INR 1.1 (<1.2); Partial Thromboplastin Time 25.9 sec (22.0-30.0); Prothrombin Time 11.7 sec (10.0-12.5)
[2025-03-21] MEDS: TRANEXAMIC 1,000 MG/100ML-NACL 1,000 MG in SALINE 1 100ML.BAG IVPB ONE (09:33)
[2025-03-21] MEDS: EMPTY BAG 1 BAG with HUMAN PROTHROMBN CMPL-BALFAXAR 2,080 UNIT IV ONE (09:42)
--- NOTE | 2025-03-21 09:51 | ED ---
General Adult HPI - General Chief complaint: GI Bleed Stated complaint: GI Bleed Time Seen by Provider: 03/21/25 08:40 Source: patient, EMS, RN notes reviewed Mode of arrival: EMS Limitations: no limitations - History of Present Illness Initial comments: 79 year old female presents to the ED for evaluation of lower GI bleeding that started around 3 am this morning. She has had about 6 episodes of blood in the stool at home and continues to have them here. Pt reports that she has been having bleeding with clots and doesn't have any history of prior GI bleeding. She reports she has a past medical history significant for a fib and takes Eliquis daily. Her last dose was last night. She has mild abdominal cramping but denies any rectal pain and denies chest pain, vomiting, fevers, chills, and a history of hemorrhoids. Patient states she feels slightly lightheaded when she stands up. Patient also takes aspirin noted. Patient states that she does have a history of iron deficiency has been receiving infusions. - Related Data Home Medications Medication Instructions Recorded Confirmed DULoxetine HCL [Cymbalta] 60 mg PO DAILY 05/03/14 07/03/24 Montelukast Sodium [Singulair] 10 mg PO HS 10/14/17 07/03/24 Levothyroxine Sodium [Synthroid] 125 mcg PO DAILY 10/01/20 07/03/24 Omeprazole [PriLOSEC] 40 mg PO DAILY 10/01/20 07/03/24 metFORMIN HCL ER [Glucophage XR] 500 mg PO BID 10/27/21 07/03/24 Latanoprost Ophth [Xalatan 0.005%] 1 drop BOTH EYES HS 09/28/22 07/03/24 Metoprolol Succinate (ER) [Toprol 100 mg PO DAILY 03/18/24 07/03/24 XL] Rosuvastatin [Crestor] 20 mg PO DAILY 03/18/24 07/03/24 Doxycycline Hyclate 100 mg PO DIRECTED 07/03/24 07/03/24 Losartan [Cozaar] 25 mg PO DAILY 07/03/24 07/03/24 Losartan [Cozaar] 25 mg PO DAILY 07/03/24 07/03/24 Magnesium Oxide [Mag-Ox] 400 mg PO BID 07/03/24 07/03/24 Promethazine/Dextromethorphan 5 ml PO Q4H PRN 07/03/24 07/03/24 [Promethazine-Dm 6.25-15 mg/5Ml] predniSONE [Deltasone] 40 mg PO DIRECTED 07/03/24 07/03/24 Previous Rx's Medication Instructions Recorded Isosorbide Mononitrate ER [Imdur] 60 mg PO DAILY #30 tab 12/04/22 Clopidogrel [Plavix] 75 mg PO DAILY #90 tab 12/16/22 Apixaban [Eliquis] 2.5 mg PO BID tab 07/05/24 Nitroglycerin Sl Tabs [Nitrostat] 0.4 mg SUBLINGUAL Q5M PRN #15 tab 07/05/24 guaiFENesin SYRUP 100MG/5ML 200 mg PO Q6HR PRN #100 ml 07/05/24 [Robitussin] Albuterol Sulfate [Ventolin HFA] 1 - 2 puff INHALATION Q6H PRN #1 07/06/24 each Diltiazem Cd [Cardizem CD] 120 mg PO DAILY #90 cap 07/06/24 Azithromycin [Zithromax] 250 mg PO DIRECTED 5 Days #6 tab 07/28/24 Ipratropium-Albuterol Nebulize 3 ml INHALATION Q4-6H PRN #90 ml 07/28/24 [Duoneb 0.5 mg-3 mg/3 ml Soln] predniSONE [Deltasone] 20 mg PO BID 5 Days #10 tab 07/28/24 Allergies Allergy/AdvReac Type Severity Reaction Status Date / Time methylprednisolone Allergy red puffy Verified 07/03/24 17:22 [From Medrol] face nickel Allergy Itching/raw Verified 07/03/24 17:22 skin lisinopril AdvReac Severe Cough Verified 07/03/24 17:22 tramadol AdvReac Severe severe Verified 07/03/24 17:22 fatigue, elevated BP adhesive tape AdvReac PULLS SKIN Verified 07/03/24 17:22 OFF hydrocodone bitartrate AdvReac Hallucinati Verified 07/03/24 17:22 [From [place]] ons naproxen sodium [From Aleve] AdvReac lowers BP Verified 07/03/24 17:22 bandaid AdvReac pulls skin Uncoded 07/03/24 17:22 off Review of Systems ROS Statement: Those systems with pertinent positive or pertinent negative responses have been documented in the HPI. ROS Other: All systems not noted in ROS Statement are negative. Past Medical History Past Medical History: Atrial Fibrillation, Asthma, Cancer, Chest Pain / Angina, COPD, CVA/TIA, Diabetes Mellitus, Fibromyalgia, GERD/Reflux, Hyperlipidemia, Hypertension, Mitral Valve Prolapse (MVP), Osteoarthritis (OA), Pneumonia, Skin Disorder, Sleep Apnea/CPAP/BIPAP, Thyroid Disorder Additional Past Medical History / Comment(s): heart murmur, hx rheumatic fever, environmental allergies, hiatal hernia, hx IBS, skin dx called granuloma annulare, hx thyroid cancer, cancer rt breast, TIA- no residual effects, irregular heartbeat, leaking aortic and mitral valves, no cpap used, "severe acid reflux", sepsis after breast surgery History of Any Multi-Drug Resistant Organisms: None Reported Past Surgical History: Back Surgery, Breast Surgery, Cholecystectomy, Heart Catheterization, Heart Catheterization With Stent, Hysterectomy, Orthopedic Surgery Additional Past Surgical History / Comment(s): thyroidectomy, rt radical mastectomy,left mastectomy,constance breast reconstruction x 2-second implant (left breast) removed due to sepsis, cervical fusion x 2, titanium rods-lumbar, rt shoulder arthroscopy, constance cataracts, rt knee arthroscopy, COLONOSCOPY Past Anesthesia/Blood Transfusion Reactions: Previous Problems w/ Anesthesia, Postoperative Nausea & Vomiting (PONV) Additional Past Anesthesia/Blood Transfusion Reaction / Comment(s): woke up during EGD in past Date of Last Stent Placement:: UNK Past Psychological History: Anxiety Smoking Status: Never smoker Past Alcohol Use History: None Reported Past Drug Use History: None Reported - Past Family History Mother Family Medical History: Cancer Additional Family Medical History / Comment(s): kidney Sister(s) Family Medical History: Cancer Additional Family Medical History / Comment(s): esophageal Brother(s) Family Medical History: Cancer Additional Family Medical History / Comment(s): colon, thryoid cancer Daughter(s) Family Medical History: Cancer Additional Family Medical History / Comment(s): skin General Exam Limitations: no limitations General appearance: alert, in no apparent distress Head exam: Present: atraumatic, normocephalic, normal inspection Eye exam: Present: normal appearance, PERRL, EOMI. Absent: scleral icterus, conjunctival injection, periorbital swelling ENT exam: Present: normal exam, normal oropharynx, mucous membranes moist Neck exam: Present: normal inspection. Absent: tenderness, meningismus, lymphadenopathy Respiratory exam: Present: normal lung sounds bilaterally. Absent: respiratory distress, wheezes, rales, rhonchi, stridor Cardiovascular Exam: Present: regular rate, normal rhythm, normal heart sounds. Absent: systolic murmur, diastolic murmur, rubs, gallop, clicks GI/Abdominal exam: Present: soft, normal bowel sounds. Absent: distended, tenderness, guarding, rebound, rigid Back exam: Absent: CVA tenderness (R), CVA tenderness (L) Neurological exam: Present: alert, oriented X3 Course Vital Signs 03/21/25 03/21/25 08:33 10:11 Temperature 98.7 F Pulse Rate 57 L 67 Respiratory 16 Rate Blood Pressure 147/64 132/77 O2 Sat by Pulse 98 Oximetry EKG Findings - EKG Comments: EKG Findings:: EKG performed at 8: 35 sinus bradycardia rate of 55 CT 140 QRS 101 QT/QTc 441/429 - EKG Results: EKG: interpreted by BRITTANY Medical Decision Making - Medical Decision Making Was pt. sent in by a medical professional or institution (, PA, F[employer], urgent care, hospital, or retirement...) When possible be specific @ -No Did you speak to anyone other than the patient for history (EMS, parent, family, police, friend...)? What history was obtained from this source @ -No Did you review nursing and triage notes (agree or disagree)? Why? @ -I reviewed and agree with nursing and triage notes Were old charts reviewed (outside hosp., previous admission, EMS record, old EKG, old radiological studies, urgent care reports/EKG's, retirement records)? Report findings @ -No old charts were reviewed Differential Diagnosis (chest pain, altered mental status, abdominal pain women, abdominal pain men, vaginal bleeding, weakness, fever, dyspnea, syncope, headache, dizziness, GI bleed, back pain, seizure, CVA, palpatations, mental health, musculoskeletal)? @ -Differential GI Bleed: Esophageal varices, aortoenteric fistula, Lizzy-Vaughan, gastritis, peptic ulcer disease, diverticulosis, inflammatory bowel disease, hemorrhoids, fissure, colitis, malignancy, Meckel's diverticulum, this is not meant to be an all-inclusive list. EKG interpreted by me (3pts min.). @ -As above X-rays interpreted by me (1pt min.). @ -None done CT interpreted by me (1pt min.). @ -CT abdomen pelvis with contrast showing distal sigmoid active bleeding, diverticulosis noted U/S interpreted by me (1pt. min.). @ -None done What testing was considered but not performed or refused? (CT, X-rays, U/S, labs)? Why? @ -None What meds were considered but not given or refused? Why? @ -None Did you discuss the management of the patient with other professionals (professionals i.e. , PA, [employer], lab, RT, psych nurse, social work supervisor, grind operator, teacher, president and chief operating officer, mattress spring encaser)? Give summary @ -Discussed the case with on-call surgeon recommended transfer for GI evaluation and interventional radiology evaluation as we do not have current services. Discussed the case with Dominic Bernice who accepts transfer. Was smoking cessation discussed for >3mins.? @ -No Was critical care preformed (if so, how long)? @ -35 minutes Were there social determinants of health that impacted care today? How? (Homelessness, low income, unemployed, alcoholism, drug addiction, transportation, low edu. Level, literacy, decrease access to med. care, senior living, rehab)? @ -No Was there de-escalation of care discussed even if they declined (Discuss DNR or withdrawal of care, Hospice)? DNR status @ -No What co-morbidities impacted this encounter? (DM, HTN, Smoking, COPD, CAD, Cancer, CVA, ARF, Chemo, Hep., AIDS, mental health diagnosis, sleep apnea, morbid obesity)? @ -None Was patient admitted / discharged? Hospital course, mention meds given and route, prescriptions, significant lab abnormalities, going to OR and other pertinent info. @ -Transferred to [facility]. Patient has active GI bleed. Patient does have hemoglobin 8.5 no hypotension. Patient was given Kcentra, TXA. Patient is on current Eliquis. Patient will closely monitored will be transferred to [facility] for further GI and radiology evaluation. Undiagnosed new problem with uncertain prognosis? @ -No Drug Therapy requiring intensive monitoring for toxicity (Heparin, Nitro, Insu maia, Cardizem)? @ -No Were any procedures done? @ -No Diagnosis/symptom? @ -GI bleed Acute, or Chronic, or Acute on Chronic? @ -Acute Uncomplicated (without systemic symptoms) or Complicated (systemic symptoms)? @ -Complicated Side effects of treatment? @ -No Exacerbation, Progression, or Severe Exacerbation? @ -No Poses a threat to life or bodily function? How? (Chest pain, USA, NE, pneumonia, PE, COPD, DKA, ARF, appy, cholecystitis, CVA, Diverticulitis, Homicidal, Suicidal, threat to staff... and all critical care pts) @ -Yes bleeding threat to cardiovascular function - Lab Data Result diagrams: 03/21/25 08:42 03/21/25 08:42 Lab Results 03/21/25 03/21/25 03/21/25 Range/Units 08:42 08:42 08:42 WBC 8.83 (4.50-10.00) 10*3/uL RBC 2.94 L (4.10-5.20) 10*6/uL Hgb 8.5 L (12.0-15.0) g/dL Hct 24.9 L (37.2-46.3) % MCV 84.7 (80.0-97.0) fL MCH 28.9 (27.0-32.0) pg MCHC 34.1 (32.0-37.0) g/dL Plt Count 224 (140-440) 10*3/uL MPV 10.1 (9.5-12.2) fL Immature Gran % (Auto) 0.2 % Neutrophils % 62.5 % Lymphocytes % 27.9 % Monocytes % 7.7 % Eosinophils % 1.4 % Basophils % 0.3 % Immature Gran # 0.02 (0.00-0.04) 10*3/uL Neutrophils # 5.52 (1.80-7.70) 10*3/uL Lymphocytes # 2.46 (0.90-5.00) 10*3/uL Monocytes # 0.68 (0.20-1.00) 10*3/uL Eosinophils # 0.12 (0.04-0.35) 10*3/uL Basophils # 0.03 (0.00-0.10) 10*3/uL PT 11.7 (10.0-12.5) sec INR 1.1 (<1.2) APTT 25.9 (22.0-30.0) sec Sodium 134 L (137-145) mmol/L Potassium 3.5 (3.5-5.1) mmol/L Chloride 100 (98-107) mmol/L Carbon Dioxide 28 (22-30) mmol/L Anion Gap 6 mmol/L BUN 36 H (7-17) mg/dL Creatinine 0.87 (0.52-1.04) mg/dL Est GFR (CKD-EPI)AfAm 72 (>60 ml/min/1.73 sqM) Est GFR (CKD-EPI)NonAf 63 (>60 ml/min/1.73 sqM) Glucose 129 H (74-99) mg/dL Plasma Lactic Acid Cosmo (0.7-2.0) mmol/L Calcium 8.6 (8.4-10.2) mg/dL Magnesium 1.5 L (1.6-2.3) mg/dL Total Bilirubin 0.7 (0.2-1.3) mg/dL AST 26 (14-36) U/L ALT 20 (4-34) U/L Alkaline Phosphatase 73 (38-126) U/L Troponin I (0.000-0.034) ng/mL Total Protein 6.1 L (6.3-8.2) g/dL Albumin 3.7 (3.5-5.0) g/dL Blood Type Blood Type Recheck Bld Type Recheck Status Antibody Screen Spec Expiration Date 03/21/25 03/21/25 03/21/25 Range/Units 08:42 08:42 09:02 WBC (4.50-10.00) 10*3/uL RBC (4.10-5.20) 10*6/uL Hgb (12.0-15.0) g/dL Hct (37.2-46.3) % MCV (80.0-97.0) fL MCH (27.0-32.0) pg MCHC (32.0-37.0) g/dL Plt Count (140-440) 10*3/uL MPV (9.5-12.2) fL Immature Gran % (Auto) % Neutrophils % % Lymphocytes % % Monocytes % % Eosinophils % % Basophils % % Immature Gran # (0.00-0.04) 10*3/uL Neutrophils # (1.80-7.70) 10*3/uL Lymphocytes # (0.90-5.00) 10*3/uL Monocytes # (0.20-1.00) 10*3/uL Eosinophils # (0.04-0.35) 10*3/uL Basophils # (0.00-0.10) 10*3/uL PT (10.0-12.5) sec INR (<1.2) APTT (22.0-30.0) sec Sodium (137-145) mmol/L Potassium (3.5-5.1) mmol/L Chloride (98-107) mmol/L Carbon Dioxide (22-30) mmol/L Anion Gap mmol/L BUN (7-17) mg/dL Creatinine (0.52-1.04) mg/dL Est GFR (CKD-EPI)AfAm (>60 ml/min/1.73 sqM) Est GFR (CKD-EPI)NonAf (>60 ml/min/1.73 sqM) Glucose (74-99) mg/dL Plasma Lactic Acid Cosmo 1.1 (0.7-2.0) mmol/L Calcium (8.4-10.2) mg/dL Magnesium (1.6-2.3) mg/dL Total Bilirubin (0.2-1.3) mg/dL AST (14-36) U/L ALT (4-34) U/L Alkaline Phosphatase (38-126) U/L Troponin I <0.012 (0.000-0.034) ng/mL Total Protein (6.3-8.2) g/dL Albumin (3.5-5.0) g/dL Blood Type O Negative Blood Type Recheck O Neg Bld Type Recheck Status No Antibody Screen NEGATIVE Spec Expiration Date 03/24/20252341 Critical Care Time Critical Care Time: Yes Total Critical Care Time: 35 Disposition Clinical Impression: GI bleed, Anemia Disposition: OTHER INSTITUTION NOT DEFINED Condition: Serious Referrals: Eduardo Fry MD [Primary Care Provider] - 1-2 days Time of Disposition: 11:43 - Out of Hospital Transfer - Req. Specs Out of Hospital Transfer - Requested Specifics: Other Emergency Center ([facility])
--- NOTE | 2025-03-21 10:36 | CT ---
EXAMINATION TYPE: CT abdomen pelvis w con DATE OF EXAM: 03/21/2025 10:11 AM COMPARISON: CT 03/18/2024 CLINICAL INDICATION: Female, 79 years old with history of pain, bleeding; Had 5 bright red bloody sto ols with clots since 3 am, has been fatigued and weak the past few weeks. Takes a blood thinner. Has been receiving iron infusions over the past few months. Currently taking antibiotic for a UTI. TECHNIQUE: CT of the abdomen and pelvis after IV contrast. Delayed images through the kidneys were ob tained. Sagittal and coronal reformats were created on a separate workstation. Contrast used:100 ml mL of Isovue 300 with IV Contrast, CT DLP: 1075.3 mGycm, Automated exposure control for dose reduction was used. FINDINGS: LOWER CHEST: Heart upper limits of normal in size. Scattered coronary artery calcifications. Minimal strandy atelectasis lung bases. No pleural effusion. ABDOMEN LIVER: Unremarkable GALLBLADDER AND BILE DUCTS: Gallbladder surgically absent. No biliary ductal dilatation. PANCREAS: Unremarkable. SPLEEN: Unremarkable. ADRENAL GLANDS: Unremarkable. KIDNEYS AND URETERS: No evidence of hydronephrosis or renal calculus. The ureters are unremarkable. PELVIS BLADDER: Partially distended. REPRODUCTIVE: Uterus surgically absent. Ovaries not well seen. Punctate pelvic phleboliths. No abnorm al fluid collection in the pelvis. ABDOMEN & PELVIS STOMACH AND BOWEL: Tiny hiatal hernia. Diffuse fold thickening throughout the stomach. No evidence of bowel obstruction. There is left sided clonic diverticulosis, extensive within the sigmoid colon. Th ere appears to be chronic sigmoid wall thickening, similar to 03/18/2024. However, there is intralumin al contrast density at the level of the distal sigmoid colon. Scattered mild stool. PERITONEUM/RETROPERITONEUM: No evidence of pneumoperitoneum or free fluid. VASCULATURE: Mild atherosclerotic calcifications abdominal aorta without aneurysm. MUSCULOSKELETAL: L3-L4 posterior and interbody lumbar fusion. DISH in the visualized lower thoracic s pine. LYMPH NODES: No gross evidence for lymphadenopathy. SOFT TISSUE/ABDOMINAL WALL: Unremarkable IMPRESSION: 1. Left-sided colonic diverticulosis, extensive within the sigmoid colon. There is chronic wall thic kening here suggesting chronic diverticulitis. 2. However, in addition, there is intraluminal contrast density in the distal sigmoid colon. Findings suggest active GI bleed. Critical findings called to Dr. Stratton in the ER at 10:33 AM. 3. Diffuse gastric fold thickening. Correlate for any symptoms of gastritis. [facility], , 03/21/2025 10:34 AM
[2025-03-21 11:42] VITALS: BP 126/81; PULSE 87; TEMP 98.8
== END 2025-03-21 12:02 | disposition other institution (70) ==
LOC: EC 08:19
DX: K92.1 Melena (principal); D64.9 Anemia, unspecified; Z88.6 Allergy status to analgesic agent; Z91.048 Other nonmedicinal substance allergy status; Z88.8 Allergy status to other drugs, medicaments and biological substances; Z79.01 Long term (current) use of anticoagulants
CPT/HCPCS: 36415; 86900; 86901; 80053; 83605; 83735; 84484; 85025; 85610; 85730; 86850; 74177; 99291; 96365; 96366; 96375 ×2; Q9967; J2470; J7165